=== PATIENT | female | born 1940 | race Caucasian/White ===

== ENCOUNTER → 2018-06-12 | Outpatient (REF) ==
[~2018-06-12] MED LIST: /MOXI40TA OR; ACET500C OR; AMLO2.5T3 PO; BACIOIN13 EXT; BACITRACIN TOP; CAPT12.5 OR; CAPT125TA OR; CARV3.12 PO; CLAR10CA3 PO; CLAR5CHW OR; CORE3.12 OR; FURO20TA2 OR; FURO20TA2 PO; IBUP800T OR; KLOR10TA76 PO; MAGN500T2 OR; NORV5TAB OR; NYSTATIN POWDER TOP; POTA20TA2 OR; PRIL20CA9 PO; PRIL40CA OR; methylprednisolone PO; premarin PO; tylenol OR
[2018-06-12 11:06] LABS: BLOOD UREA NITROGEN 12 MG/DL (7-18); CALCIUM LEVEL 8.9 MG/DL (8.8-10.2); CARBON DIOXIDE LEVEL 29 MEQ/L (21-32); CHLORIDE LEVEL 100 MEQ/L (98-107); CREATININE FOR GFR 0.42 MG/DL (0.55-1.30); GLOMERULAR FILTRATION RATE > 60.0 (>39); GLUCOSE, FASTING 84 MG/DL (70-100); POTASSIUM SERUM 4.3 MEQ/L (3.5-5.1); SODIUM LEVEL 134 MEQ/L (136-145); THYROID STIMULATING HORMONE 0.204 uIU/ML (0.358-3.740)
[2018-06-13 10:28] LABS: FREE T4 1.28 NG/DL (0.76-1.46)
== END ==
LOC: SKLAB7 07:00
PROVIDERS: ATTEND Internal Medicine
DX: E87.1 Hypo-osmolality and hyponatremia (principal)

== ENCOUNTER → 2018-06-17 | Outpatient (REF) ==
[2018-06-17 08:13] LABS: HEMATOCRIT 35.5 % (36.0-47.0); HEMOGLOBIN 11.6 g/dl (12.0-15.5); MEAN CORPUSCULAR HEMOGLOBIN 36.1 pg (27.0-33.0); MEAN CORPUSCULAR HGB CONC 32.7 g/dl (32.0-36.5); MEAN CORPUSCULAR VOLUME 110.6 fl (80.0-96.0); PLATELET COUNT, AUTOMATED 373 10^3/uL (150-450); RED BLOOD COUNT 3.21 10^6/uL (4.00-5.40); WHITE BLOOD COUNT 6.9 10^3/uL (4.0-10.0)
== END ==
LOC: SKLAB7 07:00
PROVIDERS: ATTEND Internal Medicine
DX: D64.9 Anemia, unspecified (principal)

== ENCOUNTER → 2018-07-07 | Outpatient (REF) ==
[2018-07-07 08:29] LABS: ALBUMIN 3.9 GM/DL (3.2-5.2); ALT/SGPT 19 U/L (12-78); BILIRUBIN,TOTAL 0.6 MG/DL (0.2-1.0); BLOOD UREA NITROGEN 15 MG/DL (7-18); CALCIUM LEVEL 9.4 MG/DL (8.8-10.2); CARBON DIOXIDE LEVEL 27 MEQ/L (21-32); CHLORIDE LEVEL 102 MEQ/L (98-107); CREATININE FOR GFR 0.58 MG/DL (0.55-1.30); GLOMERULAR FILTRATION RATE > 60.0 (>39); GLUCOSE, FASTING 106 MG/DL (70-100); POTASSIUM SERUM 3.8 MEQ/L (3.5-5.1); SODIUM LEVEL 138 MEQ/L (136-145); THYROID STIMULATING HORMONE 0.467 uIU/ML (0.358-3.740); TOTAL PROTEIN 7.9 GM/DL (6.4-8.2)
[2018-07-07 11:22] LABS: TOTAL 25(OH) VITAMIN D 24.9 NG/ML (30.0-100.0)
== END ==
LOC: SKLAB7 07:08
PROVIDERS: ATTEND Internal Medicine
DX: F32.9 Major depressive disorder, single episode, unspecified (principal)

== ENCOUNTER → 2018-07-24 | Outpatient (REF) | payer MEDICARE, MEDICAID ==
[2018-07-24 14:08] LABS: HEMATOCRIT 40.1 % (36.0-47.0); HEMOGLOBIN 12.9 g/dl (12.0-15.5); MEAN CORPUSCULAR HEMOGLOBIN 33.5 pg (27.0-33.0); MEAN CORPUSCULAR HGB CONC 32.2 g/dl (32.0-36.5); MEAN CORPUSCULAR VOLUME 104.2 fl (80.0-96.0); PLATELET COUNT, AUTOMATED 262 10^3/uL (150-450); RED BLOOD COUNT 3.85 10^6/uL (4.00-5.40); WHITE BLOOD COUNT 7.3 10^3/uL (4.0-10.0)
[2018-07-24 14:19] LABS: BLOOD UREA NITROGEN 22 MG/DL (7-18); CALCIUM LEVEL 9.5 MG/DL (8.8-10.2); CARBON DIOXIDE LEVEL 28 MEQ/L (21-32); CHLORIDE LEVEL 104 MEQ/L (98-107); CREATININE FOR GFR 0.72 MG/DL (0.55-1.30); GLOMERULAR FILTRATION RATE > 60.0 (>39); GLUCOSE, FASTING 126 MG/DL (70-100); POTASSIUM SERUM 4.5 MEQ/L (3.5-5.1); SODIUM LEVEL 138 MEQ/L (136-145)
== END ==
LOC: SKLAB7 14:24
PROVIDERS: ATTEND Internal Medicine
DX: I48.91 Unspecified atrial fibrillation (principal); E87.1 Hypo-osmolality and hyponatremia

== ENCOUNTER 2018-08-09 14:24 | Emergency (ER) | payer MEDICARE, MEDICAID ==
[~2018-08-09] VITALS: Ht 142.2 cm; Wt 51.9 kg
[~2018-08-09 14:24] MED LIST changes: -/MOXI40TA OR; +AVEL1TAB2 OR; -BACIOIN13 EXT; -CAPT125TA OR; +CAPT125TA PO; +NEOSOI EXT
[2018-08-09] MEDS ORDERED: NS 500 ML IV ONE (14:45)
[2018-08-09] MEDS ORDERED: PANTOPRAZOLE 40MG INJ (PROTONIX) (C9113) IV ONE (14:45)
[2018-08-09] MEDS ORDERED: FURO40TA2 PO (14:51)
[2018-08-09] MEDS ORDERED: CALC1TAB21 PO (14:51)
[2018-08-09] MEDS ORDERED: ACET-683 PO (14:51)
[2018-08-09] MEDS ORDERED: OMEP20CA3 PO (14:51)
[2018-08-09] MEDS ORDERED: ELIQ2.5T PO (14:51)
[2018-08-09] MEDS ORDERED: DESI13CR2 TOP (14:51)
[2018-08-09] MEDS ORDERED: SERT25TA85 PO (14:51)
[2018-08-09] MEDS ORDERED: LOPE2CA PO (14:51)
[2018-08-09] MEDS ORDERED: MILK120011 PO (14:55)
[2018-08-09] MEDS ORDERED: OPTI0.5D5 OU (14:55)
[2018-08-09] MEDS ORDERED: AYR0.65S NARES (14:55)
[2018-08-09] MEDS ORDERED: VITA200015 PO (14:55)
[2018-08-09] MEDS ORDERED: CEPALOZ8 PO (14:55)
[2018-08-09] MEDS ORDERED: SIMV20TA2 PO (14:55)
[2018-08-09 14:58] LABS: BASO % 0.2 % (0.0-1.0); HEMATOCRIT 40.7 % (36.0-47.0); HEMOGLOBIN 13.4 g/dl (12.0-15.5); LYMPH # 1.7 10^3/uL (1.5-4.5); MEAN CORPUSCULAR HEMOGLOBIN 32.8 pg (27.0-33.0); MEAN CORPUSCULAR HGB CONC 32.9 g/dl (32.0-36.5); MEAN CORPUSCULAR VOLUME 99.5 fl (80.0-96.0); MONO # 0.7 10^3/uL (0.0-0.8); MONO % 12.9 % (0.0-5.0); NEUTROPHILS # 2.9 10^3/uL (1.8-7.7); NEUTROPHILS % 54.7 % (36.0-66.0); PLATELET COUNT, AUTOMATED 185 10^3/uL (150-450); RED BLOOD COUNT 4.09 10^6/uL (4.00-5.40); WHITE BLOOD COUNT 5.4 10^3/uL (4.0-10.0)
[2018-08-09] MEDS ORDERED: LOPERAMIDE 2 MG CAP PO ONE (15:00)
[2018-08-09 15:27] LABS: ALBUMIN 3.5 GM/DL (3.2-5.2); ALT/SGPT 19 U/L (12-78); BILIRUBIN,DIRECT 0.2 MG/DL (0.0-0.2); BILIRUBIN,TOTAL 0.4 MG/DL (0.2-1.0); BLOOD UREA NITROGEN 19 MG/DL (7-18); CALCIUM LEVEL 9.1 MG/DL (8.8-10.2); CARBON DIOXIDE LEVEL 25 MEQ/L (21-32); CHLORIDE LEVEL 106 MEQ/L (98-107); CREATININE FOR GFR 0.57 MG/DL (0.55-1.30); GLOMERULAR FILTRATION RATE > 60.0 (>39); GLUCOSE, FASTING 96 MG/DL (70-100); LIPASE 163 U/L (73-393); POTASSIUM SERUM 3.5 MEQ/L (3.5-5.1); SODIUM LEVEL 140 MEQ/L (136-145); TOTAL PROTEIN 7.2 GM/DL (6.4-8.2)
[2018-08-09 17:48] VITALS: BP 148/63
== END 2018-08-09 17:53 | disposition home or self-care (01) ==
LOC: M ED 14:24 → EDBD 14:24 → M ED 17:53
DX: R19.7 Diarrhea, unspecified (principal); I25.10 Atherosclerotic heart disease of native coronary artery without angina pectoris; E11.9 Type 2 diabetes mellitus without complications; I10 Essential (primary) hypertension; K21.9 Gastro-esophageal reflux disease without esophagitis; Z79.01 Long term (current) use of anticoagulants; Z79.899 Other long term (current) drug therapy
CPT/HCPCS: 80048; 80076; 81001; 83690; 85025; 96374; 99284; C9113

== ENCOUNTER → 2018-08-19 | Outpatient (REF) | payer MEDICARE, MEDICAID ==
[~2018-08-19] MED LIST changes: +ACET-683 PO; +AYR0.65S NARES; +CALC1TAB21 PO; +CEPALOZ8 PO; +DESI13CR2 TOP; +ELIQ2.5T PO; +FURO40TA2 PO; +LOPE2CA PO; +MILK120011 PO; +OMEP20CA3 PO; +OPTI0.5D5 OU; +SERT25TA85 PO; +SIMV20TA2 PO; +VITA200015 PO
[2018-08-20 11:00] LABS: AMORPHOUS SEDIMENT SMALL (NEGATIVE); BACTERIA, URINE AUTO 2+ (NEGATIVE); BILIRUBIN, URINE AUTO NEGATIVE (NEGATIVE); BLOOD, URINE BLOOD 2+ (NEGATIVE); COLOR, URINE YELLOW (YELLOW); GLUCOSE, URINE (UA) AUTO NEGATIVE (NEGATIVE); GRANULAR CAST, URINE AUTO 3 /LPF; KETONE, URINE AUTO NEGATIVE (NEGATIVE); LEUKOCYTE ESTERASE, URINE AUTO 3+ (NEGATIVE); NITRITE, URINE AUTO NEGATIVE (NEGATIVE); PROTEIN, URINE AUTO NEGATIVE (NEGATIVE); RBC, URINE AUTO 32 /HPF (0-3); SPECIFIC GRAVITY URINE AUTO 1.019 (1.002-1.035); SQUAMOUS EPITHELIAL CELL UR AU 3 /HPF (0-6); UROBILINOGEN, URINE AUTO 0.2 mg/dL (0.0-2.0); WBC, URINE AUTO TNTC /HPF (0-3)
[2018-08-20 11:06] LABS: APPEARANCE, URINE CLOUDY (CLEAR)
== END ==
PROVIDERS: ATTEND Family Medicine
DX: R32 Unspecified urinary incontinence (principal)

== ENCOUNTER → 2018-11-25 | Outpatient (REF) | payer MEDICARE, MEDICAID ==
[~2018-11-25] MED LIST changes: -OMEP20CA3 PO; +OMEP20CA4 PO
[2018-11-25 08:23] LABS: HEMATOCRIT 28.3 % (36.0-47.0); HEMOGLOBIN 9.1 g/dl (12.0-15.5); MEAN CORPUSCULAR HEMOGLOBIN 27.2 pg (27.0-33.0); MEAN CORPUSCULAR HGB CONC 32.2 g/dl (32.0-36.5); MEAN CORPUSCULAR VOLUME 84.5 fl (80.0-96.0); PLATELET COUNT, AUTOMATED 290 10^3/uL (150-450); RED BLOOD COUNT 3.35 10^6/uL (4.00-5.40); WHITE BLOOD COUNT 6.2 10^3/uL (4.0-10.0)
[2018-11-25 08:58] LABS: ALBUMIN 3.9 GM/DL (3.2-5.2); ALT/SGPT 13 U/L (12-78); BILIRUBIN,TOTAL 0.4 MG/DL (0.2-1.0); BLOOD UREA NITROGEN 14 MG/DL (7-18); CALCIUM LEVEL 9.4 MG/DL (8.8-10.2); CARBON DIOXIDE LEVEL 29 MEQ/L (21-32); CHLORIDE LEVEL 99 MEQ/L (98-107); CHOLESTEROL LEVEL 176 MG/DL (<200); CHOLESTEROL RISK RATIO 1.934 (<5); CPK CREATINE PHOSPHOKINASE 53 U/L (26-192); CREATININE FOR GFR 0.54 MG/DL (0.55-1.30); GLOMERULAR FILTRATION RATE > 60.0 (>39); GLUCOSE, FASTING 86 MG/DL (70-100); HDL CHOLESTEROL 91 MG/DL (>40); LDL CHOLESTEROL 64 MG/DL (<100); NON-HDL-C 85 MG/DL; NT-PRO BNP 916 PG/ML (<450); POTASSIUM SERUM 4.3 MEQ/L (3.5-5.1); SODIUM LEVEL 133 MEQ/L (136-145); THYROID STIMULATING HORMONE 0.462 uIU/ML (0.358-3.740); TOTAL PROTEIN 7.9 GM/DL (6.4-8.2); TRIGLYCERIDES LEVEL 105 MG/DL (<150)
[2018-11-25 09:57] LABS: TOTAL 25(OH) VITAMIN D 21.6 NG/ML (30.0-100.0)
== END ==
PROVIDERS: ATTEND Family Medicine
DX: I10 Essential (primary) hypertension (principal); E78.2 Mixed hyperlipidemia; I50.9 Heart failure, unspecified; E55.9 Vitamin D deficiency, unspecified; Z79.899 Other long term (current) drug therapy

== ENCOUNTER → 2019-01-06 | Outpatient (REF) | payer MEDICARE, MEDICAID ==
[2019-01-06 09:49] LABS: HEMATOCRIT 31.1 % (36.0-47.0); HEMOGLOBIN 9.4 g/dl (12.0-15.5); MEAN CORPUSCULAR HEMOGLOBIN 23.2 pg (27.0-33.0); MEAN CORPUSCULAR HGB CONC 30.2 g/dl (32.0-36.5); MEAN CORPUSCULAR VOLUME 76.8 fl (80.0-96.0); PLATELET COUNT, AUTOMATED 294 10^3/uL (150-450); RED BLOOD COUNT 4.05 10^6/uL (4.00-5.40); WHITE BLOOD COUNT 5.7 10^3/uL (4.0-10.0)
[2019-01-06 10:31] LABS: ALT/SGPT 13 U/L (12-78); BILIRUBIN,TOTAL 0.4 MG/DL (0.2-1.0); BLOOD UREA NITROGEN 19 MG/DL (7-18); CALCIUM LEVEL 9.7 MG/DL (8.8-10.2); CARBON DIOXIDE LEVEL 31 MEQ/L (21-32); CHLORIDE LEVEL 101 MEQ/L (98-107); GLOMERULAR FILTRATION RATE > 60.0 (>39); GLUCOSE, FASTING 85 MG/DL (70-100); NT-PRO BNP 718 PG/ML (<450); POTASSIUM SERUM 4.6 MEQ/L (3.5-5.1); SODIUM LEVEL 135 MEQ/L (136-145); THYROID STIMULATING HORMONE 0.429 uIU/ML (0.358-3.740); TOTAL 25(OH) VITAMIN D 28.8 NG/ML (30.0-100.0)
== END ==
PROVIDERS: ATTEND Family Medicine
DX: I11.0 Hypertensive heart disease with heart failure (principal); I50.9 Heart failure, unspecified; I48.1 Persistent atrial fibrillation; E55.9 Vitamin D deficiency, unspecified

== ENCOUNTER → 2019-01-20 | Outpatient (REF) | payer MEDICARE, MEDICAID ==
[2019-01-20 10:26] LABS: HEMATOCRIT 31.9 % (36.0-47.0); HEMOGLOBIN 9.8 g/dl (12.0-15.5); MEAN CORPUSCULAR HEMOGLOBIN 23.7 pg (27.0-33.0); MEAN CORPUSCULAR HGB CONC 30.7 g/dl (32.0-36.5); MEAN CORPUSCULAR VOLUME 77.2 fl (80.0-96.0); PLATELET COUNT, AUTOMATED 316 10^3/uL (150-450); RED BLOOD COUNT 4.13 10^6/uL (4.00-5.40); WHITE BLOOD COUNT 7.2 10^3/uL (4.0-10.0)
[2019-01-20 10:40] LABS: BLOOD UREA NITROGEN 19 MG/DL (7-18); CALCIUM LEVEL 10.1 MG/DL (8.8-10.2); CARBON DIOXIDE LEVEL 26 MEQ/L (21-32); CHLORIDE LEVEL 100 MEQ/L (98-107); GLOMERULAR FILTRATION RATE > 60.0 (>39); GLUCOSE, FASTING 87 MG/DL (70-100); IRON (FE) 24 UG/DL (50-170); POTASSIUM SERUM 4.6 MEQ/L (3.5-5.1); SODIUM LEVEL 135 MEQ/L (136-145); TOTAL IRON BINDING CAPACITY 482 UG/DL (250-450)
[2019-01-20 11:20] LABS: FOLATE 23.4 NG/ML (>5.4); TOTAL 25(OH) VITAMIN D 21.9 NG/ML (30.0-100.0); VITAMIN B12 LEVEL 878 PG/ML (247-911)
== END ==
PROVIDERS: ATTEND Family Medicine
DX: E55.9 Vitamin D deficiency, unspecified (principal); D50.9 Iron deficiency anemia, unspecified; E87.1 Hypo-osmolality and hyponatremia

== ENCOUNTER → 2019-03-17 | Outpatient (REF) | payer MEDICARE, MEDICAID | PROVIDERS: ATTEND Family Medicine | DX: D64.9 Anemia, unspecified (principal); Z79.899 Other long term (current) drug therapy ==

== ENCOUNTER 2019-04-08 13:57 | Emergency (ER) | payer MEDICARE, MEDICAID ==
[~2019-04-08] VITALS: Ht 149.9 cm; Wt 57.3 kg
[~2019-04-08 13:57] MED LIST changes: -SIMV20TA2 PO; +SIMV20TA22 PO
[2019-04-08] MEDS ORDERED: SPIR-10 PO (14:42)
[2019-04-08] MEDS ORDERED: MAALSUS19 PO (14:42)
[2019-04-08] MEDS ORDERED: COUG5LIQ PO (14:42)
[2019-04-08] MEDS ORDERED: SERT-141 PO (14:42)
[2019-04-08] MEDS ORDERED: CALC1TAB82 PO (14:42)
[2019-04-08] MEDS ORDERED: ASCO500T PO (14:42)
[2019-04-08] MEDS ORDERED: MYLASSUD PO (14:42)
[2019-04-08] MEDS ORDERED: FERR1TAB8 PO (14:42)
[2019-04-08] MEDS ORDERED: MOM30SS2 PO (14:42)
[2019-04-08 15:31] VITALS: BP 139/67
== END 2019-04-08 16:23 | disposition home or self-care (01) ==
LOC: M ED 13:57
DX: N81.10 Cystocele, unspecified (principal); N89.8 Other specified noninflammatory disorders of vagina; I10 Essential (primary) hypertension; K21.9 Gastro-esophageal reflux disease without esophagitis; Z79.899 Other long term (current) drug therapy; Z79.01 Long term (current) use of anticoagulants

== ENCOUNTER → 2019-06-22 | Outpatient (REF) | payer MEDICARE, MEDICAID ==
[~2019-06-22] MED LIST changes: +ASCO500T PO; +CALC1TAB82 PO; +COUG5LIQ PO; +FERR1TAB8 PO; +MAALSUS19 PO; +MOM30SS2 PO; +MYLASSUD PO; +OMEP1CAP73 PO; -OMEP20CA4 PO; +SERT-141 PO; +SPIR-10 PO
[2019-06-22 11:50] LABS: BASO % 0.1 % (0.0-1.0); EOS % 0.1 % (0.0-3.0); HEMATOCRIT 40.6 % (36.0-47.0); HEMOGLOBIN 13.5 g/dl (12.0-15.5); LYMPH # 2.3 10^3/uL (1.5-5.0); LYMPH % 34.5 % (24.0-44.0); MEAN CORPUSCULAR HEMOGLOBIN 31.1 pg (27.0-33.0); MEAN CORPUSCULAR HGB CONC 33.3 g/dl (32.0-36.5); MEAN CORPUSCULAR VOLUME 93.5 fl (80.0-96.0); MONO # 0.6 10^3/uL (0.0-0.8); MONO % 8.7 % (0.0-5.0); NEUTROPHILS # 3.8 10^3/uL (1.5-8.5); NEUTROPHILS % 56.5 % (36.0-66.0); PLATELET COUNT, AUTOMATED 257 10^3/uL (150-450); RED BLOOD COUNT 4.34 10^6/uL (4.00-5.40); WHITE BLOOD COUNT 6.7 10^3/uL (4.0-10.0)
[2019-06-22 12:28] LABS: ALBUMIN 4.4 GM/DL (3.2-5.2); ALT/SGPT 18 U/L (12-78); BILIRUBIN,TOTAL 0.6 MG/DL (0.2-1.0); BLOOD UREA NITROGEN 22 MG/DL (7-18); CALCIUM LEVEL 10.2 MG/DL (8.8-10.2); CARBON DIOXIDE LEVEL 28 MEQ/L (21-32); CHLORIDE LEVEL 95 MEQ/L (98-107); CHOLESTEROL LEVEL 164 MG/DL (<200); CHOLESTEROL RISK RATIO 2.075 (<5); CREATININE FOR GFR 0.76 MG/DL (0.55-1.30); GLOMERULAR FILTRATION RATE > 60.0 (>39); GLUCOSE, FASTING 100 MG/DL (70-100); HDL CHOLESTEROL 79 MG/DL (>40); IRON (FE) 98 UG/DL (50-170); LDL CHOLESTEROL 68 MG/DL (<100); NON-HDL-C 85 MG/DL; PERCENT SATURATION 26.1 % (13.2-45.0); POTASSIUM SERUM 4.4 MEQ/L (3.5-5.1); SODIUM LEVEL 130 MEQ/L (136-145); TOTAL IRON BINDING CAPACITY 376 UG/DL (250-450); TOTAL PROTEIN 8.5 GM/DL (6.4-8.2); TRIGLYCERIDES LEVEL 85 MG/DL (<150)
[2019-06-22 12:43] LABS: TOTAL 25(OH) VITAMIN D 29.8 NG/ML (30.0-100.0)
== END ==
PROVIDERS: ATTEND Family Medicine
DX: D50.8 Other iron deficiency anemias (principal); I10 Essential (primary) hypertension; E55.9 Vitamin D deficiency, unspecified; Z79.899 Other long term (current) drug therapy

== ENCOUNTER → 2019-07-14 | Outpatient (REF) | payer MEDICARE, MEDICAID ==
[~2019-07-14] MED LIST changes: +DEXT30SU29 PO; +DRIS50003 PO; +LOPE2TAB14 PO; +SERT-138 PO
== END ==
PROVIDERS: ATTEND Family Medicine
DX: E55.9 Vitamin D deficiency, unspecified (principal); E83.51 Hypocalcemia; Z79.899 Other long term (current) drug therapy

== ENCOUNTER 2019-07-26 06:04 | Inpatient (IN) | payer MEDICARE, MEDICAID ==
[~2019-07-26] VITALS: Ht 149.9 cm; Wt 56.5 kg
[~2019-07-26 06:04] MED LIST changes: -DEXT30SU29 PO; -DRIS50003 PO; -LOPE2TAB14 PO; -SERT-138 PO
[2019-07-26] MEDS ORDERED: SERT-138 PO (06:44)
[2019-07-26] MEDS ORDERED: LOPE2TAB14 PO (06:44)
[2019-07-26] MEDS ORDERED: DEXT30SU29 PO (06:44)
[2019-07-26] MEDS ORDERED: DRIS50003 PO (06:44)
[2019-07-26 06:59] LABS: BASO % 0.2 % (0.0-1.0); HEMATOCRIT 38.2 % (36.0-47.0); HEMOGLOBIN 12.9 g/dl (12.0-15.5); LYMPH # 1.6 10^3/uL (1.5-5.0); LYMPH % 19.1 % (24.0-44.0); MEAN CORPUSCULAR HEMOGLOBIN 31.5 pg (27.0-33.0); MEAN CORPUSCULAR HGB CONC 33.8 g/dl (32.0-36.5); MEAN CORPUSCULAR VOLUME 93.4 fl (80.0-96.0); MONO # 0.7 10^3/uL (0.0-0.8); MONO % 8.1 % (0.0-5.0); NEUTROPHILS # 6.1 10^3/uL (1.5-8.5); NEUTROPHILS % 72.1 % (36.0-66.0); PLATELET COUNT, AUTOMATED 195 10^3/uL (150-450); RED BLOOD COUNT 4.09 10^6/uL (4.00-5.40); WHITE BLOOD COUNT 8.5 10^3/uL (4.0-10.0)
[2019-07-26 07:16] LABS: INR 1.11; PARTIAL THROMBOPLASTIN TIME 33.8 SECONDS (25.0-38.4)
[2019-07-26 07:28] LABS: ALBUMIN 4.4 GM/DL (3.2-5.2); ALT/SGPT 23 U/L (12-78); BILIRUBIN,DIRECT 0.2 MG/DL (0.0-0.2); BILIRUBIN,TOTAL 0.6 MG/DL (0.2-1.0); BLOOD UREA NITROGEN 11 MG/DL (7-18); CALCIUM LEVEL 9.5 MG/DL (8.8-10.2); CARBON DIOXIDE LEVEL 28 MEQ/L (21-32); CHLORIDE LEVEL 96 MEQ/L (98-107); CPK CREATINE PHOSPHOKINASE 205 U/L (26-192); CREATININE FOR GFR 0.54 MG/DL (0.55-1.30); GLOMERULAR FILTRATION RATE > 60.0 (>39); GLUCOSE, FASTING 102 MG/DL (70-100); MB/CK RELATIVE INDEX 1.46 (< OR =4); POTASSIUM SERUM 3.6 MEQ/L (3.5-5.1); SODIUM LEVEL 130 MEQ/L (136-145); THYROID STIMULATING HORMONE 0.384 uIU/ML (0.358-3.740); TOTAL PROTEIN 8.2 GM/DL (6.4-8.2); TROPONIN I < 0.02 NG/ML (< 0.10)
--- NOTE | 2019-07-26 07:30 | REPVR ---
PROCEDURE INFORMATION: Exam: CT Head Without Contrast Exam date and time: 07/26/2019 7:16 AM Age: 79 years old Clinical indication: Injury or trauma; Fall; Initial encounter; Blunt trauma (contusions or hematomas); Consciousness not specified TECHNIQUE: Imaging protocol: Computed tomography of the head without contrast. Radiation optimization: All CT scans at this facility use at least one of these dose optimization techniques: automated exposure control; mA and/or kV adjustment per patient size (includes targeted exams where dose is matched to clinical indication); or iterative reconstruction. COMPARISON: No relevant prior studies available. FINDINGS: Brain: Moderate generalized cerebral volume loss and moderate patchy white matter hypoattenuation, commonly secondary to chronic small vessel ischemic change. Moderate intracranial atherosclerosis. No acute ischemic infarction. No acute intracranial hemorrhage. Ventricles: No ventriculomegaly. Bones/joints: No acute fracture. Sinuses: Visualized sinuses are unremarkable. No fluid levels. Mastoid air cells: Visualized mastoid air cells are well aerated. Soft tissues: Unremarkable. IMPRESSION: No acute intracranial abnormality. Electronically signed by: Alexandre Garnett On 07/26/2019 07:29:39 AM
[2019-07-26] MEDS ORDERED: NS 1,000 ML IV ONE (10:15)
[2019-07-26] MEDS ORDERED: ACETAMINOPHEN 325 MG TAB PO ONE (10:30)
--- NOTE | 2019-07-26 12:17 | REP ---
REASON FOR EXAM: Trauma. AP and cross-table lateral views of the left femur show lucency in the posterior femoral diaphysis, suggestive of a fracture. The exam is markedly limited. IMPRESSION: Possible distal left femoral fracture. CT is recommended. Electronically Signed by Kumar Nicolas DO 07/26/2019 12:21 P
--- NOTE | 2019-07-26 12:21 | REP ---
REASON: Pain after trauma. The examination is limited by artifact. I cannot rule out a fracture involving the greater trochanter of the left femur. The bones are markedly demineralized. Additional pelvic fractures cannot be ruled out. Bony pelvic CT, including the left hip, is recommended. Electronically Signed by Kumar Nicolas DO 07/26/2019 12:23 P
--- NOTE | 2019-07-26 12:23 | REP ---
REASON: Pain after trauma. COMPARISON: The latest prior two-view of 01/01/2011. Lung price are hypoexpanded. This crowds the vascularity and simulates abnormal opacities. The cardiac silhouette is also magnified by AP technique. When the examination is compared to the latest prior exam of 01/01/2011, there are no gross changes other than technique. There is no definite acute cardiopulmonary disease. Electronically Signed by Kumar Nicolas DO 07/26/2019 12:34 P
--- NOTE | 2019-07-26 12:26 | REP ---
REASON: Pain after trauma. PRIORS: None. The exam is limited. The cross-table lateral view is nondiagnostic. I cannot rule out a hip fracture. Left hip CT is recommended. Electronically Signed by Kumar Nicolas DO 07/26/2019 12:34 P
--- NOTE | 2019-07-26 12:29 | REP ---
REASON: Pain after trauma. PRIORS: None. The exam is limited by technique. There is no true AP, and the lateral views are cross-table lateral. The bones are markedly demineralized. I see no evidence of a gross fracture. Please see the left knee and left femur reports. The distal fibula cannot be well assessed by this exam, nor can the posterior malleolus. If the patient has ankle pain, consider an ankle series. Electronically Signed by Kumar Nicolas DO 07/26/2019 12:34 P
[2019-07-26] MEDS ORDERED: DEXTROMETHORPHAN 60MG/10ML SUSP 90ML BTL(DELSYM) PO PRN (12:45)
[2019-07-26] MEDS ORDERED: MAALOX 30 ML SUSP *UDC PO PRN (12:45)
[2019-07-26] MEDS ORDERED: LOPERAMIDE 2 MG CAPLET PO PRN (12:45)
[2019-07-26] MEDS ORDERED: SODIUM CHLORIDE NASAL 0.65% SPRAY BTL (OCEAN) PRN (12:45)
--- NOTE | 2019-07-26 13:08 | REP ---
The exam is limited by technique. The bones are demineralized. There is a lucency seen in the distal femur. I suspect this represents a fracture; however, CT is recommended. In addition, there is a slight overhanging cortex involving the medial tibial metaphysis, also possibly representing a slight compression fracture. CT should include the proximal tibia. Electronically Signed by Kumar Nicolas DO 07/26/2019 01:23 P
--- NOTE | 2019-07-26 13:29 | HPEPDOC ---
General Date of Admission Jul 26, 2019 at 12:39 Date of Service: Jul 26, 2019 Chief Complaint The patient is a 79-year-old female admitted with a reason for visit of Lt Femur Fx. Source: Patient, Family Exam Limitations: Mild cognitive slowing Timing/Duration: 4-6 hours Severity: Moderate Associated Symptoms: Mechanical fall History of Present Illness Patient is 79 years old female with past mental history of hypertension, paroxysmal atrial fibrillation, diastolic heart failure, chronic hyponatremia, chronic anemia brought to the hospital after mechanical fall. In emergency room patient was found to have left distal femur fracture on x-ray. CT head was negative. Lab workup showed no leukocytosis, hemoglobin 12.9, creatinine 0.54. Patient denied fever, chills, nausea, vomiting, diarrhea. Also patient denied chest pain, shortness of breath. Of note, patient had multiple falls in the past. Home Medications Scheduled Acetaminophen (Acetaminophen) 500 Mg Tab, 1,000 MG PO TID, (Reported) AT 0800, 1400, AND 2000. Apixaban (Eliquis) 2.5 Mg Tab, 2.5 MG PO BID, (Reported) Ascorbic Acid (Ascorbic Acid) 500 Mg Tablet, 500 MG PO TID, (Reported) Calcium Carbonate/Vitamin D3 (Calcium 600-Vit D3 400 Tablet) 1 Each Tablet, 1 TAB PO BID, (Reported) Captopril (Captopril) 12.5 Mg Tab, 12.5 MG PO DAILY, (Reported) Carboxymethylcellulos/Glycerin (Refresh Optive Eye Drops) 1 Devon Devon, 2 DROP OU BID, (Reported) Carvedilol (Carvedilol) 3.125 Mg Tab, 3.125 MG PO DAILY, (Reported) Ergocalciferol (Vitamin D2) (Drisdol) 1,250 Mcg Capsule, 1,250 MCG PO 1XWK, (Reported) SATURDAY Ferrous Sulfate (Ferrous Sulfate) 325 Mg Tablet, 325 MG PO TID, (Reported) Furosemide (Furosemide) 40 Mg Tab, 40 MG PO DAILY, (Reported) Loratadine (Claritin) 10 Mg Cap, 10 MG PO DAILY, (Reported) Omeprazole (Omeprazole) 20 Mg Cap, 20 MG PO DAILY, (Reported) Potassium Chloride (Klor-Con M10) 10 Meq Tabcr, 10 MEQ PO BID, (Reported) Sertraline HCl (Sertraline HCl) 100 Mg Tablet, 100 MG PO QHS, (Reported) 1999 Simvastatin (Simvastatin) 20 Mg Tab, 20 MG PO QHS, (Reported) Spironolactone (Spironolactone) 25 Mg Tablet, 12.5 MG PO DAILY, (Reported) Scheduled PRN Aluminum/Magnesium/Simeth (Mag-Al Plus Suspension) 30 Ml Oral.susp, 30 ML PO QID PRN for HEARTBURN, (Reported) Dextromethorphan Polistirex (Robitussin ER) 30 Mg/5 Ml Brooke.er.12h, 5 ML PO Q12H PRN for COUGH, (Reported) Loperamide HCl (Loperamide) 2 Mg Tablet, 4 MG PO ASDIRECTED PRN for AFTER EACH LOOSE STOOL, (Reported) 4MG, THEN 2MG AFTER EACH LOOSE STOOL Mag Hydrox/Aluminum Hyd/Simeth (Maalox Maximum Strength Susp) 355 Ml Oral.susp, 30 ML PO QID PRN for GERD, (Reported) Magnesium Hydroxide (Milk of Magnesia) 400 Mg/5 Ml Oral.susp, 2,400 MG PO DAILY PRN for CONSTIPATION, (Reported) Sodium Chloride (Ventura Saline) 0.65 % Spr, 2 SPRAYS NARES TID PRN for NASAL CONGESTION, (Reported) Zinc Oxide (Desitin) 13 % Cre, 1 APLCT TOP ASDIRECTED PRN for RASH/ITCHING, (R eported) Allergies Coded Allergies: No Known Allergies (Verified , 12/24/10) Past Medical History Medical History hypertension, paroxysmal atrial fibrillation, diastolic heart failure, chronic hyponatremia, chronic anemia Surgical History Repair of right femur Family History Mother had diabetes Social History * Smoker: Denies Alcohol: Denies Drugs: denies A-FIB/CHADSVASC A-FIB History Current/History of A-Fib/PAF?: Yes Current PO Anticoag Therapy: Yes Review of Systems Constitutional: Denies: Chills, Fever Eyes: Denies: Pain ENT: Denies: Head Aches Skin: Denies: Rash, Lesions Pulmonary: Denies: Dyspnea, Cough Cardiovascular: Denies: Chest Pain Gastrointestinal: Denies: Nausea, Vomiting Genitourinary: Reports: Dysuria, Frequency, Incontinence; Denies: Hematuria Hematologic: Denies: Bruising Endocrine: Denies: Polydipsia Musculoskeletal: Reports: Leg Pain; Denies: Neck Pain, Back Pain Neurological: Denies: Weakness Psych: Reports: Mood Normal Physical Examination General Exam: Positive: Alert, Cooperative Eye Exam: Positive: PERRLA, Conjunctiva & lids normal ENT Exam: Positive: Atraumatic Neck Exam: Positive: Supple; Negative: JVD Chest Exam: Positive: Clear to auscultation Heart Exam: Positive: Rate Normal, Irregular Rhythm Telemetry: Positive: Atrial fibrillation; Negative: No significant arrhythmia Abdomen Exam: Positive: Normal bowel sounds Extremity Exam: Negative: Clubbing Skin Exam: Positive: Nl turgor and temperature Neuro Exam: Positive: Strength at 5/5 X4 ext, Cranial Nerves 3-12 NL Psych Exam: Positive: Mental status NL Vital Signs Vital Signs Date Time Temp Pulse Resp B/P (MAP) Pulse Ox O2 Delivery O2 Flow Rate FiO2 07/26/19 12:34 89 07/26/19 12:30 16 125/77 (93) 07/26/19 10:04 95 07/26/19 06:20 98.5 Room Air Laboratory Data Labs 24H Laboratory Tests 2 07/26/19 06:32: Immature Granulocyte % (Auto) 0.5, Neutrophils (%) (Auto) 72.1H, Lymphocytes (%) (Auto) 19.1L, Monocytes (%) (Auto) 8.1H, Eosinophils (%) (Auto) 0.0, Basophils (%) (Auto) 0.2, Neutrophils # (Auto) 6.1, Lymphocytes # (Auto) 1.6, Monocytes # (Auto) 0.7, Eosinophils # (Auto) 0.0, Basophils # (Auto) 0.0, Nucleated Red Blood Cells % (auto) 0.0, Prothrombin Time 14.0, Prothromb Time International Ratio 1.11, Activated Partial Thromboplast Time 33.8, Anion Gap 6L, Glomerular Filtration Rate > 60.0, Lactic Acid Level 1.2, Calcium Level 9.5, Total Bilirubin 0.6, Direct Bilirubin 0.2, Aspartate Amino Transf (AST/SGOT) 22, Alanine Aminotransferase (ALT/SGPT) 23, Alkaline Phosphatase 73, Total Creatine Kinase 205H, Creatine Kinase MB 3.0, Creatine Kinase MB Relative Index 1.46, Troponin I < 0.02, Total Protein 8.2, Albumin 4.4, Albumin/Globulin Ratio 1.16, Thyroid Stimulating Hormone (TSH) 0.384 CBC/BMP Laboratory Tests 07/26/19 06:32 Microbiology Microbiology 07/26/19 Blood Culture, Received Pending Assessment/Plan Patient is 79 years old female with past mental history of hypertension, paroxysmal atrial fibrillation, diastolic heart failure, chronic hyponatremia, chronic anemia brought to the hospital after mechanical fall. In emergency room patient was found to have left distal femur fracture on x-ray. CT head was ne gative. Lab workup showed no leukocytosis, hemoglobin 12.9, creatinine 0.54. Patient denied fever, chills, nausea, vomiting, diarrhea. Also patient denied chest pain, shortness of breath. Of note, patient had multiple falls in the past. Problems (1) Femur fracture, left Status: Acute Problem Text: After mechanical fall Left leg x-ray showed distal femur fracture, pending CT Appreciate/agree with orthopedic surgeon consult RCRI is < 1, pt can proceed with orthopedic surgery (2) Fall Status: Acute Problem Text: See above PT/OT evaluation (3) Hypertension Status: Chronic Problem Text: Blood pressures under control Continue home meds (4) Diastolic heart failure Status: Chronic Problem Text: Not in acute exacerbation Continue Lasix by mouth (5) Atrial fibrillation Status: Chronic Problem Text: Heart rate is under control I will hold oral targeted anticoagulation therapy due to possible surgery today or tomorrow Plan / VTE VTE Prophylaxis Ordered?: Yes KAROL MONTOYA DO Jul 26, 2019 13:29
[2019-07-26] MEDS ORDERED: D5W/0.9% SODIUM CHLORIDE 1,000 ML IV SCH (14:00)
[2019-07-26] MEDS ORDERED: POTASSIUM CHLORIDE 10 MEQ SR TABLET PO ONE (14:00)
[2019-07-26] MEDS: OMEPRAZOLE 20 MG CAP PO SCH (14:37)
[2019-07-26] MEDS: CARVedilol 3.125 MG TAB PO SCH (14:37)
[2019-07-26] MEDS: ASCORBIC ACID 500 MG TAB PO SCH ×2 (14:38→20:07)
[2019-07-26] MEDS: FUROSEMIDE 40 MG TAB PO SCH (14:38)
[2019-07-26] MEDS: FERROUS SULFATE 325MG TAB PO SCH ×2 (14:42→20:07)
--- NOTE | 2019-07-26 15:20 | REP ---
REASON: Pain after trauma. PRIORS: None. The bones are demineralized. Chronic changes are seen involving the hips, sacroiliac joints, symphysis pubis, and imaged portion of the spine. There is no evidence of an acute fracture. 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 I have no priors for comparison. Electronically Signed by Kumar Nicolas DO 07/26/2019 03:27 P
--- NOTE | 2019-07-26 15:22 | REP ---
REASON: Recent trauma; assess for fracture. Limited plain film evaluation. There is a fracture of the distal femoral metaphysis through the lateral condyle. This has an intra-articular component. Bones are markedly demineralized. No definite additional fractures are noted. IMPRESSION: Distal femoral fracture with associated soft tissue swelling. Electronically Signed by Kumar Nicolas DO 07/26/2019 03:27 P
[2019-07-26 15:23] VITALS: BP 130/82
[2019-07-26] MEDS: CAPTOpril 12.5 MG TAB PO SCH (17:00)
[2019-07-26] MEDS: ACETAMINOPHEN TAB 650MG DOSE (2X325MG) PO PRN (19:43)
[2019-07-26] MEDS: POTASSIUM CHLORIDE 10 MEQ SR TABLET PO SCH (20:07)
[2019-07-26] MEDS: SIMVASTATIN 20 MG TAB PO SCH (20:07)
[2019-07-26] MEDS: SERTRALINE 100 MG TAB PO SCH (20:07)
[2019-07-26] MEDS ORDERED: HEPARIN SOD (PORCINE) 5000 UNITS/ML VIAL (J1644 PER 1000UNITS) SC SCH (21:00)
[2019-07-26 21:18] VITALS: BP 111/61
[2019-07-27] MEDS: ACETAMINOPHEN TAB 650MG DOSE (2X325MG) PO PRN ×5 (00:02→21:46)
[2019-07-27 05:16] VITALS: BP 120/70
[2019-07-27] MEDS: LR 1,000 ML IV SCH ×2 (05:57→21:48)
[2019-07-27] MEDS ORDERED: ceFAZolin SOD 2 GM in IV 1 EA IV SCH (06:00)
--- NOTE | 2019-07-27 06:32 | CR ---
DATE OF CONSULTATION: 07/26/2019 CHIEF COMPLAINT: Left distal femur fracture. HISTORY: This 79-year-old woman with a multiple medical comorbidities said that she was at home and came in after a mechanical fall at home and was complaining of left knee pain. She told me that she lives independently. CT of the head negative. No elevated white count. Hemoglobin 12.9, creatinine 0.54. The patient indicates the left knee is painful. The patient indicates that she had right knee surgery she thinks in [place] some years ago. The patient complains about only having Rice Krispies. MEDICATIONS AT HOME INCLUDE: - Tylenol - Eliquis - vitamin C - Captopril - eye drops - Carvedilol - ergocalciferol - iron - Lasix - loratadine - omeprazole - potassium chloride - sertraline - simvastatin - spironolactone ALLERGIES: NO KNOWN DRUG ALLERGIES. PAST MEDICAL HISTORY: 1. Hypertension. 2. Atrial fibrillation. 3. Heart failure. 4. Chronic hyponatremia. 5. Chronic anemia. 6. Some elements of cognitive decline. PAST SURGICAL HISTORY: Open reduction internal fixation (ORIF) of right knee, femur. FAMILY HISTORY: Noncontributory, maternal diabetes. SOCIAL HISTORY: She does not smoke, drink or do drugs. REVIEW OF SYSTEMS: She is not complaining of shortness of breath, blurry vision, ear, nose or throat problems. No shortness of breath, skin problems, chest pain, stomach pain, urinary symptoms, easy bruising, endocrine problems. She complains of left knee pain. She is not complaining of depression. She is not complaining of numbness. CLINICAL EXAMINATION: GENERAL: She is alert and cooperative; however, she seems to be confused and somewhat of a capable confabulater. In discussion with nursing she had asked for Rice Krispies for dinner, she had declined spaghetti for example. She asked me to get some sugar that she had in her bedside table yet the bedside table is empty, I suspect that is where she keeps the sugar at home. She seems to be confused. HEENT: Normocephalic, atraumatic. CHEST: No shortness of breath. ABDOMEN: No abdominal distension. EXTREMITIES: Tenderness around the left knee, mild edema. Calf is soft, she is in a knee immobilizer, left knee nontender. No effusion. IMAGING STUDIES: Supracondylar femoral fracture not displaced with some comminution. IMPRESSION: Supracondylar femoral fracture. RECOMMENDATIONS: I did review the CT scan as well as the plain films. This could be an operative intervention; however the other options could include nonoperative care in the knee immobilizer. I will plan to discuss that potential intervention with the patient's family member who was not present at the time of the exam. I did discuss potential intervention or conservative measures with the patient who did not really seem to understand completely the gravity of the situation there. If we consider a surgical intervention, we would consider that next week. I was asked to see this patient at the request of the emergency room as well as Dr. Light of the hospitalist service.
[2019-07-27 07:03] LABS: HEMATOCRIT 30.8 % (36.0-47.0); HEMOGLOBIN 10.4 g/dl (12.0-15.5); MEAN CORPUSCULAR HEMOGLOBIN 31.3 pg (27.0-33.0); MEAN CORPUSCULAR HGB CONC 33.8 g/dl (32.0-36.5); MEAN CORPUSCULAR VOLUME 92.8 fl (80.0-96.0); PLATELET COUNT, AUTOMATED 166 10^3/uL (150-450); RED BLOOD COUNT 3.32 10^6/uL (4.00-5.40); WHITE BLOOD COUNT 7.1 10^3/uL (4.0-10.0)
[2019-07-27 07:20] LABS: BLOOD UREA NITROGEN 11 MG/DL (7-18); CALCIUM LEVEL 8.9 MG/DL (8.8-10.2); CARBON DIOXIDE LEVEL 25 MEQ/L (21-32); CHLORIDE LEVEL 99 MEQ/L (98-107); CREATININE FOR GFR 0.43 MG/DL (0.55-1.30); GLOMERULAR FILTRATION RATE > 60.0 (>39); GLUCOSE, FASTING 107 MG/DL (70-100); MAGNESIUM LEVEL 2.1 MG/DL (1.8-2.4); SODIUM LEVEL 132 MEQ/L (136-145)
--- NOTE | 2019-07-27 07:22 | ECGEPIP ---
[facility] - ED Test Date: 2019-07-26 Pat Name: RICHA DIAZ Department: Room: - Gender: Female Skein Drier: svennoel : 1940 Requested By: Ellis Stone Order Number: [id number] Reading MD: Tatiana Louis Measurements Intervals Conde Rate: 90 P: 81 WI: 253 QRS: -4 QRSD: 86 T: 14 QT: 355 QTc: 435 Interpretive Statements SINUS RHYTHM WITH FIRST DEGREE AV BLOCK SEPTAL MYOCARDIAL INFARCTION, PROBABLY OLD NSTTW abnormalities NO PRIOR Electronically Signed on 07-27-2019 7:22:11 EDT by Tatiana Louis
[2019-07-27] MEDS: HEPARIN SOD (PORCINE) 5000 UNITS/ML VIAL (J1644 PER 1000UNITS) SQ SCH ×2 (08:53→21:46)
[2019-07-27] MEDS: FUROSEMIDE 40 MG TAB PO SCH (08:53)
[2019-07-27] MEDS: ASCORBIC ACID 500 MG TAB PO SCH ×3 (08:53→21:47)
[2019-07-27] MEDS: CARVedilol 3.125 MG TAB PO SCH (08:55)
[2019-07-27] MEDS: POTASSIUM CHLORIDE 10 MEQ SR TABLET PO SCH ×2 (08:55→21:47)
[2019-07-27] MEDS: OMEPRAZOLE 20 MG CAP PO SCH (08:55)
[2019-07-27] MEDS: LORATADINE 10 MG TAB PO SCH (08:55)
[2019-07-27] MEDS: FERROUS SULFATE 325MG TAB PO SCH ×3 (08:56→21:47)
[2019-07-27] MEDS: CAPTOpril 12.5 MG TAB PO SCH (08:56)
[2019-07-27] MEDS: SPIRONOLACTONE 12.5MG PER 1/2 TABLET PO SCH (08:56)
[2019-07-27 14:00] VITALS: BP 102/62
--- NOTE | 2019-07-27 14:30 | IPNPDOC ---
Date Seen The patient was seen on 07/27/19. Progress Note SUBJECTIVE: Patient was seen and examined this morning. There have been no adverse events reported overnight. She states that has pain in her left leg however it is fairly controlled. She denies any nausea or vomiting. She denies diarrhea or constipation. She denies shortness of breath or chest pain. Patient NPO overnight with hopes of possible surgery today. Unfortunately patient had been taking Eliquis at home OBJECTIVE PHYSICAL EXAMINATION: VITAL SIGNS: Please see below. GENERAL: Awake, alert and oriented. Appear in no acute distress. Lying comfortably in bed HEENT: Atraumatic, normocephalic. eyes are nonicteric. Trachea is midline. Patients neck is hyperextended. Mucous membranes are pink and moist CARDIOVASCULAR: Normal S1, S2. Irregularly irregular rhythm. Regular rate. No cl icks, rubs, or murmurs RESPIRATORY: Clear vesicular breath sounds bilaterally with good respiratory effort. No wheezes, rhonchi, or rales ABDOMINAL: Soft, nondistended. Nontender. No rebound tenderness or guarding. Normoactive bowel sounds EXTREMITIES: Patient has right leg immobilization brace in place. No edema. Full and equal pulses in bilateral upper and lower extremities NEUROLOGICAL: No focal neurological deficits PSYCHOLOGICAL: Mood and affect are appropriate LABORATORY DATA, IMAGING STUDIES, MICROBIOLOGY: Please see below. ASSESSMENT AND PLAN: Patient is a 79 year old female with a past medical history of hypertension, paroxysmal atrial fibrillation, diastolic congestive heart failure, chronic hyponatremia, and chronic anemia who was suffered a mechanical fall resulting in a supracondylar femoral fracture. Patient has been evaluated by orthopedic surgery with recommedations for surgical intervention PROBLEMS: 1. Supracondylar Femur Fracture -CT of left extremity demonstrating a distal femoral fracture. -Orthopedics has been consulted. Plan to take patient to OR tomorrow for surgical intervention. -NPO after midnight. 2. Mechanical Falls -Patient has a history of multiple mechanical falls. Will need PT/OT after surgery. Likely rehab with placement 3. Hypertension -Patient is currently normotensive. Will continue home medications including Coreg and Catopril 4. Diastolic Congestive Heart Failure -Stable. Will continue home medications. -Spironolactone, Lasix, Carvedilol 5. Paroxysmal Atrial Fibrillation -Patient rate controlled. -Patient takes Eliquis outpatient. Currently holding for patients surgery I, Bladimir Light, have independently examined this patient and performed my own physical exam, as well as reviewed the documentation. I have discussed in detail with the resident / student the findings and plan of treatment as documented by the resident / student. I agree with their findings and treatment plan. I will continue to follow the patient during this hospital stay. VS, I&O, 24H, Fishbone Vital Signs/I&O Vital Signs Date Time Temp Pulse Resp B/P (MAP) Pulse Ox O2 Delivery O2 Flow Rate FiO2 07/27/19 08:56 122/72 07/27/19 08:55 72 07/27/19 05:16 98.7 18 97 Room Air I&O- Last 24 Hours up to 6 AM 07/27/19 06:00 Intake Total 790 ml Output Total 0 ml Balance 790 ml Laboratory Data 24H LABS Laboratory Tests 2 07/27/19 06:28: Nucleated Red Blood Cells % (auto) 0.0 07/27/19 06:29: Anion Gap 8, Glomerular Filtration Rate > 60.0, Calcium Level 8.9, Magnesium Level 2.1 CBC/BMP Laboratory Tests 07/27/19 06:28 07/27/19 06:29 Microbiology Microbiology 07/26/19 Blood Culture - Preliminary, Resulted No growth after 24 hours . All specim... EFRAIN REDD DO Jul 27, 2019 14:22 BLADIMIR LIGHT DO Jul 28, 2019 11:52
[2019-07-27 20:57] VITALS: BP 124/60
[2019-07-27] MEDS ORDERED: HEPARIN SOD (PORCINE) 5000 UNITS/ML VIAL (J1644 PER 1000UNITS) SQ SCH (21:00)
[2019-07-27] MEDS: SIMVASTATIN 20 MG TAB PO SCH (21:47)
[2019-07-27] MEDS: SERTRALINE 100 MG TAB PO SCH (21:47)
[2019-07-28 06:20] VITALS: BP 109/65
[2019-07-28 08:08] LABS: HEMATOCRIT 31.2 % (36.0-47.0); HEMOGLOBIN 10.4 g/dl (12.0-15.5); MEAN CORPUSCULAR HEMOGLOBIN 31.4 pg (27.0-33.0); MEAN CORPUSCULAR HGB CONC 33.3 g/dl (32.0-36.5); MEAN CORPUSCULAR VOLUME 94.3 fl (80.0-96.0); PLATELET COUNT, AUTOMATED 154 10^3/uL (150-450); RED BLOOD COUNT 3.31 10^6/uL (4.00-5.40); WHITE BLOOD COUNT 7.5 10^3/uL (4.0-10.0)
[2019-07-28 08:30] LABS: BLOOD UREA NITROGEN 7 MG/DL (7-18); CARBON DIOXIDE LEVEL 26 MEQ/L (21-32); CHLORIDE LEVEL 99 MEQ/L (98-107); CREATININE FOR GFR 0.43 MG/DL (0.55-1.30); GLOMERULAR FILTRATION RATE > 60.0 (>39); GLUCOSE, FASTING 104 MG/DL (70-100); POTASSIUM SERUM 3.9 MEQ/L (3.5-5.1); SODIUM LEVEL 131 MEQ/L (136-145)
[2019-07-28] MEDS: LORATADINE 10 MG TAB PO SCH (08:35)
[2019-07-28] MEDS: OMEPRAZOLE 20 MG CAP PO SCH (08:35)
[2019-07-28] MEDS: FUROSEMIDE 40 MG TAB PO SCH (08:35)
[2019-07-28] MEDS: ASCORBIC ACID 500 MG TAB PO SCH ×3 (08:35→20:30)
[2019-07-28] MEDS: CARVedilol 3.125 MG TAB PO SCH (08:35)
[2019-07-28] MEDS: CAPTOpril 12.5 MG TAB PO SCH (08:35)
[2019-07-28] MEDS: FERROUS SULFATE 325MG TAB PO SCH ×3 (08:35→20:30)
[2019-07-28] MEDS: POTASSIUM CHLORIDE 10 MEQ SR TABLET PO SCH ×2 (08:35→20:30)
[2019-07-28] MEDS: ACETAMINOPHEN TAB 650MG DOSE (2X325MG) PO PRN ×3 (08:36→17:35)
[2019-07-28] MEDS: HEPARIN SOD (PORCINE) 5000 UNITS/ML VIAL (J1644 PER 1000UNITS) SQ SCH ×2 (08:37→20:30)
[2019-07-28] MEDS: SPIRONOLACTONE 12.5MG PER 1/2 TABLET PO SCH (08:37)
--- NOTE | 2019-07-28 11:51 | IPNPDOC ---
Text Note Date of Service The patient was seen on 07/28/19. NOTE Subjective: No any acute events overnight, patient denies fever, chills, nausea, chest pain, palpitation, diarrhea or dysuria OBJECTIVE PHYSICAL EXAMINATION: VITAL SIGNS: Please see below. GENERAL: NAD HEENT: PERRLA, EOMI CARDIOVASCULAR: S1-S2, irregularly irregular RESPIRATORY: Clear to auscultation bilaterally ABDOMINAL: Soft, nondistended. Nontender. No rebound tenderness or guarding. Normoactive bowel sounds EXTREMITIES: Patient has right leg immobilization brace in place. No edema. Pulsations preserved NEUROLOGICAL: No focal neurological deficits ASSESSMENT AND PLAN: Patient is a 79 year old female with a past medical history of hypertension, paroxysmal atrial fibrillation, diastolic congestive heart failure, chronic hyponatremia, and chronic anemia who was suffered a mechanical fall resulting in a supracondylar femoral fracture. Patient has been evaluated by orthopedic surgery with recommedations for surgical intervention PROBLEMS: 1. Supracondylar Femur Fracture Orthopedic team plan to do surgery on 07/30/19 Revised cardiac index 0. Patient can proceed with surgery 2. Mechanical Falls PT/OT evaluation after surgery 3. Hypertension Blood pressures under control Continue home meds 4. Diastolic Congestive Heart Failure Not in acute exacerbation Continue home meds 5. Paroxysmal Atrial Fibrillation Heart rate is under control Continue to hold Eliquis due to upcoming surgery VS,Saeede, I+O VS, Juliobone, I+O Laboratory Tests 07/28/19 07:48 Vital Signs Date Time Temp Pulse Resp B/P (MAP) Pulse Ox O2 Delivery O2 Flow Rate FiO2 07/28/19 08:35 68 115/72 07/28/19 06:20 98.2 17 98 Room Air I&O- Last 24 Hours up to 6 AM 07/28/19 06:00 Intake Total 940 ml Output Total 0 ml Balance 940 ml KAROL MONTOYA DO Jul 28, 2019 11:51
[2019-07-28 14:00] VITALS: BP 130/93
[2019-07-28] MEDS: SIMVASTATIN 20 MG TAB PO SCH (20:30)
[2019-07-28] MEDS: SERTRALINE 100 MG TAB PO SCH (20:30)
[2019-07-28 22:00] VITALS: BP 113/61
[2019-07-29] MEDS: ACETAMINOPHEN TAB 650MG DOSE (2X325MG) PO PRN ×3 (01:13→20:12)
[2019-07-29] MEDS: RAMELTEON 8 MG TAB (ROZEREM) PO PRN (02:18)
[2019-07-29] MEDS: FERROUS SULFATE 325MG TAB PO SCH ×3 (09:04→20:11)
[2019-07-29] MEDS: CARVedilol 3.125 MG TAB PO SCH (09:04)
[2019-07-29] MEDS: FUROSEMIDE 40 MG TAB PO SCH (09:04)
[2019-07-29] MEDS: CAPTOpril 12.5 MG TAB PO SCH (09:04)
[2019-07-29] MEDS: OMEPRAZOLE 20 MG CAP PO SCH (09:04)
[2019-07-29] MEDS: LORATADINE 10 MG TAB PO SCH (09:05)
[2019-07-29] MEDS: ASCORBIC ACID 500 MG TAB PO SCH ×3 (09:05→20:11)
[2019-07-29] MEDS: HEPARIN SOD (PORCINE) 5000 UNITS/ML VIAL (J1644 PER 1000UNITS) SQ SCH (09:05)
[2019-07-29] MEDS: POTASSIUM CHLORIDE 10 MEQ SR TABLET PO SCH ×2 (09:05→20:11)
[2019-07-29] MEDS: SPIRONOLACTONE 12.5MG PER 1/2 TABLET PO SCH (09:05)
--- NOTE | 2019-07-29 11:09 | IPNPDOC ---
Text Note Date of Service The patient was seen on 07/29/19. NOTE Subjective: No any acute events overnight, patient denies fever, chills, nausea, chest pain, palpitation, diarrhea or dysuria. Patient did have 1 large bowel movement today. OBJECTIVE PHYSICAL EXAMINATION: VITAL SIGNS: Please see below. GENERAL: NAD HEENT: PERRLA, EOMI CARDIOVASCULAR: S1-S2, irregularly irregular RESPIRATORY: Clear to auscultation bilaterally ABDOMINAL: Soft, nondistended. Nontender. No rebound tenderness or guarding. Normoactive bowel sounds EXTREMITIES: Patient has right leg immobilization brace in place. No edema. Pulsations preserved NEUROLOGICAL: No focal neurological deficits ASSESSMENT AND PLAN: Patient is a 79 year old female with a past medical history of hypertension, paroxysmal atrial fibrillation, diastolic congestive heart fail ure, chronic hyponatremia, and chronic anemia who was suffered a mechanical fall resulting in a supracondylar femoral fracture. Patient has been evaluated by orthopedic surgery with recommendations for surgical intervention PROBLEMS: 1. Supracondylar Femur Fracture Orthopedic team plan to do surgery on 07/30/19 Revised cardiac index 0. Patient can proceed with surgery 2. Mechanical Falls PT/OT evaluation after surgery 3. Hypertension Blood pressures under control Continue home meds 4. Diastolic Congestive Heart Failure Not in acute exacerbation Continue home meds 5. Paroxysmal Atrial Fibrillation Heart rate is under control Continue to hold Eliquis due to upcoming surgery VS,Fishbone, I+O VS, Fishbone, I+O Vital Signs Date Time Temp Pulse Resp B/P (MAP) Pulse Ox O2 Delivery O2 Flow Rate FiO2 07/29/19 09:04 81 115/72 07/28/19 22:00 97.9 17 97 Room Air I&O- Last 24 Hours up to 6 AM 07/29/19 06:00 Intake Total 480 ml Output Total 200 ml Balance 280 ml KAROL MONTOYA DO Jul 29, 2019 11:09
[2019-07-29 13:45] VITALS: BP 113/74
[2019-07-29] MEDS: SERTRALINE 100 MG TAB PO SCH (20:11)
[2019-07-29] MEDS: SIMVASTATIN 20 MG TAB PO SCH (20:11)
[2019-07-29 20:30] VITALS: BP 125/68
[2019-07-29] MEDS: NS 1,000 ML IV SCH (21:41)
[2019-07-30] MEDS: ACETAMINOPHEN TAB 650MG DOSE (2X325MG) PO PRN ×2 (01:47→22:23)
[2019-07-30] MEDS: RAMELTEON 8 MG TAB (ROZEREM) PO PRN (01:47)
[2019-07-30] MEDS ORDERED: ceFAZolin SOD 2 GM in IV 1 EA IV ONE (06:00)
[2019-07-30 06:50] VITALS: BP 120/69
[2019-07-30 06:56] LABS: HEMATOCRIT 27.8 % (36.0-47.0); HEMOGLOBIN 9.5 g/dl (12.0-15.5); MEAN CORPUSCULAR HEMOGLOBIN 32.1 pg (27.0-33.0); MEAN CORPUSCULAR HGB CONC 34.2 g/dl (32.0-36.5); MEAN CORPUSCULAR VOLUME 93.9 fl (80.0-96.0); PLATELET COUNT, AUTOMATED 181 10^3/uL (150-450); RED BLOOD COUNT 2.96 10^6/uL (4.00-5.40); WHITE BLOOD COUNT 6.5 10^3/uL (4.0-10.0)
[2019-07-30] MEDS: SPIRONOLACTONE 12.5MG PER 1/2 TABLET PO SCH (10:08)
[2019-07-30] MEDS: FERROUS SULFATE 325MG TAB PO SCH ×3 (10:09→22:17)
[2019-07-30] MEDS: POTASSIUM CHLORIDE 10 MEQ SR TABLET PO SCH ×2 (10:09→22:16)
[2019-07-30] MEDS: ASCORBIC ACID 500 MG TAB PO SCH ×3 (10:09→22:17)
[2019-07-30] MEDS: OMEPRAZOLE 20 MG CAP PO SCH (10:09)
[2019-07-30] MEDS: LORATADINE 10 MG TAB PO SCH (10:09)
[2019-07-30] MEDS: FUROSEMIDE 40 MG TAB PO SCH (10:09)
[2019-07-30 10:12] VITALS: BP 135/68
[2019-07-30] MEDS: CARVedilol 3.125 MG TAB PO SCH (10:12)
[2019-07-30] MEDS: CAPTOpril 12.5 MG TAB PO SCH (10:12)
--- NOTE | 2019-07-30 11:30 | IPNPDOC ---
Text Note Date of Service The patient was seen on 07/30/19. NOTE Subjective: No any acute events overnight, patient denies fever, chills, nausea, chest pain, palpitation, diarrhea or dysuria. OBJECTIVE PHYSICAL EXAMINATION: VITAL SIGNS: Please see below. GENERAL: NAD HEENT: PERRLA, EOMI CARDIOVASCULAR: S1-S2, irregularly irregular RESPIRATORY: Clear to auscultation bilaterally ABDOMINAL: Soft, nondistended. Nontender. No rebound tenderness or guarding. Normoactive bowel sounds EXTREMITIES: Patient has right leg immobilization brace in place. No edema. Pulsations preserved NEUROLOGICAL: No focal neurological deficits ASSESSMENT AND PLAN: Patient is a 79 year old female with a past medical history of hypertension, paroxysmal atrial fibrillation, diastolic congestive heart failure, chronic hyponatremia, and chronic anemia who was suffered a mechanical fall resulting in a supracondylar femoral fracture. Patient has been evaluated by orthopedic surgery with recommendations for surgical intervention PROBLEMS: 1. Supracondylar Femur Fracture Orthopedic team plan to do surgery today Revised cardiac index 0. Patient can proceed with surgery 2. Mechanical Falls PT/OT evaluation after surgery 3. Hypertension Blood pressures under control Continue home meds 4. Diastolic Congestive Heart Failure Not in acute exacerbation Continue home meds 5. Paroxysmal Atrial Fibrillation Heart rate is under control Continue to hold Eliquis due to upcoming surgery VS,Fishbone, I+O VS, Fishbone, I+O Laboratory Tests 07/30/19 06:15 Vital Signs Date Time Temp Pulse Resp B/P (MAP) Pulse Ox O2 Delivery O2 Flow Rate FiO2 07/30/19 10:12 72 135/68 07/30/19 06:50 98.6 18 98 Room Air I&O- Last 24 Hours up to 6 AM 07/30/19 06:00 Intake Total 300 ml Output Total 200 ml Balance 100 ml KAROL MONTOYA DO Jul 30, 2019 11:30
[2019-07-30] MEDS: NS 1,000 ML IV SCH (13:43)
[2019-07-30 14:00] VITALS: BP 116/60
[2019-07-30] MEDS ORDERED: ceFAZolin 1GM INJ (J0690 PER 500MG) As Ordered ONE (15:04)
[2019-07-30] MEDS ORDERED: ceFAZolin 2 GM/D5W 50 ML IV BAG (J0690 PER 500MG) As Ordered ONE (15:42)
[2019-07-30] MEDS ORDERED: PHENYLephrine HCL 500 MCG/5 ML (100MCG/ML) SYRINGE (J2370) As Ordered ONE (17:46)
[2019-07-30] MEDS ORDERED: propofoL 200 MG/20 ML VIAL As Ordered ONE ×2 (17:46→18:11)
[2019-07-30] MEDS ORDERED: ONDANSETRON 4MG/2ML VIAL (J2405) As Ordered ONE (17:46)
[2019-07-30] MEDS ORDERED: LIDOCAINE 2% INJ 100 MG/5 ML SDV (FOR ANES.) As Ordered ONE (17:46)
[2019-07-30] MEDS ORDERED: fentaNYL 100 MCG/2 ML INJECTION (J3010) As Ordered ONE (17:46)
[2019-07-30] MEDS ORDERED: MIDAZOLAM INJ 2 MG/2 ML VIAL (J2250) As Ordered ONE (17:46)
[2019-07-30] MEDS ORDERED: ROCURONIUM BROMIDE 50 MG/5 ML VIAL As Ordered ONE (17:46)
[2019-07-30] MEDS ORDERED: ePHEDrine SULFATE 25 MG/5 ML(5MG/ML) SYRINGE As Ordered ONE (17:46)
[2019-07-30] MEDS ORDERED: dexameTHASONE 4 MG/ML 1ML VIAL (J1100) As Ordered ONE (17:46)
[2019-07-30] MEDS ORDERED: HYDROmorphone HCL 2 MG/ML 1ML VIAL (J1170) As Ordered ONE (17:46)
[2019-07-30] MEDS ORDERED: SUGAMMADEX SODIUM 500 MG/5 ML VIAL (BRIDION) As Ordered ONE (18:12)
--- NOTE | 2019-07-30 19:39 | REP ---
C-ARM VIEWS LEFT FEMUR: Four C-Arm views of the left femur performed. There is a side plate and multiple screws in the distal femur transfixing a fracture of the distal end of the femur. The structures are well aligned. 3 minutes 2 seconds fluoroscopy time utilized. Electronically Signed by Prabhu Denis MD 07/30/2019 07:49 P
[2019-07-30] MEDS ORDERED: ONDANSETRON 4MG/2ML VIAL (J2405) IV PRN (19:45)
[2019-07-30] MEDS ORDERED: fentaNYL 100 MCG/2 ML INJECTION (J3010) IV PRN (19:45)
[2019-07-30] MEDS ORDERED: oxyCODONE 5MG TAB PO PRN (19:45)
[2019-07-30] MEDS ORDERED: oxyCODONE 5MG TAB As Ordered ONE (19:50)
[2019-07-30 20:41] VITALS: BP 127/70
[2019-07-30 20:53] VITALS: BP 130/70
--- NOTE | 2019-07-30 21:54 | RO ---
DATE OF PROCEDURE: 07/26/2019 PREOPERATIVE DIAGNOSIS: Left distal femur intercondylar fracture. POSTOPERATIVE DIAGNOSIS: Left distal femur intercondylar fracture. PROCEDURE: Open reduction and fixation of left distal femur intercondylar fracture. SURGEON: Mac Gallagher MD [place] HAND: ANESTHESIA: General. TOURNIQUET TIME: ANTIBIOTICS: 2 grams of Ancef. ESTIMATED BLOOD LOSS: 150 mL COMPLICATIONS: None. OPERATIVE INDICATIONS: 79-year-old female who suffered a trip and fall, intercondylar fracture with displacement. We discussed the risks and benefits of surgical relief including but not limited to infection, damage to surrounding structures, incomplete relief, malunion, nonunion. The patient and her daughter wished to proceed. We discussed this would help increase her range of motion and ambulation in the future. DESCRIPTION OF PROCEDURE: Patient was brought back to the OR in the supine position and underwent general anesthesia. At this point, the left leg was prepped and draped in the usual fashion. We had a time-out confirming site, side and surgery. Once in agreement, we made a longitudinal incision along the distal femur, sharply incised the subcutaneous fat using Bovie to control superficial bleeding. We then encountered the iliotibial (IT) band, incised this in line with the fibers and did a submuscular approach to the distal femur, careful to coagulate any penetrating arterial bleeding. We then exposed the fracture site. Once we had adequate exposure of the fracture site, then arthrotomy into the knee exposing the intercondylar notch we were able to reduce the fracture with a combination of varus stress and manual reduction. Used to K-wires to pin it into place. The fracture reduction was confirmed on AP and lateral. There was still small gapping in the fracture plane at this point. We then placed our six-hole plate and pinned through the condylar screw hole and used the aiming-arm jig to pin it proximally with appropriate plate balance on the femur itself. We confirmed the plate alignment on AP and lateral. Since it was off the plate, we were able to use a cortical screw within the shaft to suck the plate down to bone providing additional compression to the fracture site. The fracture gap significantly decreased at this point. At which point we then placed four distal locking screws through the lateral condyle into the medial condyle of the distal femur and then two additional proximal locking screws. We took final films at this point. We were happy with our fixation and reduction. We irrigated the wound thoroughly. Closed with #0 Vicryl for the IT band and deep subcutaneous fat along with #2-0 Vicryl for subcutaneous tissue and rachana for skin. Placed gauze and Tegaderm dressing in place. The patient was then awakened and taken to PACU in stable condition. POSTOPERATIVE PLAN: Patient will work on range of motion and be touch down weightbearing for the next 6 weeks. Get Surgical Care Improvement Project (SCIP) antibiotic prophylaxis and restart her Eliquis.
[2019-07-30] MEDS: SIMVASTATIN 20 MG TAB PO SCH (22:17)
[2019-07-30] MEDS: SERTRALINE 100 MG TAB PO SCH (22:17)
[2019-07-31] MEDS: NS 1,000 ML IV SCH (01:29)
[2019-07-31] MEDS: RAMELTEON 8 MG TAB (ROZEREM) PO PRN (01:30)
[2019-07-31 06:00] VITALS: BP 107/54
[2019-07-31] MEDS ORDERED: PERC5TAB12 PO (06:21)
[2019-07-31] MEDS: ceFAZolin SOD 2 GM in IV 1 EA IV SCH ×2 (06:34→14:07)
[2019-07-31] MEDS: SPIRONOLACTONE 12.5MG PER 1/2 TABLET PO SCH (08:09)
[2019-07-31] MEDS: ASCORBIC ACID 500 MG TAB PO SCH (08:09)
[2019-07-31] MEDS: LORATADINE 10 MG TAB PO SCH (08:09)
[2019-07-31] MEDS: FERROUS SULFATE 325MG TAB PO SCH (08:09)
[2019-07-31] MEDS: POTASSIUM CHLORIDE 10 MEQ SR TABLET PO SCH (08:09)
[2019-07-31] MEDS: OMEPRAZOLE 20 MG CAP PO SCH (08:09)
[2019-07-31] MEDS: ACETAMINOPHEN TAB 650MG DOSE (2X325MG) PO PRN ×2 (08:09→14:06)
[2019-07-31] MEDS: FUROSEMIDE 40 MG TAB PO SCH (08:10)
[2019-07-31 08:36] LABS: HEMATOCRIT 27.1 % (36.0-47.0); MEAN CORPUSCULAR HEMOGLOBIN 31.7 pg (27.0-33.0); MEAN CORPUSCULAR HGB CONC 33.2 g/dl (32.0-36.5); MEAN CORPUSCULAR VOLUME 95.4 fl (80.0-96.0); PLATELET COUNT, AUTOMATED 213 10^3/uL (150-450); RED BLOOD COUNT 2.84 10^6/uL (4.00-5.40); WHITE BLOOD COUNT 9.3 10^3/uL (4.0-10.0)
[2019-07-31] MEDS ORDERED: traMADol ER 100MG TABLET (ULTRAM ER) PO SCH (09:00)
[2019-07-31] MEDS ORDERED: SENOKOT S TAB PO SCH (09:00)
[2019-07-31] MEDS ORDERED: MIRALAX *UNIT DOSE* 17GM PACKET PO SCH (09:00)
[2019-07-31] MEDS: CAPTOpril 12.5 MG TAB PO SCH (09:00)
[2019-07-31] MEDS ORDERED: APIXABAN 2.5 MG TAB (ELIQUIS) PO SCH (09:00)
[2019-07-31] MEDS ORDERED: MOM 30ML SUSPENSION UDC PO SCH (09:00)
[2019-07-31] MEDS: CARVedilol 3.125 MG TAB PO SCH (09:00)
[2019-07-31] MEDS ORDERED: RAME8TAB2 PO (09:58)
[2019-07-31] MEDS ORDERED: ACET1TAB55 PO (09:58)
[2019-07-31 10:00] VITALS: BP 101/52
[2019-07-31] MEDS ORDERED: TRAM10TAER PO (10:21)
--- NOTE | 2019-07-31 10:37 | DS.PDOC ---
Discharge Summary General Date of Admission Jul 26, 2019 at 12:39 Date of Discharge 07/31/19 Discharge Summary PROCEDURES PERFORMED DURING STAY: Left distal femoral fracture surgery ADMITTING DIAGNOSES: Supracondylar Femur Fracture Mechanical Falls Hypertension Diastolic Congestive Heart Failure Paroxysmal Atrial Fibrillation DISCHARGE DIAGNOSES: Supracondylar Femur Fracture Mechanical Falls Hypertension Diastolic Congestive Heart Failure Paroxysmal Atrial Fibrillation COMPLICATIONS/CHIEF COMPLAINT: Lt Femur Fx. HISTORY OF PRESENT ILLNESS: Patient is 79 years old female with past mental history of hypertension, paroxysmal atrial fibrillation, diastolic heart failure, chronic hyponatremia, chronic anemia brought to the hospital after mechanical fall. In emergency room patient was found to have left distal femur fracture on x-ray. CT head was negative. Lab workup showed no leukocytosis, hemoglobin 12.9, creatinine 0.54. Patient has been evaluated by orthopedic surgery with recommendations for surgical intervention HOSPITAL COURSE: Left femoral fracture surgery was done on 07/30/19. No bleeding in postoperative period DISCHARGE MEDICATIONS: Please see below. ALLERGIES: Please see below. PHYSICAL EXAMINATION ON DISCHARGE: VITAL SIGNS: Please see below. PHYSICAL EXAMINATION: VITAL SIGNS: Please see below. GENERAL: NAD HEENT: PERRLA, EOMI CARDIOVASCULAR: S1-S2, irregularly irregular RESPIRATORY: Clear to auscultation bilaterally ABDOMINAL: Soft, nondistended. Nontender. No rebound tenderness or guarding. Normoactive bowel sounds EXTREMITIES: No edema. Pulsations preserved bilaterally NEUROLOGICAL: No focal neurological deficits LABORATORY DATA: Please see below. IMAGING: X-ray showed supracondylar left femoral fracture PROGNOSIS: Fair ACTIVITY: [As tolerated]. DIET: Cardiac DISCHARGE PLAN: Acute rehabilitation DISPOSITION: See above DISCHARGE INSTRUCTIONS: 1. Follows orthopedic team recommendation ITEMS TO FOLLOWUP ON ON OUTPATIENT: PCP and orthopedic surgeon DISCHARGE CONDITION: [Stable]. TIME SPENT ON DISCHARGE: Greater than 20 minutes. Vital Signs/I&Os Vital Signs Date Time Temp Pulse Resp B/P (MAP) Pulse Ox O2 Delivery O2 Flow Rate FiO2 07/31/19 06:00 98.0 89 18 107/54 (71) 94 Room Air 07/30/19 20:53 2.0 I&O- Last 24 Hours up to 6 AM 07/31/19 06:00 Intake Total 1740 ml Output Total 150 ml Balance 1590 ml Laboratory Data Labs 24H Laboratory Tests 2 07/31/19 08:14: Nucleated Red Blood Cells % (auto) 0.0 CBC/BMP Laboratory Tests 07/31/19 08:14 Microbiology Microbiology 07/26/19 Blood Culture - Final, Complete NO GROWTH AFTER 5 DAYS Discharge Medications Scheduled Apixaban (Eliquis) 2.5 Mg Tab, 2.5 MG PO BID, (Reported) Ascorbic Acid (Ascorbic Acid) 500 Mg Tablet, 500 MG PO TID, (Reported) Calcium Carbonate/Vitamin D3 (Calcium 600-Vit D3 400 Tablet) 1 Each Tablet, 1 TAB PO BID, (Reported) Captopril (Captopril) 12.5 Mg Tab, 12.5 MG PO DAILY, (Reported) Carboxymethylcellulos/Glycerin (Refresh Optive Eye Drops) 1 Devon Devon, 2 DROP OU B ID, (Reported) Carvedilol (Carvedilol) 3.125 Mg Tab, 3.125 MG PO DAILY, (Reported) Ergocalciferol (Vitamin D2) (Drisdol) 1,250 Mcg Capsule, 1,250 MCG PO 1XWK, (Reported) SATURDAY Ferrous Sulfate (Ferrous Sulfate) 325 Mg Tablet, 325 MG PO TID, (Reported) Furosemide (Furosemide) 40 Mg Tab, 40 MG PO DAILY, (Reported) Loratadine (Claritin) 10 Mg Cap, 10 MG PO DAILY, (Reported) Omeprazole (Omeprazole) 20 Mg Cap, 20 MG PO DAILY, (Reported) Potassium Chloride (Klor-Con M10) 10 Meq Tabcr, 10 MEQ PO BID, (Reported) Sertraline HCl (Sertraline HCl) 100 Mg Tablet, 100 MG PO QHS, (Reported) 1999 Simvastatin (Simvastatin) 20 Mg Tab, 20 MG PO QHS, (Reported) Spironolactone (Spironolactone) 25 Mg Tablet, 12.5 MG PO DAILY, (Reported) Tramadol HCl (Tramadol HCl ER) 100 Mg Tbmp.24hr, 200 MG PO DAILY Scheduled PRN Acetaminophen (Acetaminophen) 325 Mg Tablet, 650 MG PO Q4H PRN for PAIN OR FEVER Aluminum/Magnesium/Simeth (Mag-Al Plus Suspension) 30 Ml Oral.susp, 30 ML PO QID PRN for HEARTBURN, (Reported) Dextromethorphan Polistirex (Robitussin ER) 30 Mg/5 Ml Brooke.er.12h, 5 ML PO Q12H PRN for COUGH, (Reported) Loperamide HCl (Loperamide) 2 Mg Tablet, 4 MG PO ASDIRECTED PRN for AFTER EACH LOOSE STOOL, (Reported) 4MG, THEN 2MG AFTER EACH LOOSE STOOL Mag Hydrox/Aluminum Hyd/Simeth (Maalox Maximum Strength Susp) 355 Ml Oral.susp, 30 ML PO QID PRN for GERD, (Reported) Magnesium Hydroxide (Milk of Magnesia) 400 Mg/5 Ml Oral.susp, 2,400 MG PO DAILY PRN for CONSTIPATION, (Reported) Oxycodone HCl/Acetaminophen (Percocet 5-325 mg Tablet) 1 Each Tablet, 1 TAB PO Q4H PRN for PAIN Ramelteon (Ramelteon) 8 Mg Tablet, 8 MG PO QHS PRN for INSOMNIA Sodium Chloride ([place] Saline) 0.65 % Spr, 2 SPRAYS NARES TID PRN for NASAL CONGESTION, (Reported) Zinc Oxide (Desitin) 13 % Cre, 1 APLCT TOP ASDIRECTED PRN for RASH/ITCHING, (Reported) Allergies Coded Allergies: No Known Allergies (Verified , 12/24/10) KAROL MONTOYA DO Jul 31, 2019 10:37
== END 2019-07-31 14:25 | DRG 481 ==
LOC: M ED 06:04 → EDBD 06:04 → M ED INP 12:39 → M MS5PR 15:10
PROVIDERS: ADMIT Internal Medicine; ATTEND Internal Medicine
PROC: 0QSC04Z Reposition Left Lower Femur with Internal Fixation Device, Open Approach (ICD-10-PCS; principal; 2019-07-26)
DX: S72.455A Nondisplaced supracondylar fracture without intracondylar extension of lower end of left femur, initial encounter for closed fracture (principal); I50.32 Chronic diastolic (congestive) heart failure; E87.1 Hypo-osmolality and hyponatremia; I48.0 Paroxysmal atrial fibrillation; I11.0 Hypertensive heart disease with heart failure; D64.9 Anemia, unspecified; G31.84 Mild cognitive impairment of uncertain or unknown etiology; W19.XXXA Unspecified fall, initial encounter; Y92.009 Unspecified place in unspecified non-institutional (private) residence as the place of occurrence of the external cause; Z79.01 Long term (current) use of anticoagulants; Z79.82 Long term (current) use of aspirin; Z79.899 Other long term (current) drug therapy

== ENCOUNTER 2019-07-31 10:45 | Inpatient (IN) | payer MEDICARE, MEDICAID ==
[~2019-07-31] VITALS: Ht 149.9 cm; Wt 57.1 kg
[~2019-07-31 10:45] MED LIST changes: +ACET1TAB55 PO; +DEXT30SU29 PO; +DRIS50003 PO; +LOPE2TAB14 PO; +PERC5TAB12 PO; +RAME8TAB2 PO; +SERT-138 PO; +TRAM10TAER PO
[2019-07-31] MEDS ORDERED: BISACODYL 10 MG SUPP PR PRN (13:00)
[2019-07-31] MEDS ORDERED: MOM 30ML SUSPENSION UDC PO PRN (13:00)
[2019-07-31 14:50] VITALS: BP 91/52
[2019-07-31] MEDS: FERROUS SULFATE 325MG TAB PO SCH ×2 (16:16→20:34)
[2019-07-31] MEDS: ASCORBIC ACID 500 MG TAB PO SCH ×2 (16:16→20:33)
[2019-07-31] MEDS: guaiFENesin 200 MG TAB PO SCH ×2 (16:16→20:33)
[2019-07-31] MEDS: REMEDY PHYTOPLEX Z-GUARD PASTE 113GM TUBE (FROM STOREROOM PRODUCT) TOP SCH ×2 (16:17→20:35)
[2019-07-31 20:07] VITALS: BP 111/55
[2019-07-31] MEDS: APIXABAN 2.5 MG TAB (ELIQUIS) PO SCH (20:33)
[2019-07-31] MEDS: POTASSIUM CHLORIDE 10 MEQ SR TABLET PO SCH (20:33)
[2019-07-31] MEDS: SENOKOT S TAB PO SCH (20:33)
[2019-07-31] MEDS: SERTRALINE 100 MG TAB PO SCH (20:33)
[2019-07-31] MEDS: RAMELTEON 8 MG TAB (ROZEREM) PO SCH (20:34)
[2019-07-31] MEDS: SIMVASTATIN 20 MG TAB PO SCH (20:34)
[2019-07-31] MEDS: ACETAMINOPHEN TAB 650MG DOSE (2X325MG) PO PRN (20:34)
[2019-08-01] MEDS: ACETAMINOPHEN TAB 650MG DOSE (2X325MG) PO PRN ×3 (02:15→20:01)
[2019-08-01 05:26] VITALS: BP 130/54
[2019-08-01 06:54] LABS: BASO % 0.1 % (0.0-1.0); HEMATOCRIT 24.2 % (36.0-47.0); HEMOGLOBIN 8.1 g/dl (12.0-15.5); LYMPH # 1.6 10^3/uL (1.5-5.0); LYMPH % 22.5 % (24.0-44.0); MEAN CORPUSCULAR HEMOGLOBIN 31.5 pg (27.0-33.0); MEAN CORPUSCULAR HGB CONC 33.5 g/dl (32.0-36.5); MEAN CORPUSCULAR VOLUME 94.2 fl (80.0-96.0); MONO # 1.1 10^3/uL (0.0-0.8); MONO % 14.9 % (0.0-5.0); NEUTROPHILS # 4.5 10^3/uL (1.5-8.5); NEUTROPHILS % 61.9 % (36.0-66.0); PLATELET COUNT, AUTOMATED 193 10^3/uL (150-450); RED BLOOD COUNT 2.57 10^6/uL (4.00-5.40); WHITE BLOOD COUNT 7.3 10^3/uL (4.0-10.0)
[2019-08-01 07:05] LABS: ALBUMIN 2.6 GM/DL (3.2-5.2); ALT/SGPT 11 U/L (12-78); BILIRUBIN,TOTAL 0.7 MG/DL (0.2-1.0); BLOOD UREA NITROGEN 11 MG/DL (7-18); CALCIUM LEVEL 8.4 MG/DL (8.8-10.2); CARBON DIOXIDE LEVEL 25 MEQ/L (21-32); CHLORIDE LEVEL 100 MEQ/L (98-107); CREATININE FOR GFR 0.38 MG/DL (0.55-1.30); GLOMERULAR FILTRATION RATE > 60.0 (>39); GLUCOSE, FASTING 99 MG/DL (70-100); POTASSIUM SERUM 3.5 MEQ/L (3.5-5.1); SODIUM LEVEL 130 MEQ/L (136-145); TOTAL PROTEIN 6.4 GM/DL (6.4-8.2)
[2019-08-01] MEDS: REMEDY PHYTOPLEX Z-GUARD PASTE 113GM TUBE (FROM STOREROOM PRODUCT) TOP SCH ×3 (09:00→21:00)
[2019-08-01] MEDS: APIXABAN 2.5 MG TAB (ELIQUIS) PO SCH ×2 (09:14→20:00)
[2019-08-01] MEDS: CARVedilol 3.125 MG TAB PO SCH (09:14)
[2019-08-01] MEDS: SENOKOT S TAB PO SCH ×2 (09:14→20:00)
[2019-08-01] MEDS: OMEPRAZOLE 20 MG CAP PO SCH (09:14)
[2019-08-01] MEDS: FERROUS SULFATE 325MG TAB PO SCH ×3 (09:14→20:00)
[2019-08-01] MEDS: LORATADINE 10 MG TAB PO SCH (09:14)
[2019-08-01] MEDS: ASCORBIC ACID 500 MG TAB PO SCH ×3 (09:14→20:01)
[2019-08-01] MEDS: POTASSIUM CHLORIDE 10 MEQ SR TABLET PO SCH ×2 (09:15→20:01)
[2019-08-01] MEDS: FUROSEMIDE 40 MG TAB PO SCH (09:15)
[2019-08-01] MEDS: CAPTOpril 12.5 MG TAB PO SCH (09:15)
[2019-08-01] MEDS: guaiFENesin 200 MG TAB PO SCH ×3 (09:15→20:01)
[2019-08-01] MEDS: traMADol ER 100MG TABLET (ULTRAM ER) PO SCH (09:15)
[2019-08-01] MEDS: SPIRONOLACTONE 12.5MG PER 1/2 TABLET PO SCH (09:15)
--- NOTE | 2019-08-01 10:48 | IPNPDOC ---
Text Note Date of Service The patient was seen on 08/01/19. NOTE Subjective: No any acute events overnight, patient denies fever, chills, nausea, chest pain, palpitation, diarrhea or dysuria. OBJECTIVE PHYSICAL EXAMINATION: VITAL SIGNS: Please see below. GENERAL: NAD HEENT: PERRLA, EOMI CARDIOVASCULAR: S1-S2, irregularly irregular RESPIRATORY: Clear to auscultation bilaterally ABDOMINAL: Soft, nondistended. Nontender. No rebound tenderness or guarding. Normoactive bowel sounds EXTREMITIES: Patient has right leg immobilization brace in place. No edema. Pulsations preserved NEUROLOGICAL: No focal neurological deficits ASSESSMENT AND PLAN: Patient is a 79 year old female with a past medical history of hypertension, paroxysmal atrial fibrillation, diastolic congestive heart failure, chronic hyponatremia, and chronic anemia who was suffered a mechanical fall resulting in a supracondylar femoral fracture. Surgical intervention was done on 07/30/19 PROBLEMS: 1. Supracondylar Femur Fracture Status post surgical repair. Continue physical rehabilitation Continue pain management 2. Mechanical Falls PT/OT 3. Hypertension Blood pressures under control Continue home meds 4. Diastolic Congestive Heart Failure Not in acute exacerbation Continue home meds 5. Paroxysmal Atrial Fibrillation Heart rate is under control Continue Eliquis VS,Fishbone, I+O VS, Fishbone, I+O Laboratory Tests 08/01/19 06:24 Vital Signs Date Time Temp Pulse Resp B/P (MAP) Pulse Ox O2 Delivery O2 Flow Rate FiO2 08/01/19 09:14 71 130/54 08/01/19 05:26 97.5 16 97 Room Air I&O- Last 24 Hours up to 6 AM 08/01/19 06:00 Intake Total 150 ml Output Total 700 ml Balance -550 ml KAROL MONTOYA DO Aug 01, 2019 10:48
--- NOTE | 2019-08-01 12:14 | HPEPDOC ---
[employer] Operator Note DATE OF ADMISSION: 07-31-19 DATE OF SERVICE: 07-31-19 TIME OF ADMISSION: Please refer to physician's admission order. SOURCE OF ADMISSION INFORMATION: [facility] record and patient CHIEF COMPLAINT: femur fracture HISTORY OF PRESENT ILLNESS: 79F pmh HTN, PAF, diastolic CHF, chronic hyponatremia, anemia who fell at home and presented to [facility] ED on 07-26-[address] of her left LE showed, Distal femoral fracture with associated soft tissue swelling. She was evaluated by orthopedics, her eliquis held pre-operatively and she underwent a left sided distal femur ORIF on 07-30-19 without complication. She remained anemic and hyponatremic with difficulty with pain control. She had difficulty with mobility and ADL management well below her prior level of function and was deemed medically appropriate for discharge to ARU. REVIEW OF SYSTEMS: The following is a completed review of systems and has been reviewed. Review of systems otherwise unremarkable. PAIN: Patient self reports left leg pain EYES: No recent vision changes EARS, NOSE, & THROAT: No throat pain, or dysphagia, or rhinorrhea CARDIOVASCULAR: Denies chest pain or palpitations PULMONARY: Denies shortness of breath GASTROINTESTINAL: Denies constipation/diarrhea GENITOURINARY: denies dysuria MUSCULOSKELETAL: LLE pain NEUROLOGICAL: no tremor or paresthesias HEMATOLOGICAL: +anemic SKIN: left femur incision PSYCHIATRIC: Unremarkable All other review of systems found to be negative. PAST MEDICAL HISTORY: as per HPI PAST SURGICAL HISTORY: Right femur repair ALLERGIES: Please see below. MEDICATIONS: Please see below. FAMILY HISTORY: DM SOCIAL HISTORY: No etoh/illicit drugs/smoking DIET: low sodium PHYSICAL EXAMINATION: VITAL SIGNS: Please see below. GENERAL: Pleasant and cooperative. No acute distress. HEENT: PERRL. Extraocular movements intact. Clear conjunctiva CARDIOVASCULAR: Regular rate and rhythm. No murmurs, rubs, or gallops LUNGS: Clear to auscultation bilaterally. No wheezes. No rhonchi ABDOMEN: Soft, nontender, nondistended. Positive bowel sounds. Normal active bowel sounds NEUROLOGICAL: Alert and oriented times three. Cranial nerves II through XII grossly intact. Sensation grossly intact EXTREMITIES: 5\5 strength bilateral upper extremities. 5\5 strength right lower extremity. 5/5 strength in left ankle DF/PF (limited exam due to recent surgery) SKIN: left distal femur incision c/d/i without induration or ecchymosis LABORATORY DATA: Please see below. IMAGING:Imaging documentation personally reviewed by record FUNCTIONAL STATUS: Premorbid: Independent with all activities of daily life as well as mobility On Admission: Minimum assistance for bathing, upper body dressing, bed chair and wheelchair transfers, toilet transfers, ambulation. GOALS: Mod-I household distances, functional transfers, bathing, dressing, toileting, medical optimization ASSESSMENT:79-year-old F with past medical history of PAF who presents status post fall with left femur fracture. PLAN: 1. Rehab- PT/OT advance gait and ADL training, strengthen/stretch/maintain ROM all 4 limbs 2. ORtho: s/p left distal femur fracture NWB-ortho consulted 3. Neuro: possible hx of decline in cognition, will try to avoid deliriogeniuc meds, however patient with difficult to control pain 4. CArdiac: hx of diastolic CHF c/u lasix, TRISTIN-I, and aldactone- daily weights, medicine consulted to assist in overall management -hx of Afib c/u Coreg and eliquis -HLD c/u statin 5. Resp: encourage incentive spirometry, monitor for infection 6. GI ppx: prilosec 7. DVT PPX eliquis and TEDs 8. : monitor PVRs 9. Pain: tyenol and Tramadol ER (will attempt to taper) 10. Psych: c/u ZOloft and rozerem 11. DIspo: TBD POST ADMISSION PHYSICIAN EVALUATION: Medical and functional status: Description of medical status, medical assessment: As above. Rehabilitation diagnosis and current and prior cold morbid medical conditions as above. Risk of complications and plans to mitigate them as above. Description of functional status current status is as above. Prior status as above. Status compared to preadmission: There are no clinically significant differences between the patient's current status and the information described on the preadmission screening document. Treatment plan anticipated: Treatment plan is as described above. Required disciplines including physical therapy, occupational therapy, others as noted above Intensity of services: 3 hours a day, 6 days a week. Special considerations: There are no specific special or safety considerations that would likely preclude immediate implementation of an intensive rehabilitation program or subsequently influence the plan of care. ATTESTATION: Considering all the information above, it is my best judgment that this patient requires intensive rehabilitation therapy as described above and an inpatient hospital environment due to the complexity of nursing, medical, and rehabilitation needs required by the patient. Furthermore, this patient can reasonably be expected to participate in an benefit from an inpatient rehabilitation stay with an interdisciplinary team approach to the delivery of rehabilitation care under the direction and supervision of rehabilitation physician. PROGNOSIS: Excellent. ESTIMATED LENGTH OF STAY:14-18 days. PROJECTED DISCHARGE DESTINATION: Home with family support and any durable medical equipment required to increase functional safety and mobility TIME SPENT COUNSELING AND COORDINATING INITIAL CARE: Greater than 70 minutes. Vital Signs Vital Sign - Last 24 Hours 07/31/19 07/31/19 08/01/19 08/01/19 14:50 20:07 05:26 09:14 Temp 98.0 97.8 97.5 Pulse 78 88 71 71 Resp 18 16 16 B/P (MAP) 91/52 (65) 111/55 (73) 130/54 (79) 130/54 Pulse Ox 91 94 97 O2 Delivery Room Air Room Air Room Air Laboratory Data CBC/BMP Laboratory Tests 08/01/19 06:24 Labs 24H Laboratory Tests 2 08/01/19 06:24: Immature Granulocyte % (Auto) 0.6, Neutrophils (%) (Auto) 61.9, Lymphocytes (%) (Auto) 22.5L, Monocytes (%) (Auto) 14.9H, Eosinophils (%) (Auto) 0.0, Basophils (%) (Auto) 0.1, Neutrophils # (Auto) 4.5, Lymphocytes # (Auto) 1.6, Monocytes # (Auto) 1.1H, Eosinophils # (Auto) 0.0, Basophils # (Auto) 0.0, Nucleated Red Blood Cells % (auto) 0.0, Anion Gap 5L, Glomerular Filtration Rate > 60.0, Ca lcium Level 8.4L, Total Bilirubin 0.7, Aspartate Amino Transf (AST/SGOT) 11, Alanine Aminotransferase (ALT/SGPT) 11L, Alkaline Phosphatase 51, Total Protein 6.4, Albumin 2.6L, Albumin/Globulin Ratio 0.68L Home Medications Scheduled Apixaban (Eliquis) 2.5 Mg Tab, 2.5 MG PO BID, (Reported) Ascorbic Acid (Ascorbic Acid) 500 Mg Tablet, 500 MG PO TID, (Reported) Calcium Carbonate/Vitamin D3 (Calcium 600-Vit D3 400 Tablet) 1 Each Tablet, 1 TAB PO BID, (Reported) Captopril (Captopril) 12.5 Mg Tab, 12.5 MG PO DAILY, (Reported) Carboxymethylcellulos/Glycerin (Refresh Optive Eye Drops) 1 Devon Devon, 2 DROP OU BID, (Reported) Carvedilol (Carvedilol) 3.125 Mg Tab, 3.125 MG PO DAILY, (Reported) Ergocalciferol (Vitamin D2) (Drisdol) 1,250 Mcg Capsule, 1,250 MCG PO 1XWK, (Reported) SATURDAY Ferrous Sulfate (Ferrous Sulfate) 325 Mg Tablet, 325 MG PO TID, (Reported) Furosemide (Furosemide) 40 Mg Tab, 40 MG PO DAILY, (Reported) Loratadine (Claritin) 10 Mg Cap, 10 MG PO DAILY, (Reported) Omeprazole (Omeprazole) 20 Mg Cap, 20 MG PO DAILY, (Reported) Potassium Chloride (Klor-Con M10) 10 Meq Tabcr, 10 MEQ PO BID, (Reported) Sertraline HCl (Sertraline HCl) 100 Mg Tablet, 100 MG PO QHS, (Reported) 1999 Simvastatin (Simvastatin) 20 Mg Tab, 20 MG PO QHS, (Reported) Spironolactone (Spironolactone) 25 Mg Tablet, 12.5 MG PO DAILY, (Reported) Tramadol HCl (Tramadol HCl ER) 100 Mg Tbmp.24hr, 200 MG PO DAILY Scheduled PRN Acetaminophen (Acetaminophen) 325 Mg Tablet, 650 MG PO Q4H PRN for PAIN OR FEVER Aluminum/Magnesium/Simeth (Mag-Al Plus Suspension) 30 Ml Oral.susp, 30 ML PO QID PRN for HEARTBURN, (Reported) Dextromethorphan Polistirex (Robitussin ER) 30 Mg/5 Ml Brooke.er.12h, 5 ML PO Q12H PRN for COUGH, (Reported) Loperamide HCl (Loperamide) 2 Mg Tablet, 4 MG PO ASDIRECTED PRN for AFTER EACH LOOSE STOOL, (Reported) 4MG, THEN 2MG AFTER EACH LOOSE STOOL Mag Hydrox/Aluminum Hyd/Simeth (Maalox Maximum Strength Susp) 355 Ml Oral.susp, 30 ML PO QID PRN for GERD, (Reported) Magnesium Hydroxide (Milk of Magnesia) 400 Mg/5 Ml Oral.susp, 2,400 MG PO DAILY PRN for CONSTIPATION, (Reported) Oxycodone HCl/Acetaminophen (Percocet 5-325 mg Tablet) 1 Each Tablet, 1 TAB PO Q4H PRN for PAIN Ramelteon (Ramelteon) 8 Mg Tablet, 8 MG PO QHS PRN for INSOMNIA Sodium Chloride ([place] Saline) 0.65 % Spr, 2 SPRAYS NARES TID PRN for NASAL CONGESTION, (Reported) Zinc Oxide (Desitin) 13 % Cre, 1 APLCT TOP ASDIRECTED PRN for RASH/ITCHING, (Reported) Allergies Coded Allergies: No Known Allergies (Verified , 12/24/10) A-FIB/CHADSVASC A-FIB History Current/History of A-Fib/PAF?: Yes Current PO Anticoag Therapy: Yes DAVID DUMONT MD Aug 01, 2019 12:14
[2019-08-01 14:00] VITALS: BP 103/50
[2019-08-01 19:38] VITALS: BP 121/55
[2019-08-01] MEDS: SIMVASTATIN 20 MG TAB PO SCH (20:00)
[2019-08-01] MEDS: SERTRALINE 100 MG TAB PO SCH (20:00)
[2019-08-01] MEDS: RAMELTEON 8 MG TAB (ROZEREM) PO SCH (20:01)
[2019-08-02] MEDS: ACETAMINOPHEN TAB 650MG DOSE (2X325MG) PO PRN ×4 (00:58→21:18)
[2019-08-02 06:04] VITALS: BP 154/70
[2019-08-02] MEDS: SENOKOT S TAB PO SCH ×2 (09:00→20:24)
[2019-08-02] MEDS: guaiFENesin 200 MG TAB PO SCH ×3 (09:00→20:24)
[2019-08-02] MEDS: REMEDY PHYTOPLEX Z-GUARD PASTE 113GM TUBE (FROM STOREROOM PRODUCT) TOP SCH ×3 (09:00→20:24)
[2019-08-02] MEDS: FERROUS SULFATE 325MG TAB PO SCH ×3 (09:11→20:24)
[2019-08-02] MEDS: traMADol ER 100MG TABLET (ULTRAM ER) PO SCH (09:12)
[2019-08-02] MEDS: CARVedilol 3.125 MG TAB PO SCH (09:12)
[2019-08-02] MEDS: LORATADINE 10 MG TAB PO SCH (09:12)
[2019-08-02] MEDS: POTASSIUM CHLORIDE 10 MEQ SR TABLET PO SCH ×2 (09:12→20:23)
[2019-08-02] MEDS: ASCORBIC ACID 500 MG TAB PO SCH ×3 (09:12→20:23)
[2019-08-02] MEDS: FUROSEMIDE 40 MG TAB PO SCH (09:12)
[2019-08-02] MEDS: SPIRONOLACTONE 12.5MG PER 1/2 TABLET PO SCH (09:12)
[2019-08-02] MEDS: OMEPRAZOLE 20 MG CAP PO SCH (09:12)
[2019-08-02] MEDS: APIXABAN 2.5 MG TAB (ELIQUIS) PO SCH ×2 (09:12→20:23)
[2019-08-02] MEDS: CAPTOpril 12.5 MG TAB PO SCH (09:12)
[2019-08-02 14:00] VITALS: BP 101/52
[2019-08-02 19:43] VITALS: BP 106/52
[2019-08-02] MEDS: SERTRALINE 100 MG TAB PO SCH (20:23)
[2019-08-02] MEDS: RAMELTEON 8 MG TAB (ROZEREM) PO SCH (20:23)
[2019-08-02] MEDS: SIMVASTATIN 20 MG TAB PO SCH (20:24)
[2019-08-03] MEDS: ACETAMINOPHEN TAB 650MG DOSE (2X325MG) PO PRN ×2 (02:05→06:06)
[2019-08-03 06:00] VITALS: BP 161/80
[2019-08-03] MEDS: POTASSIUM CHLORIDE 10 MEQ SR TABLET PO SCH ×2 (09:06→20:51)
[2019-08-03] MEDS: APIXABAN 2.5 MG TAB (ELIQUIS) PO SCH ×2 (09:06→20:01)
[2019-08-03] MEDS: traMADol ER 100MG TABLET (ULTRAM ER) PO SCH (09:07)
[2019-08-03] MEDS: LORATADINE 10 MG TAB PO SCH (09:07)
[2019-08-03] MEDS: CARVedilol 3.125 MG TAB PO SCH (09:08)
[2019-08-03] MEDS: FUROSEMIDE 40 MG TAB PO SCH (09:08)
[2019-08-03] MEDS: guaiFENesin 200 MG TAB PO SCH (09:08)
[2019-08-03] MEDS: SENOKOT S TAB PO SCH ×2 (09:08→20:01)
[2019-08-03] MEDS: OMEPRAZOLE 20 MG CAP PO SCH (09:08)
[2019-08-03] MEDS: FERROUS SULFATE 325MG TAB PO SCH ×3 (09:08→20:51)
[2019-08-03] MEDS: CAPTOpril 12.5 MG TAB PO SCH (09:08)
[2019-08-03] MEDS: REMEDY PHYTOPLEX Z-GUARD PASTE 113GM TUBE (FROM STOREROOM PRODUCT) TOP SCH ×3 (09:09→20:51)
[2019-08-03] MEDS: ASCORBIC ACID 500 MG TAB PO SCH ×3 (09:09→20:14)
[2019-08-03] MEDS: SPIRONOLACTONE 12.5MG PER 1/2 TABLET PO SCH (09:09)
[2019-08-03] MEDS ORDERED: PILL CUTTER 1 EACH XX PRN (10:00)
[2019-08-03 10:38] LABS: BASO % 0.2 % (0.0-1.0); HEMATOCRIT 26.7 % (36.0-47.0); HEMOGLOBIN 8.8 g/dl (12.0-15.5); LYMPH # 1.8 10^3/uL (1.5-5.0); LYMPH % 19.2 % (24.0-44.0); MEAN CORPUSCULAR HEMOGLOBIN 31.8 pg (27.0-33.0); MEAN CORPUSCULAR VOLUME 96.4 fl (80.0-96.0); MONO % 10.2 % (0.0-5.0); NEUTROPHILS # 6.5 10^3/uL (1.5-8.5); NEUTROPHILS % 69.9 % (36.0-66.0); PLATELET COUNT, AUTOMATED 313 10^3/uL (150-450); RED BLOOD COUNT 2.77 10^6/uL (4.00-5.40); WHITE BLOOD COUNT 9.3 10^3/uL (4.0-10.0)
--- NOTE | 2019-08-03 11:03 | IPNPDOC ---
PM&R Progress Note DATE OF SERVICE: Aug 03, 2019 Nurse Assessor Progress Note Subjective: Patient reporting she does not want to go to the gym, but agreed to work her way up to it and expressed understanding that the goal of rehab was to get intensive exercise. REVIEW OF SYSTEMS: The following is a completed review of systems and has been reviewed. Review of systems otherwise unremarkable. PAIN: Patient self reports left leg pain EYES: No recent vision changes EARS, NOSE, & THROAT: No throat pain, or dysphagia, or rhinorrhea CARDIOVASCULAR: Denies chest pain or palpitations PULMONARY: Denies shortness of breath GASTROINTESTINAL: Denies constipation/diarrhea GENITOURINARY: denies dysuria MUSCULOSKELETAL: LLE pain NEUROLOGICAL: no tremor or paresthesias HEMATOLOGICAL: +anemic SKIN: left femur incision PSYCHIATRIC: Unremarkable All other review of systems found to be negative. PHYSICAL EXAMINATION: VITAL SIGNS: Please see below. GENERAL: Pleasant and cooperative. No acute distress. HEENT: PERRL. Extraocular movements intact. Clear conjunctiva CARDIOVASCULAR: Regular rate and rhythm. No murmurs, rubs, or gallops LUNGS: Clear to auscultation bilaterally. No wheezes. No rhonchi ABDOMEN: Soft, nontender, nondistended. Positive bowel sounds. Normal active bowel sounds NEUROLOGICAL: Alert and oriented times three. Cranial nerves II through XII grossly intact. Sensation grossly intact EXTREMITIES: 5\5 strength bilateral upper extremities. 5\5 strength right lower extremity. 5/5 strength in left ankle DF/PF (limited exam due to recent surgery) +bilat mild calf swelling with +Homans SKIN: left distal femur incision c/d/i without induration or ecchymosis ASSESSMENT:79-year-old F with past medical history of PAF who presents status post fall with left femur fracture. PLAN: 1. Rehab- PT/OT advance gait and ADL training, strengthen/stretch/maintain ROM all 4 limbs -will likely need SENIOR PHP DEVELOPER eval for cognition 2. Ortho: s/p left distal femur fracture [facility]B-ortho consulted 3. Neuro: possible hx of decline in cognition, will try to avoid deliriogeniuc meds 4. CArdiac: hx of diastolic CHF c/u lasix, TRISTIN-I, and aldactone- daily weights, medicine consulted to assist in overall management -hx of Afib c/u Coreg and eliquis -HLD c/u statin 5. Resp: encourage incentive spirometry, monitor for infection -c/u guaifenesin 6. GI ppx: prilosec 7. DVT PPX eliquis and TEDs -will order Dopplers given lack of mobility 8. : monitor PVRs 9. Pain: tyenol will change to standing as patient reports this helps her pain, d/c Tramadol ER, and trial Tramadol 25mg q4h prn 10. Psych: c/u ZOloft and rozerem 11. DIspo: TBD Allergies Coded Allergies: No Known Allergies (Verified , 12/24/10) Vital Signs Vital Signs Date Time Temp Pulse Resp B/P (MAP) Pulse Ox O2 Delivery O2 Flow Rate FiO2 08/03/19 09:08 161/80 08/03/19 06:00 97.1 75 18 100 Room Air Laboratory Data CBC/BMP Laboratory Tests 08/03/19 09:52 Labs 24H Laboratory Tests 2 08/03/19 09:52: Immature Granulocyte % (Auto) 0.5, Neutrophils (%) (Auto) 69.9H, Lymphocytes (%) (Auto) 19.2L, Monocytes (%) (Auto) 10.2H, Eosinophils (%) (Auto) 0.0, Basophils (%) (Auto) 0.2, Neutrophils # (Auto) 6.5, Lymphocytes # (Auto) 1.8, Monocytes # (Auto) 1.0H, Eosinophils # (Auto) 0.0, Basophils # (Auto) 0.0, Nucleated Red Blood Cells % (auto) 0.0 Current Medications Current Medications Current Medications Medications (Trade) Dose Ordered Sig/Sally Route PRN Reason Start Time Stop Time Status Last Admin Dose Admin Acetaminophen (Tylenol Tab) 650 mg Q4HP PRN PO fever/MILD PAIN (PS 1-4) 07/31/19 13:00 08/03/19 09:43 DC 08/03/19 06:06 Acetaminophen (Tylenol Tab) 1,000 mg TID PO 08/03/19 16:00 Apixaban (Eliquis) 2.5 mg BID PO 07/31/19 21:00 08/03/19 09:06 Ascorbic Acid (Vitamin C) 500 mg TID PO 07/31/19 16:00 08/03/19 09:09 Bisacodyl (Dulcolax Suppository) 10 mg DAILYPRN PRN [place] CONSTIPATION 07/31/19 13:00 Captopril (CAPOten) 12.5 mg DAILY PO 08/01/19 09:00 08/03/19 09:08 Carvedilol (COReg) 3.125 mg DAILY PO 08/01/19 09:00 08/03/19 09:08 Ferrous Sulfate (Ferrous Sulfate) 325 mg TID PO 07/31/19 16:00 08/03/19 09:08 Furosemide (Lasix) 40 mg DAILY PO 08/01/19 09:00 08/03/19 09:08 Guaifenesin (Robitussin Tab) 400 mg TID PO 07/31/19 16:00 08/03/19 09:08 Loratadine (Claritin) 10 mg DAILY PO 08/01/19 09:00 08/03/19 09:07 Magnesium Hydroxide (Milk Of Magnesia) 30 ml DAILYPRN PRN [place] CONSTIPATION 07/31/19 13:00 Omeprazole (PriLOSEC) 20 mg DAILY PO 08/01/19 09:00 08/03/19 09:08 Potassium Chloride (Micro-K Extencaps) 10 meq BID PO 07/31/19 21:00 08/03/19 09:06 Ramelteon (Rozerem) 8 mg QHS PO 07/31/19 21:00 08/02/19 20:23 Senna/Docusate Sodium (Senokot S) 1 tab BID PO 07/31/19 21:00 08/03/19 09:08 Sertraline HCl (Zoloft) 100 mg QHS PO 07/31/19 21:00 08/02/19 20:23 Simvastatin (Zocor) 20 mg QHS PO 07/31/19 21:00 08/02/19 20:24 Spironolactone (Aldactone) 12.5 mg DAILY PO 08/01/19 09:00 08/03/19 09:09 Tramadol HCl (Ultram Er) 200 mg DAILY PO 08/01/19 09:00 08/03/19 09:43 DC 08/03/19 09:07 Tramadol HCl (Ultram) 25 mg Q4HP PRN PO MODERATE PAIN (PS 5-7) 08/03/19 09:45 DAVID DUMONT MD Aug 03, 2019 11:03
[2019-08-03 11:05] LABS: BLOOD UREA NITROGEN 10 MG/DL (7-18); CALCIUM LEVEL 8.6 MG/DL (8.8-10.2); CARBON DIOXIDE LEVEL 29 MEQ/L (21-32); CHLORIDE LEVEL 97 MEQ/L (98-107); CREATININE FOR GFR 0.37 MG/DL (0.55-1.30); GLOMERULAR FILTRATION RATE > 60.0 (>39); GLUCOSE, FASTING 96 MG/DL (70-100); POTASSIUM SERUM 3.9 MEQ/L (3.5-5.1); SODIUM LEVEL 130 MEQ/L (136-145)
[2019-08-03] MEDS ORDERED: guaiFENesin 200 MG TAB PO PRN (14:00)
[2019-08-03] MEDS: ACETAMINOPHEN 500 MG TAB PO SCH ×2 (15:30→20:02)
[2019-08-03 20:00] VITALS: BP 129/61
[2019-08-03] MEDS: SIMVASTATIN 20 MG TAB PO SCH (20:01)
[2019-08-03] MEDS: RAMELTEON 8 MG TAB (ROZEREM) PO SCH (20:01)
[2019-08-03] MEDS: SERTRALINE 100 MG TAB PO SCH (20:01)
[2019-08-03] MEDS: traMADol 50 MG TAB PO PRN (20:03)
[2019-08-04] MEDS: traMADol 50 MG TAB PO PRN ×5 (00:16→22:25)
[2019-08-04 06:00] VITALS: BP 158/78
[2019-08-04] MEDS: FERROUS SULFATE 325MG TAB PO SCH ×3 (09:11→22:27)
[2019-08-04] MEDS: LORATADINE 10 MG TAB PO SCH (09:12)
[2019-08-04] MEDS: CARVedilol 3.125 MG TAB PO SCH (09:12)
[2019-08-04] MEDS: OMEPRAZOLE 20 MG CAP PO SCH (09:12)
[2019-08-04] MEDS: CAPTOpril 12.5 MG TAB PO SCH (09:12)
[2019-08-04] MEDS: ASCORBIC ACID 500 MG TAB PO SCH ×3 (09:12→22:22)
[2019-08-04] MEDS: POTASSIUM CHLORIDE 10 MEQ SR TABLET PO SCH ×2 (09:13→22:27)
[2019-08-04] MEDS: SENOKOT S TAB PO SCH ×2 (09:13→22:23)
[2019-08-04] MEDS: FUROSEMIDE 40 MG TAB PO SCH (09:13)
[2019-08-04] MEDS: APIXABAN 2.5 MG TAB (ELIQUIS) PO SCH ×2 (09:13→22:24)
[2019-08-04] MEDS: ACETAMINOPHEN 500 MG TAB PO SCH ×3 (09:14→22:23)
[2019-08-04] MEDS: SPIRONOLACTONE 12.5MG PER 1/2 TABLET PO SCH (09:14)
[2019-08-04] MEDS: REMEDY PHYTOPLEX Z-GUARD PASTE 113GM TUBE (FROM STOREROOM PRODUCT) TOP SCH ×3 (09:15→22:26)
--- NOTE | 2019-08-04 12:18 | IPNPDOC ---
PM&R Progress Note DATE OF SERVICE: Aug 04, 2019 Tank Setter Progress Note Subjective: Patient reporting when she was at [place] she took Tylenol 100mg three times a day and that she liked this regimen. She denies having significant pain. REVIEW OF SYSTEMS: The following is a completed review of systems and has been reviewed. Review of systems otherwise unremarkable. PAIN: Patient reports minimal left leg pain EYES: No recent vision changes EARS, NOSE, & THROAT: No throat pain, or dysphagia, or rhinorrhea CARDIOVASCULAR: Denies chest pain or palpitations PULMONARY: Denies shortness of breath GASTROINTESTINAL: Denies constipation/diarrhea GENITOURINARY: denies dysuria MUSCULOSKELETAL: LLE pain NEUROLOGICAL: no tremor or paresthesias HEMATOLOGICAL: +anemic SKIN: left femur incision PSYCHIATRIC: Unremarkable All other review of systems found to be negative. PHYSICAL EXAMINATION: VITAL SIGNS: Please see below. GENERAL: Pleasant and cooperative. No acute distress. HEENT: PERRL. Extraocular movements intact. Clear conjunctiva CARDIOVASCULAR: Regular rate and rhythm. No murmurs, rubs, or gallops LUNGS: Clear to auscultation bilaterally. No wheezes. No rhonchi ABDOMEN: Soft, nontender, nondistended. Positive bowel sounds. Normal active bowel sounds NEUROLOGICAL: Alert and oriented times three. Cranial nerves II through XII grossly intact. Sensation grossly intact EXTREMITIES: 5\5 strength bilateral upper extremities. 5\5 strength right lower extremity. 5/5 strength in left ankle DF/PF (limited exam due to recent surgery) +bilat mild calf swelling with +Homans SKIN: left distal femur incision c/d/i without induration or ecchymosis ASSESSMENT:79-year-old F with past medical history of PAF who presents status post fall with left femur fracture. PLAN: 1. Rehab- PT/OT advance gait and ADL training, strengthen/stretch/maintain ROM all 4 limbs -will likely need RECRUITING ASSISTANT eval for cognition 2. Ortho: s/p left distal femur fracture advanced to [facility]-ortho consulted and recs appreciated 3. Neuro: possible hx of decline in cognition, will try to avoid deliriogenic meds 4. CArdiac: hx of diastolic CHF c/u lasix, TRISTIN-I, and aldactone- daily weights, medicine consulted to assist in overall management -hx of Afib c/u Coreg and eliquis -HLD c/u statin 5. Resp: encourage incentive spirometry, monitor for infection -c/u guaifenesin 6. GI ppx: prilosec 7. DVT PPX eliquis and TEDs -ordered Dopplers given lack of mobility 8. : monitor PVRs 9. Pain: c/u tyenol 1000mg TID, will d/c tramadol as patient reporting she does not have much pain 10. Psych: c/u ZOloft and rozerem 11. DIspo: TBD Allergies Coded Allergies: No Known Allergies (Verified , 12/24/10) Vital Signs Vital Signs Date Time Temp Pulse Resp B/P (MAP) Pulse Ox O2 Delivery O2 Flow Rate FiO2 08/04/19 09:50 18 08/04/19 09:12 70 158/78 08/04/19 06:00 97.3 98 Room Air Current Medications Current Medications Current Medications Medications (Trade) Dose Ordered Sig/Sally Route PRN Reason Start Time Stop Time Status Last Admin Dose Admin Acetaminophen (Tylenol Tab) 650 mg Q4HP PRN PO fever/MILD PAIN (PS 1-4) 07/31/19 13:00 08/03/19 09:43 DC 08/03/19 06:06 Acetaminophen (Tylenol Tab) 1,000 mg TID PO 08/03/19 16:00 08/04/19 09:14 Apixaban (Eliquis) 2.5 mg BID PO 07/31/19 21:00 08/04/19 09:13 Ascorbic Acid (Vitamin C) 500 mg TID PO 07/31/19 16:00 08/04/19 09:12 Bisacodyl (Dulcolax Suppository) 10 mg DAILYPRN PRN [place] CONSTIPATION 07/31/19 13:00 Captopril (CAPOten) 12.5 mg DAILY PO 08/01/19 09:00 08/04/19 09:12 Carvedilol (COReg) 3.125 mg DAILY PO 08/01/19 09:00 08/04/19 09:12 Ferrous Sulfate (Ferrous Sulfate) 325 mg TID PO 07/31/19 16:00 08/04/19 09:11 Furosemide (Lasix) 40 mg DAILY PO 08/01/19 09:00 08/04/19 09:13 Guaifenesin (Robitussin Tab) 400 mg TID PO 07/31/19 16:00 08/03/19 12:54 DC 08/03/19 09:08 Guaifenesin (Robitussin Tab) 400 mg TID PRN PO cough 08/03/19 14:00 Loratadine (Claritin) 10 mg DAILY PO 08/01/19 09:00 08/04/19 09:12 Magnesium Hydroxide (Milk Of Magnesia) 30 ml DAILYPRN PRN PO CONSTIPATION 07/31/19 13:00 Omeprazole (PriLOSEC) 20 mg DAILY PO 08/01/19 09:00 08/04/19 09:12 Potassium Chloride (Micro-K Extencaps) 10 meq BID PO 07/31/19 21:00 08/04/19 09:13 Ramelteon (Rozerem) 8 mg QHS PO 07/31/19 21:00 08/03/19 20:01 Senna/Docusate Sodium (Senokot S) 1 tab BID PO 07/31/19 21:00 08/04/19 09:13 Sertraline HCl (Zoloft) 100 mg QHS PO 07/31/19 21:00 08/03/19 20:01 Simvastatin (Zocor) 20 mg QHS PO 07/31/19 21:00 08/03/19 20:01 Spironolactone (Aldactone) 12.5 mg DAILY PO 08/01/19 09:00 08/04/19 09:14 Tramadol HCl (Ultram Er) 200 mg DAILY PO 08/01/19 09:00 08/03/19 09:43 DC 08/03/19 09:07 Tramadol HCl (Ultram) 25 mg Q4HP PRN PO MODERATE PAIN (PS 5-7) 08/03/19 09:45 08/04/19 10:57 DC 08/04/19 09:20 DAVID DUMONT MD Aug 04, 2019 12:18
[2019-08-04 14:00] VITALS: BP 100/59
[2019-08-04 20:00] VITALS: BP 149/70
[2019-08-04] MEDS: SIMVASTATIN 20 MG TAB PO SCH (22:22)
[2019-08-04] MEDS: RAMELTEON 8 MG TAB (ROZEREM) PO SCH (22:22)
[2019-08-04] MEDS: SERTRALINE 100 MG TAB PO SCH (22:24)
[2019-08-05] MEDS: traMADol 50 MG TAB PO PRN ×3 (04:37→21:22)
[2019-08-05 06:00] VITALS: BP 134/68
[2019-08-05 06:16] LABS: BASO % 0.1 % (0.0-1.0); HEMATOCRIT 26.3 % (36.0-47.0); HEMOGLOBIN 8.8 g/dl (12.0-15.5); LYMPH # 1.9 10^3/uL (1.5-5.0); LYMPH % 28.2 % (24.0-44.0); MEAN CORPUSCULAR HEMOGLOBIN 31.7 pg (27.0-33.0); MEAN CORPUSCULAR HGB CONC 33.5 g/dl (32.0-36.5); MEAN CORPUSCULAR VOLUME 94.6 fl (80.0-96.0); MONO # 0.8 10^3/uL (0.0-0.8); MONO % 11.2 % (0.0-5.0); NEUTROPHILS % 59.9 % (36.0-66.0); PLATELET COUNT, AUTOMATED 359 10^3/uL (150-450); RED BLOOD COUNT 2.78 10^6/uL (4.00-5.40); WHITE BLOOD COUNT 6.7 10^3/uL (4.0-10.0)
[2019-08-05 06:42] LABS: BLOOD UREA NITROGEN 8 MG/DL (7-18); CALCIUM LEVEL 8.9 MG/DL (8.8-10.2); CARBON DIOXIDE LEVEL 29 MEQ/L (21-32); CHLORIDE LEVEL 92 MEQ/L (98-107); CREATININE FOR GFR 0.35 MG/DL (0.55-1.30); GLOMERULAR FILTRATION RATE > 60.0 (>39); GLUCOSE, FASTING 88 MG/DL (70-100); POTASSIUM SERUM 3.7 MEQ/L (3.5-5.1); SODIUM LEVEL 128 MEQ/L (136-145)
[2019-08-05] MEDS: POTASSIUM CHLORIDE 10 MEQ SR TABLET PO SCH ×3 (09:00→21:22)
[2019-08-05] MEDS: FUROSEMIDE 40 MG TAB PO SCH (09:31)
[2019-08-05] MEDS: FERROUS SULFATE 325MG TAB PO SCH ×3 (09:31→21:22)
[2019-08-05] MEDS: SENOKOT S TAB PO SCH ×2 (09:31→21:23)
[2019-08-05] MEDS: OMEPRAZOLE 20 MG CAP PO SCH (09:31)
[2019-08-05] MEDS: ASCORBIC ACID 500 MG TAB PO SCH ×3 (09:31→21:23)
[2019-08-05] MEDS: SPIRONOLACTONE 12.5MG PER 1/2 TABLET PO SCH (09:32)
[2019-08-05] MEDS: CARVedilol 3.125 MG TAB PO SCH (09:32)
[2019-08-05] MEDS: APIXABAN 2.5 MG TAB (ELIQUIS) PO SCH ×2 (09:32→21:22)
[2019-08-05] MEDS: ACETAMINOPHEN 500 MG TAB PO SCH ×3 (09:32→21:22)
[2019-08-05] MEDS: LORATADINE 10 MG TAB PO SCH (09:32)
[2019-08-05] MEDS: CAPTOpril 12.5 MG TAB PO SCH (09:33)
[2019-08-05] MEDS: REMEDY PHYTOPLEX Z-GUARD PASTE 113GM TUBE (FROM STOREROOM PRODUCT) TOP SCH ×3 (09:33→21:45)
--- NOTE | 2019-08-05 10:00 | IPNPDOC ---
Text Note Date of Service The patient was seen on 08/05/19. NOTE Time of service 8:50 AM S The patient is complaining of "feeling lousy". When asked to elaborate on how she has been feeling, she is unable to provide additional details. She denies having any acute pain, shortness of breath, cough, fever, or chills. Per discussion with nursing staff she has been putting forth suboptimal effort during therapy. O Vital Signs Date Time Temp Pulse Resp B/P (MAP) Pulse Ox O2 Delivery O2 Flow Rate FiO2 08/05/19 06:00 97.6 72 18 134/68 (90) 99 Room Air GEN: Slim build / well developed/ has a flat affect HEENT: NCAT CVS: RRR/NMRG LUNGS: able to speak full sentences without stopping to take a breath / no coughing / lungs are clear to auscultation bilaterally on room air MSK/EXTREMITIES: Kyphoscoliosis NEURO: CN 2-12 are grossly intact / speech is not dysarthric PSYCH: alert and oriented / able to understand and follow all commands Laboratory Tests 08/05/19 05:42 A&P Ms. Barahona is a 79-year-old with a history of chronic HTN, paroxysmal A. fib, diastolic CHF, chronic hyponatremia, & chronic anemia who was admitted to ARU for rehabilitation after surgical repair of a supracondylar femoral fracture. 1. Debility / Deconditioning 2/2 Supracondylar femoral fracture. Postop day #6 - rehabilitation and pain management plan per primary team 2. Acute on chronic Hyponatremia. She doesn't appear to have acute symptoms. She is taking sertraline and diuretics which can cause hyponatremia.- switch to regular diet/follow-up serum osmolality, urine osmolality, and urine sodium to determine subtype of hyponatremia / f/u BMP in the morning 3. Chronic HTN / chronic diastolic CHF - c/w spironolactone, furosemide captopril & carvedilol 4. Paroxysmal atrial fibrillation - c/w eliquis 5. Chronic Anemia. The iron panel done in Jun was not c/w Iron deficiency - the primary team may consider dc iron because it can cause constipation especially in older patients 6. Depression ? -c/w sertraline for now Thank you for consulting us, we will continue to follow the patient with you. SHAUN MCCANN MD Aug 05, 2019 10:00
--- NOTE | 2019-08-05 11:49 | IPNPDOC ---
PM&R Progress Note DATE OF SERVICE: Aug 05, 2019 Consultant Intern Progress Note Subjective: Patient reporting she doesn't think she needs to get ultrasounds of her legs since she is on blood thinners. It was explained that she is on a lower dose of Eliquis, is post-op, more immobile than anticipated due to poor participation in therapy, with pain and swelling in her legs making it medically appropriate to check for clots. She expressed understanding, but would like it done in the afternoon before dinner. REVIEW OF SYSTEMS: The following is a completed review of systems and has been reviewed. Review of systems otherwise unremarkable. PAIN: Patient reports minimal left leg pain EYES: No recent vision changes EARS, NOSE, & THROAT: No throat pain, or dysphagia, or rhinorrhea CARDIOVASCULAR: Denies chest pain or palpitations PULMONARY: Denies shortness of breath GASTROINTESTINAL: Denies constipation/diarrhea GENITOURINARY: denies dysuria MUSCULOSKELETAL: LLE pain NEUROLOGICAL: no tremor or paresthesias HEMATOLOGICAL: +anemic SKIN: left femur incision PSYCHIATRIC: Unremarkable All other review of systems found to be negative. PHYSICAL EXAMINATION: VITAL SIGNS: Please see below. GENERAL: Pleasant and cooperative. No acute distress. HEENT: PERRL. Extraocular movements intact. Clear conjunctiva CARDIOVASCULAR: Regular rate and rhythm. No murmurs, rubs, or gallops LUNGS: Clear to auscultation bilaterally. No wheezes. No rhonchi ABDOMEN: Soft, nontender, nondistended. Positive bowel sounds. Normal active bowel sounds NEUROLOGICAL: Alert and oriented times three. Cranial nerves II through XII grossly intact. Sensation grossly intact EXTREMITIES: 5\5 strength bilateral upper extremities. 5\5 strength right lower extremity. 5/5 strength in left ankle DF/PF (limited exam due to recent surgery) +bilat mild calf swelling with +Homans SKIN: left distal femur incision c/d/i without induration or ecchymosis ASSESSMENT:79-year-old F with past medical history of PAF who presents status post fall with left femur fracture. PLAN: 1. Rehab- PT/OT advance gait and ADL training, strengthen/stretch/maintain ROM all 4 limbs-patient having difficulty maintaining weight bearing precautions for transfers -will likely need SHOP LABORER eval for cognition 2. Ortho: s/p left distal femur fracture advanced to [facility]-ortho consulted and recs appreciated 3. Neuro: possible hx of decline in cognition, will try to avoid deliriogenic meds 4. CArdiac: hx of diastolic CHF c/u lasix, TRISTIN-I, and aldactone- daily weights, medicine consulted to assist in overall management -hx of Afib c/u Coreg and eliquis -HLD c/u statin 5. Resp: encourage incentive spirometry, monitor for infection -c/u guaifenesin 6. GI ppx: prilosec 7. DVT PPX eliquis and TEDs -ordered Dopplers given lack of mobility and swelling, patient agrees to get it done this afternoon after therapy, but before dinner 8. : monitor PVRs 9. Pain: c/u tyenol 1000mg TID and tramdaol 25mg q8h prn pain 10. Psych: c/u ZOloft and rozerem 11. Hyponatremia- chronic likely due to diuretics and SSRI, no concerning symptoms, medicine work-up appreciated 12. DIspo: TBD Allergies Coded Allergies: No Known Allergies (Verified , 12/24/10) Vital Signs Vital Signs Date Time Temp Pulse Resp B/P (MAP) Pulse Ox O2 Delivery O2 Flow Rate FiO2 08/05/19 06:00 97.6 72 18 134/68 (90) 99 Room Air Laboratory Data CBC/BMP Laboratory Tests 08/05/19 05:42 Labs 24H Laboratory Tests 2 08/05/19 05:42: Immature Granulocyte % (Auto) 0.6, Neutrophils (%) (Auto) 59.9, Lymphocytes (%) (Auto) 28.2, Monocytes (%) (Auto) 11.2H, Eosinophils (%) (Auto) 0.0, Basophils (%) (Auto) 0.1, Neutrophils # (Auto) 4.0, Lymphocytes # (Auto) 1.9, Monocytes # (Auto) 0.8, Eosinophils # (Auto) 0.0, Basophils # (Auto) 0.0, Nucleated Red Blood Cells % (auto) 0.0, Anion Gap 7L, Glomerular Filtration Rate > 60.0, Calcium Level 8.9 08/05/19 07:46: Osmolality 264L Current Medications Current Medications Current Medications Medications (Trade) Dose Ordered Sig/Sally Route PRN Reason Start Time Stop Time Status Last Admin Dose Admin Acetaminophen (Tylenol Tab) 650 mg Q4HP PRN PO fever/MILD PAIN (PS 1-4) 07/31/19 13:00 08/03/19 09:43 DC 08/03/19 06:06 Acetaminophen (Tylenol Tab) 1,000 mg TID PO 08/03/19 16:00 08/05/19 09:32 Apixaban (Eliquis) 2.5 mg BID PO 07/31/19 21:00 08/05/19 09:32 Ascorbic Acid (Vitamin C) 500 mg TID PO 07/31/19 16:00 08/05/19 09:31 Bisacodyl (Dulcolax Suppository) 10 mg DAILYPRN PRN [place] CONSTIPATION 07/31/19 13:00 Captopril (CAPOten) 12.5 mg DAILY PO 08/01/19 09:00 08/05/19 09:33 Carvedilol (COReg) 3.125 mg DAILY PO 08/01/19 09:00 08/05/19 09:32 Ferrous Sulfate (Ferrous Sulfate) 325 mg TID PO 07/31/19 16:00 08/05/19 09:31 Furosemide (Lasix) 40 mg DAILY PO 08/01/19 09:00 08/05/19 09:31 Guaifenesin (Robitussin Tab) 400 mg TID PO 07/31/19 16:00 08/03/19 12:54 DC 08/03/19 09:08 Guaifenesin (Robitussin Tab) 400 mg TID PRN PO cough 08/03/19 14:00 Loratadine (Claritin) 10 mg DAILY PO 08/01/19 09:00 08/05/19 09:32 Magnesium Hydroxide (Milk Of Magnesia) 30 ml DAILYPRN PRN PO CONSTIPATION 07/31/19 13:00 Omeprazole (PriLOSEC) 20 mg DAILY PO 08/01/19 09:00 08/05/19 09:31 Potassium Chloride (Micro-K Extencaps) 10 meq BID PO 07/31/19 21:00 08/04/19 22:27 Ramelteon (Rozerem) 8 mg QHS PO 07/31/19 21:00 08/04/19 22:22 Senna/Docusate Sodium (Senokot S) 1 tab BID PO 07/31/19 21:00 08/05/19 09:31 Sertraline HCl (Zoloft) 100 mg QHS PO 07/31/19 21:00 08/04/19 22:24 Simvastatin (Zocor) 20 mg QHS PO 07/31/19 21:00 08/04/19 22:22 Spironolactone (Aldactone) 12.5 mg DAILY PO 08/01/19 09:00 08/05/19 09:32 Tramadol HCl (Ultram Er) 200 mg DAILY PO 08/01/19 09:00 08/03/19 09:43 DC 08/03/19 09:07 Tramadol HCl (Ultram) 25 mg Q4HP PRN PO MODERATE PAIN (PS 5-7) 08/03/19 09:45 08/04/19 10:57 DC 08/04/19 09:20 Tramadol HCl (Ultram) 25 mg Q6HP PRN PO MODERATE PAIN (PS 5-7) 08/04/19 14:00 08/05/19 04:37 DAVID DUMONT MD Aug 05, 2019 11:49
[2019-08-05 14:04] VITALS: BP 109/54
--- NOTE | 2019-08-05 15:38 | REP ---
Clinical: Longstanding immobility . Technique: Denis scale and color Doppler evaluation of the bilateral lower extremities using linear high frequency transducer. Findings: Ultrasound examination of the right and left lower extremity deep venous structures from the common femoral vein to the popliteal vein demonstrates normal compressibility flow and wave patterns in response to respiration and augmentation. There is no evidence for deep venous thrombosis. Bilateral subcutaneous edema noted. 2.7 x 0.7 x 1.5 cm complex left Theodore's cyst identified. Impression: No evidence for deep venous thrombosis. Bilateral edema. Left Theodore's cyst. Electronically Signed by Vel Cagle MD 08/05/2019 03:30 P
[2019-08-05 21:00] VITALS: BP 116/59
[2019-08-05] MEDS: RAMELTEON 8 MG TAB (ROZEREM) PO SCH (21:22)
[2019-08-05] MEDS: SIMVASTATIN 20 MG TAB PO SCH (21:23)
[2019-08-05] MEDS: SERTRALINE 100 MG TAB PO SCH (21:23)
[2019-08-06] MEDS: traMADol 50 MG TAB PO PRN ×3 (04:47→20:59)
[2019-08-06 05:51] VITALS: BP 160/77
[2019-08-06] MEDS: ASCORBIC ACID 500 MG TAB PO SCH ×3 (09:36→20:59)
[2019-08-06] MEDS: SENOKOT S TAB PO SCH ×2 (09:36→21:00)
[2019-08-06] MEDS: FERROUS SULFATE 325MG TAB PO SCH (09:36)
[2019-08-06] MEDS: POTASSIUM CHLORIDE 10 MEQ SR TABLET PO SCH (09:36)
[2019-08-06] MEDS: APIXABAN 2.5 MG TAB (ELIQUIS) PO SCH ×2 (09:36→20:59)
[2019-08-06] MEDS: SPIRONOLACTONE 12.5MG PER 1/2 TABLET PO SCH (09:36)
[2019-08-06] MEDS: CAPTOpril 12.5 MG TAB PO SCH (09:37)
[2019-08-06] MEDS: FUROSEMIDE 40 MG TAB PO SCH (09:37)
[2019-08-06] MEDS: LORATADINE 10 MG TAB PO SCH (09:37)
[2019-08-06] MEDS: CARVedilol 3.125 MG TAB PO SCH (09:37)
[2019-08-06] MEDS: OMEPRAZOLE 20 MG CAP PO SCH (09:37)
[2019-08-06] MEDS: ACETAMINOPHEN 500 MG TAB PO SCH ×2 (09:38→20:59)
[2019-08-06] MEDS: REMEDY PHYTOPLEX Z-GUARD PASTE 113GM TUBE (FROM STOREROOM PRODUCT) TOP SCH ×3 (09:38→20:58)
--- NOTE | 2019-08-06 10:03 | IPNPDOC ---
Text Note Date of Service The patient was seen on 08/06/19. NOTE Time of service 8:25 AM S This morning the patient reports still not feeling well. She ate breakfast, denies having any pain, cough, shortness of breath, or acute complaints. Per discussion with her therapist she has been putting forth more effort during therapy. O Vital Signs Date Time Temp Pulse Resp B/P (MAP) Pulse Ox O2 Delivery O2 Flow Rate FiO2 08/06/19 09:37 94 122/76 08/06/19 05:51 97.1 77 18 160/77 (104) 99 Room Air 08/06/19 05:17 18 08/06/19 04:47 18 08/05/19 21:52 18 08/05/19 21:22 18 08/05/19 21:00 97.7 85 18 116/59 (78) 99 Room Air 08/05/19 14:45 18 08/05/19 14:04 97.6 83 18 109/54 (72) 100 Room Air 08/05/19 14:02 18 GEN: Slim build / well developed/ seated in wheelchair HEENT: NCAT CVS: RRR/NMRG LUNGS: able to speak full sentences without stopping to take a breath / lungs are clear to auscultation bilaterally on room air MSK/EXTREMITIES: Kyphoscoliosis NEURO: CN 2-12 are grossly intact / speech is not dysarthric PSYCH: alert and oriented / able to understand and follow all commands Laboratory Tests 08/05/19 05:42 A&P Ms. Barahona is a 79-year-old with a history of chronic HTN, paroxysmal A. fib, diastolic CHF, chronic hyponatremia, & chronic anemia who was admitted to ARU for rehabilitation after surgical repair of a left femoral fracture. 1. Debility 2/2 left sided supracondylar femoral fracture. Postop day #7 - rehabilitation and pain management per 2. Asymptomatic acute on chronic hyponatremia - c/w regular diet/follow-up serum osmolality, urine osmolality, and urine sodium to determine subtype of hyponatremia / f/u Na today / will not make changes to change her antidepressant and diuretics for now 3. Chronic HTN / Chronic diastolic CHF - c/w spironolactone, furosemide captopril & carvedilol 4. Paroxysmal atrial fibrillation - c/w eliquis 5. Iron deficiency anemia - per primary team 6. Depression ? -c/w sertraline for now Thank you for consulting us, we will continue to follow the patient with you. SHAUN MCCANN MD Aug 06, 2019 10:03
[2019-08-06 14:00] VITALS: BP 113/63
--- NOTE | 2019-08-06 14:03 | IPNPDOC ---
PM&R Progress Note DATE OF SERVICE: Aug 06, 2019 Vice President Tax Progress Note Subjective: Patient reporting she would like her afternoon Tylenol earlier than 4 pm. She also states she feels constipated and would like more medication. She was won dering about fpc and expressed understanding that on ARU she gets more therapy and attention from nursing, increasing her likelihood of going back to assisted living. REVIEW OF SYSTEMS: The following is a completed review of systems and has been reviewed. Review of systems otherwise unremarkable. PAIN: Patient reports minimal left leg pain EYES: No recent vision changes EARS, NOSE, & THROAT: No throat pain, or dysphagia, or rhinorrhea CARDIOVASCULAR: Denies chest pain or palpitations PULMONARY: Denies shortness of breath GASTROINTESTINAL: Denies constipation/diarrhea GENITOURINARY: denies dysuria MUSCULOSKELETAL: LLE pain NEUROLOGICAL: no tremor or paresthesias HEMATOLOGICAL: +anemic SKIN: left femur incision PSYCHIATRIC: Unremarkable All other review of systems found to be negative. PHYSICAL EXAMINATION: VITAL SIGNS: Please see below. GENERAL: Pleasant and cooperative. No acute distress. HEENT: PERRL. Extraocular movements intact. Clear conjunctiva CARDIOVASCULAR: Regular rate and rhythm. No murmurs, rubs, or gallops LUNGS: Clear to auscultation bilaterally. No wheezes. No rhonchi ABDOMEN: Soft, nontender, nondistended. Positive bowel sounds. Normal active bowel sounds NEUROLOGICAL: Alert and oriented times three. Cranial nerves II through XII grossly intact. Sensation grossly intact EXTREMITIES: 5\5 strength bilateral upper extremities. 5\5 strength right lower extremity. 5/5 strength in left ankle DF/PF (limited exam due to recent surgery) +bilat mild calf swelling with +Homans SKIN: left distal femur incision c/d/i without induration or ecchymosis ASSESSMENT:79-year-old F with past medical history of PAF who presents status post fall with left femur fracture. PLAN: 1. Rehab- PT/OT advance gait and ADL training, strengthen/stretch/maintain ROM all 4 limbs-patient having difficulty maintaining weight bearing precautions for transfers -will likely need DRUMS TEACHER eval for cognition 2. Ortho: s/p left distal femur fracture advanced to [facility]-ortho consulted and recs appreciated 3. Neuro: possible hx of decline in cognition, will try to avoid deliriogenic meds 4. CArdiac: hx of diastolic CHF c/u lasix, TRISTIN-I, and aldactone- daily weights, medicine consulted to assist in overall management -hx of Afib c/u Coreg and eliquis -HLD c/u statin 5. Resp: encourage incentive spirometry, monitor for infection -c/u guaifenesin 6. GI ppx: prilosec 7. DVT PPX eliquis and TEDs -Dopplers negative for DVT, acewrap to bilat calves for swelling 8. : monitor PVRs 9. Pain: c/u tyenol 1000mg TID and tramdaol 25mg q8h prn pain 10. Psych: c/u ZOloft and rozerem 11. Hyponatremia- chronic likely due to diuretics and SSRI, no concerning symptoms, medicine work-up appreciated 12. DIspo: TBD Allergies Coded Allergies: No Known Allergies (Verified , 12/24/10) Vital Signs Vital Signs Date Time Temp Pulse Resp B/P (MAP) Pulse Ox O2 Delivery O2 Flow Rate FiO2 08/06/19 13:58 18 08/06/19 09:37 94 122/76 08/06/19 05:51 97.1 99 Room Air Laboratory Data CBC/BMP Laboratory Tests 08/06/19 11:00 Labs 24H Laboratory Tests 2 08/05/19 20:20: Urine Color YELLOW, Urine Appearance HAZY, Urine pH 5.0, Urine Specific [place] 1.013, Urine Protein NEGATIVE, Urine Glucose (UA) 1+H, Urine Ketones NEGATIVE, Urine Blood NEGATIVE, Urine Nitrite NEGATIVE, Urine Bilirubin NEGATIVE, Urine Urobilinogen 0.2, Urine Leukocyte Esterase TRACEH, Urine WBC (Auto) 3, Urine RBC (Auto) 4H, Urine Hyaline Casts (Auto) 7, Urine Bacteria (Auto) NEGATIVE, Urine Squamous Epithelial Cells 6, Urine Mucus (Auto) SMALL, Urine Sperm (Auto) Microbiology Microbiology 08/05/19 Urine Culture - Final, Complete Current Medications Current Medications Current Medications Medications (Trade) Dose Ordered Sig/Sally Route PRN Reason Start Time Stop Time Status Last Admin Dose Admin Acetaminophen (Tylenol Tab) 650 mg Q4HP PRN PO fever/MILD PAIN (PS 1-4) 07/31/19 13:00 08/03/19 09:43 DC 08/03/19 06:06 Acetaminophen (Tylenol Tab) 1,000 mg TID PO 08/03/19 16:00 08/06/19 09:38 Apixaban (Eliquis) 2.5 mg BID PO 07/31/19 21:00 08/06/19 09:36 Ascorbic Acid (Vitamin C) 500 mg TID PO 07/31/19 16:00 08/06/19 09:36 Bisacodyl (Dulcolax Suppository) 10 mg DAILYPRN PRN [place] CONSTIPATION 07/31/19 13:00 Captopril (CAPOten) 12.5 mg DAILY PO 08/01/19 09:00 08/06/19 09:37 Carvedilol (COReg) 3.125 mg DAILY PO 08/01/19 09:00 08/06/19 09:37 Ferrous Sulfate (Ferrous Sulfate) 325 mg DAILY PO 08/07/19 09:00 Ferrous Sulfate (Ferrous Sulfate) 325 mg TID PO 07/31/19 16:00 08/06/19 10:40 DC 08/06/19 09:36 Furosemide (Lasix) 40 mg DAILY PO 08/01/19 09:00 08/06/19 09:37 Guaifenesin (Robitussin Tab) 400 mg TID PO 07/31/19 16:00 08/03/19 12:54 DC 08/03/19 09:08 Guaifenesin (Robitussin Tab) 400 mg TID PRN PO cough 08/03/19 14:00 Loratadine (Claritin) 10 mg DAILY PO 08/01/19 09:00 08/06/19 09:37 Magnesium Hydroxide (Milk Of Magnesia) 30 ml DAILYPRN PRN PO CONSTIPATION 07/31/19 13:00 Omeprazole (PriLOSEC) 20 mg DAILY PO 08/01/19 09:00 08/06/19 09:37 Potassium Chloride (K-Batsheva 20 Meq Powder Packet) 20 meq DAILY PO 08/07/19 09:00 Potassium Chloride (Micro-K Extencaps) 10 meq BID PO 07/31/19 21:00 08/06/19 10:40 DC 08/06/19 09:36 Ramelteon (Rozerem) 8 mg QHS PO 07/31/19 21:00 08/05/19 21:22 Senna/Docusate Sodium (Senokot S) 1 tab BID PO 07/31/19 21:00 08/06/19 09:36 Sertraline HCl (Zoloft) 100 mg QHS PO 07/31/19 21:00 08/05/19 21:23 Simvastatin (Zocor) 20 mg QHS PO 07/31/19 21:00 08/05/19 21:23 Spironolactone (Aldactone) 12.5 mg DAILY PO 08/01/19 09:00 08/06/19 09:36 Tramadol HCl (Ultram Er) 200 mg DAILY PO 08/01/19 09:00 08/03/19 09:43 DC 08/03/19 09:07 Tramadol HCl (Ultram) 25 mg Q4HP PRN PO MODERATE PAIN (PS 5-7) 08/03/19 09:45 08/04/19 10:57 DC 08/04/19 09:20 Tramadol HCl (Ultram) 25 mg Q6HP PRN PO MODERATE PAIN (PS 5-7) 08/04/19 14:00 08/06/19 13:58 DAVID DUMONT MD Aug 06, 2019 14:03
[2019-08-06] MEDS: SODIUM CHLORIDE NASAL 0.65% SPRAY BTL (OCEAN) SCH ×2 (16:00→20:57)
[2019-08-06] MEDS ORDERED: BISACODYL 10 MG SUPP PR PRN (16:45)
[2019-08-06] MEDS ORDERED: MOM 30ML SUSPENSION UDC PO ONE (16:45)
[2019-08-06] MEDS: FLUTICASONE PROP 0.05% NASAL SPRAY 16 GM (FLONASE) NARES SCH (20:57)
[2019-08-06] MEDS: POLYVINYL ALCOHOL OPHTH SOLN 15 ML(LIQUITEARS) OU SCH (20:57)
[2019-08-06] MEDS: RAMELTEON 8 MG TAB (ROZEREM) PO SCH (20:59)
[2019-08-06 21:00] VITALS: BP 144/77
[2019-08-06] MEDS: SIMVASTATIN 20 MG TAB PO SCH (21:00)
[2019-08-06] MEDS: SERTRALINE 100 MG TAB PO SCH (21:00)
[2019-08-07] MEDS: traMADol 50 MG TAB PO PRN ×3 (03:14→20:52)
[2019-08-07 06:18] VITALS: BP 140/79
[2019-08-07 07:25] LABS: BASO % 0.3 % (0.0-1.0); HEMATOCRIT 28.5 % (36.0-47.0); HEMOGLOBIN 9.5 g/dl (12.0-15.5); LYMPH # 1.8 10^3/uL (1.5-5.0); LYMPH % 27.2 % (24.0-44.0); MEAN CORPUSCULAR HEMOGLOBIN 31.6 pg (27.0-33.0); MEAN CORPUSCULAR HGB CONC 33.3 g/dl (32.0-36.5); MEAN CORPUSCULAR VOLUME 94.7 fl (80.0-96.0); MONO # 0.6 10^3/uL (0.0-0.8); MONO % 9.7 % (0.0-5.0); NEUTROPHILS # 4.1 10^3/uL (1.5-8.5); NEUTROPHILS % 61.9 % (36.0-66.0); PLATELET COUNT, AUTOMATED 403 10^3/uL (150-450); RED BLOOD COUNT 3.01 10^6/uL (4.00-5.40); WHITE BLOOD COUNT 6.6 10^3/uL (4.0-10.0)
[2019-08-07 07:47] LABS: BLOOD UREA NITROGEN 6 MG/DL (7-18); CARBON DIOXIDE LEVEL 29 MEQ/L (21-32); CHLORIDE LEVEL 94 MEQ/L (98-107); CREATININE FOR GFR 0.37 MG/DL (0.55-1.30); GLOMERULAR FILTRATION RATE > 60.0 (>39); GLUCOSE, FASTING 87 MG/DL (70-100); SODIUM LEVEL 129 MEQ/L (136-145)
[2019-08-07] MEDS: SPIRONOLACTONE 12.5MG PER 1/2 TABLET PO SCH (09:52)
[2019-08-07] MEDS: CAPTOpril 12.5 MG TAB PO SCH (09:52)
[2019-08-07] MEDS: CARVedilol 3.125 MG TAB PO SCH (09:53)
[2019-08-07] MEDS: LORATADINE 10 MG TAB PO SCH (09:53)
[2019-08-07] MEDS: FUROSEMIDE 40 MG TAB PO SCH (09:54)
[2019-08-07] MEDS: APIXABAN 2.5 MG TAB (ELIQUIS) PO SCH ×2 (09:54→20:50)
[2019-08-07] MEDS: FERROUS SULFATE 325MG TAB PO SCH (09:54)
[2019-08-07] MEDS: POTASSIUM CHL PWD 20 MEQ PACKET PO SCH (09:54)
[2019-08-07] MEDS: OMEPRAZOLE 20 MG CAP PO SCH (09:55)
[2019-08-07] MEDS: SENOKOT S TAB PO SCH ×2 (09:55→20:51)
[2019-08-07] MEDS: ACETAMINOPHEN 500 MG TAB PO SCH ×3 (09:56→20:51)
[2019-08-07] MEDS: ASCORBIC ACID 500 MG TAB PO SCH ×3 (09:56→20:51)
[2019-08-07] MEDS: SODIUM CHLORIDE NASAL 0.65% SPRAY BTL (OCEAN) SCH ×3 (09:57→20:52)
[2019-08-07] MEDS: FLUTICASONE PROP 0.05% NASAL SPRAY 16 GM (FLONASE) NARES SCH ×2 (09:57→20:52)
[2019-08-07] MEDS: REMEDY PHYTOPLEX Z-GUARD PASTE 113GM TUBE (FROM STOREROOM PRODUCT) TOP SCH ×3 (09:58→20:53)
[2019-08-07] MEDS: POLYVINYL ALCOHOL OPHTH SOLN 15 ML(LIQUITEARS) OU SCH ×2 (09:58→20:53)
--- NOTE | 2019-08-07 10:12 | IPNPDOC ---
Text Note Date of Service The patient was seen on 08/07/19. NOTE Time of service 9 AM S This morning the patient "feels lousy". Per discussion with nursing staff. Her effort during therapy has been suboptimal today. O Vital signs Date Time Temp Pulse Resp B/P (MAP) Pulse Ox O2 Delivery O2 Flow Rate FiO2 08/07/19 09:53 72 140/79 08/07/19 06:18 98.4 18 99 Room Air GEN: Slim build / well developed/ seated in wheelchair HEENT: NCAT CVS: RRR/NMRG LUNGS: lungs are clear to auscultation bilaterally on room air MSK/EXTREMITIES: Kyphoscoliosis NEURO: CN 2-12 are grossly intact / speech is not dysarthric PSYCH: alert and oriented / able to understand and follow all commands Laboratory Tests 08/06/19 11:00 08/07/19 06:41 A&P Ms. Barahona is a 79-year-old with a history of chronic HTN, paroxysmal A. fib, chronic diastolic CHF, chronic hyponatremia, & chronic anemia who was admitted to ARU for rehabilitation after surgical repair of a left femur fracture. 1. Debility 2/2 left sided supracondylar femoral fracture. Postop day #8 - rehabilitation and pain management per 2. Asymptomatic acute on chronic hyponatremia is improving a bit after starting normal diet. Since the serum osmolality was low and the urine sodium was greater than 10, the most likely cause of the hyponatremia is renal salt loss in the setting of diuretic use - will not make changes to her diuretics if the Na continues to trend upwards with a regular diet and she remains asymptomatic 3. Chronic HTN / Chronic diastolic CHF. She is clinically euvolemic. - c/w spironolactone, furosemide captopril & carvedilol 4. Paroxysmal atrial fibrillation - c/w eliquis 5. Iron deficiency anemia - per primary team 6. Depression ? -c/w sertraline for now Thank you for consulting us, we will continue to follow the patient with you. SHAUN MCCANN MD Aug 07, 2019 10:12
[2019-08-07 14:00] VITALS: BP 118/58
--- NOTE | 2019-08-07 17:02 | IPNPDOC ---
PM&R Progress Note DATE OF SERVICE: Aug 07, 2019 Sustainability Coach Progress Note Subjective: Patient stating she is upset about having been told she was being discharge to [facility] keep stating she wants to stay here another week as planned. She reports she is working on her leg exercises and encouraged to focus on transfers as this is the most important limiting factor to returning to assisted living. REVIEW OF SYSTEMS: The following is a completed review of systems and has been reviewed. Review of systems otherwise unremarkable. PAIN: Patient reports minimal left leg pain EYES: No recent vision changes EARS, NOSE, & THROAT: No throat pain, or dysphagia, or rhinorrhea CARDIOVASCULAR: Denies chest pain or palpitations PULMONARY: Denies shortness of breath GASTROINTESTINAL: Denies constipation/diarrhea GENITOURINARY: denies dysuria MUSCULOSKELETAL: LLE pain NEUROLOGICAL: no tremor or paresthesias HEMATOLOGICAL: +anemic SKIN: left femur incision PSYCHIATRIC: Unremarkable All other review of systems found to be negative. PHYSICAL EXAMINATION: VITAL SIGNS: Please see below. GENERAL: Pleasant and cooperative. No acute distress. HEENT: PERRL. Extraocular movements intact. Clear conjunctiva CARDIOVASCULAR: Regular rate and rhythm. No murmurs, rubs, or gallops LUNGS: Clear to auscultation bilaterally. No wheezes. No rhonchi ABDOMEN: Soft, nontender, nondistended. Positive bowel sounds. Normal active bowel sounds NEUROLOGICAL: Alert and oriented times three. Cranial nerves II through XII grossly intact. Sensation grossly intact EXTREMITIES: 5\5 strength bilateral upper extremities. 5\5 strength right lower extremity. 5/5 strength in left ankle DF/PF (limited exam due to recent surgery) +bilat mild calf swelling with +Homans SKIN: left distal femur incision c/d/i without induration or ecchymosis ASSESSMENT:79-year-old F with past medical history of PAF who presents status post fall with left femur fracture. PLAN: 1. Rehab- PT/OT advance gait and ADL training, strengthen/stretch/maintain ROM all 4 limbs-patient having difficulty maintaining weight bearing precautions for transfers, although starting to improve, able to dress herself, but inconsistently -will likely need DIRECTOR OF TECHNOLOGY eval for cognition 2. Ortho: s/p left distal femur fracture advanced to [facility]-ortho consulted and recs appreciated 3. Neuro: possible hx of decline in cognition, will try to avoid deliriogenic meds 4. CArdiac: hx of diastolic CHF c/u lasix, TRISTIN-I, and aldactone- daily weights, medicine consulted to assist in overall management -hx of Afib c/u Coreg and eliquis -HLD c/u statin 5. Resp: encourage incentive spirometry, monitor for infection -c/u guaifenesin 6. GI ppx: c/u prilosec -c/u Senokot BID and MOM prn, Bacid ordered for abdominal discomfort and hx of IBS- 7. DVT PPX eliquis and TEDs -Dopplers negative for DVT, acewrap to bilat calves for swelling 8. : monitor PVRs 9. Pain: c/u tyenol 1000mg TID and tramdaol 25mg q6h prn pain 10. Psych: c/u ZOloft and rozerem 11. Hyponatremia- chronic likely due to diuretics and SSRI, no concerning symptoms, medicine work-up appreciated -will order TFTs as possible etiology of hyponatremia, other possibility glucocorticoid deficiency 12. DIspo: 08-14-19 to [place], slowly progressing towards goals Allergies Coded Allergies: No Known Allergies (Verified , 12/24/10) Vital Signs Vital Signs Date Time Temp Pulse Resp B/P (MAP) Pulse Ox O2 Delivery O2 Flow Rate FiO2 08/07/19 14:00 98.6 72 18 118/58 (78) 99 Room Air Laboratory Data CBC/BMP Laboratory Tests 08/07/19 06:41 Labs 24H Laboratory Tests 2 08/07/19 03:19: Urine Random Osmolality 383L, Urine Random Sodium 66 08/07/19 06:41: Immature Granulocyte % (Auto) 0.9, Neutrophils (%) (Auto) 61.9, Lymphocytes (%) (Auto) 27.2, Monocytes (%) (Auto) 9.7H, Eosinophils (%) (Auto) 0.0, Basophils (%) (Auto) 0.3, Neutrophils # (Auto) 4.1, Lymphocytes # (Auto) 1.8, Monocytes # (Auto) 0.6, Eosinophils # (Auto) 0.0, Basophils # (Auto) 0.0, Nucleated Red Blood Cells % (auto) 0.0, Anion Gap 6L, Glomerular Filtration Rate > 60.0, Calcium Level 9.0 Microbiology Microbiology 08/05/19 Urine Culture - Final, Complete Current Medications Current Medications Current Medications Medications (Trade) Dose Ordered Sig/Sally Route PRN Reason Start Time Stop Time Status Last Admin Dose Admin Acetaminophen (Tylenol Tab) 650 mg Q4HP PRN PO fever/MILD PAIN (PS 1-4) 07/31/19 13:00 08/03/19 09:43 DC 08/03/19 06:06 Acetaminophen (Tylenol Tab) 1,000 mg 0900,1400,2100 PO 08/06/19 21:00 08/07/19 14:21 Acetaminophen (Tylenol Tab) 1,000 mg TID PO 08/03/19 16:00 08/06/19 16:38 DC 08/06/19 09:38 Apixaban (Eliquis) 2.5 mg BID PO 07/31/19 21:00 08/07/19 09:54 Artificial Tears ([place] Tears) 2 drop BID OU 08/06/19 21:00 08/07/19 09:58 Ascorbic Acid (Vitamin C) 500 mg TID PO 07/31/19 16:00 08/07/19 16:33 Bisacodyl (Dulcolax Suppository) 10 mg DAILYPRN PRN [place] CONSTIPATION 07/31/19 13:00 Bisacodyl (Dulcolax Suppository) 10 mg DAILYPRN PRN [place] CONSTIPATION 08/06/19 16:45 Captopril (CAPOten) 12.5 mg DAILY PO 08/01/19 09:00 08/07/19 09:52 Carvedilol (COReg) 3.125 mg DAILY PO 08/01/19 09:00 08/07/19 09:53 Ferrous Sulfate (Ferrous Sulfate) 325 mg DAILY PO 08/07/19 09:00 08/07/19 09:54 Ferrous Sulfate (Ferrous Sulfate) 325 mg TID PO 07/31/19 16:00 08/06/19 10:40 DC 08/06/19 09:36 Fluticasone Propionate (Flonase 0.05% Nasal [place]) 1 spray BID NARES 08/06/19 21:00 08/07/19 09:57 Furosemide (Lasix) 40 mg DAILY PO 08/01/19 09:00 08/07/19 09:54 Guaifenesin (Robitussin Tab) 400 mg TID PO 07/31/19 16:00 08/03/19 12:54 DC 08/03/19 09:08 Guaifenesin (Robitussin Tab) 400 mg TID PRN PO cough 08/03/19 14:00 Loratadine (Claritin) 10 mg DAILY PO 08/01/19 09:00 08/07/19 09:53 Magnesium Hydroxide (Milk Of Magnesia) 30 ml DAILYPRN PRN PO CONSTIPATION 07/31/19 13:00 Miscellaneous (Unresolved Clarification Entry) SEE LABEL COMMENTS DAILY XX 08/07/19 09:00 08/07/19 11:20 DC Omeprazole (PriLOSEC) 20 mg DAILY PO 08/01/19 09:00 08/07/19 09:55 Potassium Chloride (K-Batsheva 20 Meq Powder Packet) 20 meq DAILY PO 08/07/19 09:00 08/07/19 09:54 Potassium Chloride (Micro-K Extencaps) 10 meq BID PO 07/31/19 21:00 08/06/19 10:40 DC 08/06/19 09:36 Ramelteon (Rozerem) 8 mg QHS PO 07/31/19 21:00 08/06/19 20:59 Senna/Docusate Sodium (Senokot S) 1 tab BID PO 07/31/19 21:00 08/07/19 09:55 Sertraline HCl (Zoloft) 100 mg QHS PO 07/31/19 21:00 08/06/19 21:00 Simvastatin (Zocor) 20 mg QHS PO 07/31/19 21:00 08/06/19 21:00 Sodium Chloride ([place] Nasal [place]) 2 spray TID NA 08/06/19 16:00 08/07/19 16:34 Spironolactone (Aldactone) 12.5 mg DAILY PO 08/01/19 09:00 08/07/19 09:52 Tramadol HCl (Ultram Er) 200 mg DAILY PO 08/01/19 09:00 08/03/19 09:43 DC 08/03/19 09:07 Tramadol HCl (Ultram) 25 mg Q4HP PRN PO MODERATE PAIN (PS 5-7) 08/03/19 09:45 08/04/19 10:57 DC 08/04/19 09:20 Tramadol HCl (Ultram) 25 mg Q6HP PRN PO MODERATE PAIN (PS 5-7) 08/04/19 14:00 08/07/19 11:17 DAVID DUMONT MD Aug 07, 2019 17:02
[2019-08-07 20:00] VITALS: BP 120/78
[2019-08-07] MEDS: LACTOBACILLUS ACIDOPHILUS CAP (BACID) PO SCH (20:50)
[2019-08-07] MEDS: RAMELTEON 8 MG TAB (ROZEREM) PO SCH (20:50)
[2019-08-07] MEDS: SIMVASTATIN 20 MG TAB PO SCH (20:51)
[2019-08-07] MEDS: SERTRALINE 100 MG TAB PO SCH (20:51)
[2019-08-08 06:00] VITALS: BP 160/78
[2019-08-08 07:16] LABS: FREE T4 1.19 NG/DL (0.76-1.46); THYROID STIMULATING HORMONE 0.507 uIU/ML (0.358-3.740)
[2019-08-08] MEDS: REMEDY PHYTOPLEX Z-GUARD PASTE 113GM TUBE (FROM STOREROOM PRODUCT) TOP SCH ×3 (09:00→21:00)
[2019-08-08] MEDS: LACTOBACILLUS ACIDOPHILUS CAP (BACID) PO SCH ×3 (10:30→21:00)
[2019-08-08] MEDS: FERROUS SULFATE 325MG TAB PO SCH (10:30)
[2019-08-08] MEDS: CARVedilol 3.125 MG TAB PO SCH (10:30)
[2019-08-08] MEDS: POTASSIUM CHL PWD 20 MEQ PACKET PO SCH (10:31)
[2019-08-08] MEDS: SPIRONOLACTONE 12.5MG PER 1/2 TABLET PO SCH (10:31)
[2019-08-08] MEDS: OMEPRAZOLE 20 MG CAP PO SCH (10:31)
[2019-08-08] MEDS: CAPTOpril 12.5 MG TAB PO SCH (10:32)
[2019-08-08] MEDS: APIXABAN 2.5 MG TAB (ELIQUIS) PO SCH ×2 (10:32→21:01)
[2019-08-08] MEDS: SENOKOT S TAB PO SCH ×2 (10:32→21:00)
[2019-08-08] MEDS: FUROSEMIDE 40 MG TAB PO SCH (10:32)
[2019-08-08] MEDS: ASCORBIC ACID 500 MG TAB PO SCH ×3 (10:32→21:01)
[2019-08-08] MEDS: LORATADINE 10 MG TAB PO SCH (10:32)
[2019-08-08] MEDS: POLYVINYL ALCOHOL OPHTH SOLN 15 ML(LIQUITEARS) OU SCH ×2 (10:33→21:01)
[2019-08-08] MEDS: FLUTICASONE PROP 0.05% NASAL SPRAY 16 GM (FLONASE) NARES SCH ×2 (10:33→21:01)
[2019-08-08] MEDS: SODIUM CHLORIDE NASAL 0.65% SPRAY BTL (OCEAN) SCH ×3 (10:33→21:01)
[2019-08-08] MEDS: ACETAMINOPHEN 500 MG TAB PO SCH ×3 (10:34→21:03)
[2019-08-08] MEDS: traMADol 50 MG TAB PO PRN ×2 (13:08→21:00)
[2019-08-08 14:00] VITALS: BP 117/52
[2019-08-08 20:00] VITALS: BP 163/73
[2019-08-08] MEDS: SERTRALINE 100 MG TAB PO SCH (21:00)
[2019-08-08] MEDS: SIMVASTATIN 20 MG TAB PO SCH (21:01)
[2019-08-08] MEDS: RAMELTEON 8 MG TAB (ROZEREM) PO SCH (21:01)
[2019-08-09 06:00] VITALS: BP 154/70
[2019-08-09] MEDS: REMEDY PHYTOPLEX Z-GUARD PASTE 113GM TUBE (FROM STOREROOM PRODUCT) TOP SCH ×3 (09:00→20:48)
[2019-08-09] MEDS: LACTOBACILLUS ACIDOPHILUS CAP (BACID) PO SCH ×3 (09:41→20:43)
[2019-08-09] MEDS: OMEPRAZOLE 20 MG CAP PO SCH (09:41)
[2019-08-09] MEDS: FERROUS SULFATE 325MG TAB PO SCH (09:41)
[2019-08-09] MEDS: ASCORBIC ACID 500 MG TAB PO SCH ×3 (09:41→20:43)
[2019-08-09] MEDS: SENOKOT S TAB PO SCH ×2 (09:41→20:43)
[2019-08-09] MEDS: CARVedilol 3.125 MG TAB PO SCH (09:41)
[2019-08-09] MEDS: FUROSEMIDE 40 MG TAB PO SCH (09:41)
[2019-08-09] MEDS: LORATADINE 10 MG TAB PO SCH (09:41)
[2019-08-09] MEDS: SPIRONOLACTONE 12.5MG PER 1/2 TABLET PO SCH (09:42)
[2019-08-09] MEDS: CAPTOpril 12.5 MG TAB PO SCH (09:42)
[2019-08-09] MEDS: APIXABAN 2.5 MG TAB (ELIQUIS) PO SCH ×2 (09:42→20:43)
[2019-08-09] MEDS: ACETAMINOPHEN 500 MG TAB PO SCH ×3 (09:42→20:43)
[2019-08-09] MEDS: POLYVINYL ALCOHOL OPHTH SOLN 15 ML(LIQUITEARS) OU SCH ×2 (09:43→20:47)
[2019-08-09] MEDS: POTASSIUM CHL PWD 20 MEQ PACKET PO SCH (09:43)
[2019-08-09] MEDS: FLUTICASONE PROP 0.05% NASAL SPRAY 16 GM (FLONASE) NARES SCH ×2 (09:43→20:47)
[2019-08-09] MEDS: SODIUM CHLORIDE NASAL 0.65% SPRAY BTL (OCEAN) SCH ×3 (09:43→20:46)
[2019-08-09 14:00] VITALS: BP 101/50
[2019-08-09] MEDS: traMADol 50 MG TAB PO PRN (16:44)
[2019-08-09 20:00] VITALS: BP 153/67
[2019-08-09] MEDS: SIMVASTATIN 20 MG TAB PO SCH (20:43)
[2019-08-09] MEDS: SERTRALINE 100 MG TAB PO SCH (20:43)
[2019-08-09] MEDS: RAMELTEON 8 MG TAB (ROZEREM) PO SCH (20:43)
[2019-08-10] MEDS: traMADol 50 MG TAB PO PRN ×3 (00:31→22:06)
[2019-08-10 06:00] VITALS: BP 142/73
[2019-08-10 06:43] LABS: BASO % 0.3 % (0.0-1.0); HEMOGLOBIN 10.1 g/dl (12.0-15.5); LYMPH # 1.9 10^3/uL (1.5-5.0); LYMPH % 24.1 % (24.0-44.0); MEAN CORPUSCULAR HEMOGLOBIN 32.4 pg (27.0-33.0); MEAN CORPUSCULAR HGB CONC 33.7 g/dl (32.0-36.5); MEAN CORPUSCULAR VOLUME 96.2 fl (80.0-96.0); MONO # 0.7 10^3/uL (0.0-0.8); MONO % 8.7 % (0.0-5.0); NEUTROPHILS # 5.2 10^3/uL (1.5-8.5); NEUTROPHILS % 66.3 % (36.0-66.0); PLATELET COUNT, AUTOMATED 449 10^3/uL (150-450); RED BLOOD COUNT 3.12 10^6/uL (4.00-5.40); WHITE BLOOD COUNT 7.8 10^3/uL (4.0-10.0)
[2019-08-10 07:24] LABS: BLOOD UREA NITROGEN 10 MG/DL (7-18); CALCIUM LEVEL 8.9 MG/DL (8.8-10.2); CARBON DIOXIDE LEVEL 28 MEQ/L (21-32); CHLORIDE LEVEL 96 MEQ/L (98-107); CREATININE FOR GFR 0.37 MG/DL (0.55-1.30); GLOMERULAR FILTRATION RATE > 60.0 (>39); GLUCOSE, FASTING 95 MG/DL (70-100); POTASSIUM SERUM 4.2 MEQ/L (3.5-5.1); SODIUM LEVEL 130 MEQ/L (136-145)
[2019-08-10] MEDS: SENOKOT S TAB PO SCH ×2 (09:00→20:15)
[2019-08-10] MEDS: REMEDY PHYTOPLEX Z-GUARD PASTE 113GM TUBE (FROM STOREROOM PRODUCT) TOP SCH ×3 (09:00→20:17)
[2019-08-10] MEDS: CAPTOpril 12.5 MG TAB PO SCH (09:15)
[2019-08-10] MEDS: LACTOBACILLUS ACIDOPHILUS CAP (BACID) PO SCH ×3 (09:16→20:15)
[2019-08-10] MEDS: LORATADINE 10 MG TAB PO SCH (09:16)
[2019-08-10] MEDS: FUROSEMIDE 40 MG TAB PO SCH (09:16)
[2019-08-10] MEDS: FERROUS SULFATE 325MG TAB PO SCH (09:16)
[2019-08-10] MEDS: ACETAMINOPHEN 500 MG TAB PO SCH ×3 (09:16→20:15)
[2019-08-10] MEDS: SPIRONOLACTONE 12.5MG PER 1/2 TABLET PO SCH (09:16)
[2019-08-10] MEDS: OMEPRAZOLE 20 MG CAP PO SCH (09:16)
[2019-08-10] MEDS: APIXABAN 2.5 MG TAB (ELIQUIS) PO SCH ×2 (09:16→20:15)
[2019-08-10] MEDS: ASCORBIC ACID 500 MG TAB PO SCH ×3 (09:16→20:15)
[2019-08-10] MEDS: CARVedilol 3.125 MG TAB PO SCH (09:17)
[2019-08-10] MEDS: POTASSIUM CHL PWD 20 MEQ PACKET PO SCH (09:17)
[2019-08-10] MEDS: FLUTICASONE PROP 0.05% NASAL SPRAY 16 GM (FLONASE) NARES SCH ×2 (09:18→20:16)
[2019-08-10] MEDS: POLYVINYL ALCOHOL OPHTH SOLN 15 ML(LIQUITEARS) OU SCH ×2 (09:18→20:16)
[2019-08-10] MEDS: SODIUM CHLORIDE NASAL 0.65% SPRAY BTL (OCEAN) SCH ×3 (09:18→20:16)
[2019-08-10 14:00] VITALS: BP 114/55
--- NOTE | 2019-08-10 14:02 | IPNPDOC ---
PM&R Progress Note DATE OF SERVICE: Aug 10, 2019 Senior Mechanical Development Engineer Progress Note Subjective: Patient seen in the gym working on transfers stating she is not feeling well and is frustrated that people keep asking her to do things. REVIEW OF SYSTEMS: The following is a completed review of systems and has been reviewed. Review of systems otherwise unremarkable. PAIN: Patient reports minimal left leg pain EYES: No recent vision changes EARS, NOSE, & THROAT: No throat pain, or dysphagia, or rhinorrhea CARDIOVASCULAR: Denies chest pain or palpitations PULMONARY: Denies shortness of breath GASTROINTESTINAL: Denies constipation/diarrhea GENITOURINARY: denies dysuria MUSCULOSKELETAL: LLE pain (improving) NEUROLOGICAL: no tremor or paresthesias HEMATOLOGICAL: +anemic SKIN: left femur incision PSYCHIATRIC: Unremarkable All other review of systems found to be negative. PHYSICAL EXAMINATION: VITAL SIGNS: Please see below. GENERAL: Pleasant and cooperative. No acute distress. HEENT: PERRL. Extraocular movements intact. Clear conjunctiva CARDIOVASCULAR: Regular rate and rhythm. No murmurs, rubs, or gallops LUNGS: Clear to auscultation bilaterally. No wheezes. No rhonchi ABDOMEN: Soft, nontender, nondistended. Positive bowel sounds. Normal active bowel sounds NEUROLOGICAL: Alert and oriented times three. Cranial nerves II through XII gr ossly intact. Sensation grossly intact EXTREMITIES: 5\5 strength bilateral upper extremities. 5\5 strength right lower extremity. 5/5 strength in left ankle DF/PF (limited exam due to recent surgery) +bilat mild calf swelling now with negative Homans SKIN: left distal femur incision c/d/i without induration or ecchymosis ASSESSMENT:79-year-old F with past medical history of PAF who presents status post fall with left femur fracture. PLAN: 1. Rehab- PT/OT advance gait and ADL training, strengthen/stretch/maintain ROM all 4 limbs-patient having difficulty maintaining weight bearing precautions for transfers, although starting to improve, able to dress herself, but inconsistently -will likely need BUILDING CONSTRUCTION CONTRACTOR eval for cognition 2. Ortho: s/p left distal femur fracture advanced to [facility]-ortho consulted and recs appreciated 3. Neuro: possible hx of decline in cognition, will try to avoid deliriogenic meds 4. CArdiac: hx of diastolic CHF c/u lasix, TRISTIN-I, and aldactone- daily weights, medicine consulted to assist in overall management -hx of Afib c/u Coreg and eliquis -HLD c/u statin 5. Resp: encourage incentive spirometry, monitor for infection -c/u guaifenesin 6. GI ppx: c/u prilosec -c/u Senokot BID and MOM prn, c/u Bacid ordered for abdominal discomfort and hx of IBS- 7. DVT PPX eliquis and TEDs -Dopplers negative for DVT, acewrap to bilat calves for swelling 8. : monitor PVRs 9. Pain: c/u tyenol 1000mg TID and tramadol 25mg q6h prn pain 10. Psych: c/u ZOloft and rozerem 11. Hyponatremia- chronic likely due to diuretics and SSRI, no concerning symptoms, medicine work-up appreciated -TFTs within normal limits 12. DIspo: 08-14-19 to [place], slowly progressing towards goals Allergies Coded Allergies: No Known Allergies (Verified , 12/24/10) Vital Signs Vital Signs Date Time Temp Pulse Resp B/P (MAP) Pulse Ox O2 Delivery O2 Flow Rate FiO2 08/10/19 09:17 83 142/73 08/10/19 06:00 97.9 18 98 Room Air Laboratory Data CBC/BMP Laboratory Tests 08/10/19 06:21 Labs 24H Laboratory Tests 2 08/10/19 06:21: Immature Granulocyte % (Auto) 0.6, Neutrophils (%) (Auto) 66.3H, Lymphocytes (%) (Auto) 24.1, Monocytes (%) (Auto) 8.7H, Eosinophils (%) (Auto) 0.0, Basophils (%) (Auto) 0.3, Neutrophils # (Auto) 5.2, Lymphocytes # (Auto) 1.9, Monocytes # (Auto) 0.7, Eosinophils # (Auto) 0.0, Basophils # (Auto) 0.0, Nucleated Red Bloo d Cells % (auto) 0.0, Anion Gap 6L, Glomerular Filtration Rate > 60.0, Calcium Level 8.9 Microbiology Microbiology 08/05/19 Urine Culture - Final, Complete Current Medications Current Medications Current Medications Medications (Trade) Dose Ordered Sig/Sally Route PRN Reason Start Time Stop Time Status Last Admin Dose Admin Acetaminophen (Tylenol Tab) 650 mg Q4HP PRN PO fever/MILD PAIN (PS 1-4) 3/20/20 13:00 08/03/19 09:43 DC 08/03/19 06:06 Acetaminophen (Tylenol Tab) 1,000 mg 0900,1400,2100 PO 08/06/19 21:00 08/10/19 13:02 Acetaminophen (Tylenol Tab) 1,000 mg TID PO 08/03/19 16:00 08/06/19 16:38 DC 08/06/19 09:38 Apixaban (Eliquis) 2.5 mg BID PO 07/31/19 21:00 08/10/19 09:16 Artificial Tears (Akwa Tears) 2 drop BID OU 08/06/19 21:00 08/10/19 09:18 Ascorbic Acid (Vitamin C) 500 mg TID PO 07/31/19 16:00 08/10/19 09:16 Bisacodyl (Dulcolax Suppository) 10 mg DAILYPRN PRN [place] CONSTIPATION 07/31/19 13:00 Bisacodyl (Dulcolax Suppository) 10 mg DAILYPRN PRN [place] CONSTIPATION 08/06/19 16:45 Captopril (CAPOten) 12.5 mg DAILY PO 08/01/19 09:00 08/10/19 09:15 Carvedilol (COReg) 3.125 mg DAILY PO 08/01/19 09:00 08/10/19 09:17 Ferrous Sulfate (Ferrous Sulfate) 325 mg DAILY PO 08/07/19 09:00 08/10/19 09:16 Ferrous Sulfate (Ferrous Sulfate) 325 mg TID PO 07/31/19 16:00 08/06/19 10:40 DC 08/06/19 09:36 Fluticasone Propionate (Flonase 0.05% Nasal [place]) 1 spray BID NARES 08/06/19 21:00 08/10/19 09:18 Furosemide (Lasix) 40 mg DAILY PO 08/01/19 09:00 08/10/19 09:16 Guaifenesin (Robitussin Tab) 400 mg TID PO 07/31/19 16:00 08/03/19 12:54 DC 08/03/19 09:08 Guaifenesin (Robitussin Tab) 400 mg TID PRN PO cough 08/03/19 14:00 Lactobacillus Acidophilus (Bacid) 1 ea TID PO 08/07/19 21:00 08/10/19 09:16 Loratadine (Claritin) 10 mg DAILY PO 08/01/19 09:00 08/10/19 09:16 Magnesium Hydroxide (Milk Of Magnesia) 30 ml DAILYPRN PRN PO CONSTIPATION 07/31/19 13:00 Miscellaneous (Unresolved Clarification Entry) SEE LABEL COMMENTS DAILY XX 08/07/19 09:00 08/07/19 11:20 DC Omeprazole (PriLOSEC) 20 mg DAILY PO 08/01/19 09:00 08/10/19 09:16 Potassium Chloride (K-Batsheva 20 Meq Powder Packet) 20 meq DAILY PO 08/07/19 09:00 08/10/19 09:17 Potassium Chloride (Micro-K Extencaps) 10 meq BID PO 07/31/19 21:00 08/06/19 10:40 DC 08/06/19 09:36 Ramelteon (Rozerem) 8 mg QHS PO 07/31/19 21:00 08/09/19 20:43 Senna/Docusate Sodium (Senokot S) 1 tab BID PO 07/31/19 21:00 08/09/19 20:43 Sertraline HCl (Zoloft) 100 mg QHS PO 07/31/19 21:00 08/09/19 20:43 Simvastatin (Zocor) 20 mg QHS PO 07/31/19 21:00 08/09/19 20:43 Sodium Chloride ([place] Nasal [place]) 2 spray TID NA 08/06/19 16:00 08/10/19 09:18 Spironolactone (Aldactone) 12.5 mg DAILY PO 08/01/19 09:00 08/10/19 09:16 Tramadol HCl (Ultram Er) 200 mg DAILY PO 08/01/19 09:00 08/03/19 09:43 DC 08/03/19 09:07 Tramadol HCl (Ultram) 25 mg Q4HP PRN PO MODERATE PAIN (PS 5-7) 08/03/19 09:45 08/04/19 10:57 DC 08/04/19 09:20 Tramadol HCl (Ultram) 25 mg Q6HP PRN PO MODERATE PAIN (PS 5-7) 08/04/19 14:00 08/10/19 00:31 DAVID DUMONT MD Aug 10, 2019 14:02
[2019-08-10] MEDS: RAMELTEON 8 MG TAB (ROZEREM) PO SCH (20:15)
[2019-08-10] MEDS: SIMVASTATIN 20 MG TAB PO SCH (20:15)
[2019-08-10] MEDS: SERTRALINE 100 MG TAB PO SCH (20:15)
[2019-08-10 21:00] VITALS: BP 145/71
[2019-08-11 06:10] VITALS: BP 150/74
[2019-08-11] MEDS: SENOKOT S TAB PO SCH (09:00)
[2019-08-11] MEDS: LACTOBACILLUS ACIDOPHILUS CAP (BACID) PO SCH ×3 (09:47→21:11)
[2019-08-11] MEDS: APIXABAN 2.5 MG TAB (ELIQUIS) PO SCH ×2 (09:47→21:10)
[2019-08-11] MEDS: OMEPRAZOLE 20 MG CAP PO SCH (09:47)
[2019-08-11] MEDS: LORATADINE 10 MG TAB PO SCH (09:47)
[2019-08-11] MEDS: FERROUS SULFATE 325MG TAB PO SCH (09:47)
[2019-08-11] MEDS: ACETAMINOPHEN 500 MG TAB PO SCH ×3 (09:47→21:11)
[2019-08-11] MEDS: FUROSEMIDE 40 MG TAB PO SCH (09:47)
[2019-08-11] MEDS: CARVedilol 3.125 MG TAB PO SCH (09:47)
[2019-08-11] MEDS: ASCORBIC ACID 500 MG TAB PO SCH ×3 (09:48→21:11)
[2019-08-11] MEDS: POTASSIUM CHL PWD 20 MEQ PACKET PO SCH (09:48)
[2019-08-11] MEDS: CAPTOpril 12.5 MG TAB PO SCH (09:48)
[2019-08-11] MEDS: SPIRONOLACTONE 12.5MG PER 1/2 TABLET PO SCH (09:48)
[2019-08-11] MEDS: SODIUM CHLORIDE NASAL 0.65% SPRAY BTL (OCEAN) SCH ×3 (09:49→21:12)
[2019-08-11] MEDS: FLUTICASONE PROP 0.05% NASAL SPRAY 16 GM (FLONASE) NARES SCH ×2 (09:49→21:11)
[2019-08-11] MEDS: REMEDY PHYTOPLEX Z-GUARD PASTE 113GM TUBE (FROM STOREROOM PRODUCT) TOP SCH ×3 (09:49→21:12)
[2019-08-11] MEDS: POLYVINYL ALCOHOL OPHTH SOLN 15 ML(LIQUITEARS) OU SCH ×2 (09:49→21:11)
[2019-08-11 14:00] VITALS: BP 119/56
--- NOTE | 2019-08-11 15:33 | IPNPDOC ---
PM&R Progress Note DATE OF SERVICE: Aug 11, 2019 Household Appliance Mechanic Progress Note Subjective: Patient seen today and was told that she needed to listen to therapy consistently regarding weight bearing in order to safely get back to assisted living. She expressed understanding and agreed to start listening consistently. REVIEW OF SYSTEMS: The following is a completed review of systems and has been reviewed. Review of systems otherwise unremarkable. PAIN: Patient reports minimal left leg pain EYES: No recent vision changes EARS, NOSE, & THROAT: No throat pain, or dysphagia, or rhinorrhea CARDIOVASCULAR: Denies chest pain or palpitations PULMONARY: Denies shortness of breath GASTROINTESTINAL: Denies constipation/diarrhea GENITOURINARY: denies dysuria MUSCULOSKELETAL: LLE pain (improving) NEUROLOGICAL: no tremor or paresthesias HEMATOLOGICAL: +anemic SKIN: left femur incision PSYCHIATRIC: Unremarkable All other review of systems found to be negative. PHYSICAL EXAMINATION: VITAL SIGNS: Please see below. GENERAL: Pleasant and cooperative. No acute distress. HEENT: PERRL. Extraocular movements intact. Clear conjunctiva CARDIOVASCULAR: Regular rate and rhythm. No murmurs, rubs, or gallops LUNGS: Clear to auscultation bilaterally. No wheezes. No rhonchi ABDOMEN: Soft, nontender, nondistended. Positive bowel sounds. Normal active bowel sounds NEUROLOGICAL: Alert and oriented times three. Cranial nerves II through XII grossly intact. Sensation grossly intact EXTREMITIES: 5\5 strength bilateral upper extremities. 5\5 strength right lower extremity. 5/5 strength in left ankle DF/PF (limited exam due to recent surgery) +bilat mild calf swelling (improving) now with negative Homans SKIN: left distal femur incision c/d/i without induration or ecchymosis ASSESSMENT:79-year-old F with past medical history of PAF who presents status post fall with left femur fracture. PLAN: 1. Rehab- PT/OT advance gait and ADL training, strengthen/stretch/maintain ROM all 4 limbs-patient having difficulty maintaining weight bearing precautions for transfers, although starting to improve, able to dress herself, but inconsistently -will likely need INSPECTOR BOILER eval for cognition 2. Ortho: s/p left distal femur fracture advanced to TTWB-ortho consulted and recs appreciated 3. Neuro: possible hx of decline in cognition, will try to avoid deliriogenic meds 4. CArdiac: hx of diastolic CHF c/u lasix, TRISTIN-I, and aldactone- daily weights, medicine consulted to assist in overall management -hx of Afib c/u Coreg and eliquis -HLD c/u statin 5. Resp: encourage incentive spirometry, monitor for infection -c/u guaifenesin 6. GI ppx: c/u prilosec -c/u Senokot BID will change to prn and MOM prn, c/u Bacid ordered for abdominal discomfort and hx of IBS- 7. DVT PPX eliquis and TEDs -Dopplers negative for DVT, acewrap to bilat calves for swelling 8. : monitor PVRs 9. Pain: c/u tyenol 1000mg TID and tramadol 25mg q6h prn pain 10. Psych: c/u ZOloft and rozerem 11. Hyponatremia- chronic likely due to diuretics and SSRI, no concerning symptoms, medicine work-up appreciated -TFTs within normal limits 12. DIspo: 08-14-19 to [facility], slowly progressing towards goals, patient has been educated by multiple staff members that unless she follows weight bearing precautions consistently she will not be able to discharge back to [facility] safely and will need SNF Allergies Coded Allergies: No Known Allergies (Verified , 12/24/10) Vital Signs Vital Signs Date Time Temp Pulse Resp B/P (MAP) Pulse Ox O2 Delivery O2 Flow Rate FiO2 08/11/19 09:48 150/74 08/11/19 09:47 80 08/11/19 06:10 97.3 18 96 Room Air Microbiology Microbiology 08/05/19 Urine Culture - Final, Complete Current Medications Current Medications Current Medications Medications (Trade) Dose Ordered Sig/Sally Route PRN Reason Start Time Stop Time Status Last Admin Dose Admin Acetaminophen (Tylenol Tab) 650 mg Q4HP PRN PO fever/MILD PAIN (PS 1-4) 07/31/19 13:00 08/03/19 09:43 DC 08/03/19 06:06 Acetaminophen (Tylenol Tab) 1,000 mg 0900,1400,2100 PO 08/06/19 21:00 08/11/19 14:17 Acetaminophen (Tylenol Tab) 1,000 mg TID PO 08/03/19 16:00 08/06/19 16:38 DC 08/06/19 09:38 Apixaban (Eliquis) 2.5 mg BID PO 07/31/19 21:00 08/11/19 09:47 Artificial Tears (Akwa Tears) 2 drop BID OU 08/06/19 21:00 08/11/19 09:49 Ascorbic Acid (Vitamin C) 500 mg TID PO 07/31/19 16:00 08/11/19 09:48 Bisacodyl (Dulcolax Suppository) 10 mg DAILYPRN PRN [place] CONSTIPATION 07/31/19 13:00 Bisacodyl (Dulcolax Suppository) 10 mg DAILYPRN PRN [place] CONSTIPATION 08/06/19 16:45 Captopril (CAPOten) 12.5 mg DAILY PO 08/01/19 09:00 08/11/19 09:48 Carvedilol (COReg) 3.125 mg DAILY PO 08/01/19 09:00 08/11/19 09:47 Ferrous Sulfate (Ferrous Sulfate) 325 mg DAILY PO 08/07/19 09:00 08/11/19 09:47 Ferrous Sulfate (Ferrous Sulfate) 325 mg TID PO 07/31/19 16:00 08/06/19 10:40 DC 08/06/19 09:36 Fluticasone Propionate (Flonase 0.05% Nasal [place]) 1 spray BID NARES 08/06/19 21:00 08/11/19 09:49 Furosemide (Lasix) 40 mg DAILY PO 08/01/19 09:00 08/11/19 09:47 Guaifenesin (Robitussin Tab) 400 mg TID PO 07/31/19 16:00 08/03/19 12:54 DC 08/03/19 09:08 Guaifenesin (Robitussin Tab) 400 mg TID PRN PO cough 08/03/19 14:00 Lactobacillus Acidophilus (Bacid) 1 ea TID PO 08/07/19 21:00 08/11/19 09:47 Loratadine (Claritin) 10 mg DAILY PO 08/01/19 09:00 08/11/19 09:47 Magnesium Hydroxide (Milk Of Magnesia) 30 ml DAILYPRN PRN PO CONSTIPATION 07/31/19 13:00 Miscellaneous (Unresolved Clarification Entry) SEE LABEL COMMENTS DAILY XX 08/07/19 09:00 08/07/19 11:20 DC Omeprazole (PriLOSEC) 20 mg DAILY PO 08/01/19 09:00 08/11/19 09:47 Potassium Chloride (K-Batsheva 20 Meq Powder Packet) 20 meq DAILY PO 08/07/19 09:00 08/11/19 09:48 Potassium Chloride (Micro-K Extencaps) 10 meq BID PO 07/31/19 21:00 08/06/19 10:40 DC 08/06/19 09:36 Ramelteon (Rozerem) 8 mg QHS PO 07/31/19 21:00 08/10/19 20:15 Senna/Docusate Sodium (Senokot S) 1 tab BID PO 07/31/19 21:00 08/11/19 10:05 DC 08/10/19 20:15 Senna/Docusate Sodium (Senokot S) 1 tab BID PRN PO constipation 08/11/19 21:00 Sertraline HCl (Zoloft) 100 mg QHS PO 07/31/19 21:00 08/10/19 20:15 Simvastatin (Zocor) 20 mg QHS PO 07/31/19 21:00 08/10/19 20:15 Sodium Chloride ([place] Nasal [place]) 2 spray TID NA 08/06/19 16:00 08/11/19 09:49 Spironolactone (Aldactone) 12.5 mg DAILY PO 08/01/19 09:00 08/11/19 09:48 Tramadol HCl (Ultram Er) 200 mg DAILY PO 08/01/19 09:00 08/03/19 09:43 DC 08/03/19 09:07 Tramadol HCl (Ultram) 25 mg Q4HP PRN PO MODERATE PAIN (PS 5-7) 08/03/19 09:45 08/04/19 10:57 DC 08/04/19 09:20 Tramadol HCl (Ultram) 25 mg Q6HP PRN PO MODERATE PAIN (PS 5-7) 08/04/19 14:00 08/10/19 22:06 DAVID DUMONT MD Aug 11, 2019 15:33
[2019-08-11] MEDS: traMADol 50 MG TAB PO PRN ×2 (15:38→23:22)
[2019-08-11] MEDS ORDERED: SENOKOT S TAB PO PRN (21:00)
[2019-08-11] MEDS: SERTRALINE 100 MG TAB PO SCH (21:11)
[2019-08-11] MEDS: SIMVASTATIN 20 MG TAB PO SCH (21:11)
[2019-08-11 22:00] VITALS: BP 116/98
[2019-08-11] MEDS: RAMELTEON 8 MG TAB (ROZEREM) PO SCH (23:22)
[2019-08-12 06:44] VITALS: BP 128/68
[2019-08-12 07:00] LABS: BASO % 0.3 % (0.0-1.0); HEMATOCRIT 27.3 % (36.0-47.0); HEMOGLOBIN 8.9 g/dl (12.0-15.5); LYMPH # 2.2 10^3/uL (1.5-5.0); LYMPH % 29.2 % (24.0-44.0); MEAN CORPUSCULAR HEMOGLOBIN 31.8 pg (27.0-33.0); MEAN CORPUSCULAR HGB CONC 32.6 g/dl (32.0-36.5); MEAN CORPUSCULAR VOLUME 97.5 fl (80.0-96.0); MONO # 0.9 10^3/uL (0.0-0.8); MONO % 11.8 % (0.0-5.0); NEUTROPHILS # 4.5 10^3/uL (1.5-8.5); PLATELET COUNT, AUTOMATED 358 10^3/uL (150-450); WHITE BLOOD COUNT 7.7 10^3/uL (4.0-10.0)
[2019-08-12 07:30] LABS: BLOOD UREA NITROGEN 16 MG/DL (7-18); CALCIUM LEVEL 8.7 MG/DL (8.8-10.2); CARBON DIOXIDE LEVEL 27 MEQ/L (21-32); CHLORIDE LEVEL 100 MEQ/L (98-107); CREATININE FOR GFR 0.45 MG/DL (0.55-1.30); GLOMERULAR FILTRATION RATE > 60.0 (>39); GLUCOSE, FASTING 76 MG/DL (70-100); POTASSIUM SERUM 4.4 MEQ/L (3.5-5.1); SODIUM LEVEL 134 MEQ/L (136-145)
[2019-08-12] MEDS: FERROUS SULFATE 325MG TAB PO SCH (09:51)
[2019-08-12] MEDS: ACETAMINOPHEN 500 MG TAB PO SCH ×3 (09:51→21:05)
[2019-08-12] MEDS: ASCORBIC ACID 500 MG TAB PO SCH ×3 (09:51→21:06)
[2019-08-12] MEDS: POTASSIUM CHL PWD 20 MEQ PACKET PO SCH (09:51)
[2019-08-12] MEDS: LORATADINE 10 MG TAB PO SCH (09:51)
[2019-08-12] MEDS: CAPTOpril 12.5 MG TAB PO SCH (09:52)
[2019-08-12] MEDS: LACTOBACILLUS ACIDOPHILUS CAP (BACID) PO SCH ×3 (09:52→21:06)
[2019-08-12] MEDS: CARVedilol 3.125 MG TAB PO SCH (09:53)
[2019-08-12] MEDS: FUROSEMIDE 40 MG TAB PO SCH (09:53)
[2019-08-12] MEDS: OMEPRAZOLE 20 MG CAP PO SCH (09:53)
[2019-08-12] MEDS: FLUTICASONE PROP 0.05% NASAL SPRAY 16 GM (FLONASE) NARES SCH ×2 (09:53→21:07)
[2019-08-12] MEDS: POLYVINYL ALCOHOL OPHTH SOLN 15 ML(LIQUITEARS) OU SCH ×2 (09:54→21:07)
[2019-08-12] MEDS: SPIRONOLACTONE 12.5MG PER 1/2 TABLET PO SCH (09:54)
[2019-08-12] MEDS: APIXABAN 2.5 MG TAB (ELIQUIS) PO SCH ×2 (09:54→21:06)
[2019-08-12] MEDS: REMEDY PHYTOPLEX Z-GUARD PASTE 113GM TUBE (FROM STOREROOM PRODUCT) TOP SCH ×3 (09:56→21:00)
[2019-08-12] MEDS: SODIUM CHLORIDE NASAL 0.65% SPRAY BTL (OCEAN) SCH ×3 (09:56→21:07)
--- NOTE | 2019-08-12 12:24 | IPNPDOC ---
PM&R Progress Note DATE OF SERVICE: Aug 12, 2019 Nurse Technician Progress Note Subjective: Patient seen today in her room asking about her discharge. Patient instructed she would go to SNF at the end of the week to protect her leg and to continue working on TTWB precautions. REVIEW OF SYSTEMS: The following is a completed review of systems and has been reviewed. Review of systems otherwise unremarkable. PAIN: Patient reports minimal left leg pain EYES: No recent vision changes EARS, NOSE, & THROAT: No throat pain, or dysphagia, or rhinorrhea CARDIOVASCULAR: Denies chest pain or palpitations PULMONARY: Denies shortness of breath GASTROINTESTINAL: Denies constipation/diarrhea GENITOURINARY: denies dysuria MUSCULOSKELETAL: LLE pain (improving) NEUROLOGICAL: no tremor or paresthesias HEMATOLOGICAL: +anemic SKIN: left femur incision PSYCHIATRIC: Unremarkable All other review of systems found to be negative. PHYSICAL EXAMINATION: VITAL SIGNS: Please see below. GENERAL: Pleasant and cooperative. No acute distress. HEENT: PERRL. Extraocular movements intact. Clear conjunctiva CARDIOVASCULAR: Regular rate and rhythm. No murmurs, rubs, or gallops LUNGS: Clear to auscultation bilaterally. No wheezes. No rhonchi ABDOMEN: Soft, nontender, nondistended. Positive bowel sounds. Normal active bowel sounds NEUROLOGICAL: Alert and oriented times three. Cranial nerves II through XII grossly intact. Sensation grossly intact EXTREMITIES: 5\5 strength bilateral upper extremities. 5\5 strength right lower extremity. 5/5 strength in left ankle DF/PF (limited exam due to recent surgery) +bilat mild calf swelling (improving) now with negative Homans SKIN: left distal femur incision c/d/i without induration or ecchymosis ASSESSMENT:79-year-old F with past medical history of PAF who presents status post fall with left femur fracture. PLAN: 1. Rehab- PT/OT advance gait and ADL training, strengthen/stretch/maintain ROM all 4 limbs-patient having difficulty maintaining weight bearing precautions for transfers, although starting to improve, able to dress herself, but inconsistently -will likely need WASH OIL COOLER OPERATOR eval for cognition 2. Ortho: s/p left distal femur fracture advanced to TTWB-ortho consulted and recs appreciated 3. Neuro: possible hx of decline in cognition, will try to avoid deliriogenic meds 4. CArdiac: hx of diastolic CHF c/u lasix, TRISTIN-I, and aldactone- daily weights, medicine consulted to assist in overall management -hx of Afib c/u Coreg and eliquis -HLD c/u statin 5. Resp: encourage incentive spirometry, monitor for infection -c/u guaifenesin 6. GI ppx: c/u prilosec -c/u Senokot BID will change to prn and MOM prn, c/u Bacid ordered for abdominal discomfort and hx of IBS- 7. DVT PPX eliquis and TEDs -Dopplers negative for DVT, acewrap to bilat calves for swelling 8. : monitor PVRs 9. Pain: c/u tyenol 1000mg TID and tramadol 25mg q6h prn pain 10. Psych: c/u ZOloft and rozerem 11. Hyponatremia- chronic likely due to diuretics and SSRI, no concerning symptoms, medicine work-up appreciated -TFTs within normal limits 12. DIspo: 08-14-19 to SNF Allergies Coded Allergies: No Known Allergies (Verified , 12/24/10) Vital Signs Vital Signs Date Time Temp Pulse Resp B/P (MAP) Pulse Ox O2 Delivery O2 Flow Rate FiO2 08/12/19 09:52 128/68 08/12/19 06:44 96.9 77 18 95 Room Air Laboratory Data CBC/BMP Laboratory Tests 08/12/19 06:17 Labs 24H Laboratory Tests 2 08/12/19 06:17: Immature Granulocyte % (Auto) 0.7, Neutrophils (%) (Auto) 58.0, Lymphocytes (%) (Auto) 29.2, Monocytes (%) (Auto) 11.8H, Eosinophils (%) (Auto) 0.0, Basophils (%) (Auto) 0.3, Neutrophils # (Auto) 4.5, Lymphocytes # (Auto) 2.2, Monocytes # (Auto) 0.9H, Eosinophils # (Auto) 0.0, Basophils # (Auto) 0.0, Nucleated Red Blood Cells % (auto) 0.0, Anion Gap 7L, Glomerular Filtration Rate > 60.0, Calcium Level 8.7L Microbiology Microbiology 08/05/19 Urine Culture - Final, Complete Current Medications Current Medications Current Medications Medications (Trade) Dose Ordered Sig/Sally Route PRN Reason Start Time Stop Time Status Last Admin Dose Admin Acetaminophen (Tylenol Tab) 650 mg Q4HP PRN PO fever/MILD PAIN (PS 1-4) 07/31/19 13:00 08/03/19 09:43 DC 08/03/19 06:06 Acetaminophen (Tylenol Tab) 1,000 mg 0900,1400,2100 PO 08/06/19 21:00 08/12/19 09:51 Acetaminophen (Tylenol Tab) 1,000 mg TID PO 08/03/19 16:00 08/06/19 16:38 DC 08/06/19 09:38 Apixaban (Eliquis) 2.5 mg BID PO 07/31/19 21:00 08/12/19 09:54 Artificial Tears (Akwa Tears) 2 drop BID OU 08/06/19 21:00 08/12/19 09:54 Ascorbic Acid (Vitamin C) 500 mg TID PO 07/31/19 16:00 08/12/19 09:51 Bisacodyl (Dulcolax Suppository) 10 mg DAILYPRN PRN [place] CONSTIPATION 07/31/19 13:00 Bisacodyl (Dulcolax Suppository) 10 mg DAILYPRN PRN [place] CONSTIPATION 08/06/19 16:45 Captopril (CAPOten) 12.5 mg DAILY PO 08/01/19 09:00 08/12/19 09:52 Carvedilol (COReg) 3.125 mg DAILY PO 08/01/19 09:00 08/12/19 09:53 Ferrous Sulfate (Ferrous Sulfate) 325 mg DAILY PO 08/07/19 09:00 08/12/19 09:51 Ferrous Sulfate (Ferrous Sulfate) 325 mg TID PO 07/31/19 16:00 08/06/19 10:40 DC 08/06/19 09:36 Fluticasone Propionate (Flonase 0.05% Nasal [place]) 1 spray BID NARES 08/06/19 21:00 08/12/19 09:53 Furosemide (Lasix) 40 mg DAILY PO 08/01/19 09:00 08/12/19 09:53 Guaifenesin (Robitussin Tab) 400 mg TID PO 07/31/19 16:00 08/03/19 12:54 DC 08/03/19 09:08 Guaifenesin (Robitussin Tab) 400 mg TID PRN PO cough 08/03/19 14:00 Lactobacillus Acidophilus (Bacid) 1 ea TID PO 08/07/19 21:00 08/12/19 09:52 Loratadine (Claritin) 10 mg DAILY PO 08/01/19 09:00 08/12/19 09:51 Magnesium Hydroxide (Milk Of Magnesia) 30 ml DAILYPRN PRN PO CONSTIPATION 07/31/19 13:00 Miscellaneous (Unresolved Clarification Entry) SEE LABEL COMMENTS DAILY XX 08/07/19 09:00 08/07/19 11:20 DC Omeprazole (PriLOSEC) 20 mg DAILY PO 08/01/19 09:00 08/12/19 09:53 Potassium Chloride (K-Batsheva 20 Meq Powder Packet) 20 meq DAILY PO 08/07/19 09:00 08/12/19 09:51 Potassium Chloride (Micro-K Extencaps) 10 meq BID PO 07/31/19 21:00 08/06/19 10:40 DC 08/06/19 09:36 Ramelteon (Rozerem) 8 mg QHS PO 07/31/19 21:00 08/11/19 23:22 Senna/Docusate Sodium (Senokot S) 1 tab BID PO 07/31/19 21:00 08/11/19 10:05 DC 08/10/19 20:15 Senna/Docusate Sodium (Senokot S) 1 tab BID PRN PO constipation 08/11/19 21:00 Sertraline HCl (Zoloft) 100 mg QHS PO 07/31/19 21:00 08/11/19 21:11 Simvastatin (Zocor) 20 mg QHS PO 07/31/19 21:00 08/11/19 21:11 Sodium Chloride ([place] Nasal [place]) 2 spray TID NA 08/06/19 16:00 08/12/19 09:56 Spironolactone (Aldactone) 12.5 mg DAILY PO 08/01/19 09:00 08/12/19 09:54 Tramadol HCl (Ultram Er) 200 mg DAILY PO 08/01/19 09:00 08/03/19 09:43 DC 08/03/19 09:07 Tramadol HCl (Ultram) 25 mg Q4HP PRN PO MODERATE PAIN (PS 5-7) 08/03/19 09:45 08/04/19 10:57 DC 08/04/19 09:20 Tramadol HCl (Ultram) 25 mg Q6HP PRN PO MODERATE PAIN (PS 5-7) 08/04/19 14:00 08/11/19 23:22 DAVID DUMONT MD Aug 12, 2019 12:24
[2019-08-12 14:13] VITALS: BP 105/53
--- NOTE | 2019-08-12 17:37 | IPNPDOC ---
Date Seen The patient was seen on 08/12/19. Progress Note SUBJECTIVE: Patient seen and examined at bedside. Patient says she has pain all over, but denying any fever, chills, chest pain, difficulty breathing, nausea, vomiting, abdominal pain. OBJECTIVE PHYSICAL EXAMINATION: VITAL SIGNS: Please see below. GENERAL: Laying in bed in no acute distress, hard of hearing CARDIOVASCULAR: RRR, normal S1/2, + murmur. RESPIRATORY: CTA B/L, no W/R/R ABDOMINAL: Soft, mild tenderness to palpation, nondistended EXTREMITIES: Mild edema, intact distal pulses SKIN: Left lower extremity incision clean, dry, intact NEUROLOGICAL: No focal deficits appreciated, normal speech PSYCHOLOGICAL: Alert, appropriate LABORATORY DATA, IMAGING STUDIES, MICROBIOLOGY: Please see below. ASSESSMENT AND PLAN: Ms. Barahona is a 79-year-old with a history of chronic HTN, paroxysmal A. fib, chronic diastolic CHF, chronic hyponatremia, & chronic anemia who was admitted to ARU for rehabilitation after surgical repair of a left femur fracture. PROBLEMS: 1. Debility 2/2 left sided supracondylar femoral fracture - rehabilitation and pain management per 2. Asymptomatic acute on chronic hyponatremia, resolved after starting normal diet. Since the serum osmolality was low and the urine sodium was greater than 10, the most likely cause of the hyponatremia is renal salt loss in the setting of diuretic use - will not make changes to her diuretics if the Na continues to trend upwards with a regular diet and she remains asymptomatic 3. Chronic HTN / Chronic diastolic CHF. She is clinically euvolemic. - c/w spironolactone, furosemide captopril & carvedilol 4. Paroxysmal atrial fibrillation - c/w eliquis 5. Iron deficiency anemia - per primary team 6. Depression ? -c/w sertraline for now Thank you for consulting us, we will continue to follow the patient with you. Please call with questions DISPOSITION: Patient discharged to SNF as per Dr. Roderick Vaughn VS, I&O, 24H, Fishbone Vital Signs/I&O Vital Signs Date Time Temp Pulse Resp B/P (MAP) Pulse Ox O2 Delivery O2 Flow Rate FiO2 08/12/19 14:13 97.4 75 18 105/53 (70) 99 Room Air I&O- Last 24 Hours up to 6 AM 08/12/19 06:00 Intake Total 1200 ml Balance 1200 ml Laboratory Data 24H LABS Laboratory Tests 2 08/12/19 06:17: Immature Granulocyte % (Auto) 0.7, Neutrophils (%) (Auto) 58.0, Lymphocytes (%) (Auto) 29.2, Monocytes (%) (Auto) 11.8H, Eosinophils (%) (Auto) 0.0, Basophils (%) (Auto) 0.3, Neutrophils # (Auto) 4.5, Lymphocytes # (Auto) 2.2, Monocytes # (Auto) 0.9H, Eosinophils # (Auto) 0.0, Basophils # (Auto) 0.0, Nucleated Red Blood Cells % (auto) 0.0, Anion Gap 7L, Glomerular Filtration Rate > 60.0, Calcium Level 8.7L CBC/BMP Laboratory Tests 08/12/19 06:17 Microbiology Microbiology 08/05/19 Urine Culture - Final, Complete JASON HAMPTON MD Aug 12, 2019 17:37
[2019-08-12] MEDS: traMADol 50 MG TAB PO PRN (21:04)
[2019-08-12] MEDS: RAMELTEON 8 MG TAB (ROZEREM) PO SCH (21:06)
[2019-08-12] MEDS: SERTRALINE 100 MG TAB PO SCH (21:06)
[2019-08-12] MEDS: SIMVASTATIN 20 MG TAB PO SCH (21:06)
[2019-08-12 22:00] VITALS: BP 137/65
[2019-08-13] MEDS: traMADol 50 MG TAB PO PRN ×2 (03:58→17:33)
[2019-08-13 05:47] VITALS: BP 167/80
[2019-08-13 05:49] LABS: BASO % 0.3 % (0.0-1.0); HEMATOCRIT 26.6 % (36.0-47.0); HEMOGLOBIN 8.8 g/dl (12.0-15.5); LYMPH # 1.9 10^3/uL (1.5-5.0); LYMPH % 31.2 % (24.0-44.0); MEAN CORPUSCULAR HEMOGLOBIN 32.1 pg (27.0-33.0); MEAN CORPUSCULAR HGB CONC 33.1 g/dl (32.0-36.5); MEAN CORPUSCULAR VOLUME 97.1 fl (80.0-96.0); MONO # 0.7 10^3/uL (0.0-0.8); MONO % 11.3 % (0.0-5.0); NEUTROPHILS # 3.5 10^3/uL (1.5-8.5); NEUTROPHILS % 56.7 % (36.0-66.0); PLATELET COUNT, AUTOMATED 358 10^3/uL (150-450); RED BLOOD COUNT 2.74 10^6/uL (4.00-5.40); WHITE BLOOD COUNT 6.2 10^3/uL (4.0-10.0)
[2019-08-13 06:15] VITALS: BP 168/86
[2019-08-13 06:16] LABS: BLOOD UREA NITROGEN 14 MG/DL (7-18); CALCIUM LEVEL 8.7 MG/DL (8.8-10.2); CARBON DIOXIDE LEVEL 28 MEQ/L (21-32); CHLORIDE LEVEL 102 MEQ/L (98-107); CREATININE FOR GFR 0.45 MG/DL (0.55-1.30); GLOMERULAR FILTRATION RATE > 60.0 (>39); GLUCOSE, FASTING 81 MG/DL (70-100); POTASSIUM SERUM 4.6 MEQ/L (3.5-5.1); SODIUM LEVEL 133 MEQ/L (136-145)
[2019-08-13] MEDS: FERROUS SULFATE 325MG TAB PO SCH (09:10)
[2019-08-13] MEDS: ASCORBIC ACID 500 MG TAB PO SCH ×3 (09:11→20:18)
[2019-08-13] MEDS: LORATADINE 10 MG TAB PO SCH (09:11)
[2019-08-13] MEDS: CARVedilol 3.125 MG TAB PO SCH (09:11)
[2019-08-13] MEDS: CAPTOpril 12.5 MG TAB PO SCH (09:11)
[2019-08-13] MEDS: OMEPRAZOLE 20 MG CAP PO SCH (09:11)
[2019-08-13] MEDS: ACETAMINOPHEN 500 MG TAB PO SCH ×3 (09:11→20:19)
[2019-08-13] MEDS: LACTOBACILLUS ACIDOPHILUS CAP (BACID) PO SCH ×3 (09:11→20:18)
[2019-08-13] MEDS: APIXABAN 2.5 MG TAB (ELIQUIS) PO SCH ×2 (09:11→20:18)
[2019-08-13] MEDS: POTASSIUM CHL PWD 20 MEQ PACKET PO SCH (09:12)
[2019-08-13] MEDS: SPIRONOLACTONE 12.5MG PER 1/2 TABLET PO SCH (09:12)
[2019-08-13] MEDS: FUROSEMIDE 40 MG TAB PO SCH (09:12)
[2019-08-13] MEDS: SODIUM CHLORIDE NASAL 0.65% SPRAY BTL (OCEAN) SCH ×3 (09:13→20:19)
[2019-08-13] MEDS: REMEDY PHYTOPLEX Z-GUARD PASTE 113GM TUBE (FROM STOREROOM PRODUCT) TOP SCH ×3 (09:13→20:20)
[2019-08-13] MEDS: FLUTICASONE PROP 0.05% NASAL SPRAY 16 GM (FLONASE) NARES SCH ×2 (09:13→20:19)
[2019-08-13] MEDS: POLYVINYL ALCOHOL OPHTH SOLN 15 ML(LIQUITEARS) OU SCH ×2 (09:13→20:19)
--- NOTE | 2019-08-13 11:06 | REP ---
LEFT FEMUR, TWO VIEWS: AP and lateral views of the left femur performed. There is a fracture of the distal femur with internal fixation including a metallic plate and multiple screws. The osseous structures are well aligned. There are vascular calcifications in the soft tissues. Metallic skin rachana are seen laterally in the region of the fixation. Electronically Signed by Prabhu Denis MD 08/13/2019 03:07 P
--- NOTE | 2019-08-13 11:28 | IPNPDOC ---
PM&R Progress Note DATE OF SERVICE: Aug 13, 2019 [employer] Progress Note Subjective: Patient seen today on her way to therapy and was told her X-ray results were still pending. REVIEW OF SYSTEMS: The following is a completed review of systems and has been reviewed. Review of systems otherwise unremarkable. PAIN: Patient reports minimal left leg pain EYES: No recent vision changes EARS, NOSE, & THROAT: No throat pain, or dysphagia, or rhinorrhea CARDIOVASCULAR: Denies chest pain or palpitations PULMONARY: Denies shortness of breath GASTROINTESTINAL: Denies constipation/diarrhea GENITOURINARY: denies dysuria MUSCULOSKELETAL: LLE pain (improving) NEUROLOGICAL: no tremor or paresthesias HEMATOLOGICAL: +anemic SKIN: left femur incision PSYCHIATRIC: Unremarkable All other review of systems found to be negative. PHYSICAL EXAMINATION: VITAL SIGNS: Please see below. GENERAL: Pleasant and cooperative. No acute distress. HEENT: PERRL. Extraocular movements intact. Clear conjunctiva CARDIOVASCULAR: Regular rate and rhythm. No murmurs, rubs, or gallops LUNGS: Clear to auscultation bilaterally. No wheezes. No rhonchi ABDOMEN: Soft, nontender, nondistended. Positive bowel sounds. Normal active bowel sounds NEUROLOGICAL: Alert and oriented times three. Cranial nerves II through XII grossly intact. Sensation grossly intact EXTREMITIES: 5\5 strength bilateral upper extremities. 5\5 strength right lower extremity. 5/5 strength in left ankle DF/PF (limited exam due to recent surgery) +bilat mild calf swelling (improving) now with negative Homans SKIN: left distal femur incision c/d/i without induration or ecchymosis ASSESSMENT:79-year-old F with past medical history of PAF who presents status post fall with left femur fracture. PLAN: 1. Rehab- PT/OT advance gait and ADL training, strengthen/stretch/maintain ROM all 4 limbs-patient having difficulty maintaining weight bearing precautions for transfers, although starting to improve, able to dress herself, but inconsistently -will likely need WINDOW SHADE INSTALLER eval for cognition 2. Ortho: s/p left distal femur fracture advanced to TTWB-ortho consulted and recs appreciated -repeat femur X-ray ordered today as patient with more pain than usual in therapy 3. Neuro: possible hx of decline in cognition, will try to avoid deliriogenic meds 4. CArdiac: hx of diastolic CHF c/u lasix, TRISTIN-I, and aldactone- daily weights, medicine consulted to assist in overall management -hx of Afib c/u Coreg and eliquis -HLD c/u statin 5. Resp: encourage incentive spirometry, monitor for infection -c/u guaifenesin 6. GI ppx: c/u prilosec -c/u Senokot BID will change to prn and MOM prn, c/u Bacid ordered for abdominal discomfort and hx of IBS- 7. DVT PPX eliquis and TEDs -Dopplers negative for DVT, acewrap to bilat calves for swelling 8. : monitor PVRs 9. Pain: c/u tyenol 1000mg TID and tramadol 25mg q6h prn pain 10. Psych: c/u ZOloft and rozerem 11. Hyponatremia- chronic likely due to diuretics and SSRI, no concerning symptoms, medicine work-up appreciated, overall improving -TFTs within normal limits 12. DIspo: 08-14-19 to SNF Allergies Coded Allergies: No Known Allergies (Verified , 12/24/10) Vital Signs Vital Signs Date Time Temp Pulse Resp B/P (MAP) Pulse Ox O2 Delivery O2 Flow Rate FiO2 08/13/19 09:11 84 162/78 08/13/19 05:47 98.8 18 97 Room Air Laboratory Data CBC/BMP Laboratory Tests 08/13/19 05:32 Labs 24H Laboratory Tests 2 08/13/19 05:32: Immature Granulocyte % (Auto) 0.5, Neutrophils (%) (Auto) 56.7, Lymphocytes (%) (Auto) 31.2, Monocytes (%) (Auto) 11.3H, Eosinophils (%) (Auto) 0.0, Basophils (%) (Auto) 0.3, Neutrophils # (Auto) 3.5, Lymphocytes # (Auto) 1.9, Monocytes # (Auto) 0.7, Eosinophils # (Auto) 0.0, Basophils # (Auto) 0.0, Nucleated Red Blood Cells % (auto) 0.0, Anion Gap 3L, Glomerular Filtration Rate > 60.0, Calcium Level 8.7L Microbiology Microbiology 08/05/19 Urine Culture - Final, Complete Current Medications Current Medications Current Medications Medications (Trade) Dose Ordered Sig/Sally Route PRN Reason Start Time Stop Time Status Last Admin Dose Admin Acetaminophen (Tylenol Tab) 650 mg Q4HP PRN PO fever/MILD PAIN (PS 1-4) 07/31/19 13:00 08/03/19 09:43 DC 08/03/19 06:06 Acetaminophen (Tylenol Tab) 1,000 mg 0900,1400,2100 PO 08/06/19 21:00 08/13/19 09:11 Acetaminophen (Tylenol Tab) 1,000 mg TID PO 08/03/19 16:00 08/06/19 16:38 DC 08/06/19 09:38 Apixaban (Eliquis) 2.5 mg BID PO 07/31/19 21:00 08/13/19 09:11 Artificial Tears ([place] Tears) 2 drop BID OU 08/06/19 21:00 08/13/19 09:13 Ascorbic Acid (Vitamin C) 500 mg TID PO 07/31/19 16:00 08/13/19 09:11 Bisacodyl (Dulcolax Suppository) 10 mg DAILYPRN PRN [place] CONSTIPATION 07/31/19 13:00 Bisacodyl (Dulcolax Suppository) 10 mg DAILYPRN PRN [place] CONSTIPATION 08/06/19 16:45 Captopril (CAPOten) 12.5 mg DAILY PO 08/01/19 09:00 08/13/19 09:11 Carvedilol (COReg) 3.125 mg DAILY PO 08/01/19 09:00 08/13/19 09:11 Ferrous Sulfate (Ferrous Sulfate) 325 mg DAILY PO 08/07/19 09:00 08/13/19 09:10 Ferrous Sulfate (Ferrous Sulfate) 325 mg TID PO 07/31/19 16:00 08/06/19 10:40 DC 08/06/19 09:36 Fluticasone Propionate (Flonase 0.05% Nasal [place]) 1 spray BID NARES 08/06/19 21:00 08/13/19 09:13 Furosemide (Lasix) 40 mg DAILY PO 08/01/19 09:00 08/13/19 09:12 Guaifenesin (Robitussin Tab) 400 mg TID PO 07/31/19 16:00 08/03/19 12:54 DC 08/03/19 09:08 Guaifenesin (Robitussin Tab) 400 mg TID PRN PO cough 08/03/19 14:00 Lactobacillus Acidophilus (Bacid) 1 ea TID PO 08/07/19 21:00 08/13/19 09:11 Loratadine (Claritin) 10 mg DAILY PO 08/01/19 09:00 08/13/19 09:11 Magnesium Hydroxide (Milk Of Magnesia) 30 ml DAILYPRN PRN PO CONSTIPATION 07/31/19 13:00 Miscellaneous (Unresolved Clarification Entry) SEE LABEL COMMENTS DAILY XX 08/07/19 09:00 08/07/19 11:20 DC Omeprazole (PriLOSEC) 20 mg DAILY PO 08/01/19 09:00 08/13/19 09:11 Potassium Chloride (K-Batsheva 20 Meq Powder Packet) 20 meq DAILY PO 08/07/19 09:00 08/13/19 09:12 Potassium Chloride (Micro-K Extencaps) 10 meq BID PO 07/31/19 21:00 08/06/19 10:40 DC 08/06/19 09:36 Ramelteon (Rozerem) 8 mg QHS PO 07/31/19 21:00 08/12/19 21:06 Senna/Docusate Sodium (Senokot S) 1 tab BID PO 07/31/19 21:00 08/11/19 10:05 DC 08/10/19 20:15 Senna/Docusate Sodium (Senokot S) 1 tab BID PRN PO constipation 08/11/19 21:00 Sertraline HCl (Zoloft) 100 mg QHS PO 07/31/19 21:00 08/12/19 21:06 Simvastatin (Zocor) 20 mg QHS PO 07/31/19 21:00 08/12/19 21:06 Sodium Chloride ([place] Nasal [place]) 2 spray TID NA 08/06/19 16:00 08/13/19 09:13 Spironolactone (Aldactone) 12.5 mg DAILY PO 08/01/19 09:00 08/13/19 09:12 Tramadol HCl (Ultram Er) 200 mg DAILY PO 08/01/19 09:00 08/03/19 09:43 DC 08/03/19 09:07 Tramadol HCl (Ultram) 25 mg Q4HP PRN PO MODERATE PAIN (PS 5-7) 08/03/19 09:45 08/04/19 10:57 DC 08/04/19 09:20 Tramadol HCl (Ultram) 25 mg Q6HP PRN PO MODERATE PAIN (PS 5-7) 08/04/19 14:00 08/13/19 03:58 DAVID DUMONT MD Aug 13, 2019 11:28
[2019-08-13] MEDS ORDERED: TRAM50TA2 PO (12:10)
[2019-08-13] MEDS ORDERED: RISATAB3 PO (12:10)
[2019-08-13] MEDS ORDERED: ACET-683 PO (12:10)
[2019-08-13 14:15] VITALS: BP 103/53
[2019-08-13 20:00] VITALS: BP 115/57
[2019-08-13] MEDS: SERTRALINE 100 MG TAB PO SCH (20:18)
[2019-08-13] MEDS: RAMELTEON 8 MG TAB (ROZEREM) PO SCH (20:18)
[2019-08-13] MEDS: SIMVASTATIN 20 MG TAB PO SCH (20:18)
[2019-08-14] MEDS: traMADol 50 MG TAB PO PRN (01:40)
[2019-08-14 06:00] VITALS: BP 128/73
[2019-08-14] MEDS: OMEPRAZOLE 20 MG CAP PO SCH (09:00)
[2019-08-14] MEDS: FERROUS SULFATE 325MG TAB PO SCH (09:16)
[2019-08-14] MEDS: SPIRONOLACTONE 12.5MG PER 1/2 TABLET PO SCH (09:16)
[2019-08-14] MEDS: ASCORBIC ACID 500 MG TAB PO SCH (09:16)
[2019-08-14] MEDS: ACETAMINOPHEN 500 MG TAB PO SCH (09:16)
[2019-08-14] MEDS: LACTOBACILLUS ACIDOPHILUS CAP (BACID) PO SCH (09:16)
[2019-08-14] MEDS: CAPTOpril 12.5 MG TAB PO SCH (09:17)
[2019-08-14] MEDS: FUROSEMIDE 40 MG TAB PO SCH (09:17)
[2019-08-14] MEDS: LORATADINE 10 MG TAB PO SCH (09:17)
[2019-08-14 09:18] VITALS: BP 132/77
[2019-08-14] MEDS: APIXABAN 2.5 MG TAB (ELIQUIS) PO SCH (09:18)
[2019-08-14] MEDS: POTASSIUM CHL PWD 20 MEQ PACKET PO SCH (09:18)
[2019-08-14] MEDS: POLYVINYL ALCOHOL OPHTH SOLN 15 ML(LIQUITEARS) OU SCH (09:18)
[2019-08-14] MEDS: FLUTICASONE PROP 0.05% NASAL SPRAY 16 GM (FLONASE) NARES SCH (09:18)
[2019-08-14] MEDS: CARVedilol 3.125 MG TAB PO SCH (09:18)
[2019-08-14] MEDS: SODIUM CHLORIDE NASAL 0.65% SPRAY BTL (OCEAN) SCH (09:19)
[2019-08-14] MEDS: REMEDY PHYTOPLEX Z-GUARD PASTE 113GM TUBE (FROM STOREROOM PRODUCT) TOP SCH (09:19)
== END 2019-08-14 10:35 | DRG 560 ==
LOC: M PM&R 14:40
PROVIDERS: ADMIT Physical Medicine & Rehabilitation; ATTEND Physical Medicine & Rehabilitation
DX: S72.455D Nondisplaced supracondylar fracture without intracondylar extension of lower end of left femur, subsequent encounter for closed fracture with routine healing (principal); I50.32 Chronic diastolic (congestive) heart failure; E87.1 Hypo-osmolality and hyponatremia; I11.0 Hypertensive heart disease with heart failure; I48.0 Paroxysmal atrial fibrillation; D50.9 Iron deficiency anemia, unspecified; W19.XXXD Unspecified fall, subsequent encounter; F32.9 Major depressive disorder, single episode, unspecified; Y92.009 Unspecified place in unspecified non-institutional (private) residence as the place of occurrence of the external cause; K59.00 Constipation, unspecified; R26.89 Other abnormalities of gait and mobility; Z79.01 Long term (current) use of anticoagulants; Z79.891 Long term (current) use of opiate analgesic; Z79.899 Other long term (current) drug therapy

== ENCOUNTER → 2019-08-20 | Outpatient (REF) ==
[~2019-08-20] MED LIST changes: +RISATAB3 PO; +TRAM50TA2 PO
== END ==
LOC: SKLAB5 10:21
PROVIDERS: ATTEND Internal Medicine
DX: D64.9 Anemia, unspecified (principal)

== ENCOUNTER → 2019-09-07 | Outpatient (REF) ==
[2019-09-07 13:08] LABS: HEMATOCRIT 43.1 % (36.0-47.0); HEMOGLOBIN 14.4 g/dl (12.0-15.5); MEAN CORPUSCULAR HGB CONC 33.4 g/dl (32.0-36.5); MEAN CORPUSCULAR VOLUME 95.8 fl (80.0-96.0); PLATELET COUNT, AUTOMATED 256 10^3/uL (150-450); WHITE BLOOD COUNT 9.1 10^3/uL (4.0-10.0)
[2019-09-07 13:26] LABS: BLOOD UREA NITROGEN 17 MG/DL (7-18); CALCIUM LEVEL 10.3 MG/DL (8.8-10.2); CARBON DIOXIDE LEVEL 27 MEQ/L (21-32); CHLORIDE LEVEL 101 MEQ/L (98-107); GLOMERULAR FILTRATION RATE > 60.0 (>39); GLUCOSE, FASTING 128 MG/DL (70-100); POTASSIUM SERUM 4.1 MEQ/L (3.5-5.1); SODIUM LEVEL 137 MEQ/L (136-145)
[2019-09-07 13:42] LABS: AMORPHOUS SEDIMENT SMALL (NEGATIVE); APPEARANCE, URINE TURBID (CLEAR); BACTERIA, URINE AUTO 3+ (NEGATIVE); BILIRUBIN, URINE AUTO NEGATIVE (NEGATIVE); BLOOD, URINE BLOOD 1+ (NEGATIVE); COLOR, URINE AMBER (YELLOW); GLUCOSE, URINE (UA) AUTO NEGATIVE (NEGATIVE); KETONE, URINE AUTO TRACE mg/dL (NEGATIVE); LEUKOCYTE ESTERASE, URINE AUTO 1+ (NEGATIVE); MUCUS, URINE SMALL (NEGATIVE); NITRITE, URINE AUTO POSITIVE (NEGATIVE); PROTEIN, URINE AUTO 1+ mg/dL (NEGATIVE); RBC, URINE AUTO 12 /HPF (0-3); SPECIFIC GRAVITY URINE AUTO 1.019 (1.002-1.035); SQUAMOUS EPITHELIAL CELL UR AU 1 /HPF (0-6); UROBILINOGEN, URINE AUTO 0.2 mg/dL (0.0-2.0); WBC, URINE AUTO 45 /HPF (0-3)
== END ==
LOC: SKLAB5 12:19
PROVIDERS: ATTEND Internal Medicine
DX: R11.11 Vomiting without nausea (principal)

== ENCOUNTER → 2019-09-08 | Outpatient (REF) | LOC: SKLAB5 13:56 | PROVIDERS: ATTEND Internal Medicine | DX: R19.7 Diarrhea, unspecified (principal) ==

== ENCOUNTER → 2019-09-15 | Outpatient (REF) ==
[2019-09-15 08:44] LABS: HEMATOCRIT 43.9 % (36.0-47.0); HEMOGLOBIN 13.9 g/dl (12.0-15.5); MEAN CORPUSCULAR HGB CONC 31.7 g/dl (32.0-36.5); MEAN CORPUSCULAR VOLUME 97.8 fl (80.0-96.0); PLATELET COUNT, AUTOMATED 224 10^3/uL (150-450); RED BLOOD COUNT 4.49 10^6/uL (4.00-5.40); WHITE BLOOD COUNT 6.5 10^3/uL (4.0-10.0)
[2019-09-15 09:21] LABS: BLOOD UREA NITROGEN 16 MG/DL (7-18); CALCIUM LEVEL 9.4 MG/DL (8.8-10.2); CARBON DIOXIDE LEVEL 29 MEQ/L (21-32); CHLORIDE LEVEL 102 MEQ/L (98-107); CHOLESTEROL LEVEL 132 MG/DL (<200); CHOLESTEROL RISK RATIO 1.941 (<5); CREATININE FOR GFR 0.69 MG/DL (0.55-1.30); FREE T4 1.26 NG/DL (0.76-1.46); GLOMERULAR FILTRATION RATE > 60.0 (>39); GLUCOSE, FASTING 125 MG/DL (70-100); HDL CHOLESTEROL 68 MG/DL (>40); LDL CHOLESTEROL 46 MG/DL (<100); NON-HDL-C 64 MG/DL; POTASSIUM SERUM 4.1 MEQ/L (3.5-5.1); SODIUM LEVEL 138 MEQ/L (136-145); THYROID STIMULATING HORMONE 0.574 uIU/ML (0.358-3.740); TRIGLYCERIDES LEVEL 92 MG/DL (<150)
[2019-09-15 09:24] LABS: TOTAL 25(OH) VITAMIN D 30.7 NG/ML (30.0-100.0)
== END ==
LOC: SKLAB5 08:25
PROVIDERS: ATTEND Internal Medicine
DX: D64.9 Anemia, unspecified (principal); E78.5 Hyperlipidemia, unspecified; E03.9 Hypothyroidism, unspecified

== ENCOUNTER → 2019-09-24 | Outpatient (REF) | LOC: SKLAB5 07:21 | PROVIDERS: ATTEND Internal Medicine | DX: Z03.818 Encounter for observation for suspected exposure to other biological agents ruled out (principal) ==

== ENCOUNTER 2019-10-07 10:47 | Inpatient (IN) | payer MEDICARE, MEDICAID ==
[~2019-10-07] VITALS: Ht 149.9 cm; Wt 54.5 kg
[2019-10-07 11:24] VITALS: BP 131/76
[2019-10-07 11:30] LABS: BASO % 0.1 % (0.0-1.0); HEMATOCRIT 39.6 % (36.0-47.0); HEMOGLOBIN 13.2 g/dl (12.0-15.5); LYMPH # 1.3 10^3/uL (1.5-5.0); LYMPH % 8.8 % (24.0-44.0); MEAN CORPUSCULAR HEMOGLOBIN 30.5 pg (27.0-33.0); MEAN CORPUSCULAR HGB CONC 33.3 g/dl (32.0-36.5); MEAN CORPUSCULAR VOLUME 91.5 fl (80.0-96.0); MONO # 1.1 10^3/uL (0.0-0.8); MONO % 7.5 % (0.0-5.0); NEUTROPHILS # 12.5 10^3/uL (1.5-8.5); NEUTROPHILS % 82.7 % (36.0-66.0); PLATELET COUNT, AUTOMATED 289 10^3/uL (150-450); RED BLOOD COUNT 4.33 10^6/uL (4.00-5.40); WHITE BLOOD COUNT 15.1 10^3/uL (4.0-10.0)
--- NOTE | 2019-10-07 11:41 | REP ---
CT study of the cervical spine without contrast: History: CVA. No comparison study. Technique: Helical scanning is acquired and overlapping 2 mm high resolution axial images were generated and reviewed at bone and soft tissue window settings. Coronal and sagittal multiplanar re-formations images are generated. CT findings: There is no evidence of cervical spine element fracture. No skull base fracture is seen. Cervical vertebral body heights are preserved. Alignment is normal. Facet joints are normally aligned bilaterally at each cervical level on multiplanar re-formations images. There is no evidence of intraspinal or paraspinal hematoma. No extra vertebral abnormality is seen. There is a levoconvex curvature. Degenerative disc and osteoarthritic facet changes are noted. Fairly prominent carotid artery vascular calcification is seen. No evidence of paraspinal or intraspinal hematoma is seen. The lung apices are clear. Impression: Degenerative spondylosis changes and levoconvex curvature. Otherwise negative CT study of the cervical spine without contrast. No fracture seen. Electronically Signed by Hayes Hsieh MD 10/07/2019 11:32 A
[2019-10-07 11:42] LABS: INR 1.05; PROTHROMBIN TIME 13.4 SECONDS (11.8-14.0)
[2019-10-07 11:43] LABS: PARTIAL THROMBOPLASTIN TIME 31.5 SECONDS (25.0-38.4)
--- NOTE | 2019-10-07 12:03 | REP ---
CHEST, SINGLE VIEW: Single view of the chest is performed. There is no acute infiltrate or pulmonary edema. Heart does not appear to be significantly enlarged. There is calcification of the thoracic aorta. Mediastinal silhouette is otherwise unremarkable. There is mild elevation of left hemidiaphragm. IMPRESSION: No acute pulmonary disease. Electronically Signed by Prabhu Denis MD 10/07/2019 12:22 P
[2019-10-07 12:04] LABS: ALBUMIN 3.9 GM/DL (3.2-5.2); ALT/SGPT 29 U/L (12-78); BILIRUBIN,DIRECT 0.1 MG/DL (0.0-0.2); BILIRUBIN,TOTAL 0.5 MG/DL (0.2-1.0); BLOOD UREA NITROGEN 22 MG/DL (7-18); CALCIUM LEVEL 9.6 MG/DL (8.8-10.2); CARBON DIOXIDE LEVEL 27 MEQ/L (21-32); CHLORIDE LEVEL 97 MEQ/L (98-107); CK-MB VALUE MASS 3.4 NG/ML (<3.6); CPK CREATINE PHOSPHOKINASE 271 U/L (26-192); CREATININE FOR GFR 0.59 MG/DL (0.55-1.30); GLOMERULAR FILTRATION RATE > 60.0 (>39); GLUCOSE, FASTING 105 MG/DL (70-100); MB/CK RELATIVE INDEX 1.25 (< OR =4); POTASSIUM SERUM 4.5 MEQ/L (3.5-5.1); SODIUM LEVEL 131 MEQ/L (136-145); TOTAL PROTEIN 7.7 GM/DL (6.4-8.2); TROPONIN I < 0.02 NG/ML (< 0.10)
--- NOTE | 2019-10-07 12:10 | REP ---
CT BRAIN WITHOUT CONTRAST: HISTORY: CVA. COMPARISON: Head CT study, July 26, 2019. CT FINDINGS: Preliminary digital [employer] radiograph is unremarkable. The bony calvarium remains intact. Visualized paranasal sinuses are clear. Fairly heavy vascular calcification is seen in the distribution of the distal vertebral and distal internal carotid arteries bilaterally. No intraorbital abnormality is seen. There is generalized volume loss. There is no evidence of intracranial hemorrhage. There are moderate periventricular white matter changes consistent with small vessel atherosclerotic disease. These are unchanged from the July 26, 2019 study. There is no evidence to suggest acute infarction. No extra-axial fluid collection, mass, or midline shift is appreciated. IMPRESSION: Generalized volume loss, vascular calcification, small vessel changes. No acute intracranial abnormality. Electronically Signed by Hayes Hsieh MD 10/07/2019 12:36 P
[2019-10-07] MEDS ORDERED: cefTRIAXone SOD 2 GM in D5W MINI-BAG PLUS 50 ML IV ONE (14:30)
[2019-10-07] MEDS ORDERED: BSS IRR 500ML/OMIDRIA 4ML IRR BAG (OR ONLY) (J1097 PER ML) As Ordered ONE (15:08)
[2019-10-07] MEDS ORDERED: IRON65TA2 PO (15:28)
[2019-10-07] MEDS ORDERED: ATOR1TAB21 PO (15:28)
[2019-10-07] MEDS ORDERED: ACET-683 PO (15:28)
[2019-10-07] MEDS ORDERED: MELA5TAB7 PO (15:28)
[2019-10-07] MEDS ORDERED: VITMTA PO (15:28)
[2019-10-07 16:00] VITALS: BP 110/73
[2019-10-07] MEDS: LevoFLOXacin 500 MG TABLET PO SCH (17:15)
[2019-10-07] MEDS: LACTOBACILLUS ACIDOPHILUS CAP (BACID) PO SCH (17:15)
[2019-10-07] MEDS ORDERED: MAALOX 30 ML SUSP *UDC PO PRN (17:30)
[2019-10-07] MEDS ORDERED: MOM 30ML SUSPENSION UDC PO PRN (17:30)
[2019-10-07] MEDS ORDERED: LOPERAMIDE 2 MG CAPLET PO PRN (17:30)
--- NOTE | 2019-10-07 17:43 | HPE ---
DATE OF ADMISSION: 10/07/2019 CHIEF COMPLAINT: Altered mental status, dysuria. HISTORY OF PRESENT ILLNESS: This is a 79-year-old female with history of uterine prolapse, hypertension, diastolic heart failure, chronic hyponatremia, paroxysmal atrial fibrillation, hypertension and chronic anemia, had repair of the right femur status post fall, was at [facility] when she was noted to be "not herself." History is obtained from both the patient as well as the [place] nursing staff. According to the staff, the patient was not answering questions correctly but did not have any facial asymmetry. The patient complained of some dysuria without urgency, frequency, fever, chills, or flank pain. She says that she was trying to get out of bed but felt very weak, unable to get up by herself. She was leaning to the left side and was unable to walk around this morning. She was then brought in to the emergency room for further evaluation, was found to have an abnormal urinalysis and a white count of 15,000. Hospitalist was called to admit for acute delirium secondary to a urinary tract infection (UTI). PAST MEDICAL HISTORY: 1. Uterine prolapse. 2. Paroxysmal atrial fibrillation. 3. Hypertension. 4. Diastolic heart failure. 5. Chronic hyponatremia. 6. Chronic anemia. 7. Right femoral fracture status post repair. 8. Uterine fibroids. ALLERGIES: No known drug allergies. PAST SURGICAL HISTORY: Right femoral fracture open reduction internal fixation (ORIF) in July 2019. HOME MEDICATIONS: - acetaminophen 1 gram three times a day - Eliquis 2.5 twice a day - ascorbic acid 500 three times a day - atorvastatin 20 at bedtime - calcium with vitamin D one tablet twice a day - captopril 12.5 at bedtime - Coreg 3.25 daily - Drisdol 1.25 mg weekly - ferrous sulfate 325 daily - Lasix 40 daily - loperamide as needed - loratadine 10 daily - milk of magnesia as needed - multivitamin one tablet daily - Prilosec 20 mg - Klor-Con 10 twice a day - sertraline 100 at bedtime - spironolactone 12.5 daily - melatonin as needed FAMILY HISTORY: Mother with coronary artery disease, , as well as diabetes. SOCIAL HISTORY: She was living in assisted-living. She is a full code of intubation. Denies smoking or alcohol use. REVIEW OF SYSTEMS: Per history of present illness (HPI), 12-point system otherwise negative. PHYSICAL EXAMINATION: Temperature is 98.5, pulse 92, respiratory rate 18, blood pressure 110/73, 99% on room air. GENERAL: The patient is awake, alert, oriented to herself and place, disoriented to date. She is answering questions appropriately without expressive aphasia. No facial asymmetry. The patient has no dysmetria on rdxcna-an-yegy testing. No pronator drift. No cervical lymphadenopathy, thyromegaly, or jugular venous distention. Dry mucous membranes with chapped lips. Poor dentition. LUNGS: Clear to auscultation. No wheezing, rales, or rhonchi. HEART: S1, S2, sinus rhythm. ABDOMEN: Soft, nontender, nondistended. Positive bowel sounds. EXTREMITIES: Postoperative left hip, well-healed scar. No cyanosis, clubbing, or any pitting edema. LABORATORY DATA: White count 15.1, hemoglobin 13, hematocrit 39, platelet count 289. Sodium 131, potassium 4.5, chloride 97, bicarbonate 27, BUN 22, creatinine 0.59, glucose of 105, total CK 271, troponin less than 0.02. Urinalysis: Cloudy appearance, 1+ blood, 3+ leukocyte esterase, 46 WBCs, 3+ bacteria. Blood cultures and urine culture pending. CT head: No acute intracranial hemorrhage, generalized volume loss, small vessel changes. No acute abnormality. Chest x-ray: No acute pulmonary disease. CT cervical spine: Spondylosis, otherwise negative. No acute fracture. ASSESSMENT AND PLAN: A 79-year-old brought into the emergency room with confusion secondary to a urinary tract infection (UTI). IMPRESSION: 1. Acute delirium secondary to urinary tract infection (UTI). Previous cultures grew out Escherichia (E) coli as well as Enterococcus. Therefore, we will start on Levaquin orally, renally dosed. Await urine culture results. Supportive care. Avoid sedatives and hypnotics. Bacid to prevent Clostridium (C) difficile. 2. Recent hip fracture. Acute rehabilitation unit (ARU) consult. Continue with three times a day dosing of Tylenol and as-needed pain medications and bowel regimen. 3. Deep vein thrombosis (DVT) prophylaxis with Eliquis. 4. Paroxysmal atrial fibrillation. Currently in sinus rhythm, on chronic Coreg as well as apixaban. 5. Dyslipidemia, on chronic Lipitor. 6. Hypertension, controlled on captopril and Coreg. 7. Depression, on Zoloft. 8. History of chronic diastolic heart failure, on Lasix, atorvastatin, captopril and spironolactone. 9. Code status: Full code.
--- NOTE | 2019-10-07 17:48 | ECGEPIP ---
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
[2019-10-07] MEDS: POTASSIUM CHLORIDE 10 MEQ SR TABLET PO SCH (20:27)
[2019-10-07] MEDS: SERTRALINE 100 MG TAB PO SCH (20:47)
[2019-10-07] MEDS: ASCORBIC ACID 500 MG TAB PO SCH (20:47)
[2019-10-07] MEDS: APIXABAN 2.5 MG TAB (ELIQUIS) PO SCH (20:47)
[2019-10-07] MEDS: ATORVASTATIN 20 MG TAB PO SCH (20:47)
[2019-10-07] MEDS: ACETAMINOPHEN 500 MG TAB PO SCH (20:48)
[2019-10-07] MEDS: CAPTOpril 12.5 MG TAB PO SCH (21:00)
[2019-10-07] MEDS ORDERED: AUGMENTIN 875 MG TAB PO SCH (21:00)
[2019-10-07 22:00] VITALS: BP 110/62
[2019-10-08 06:00] VITALS: BP 119/62
[2019-10-08 08:09] LABS: HEMATOCRIT 37.2 % (36.0-47.0); HEMOGLOBIN 12.6 g/dl (12.0-15.5); MEAN CORPUSCULAR HEMOGLOBIN 31.2 pg (27.0-33.0); MEAN CORPUSCULAR HGB CONC 33.9 g/dl (32.0-36.5); MEAN CORPUSCULAR VOLUME 92.1 fl (80.0-96.0); PLATELET COUNT, AUTOMATED 250 10^3/uL (150-450); RED BLOOD COUNT 4.04 10^6/uL (4.00-5.40); WHITE BLOOD COUNT 7.8 10^3/uL (4.0-10.0)
[2019-10-08 08:27] LABS: BLOOD UREA NITROGEN 14 MG/DL (7-18); CARBON DIOXIDE LEVEL 30 MEQ/L (21-32); CHLORIDE LEVEL 98 MEQ/L (98-107); CREATININE FOR GFR 0.58 MG/DL (0.55-1.30); GLOMERULAR FILTRATION RATE > 60.0 (>39); GLUCOSE, FASTING 96 MG/DL (70-100); POTASSIUM SERUM 4.1 MEQ/L (3.5-5.1); SODIUM LEVEL 135 MEQ/L (136-145)
[2019-10-08] MEDS: APIXABAN 2.5 MG TAB (ELIQUIS) PO SCH ×2 (08:53→20:53)
[2019-10-08] MEDS: FUROSEMIDE 40 MG TAB PO SCH (08:53)
[2019-10-08] MEDS: OMEPRAZOLE 20 MG CAP PO SCH (08:53)
[2019-10-08] MEDS: LORATADINE 10 MG TAB PO SCH (08:53)
[2019-10-08] MEDS: FERROUS SULFATE 325MG TAB PO SCH (08:53)
[2019-10-08] MEDS: MULTIVITAMINS/MINERALS THERAP 1 TAB PO SCH (08:53)
[2019-10-08] MEDS: SPIRONOLACTONE 12.5MG PER 1/2 TABLET PO SCH (08:53)
[2019-10-08] MEDS: ASCORBIC ACID 500 MG TAB PO SCH ×3 (08:53→20:53)
[2019-10-08] MEDS: CARVedilol 3.125 MG TAB PO SCH (08:54)
[2019-10-08] MEDS: LACTOBACILLUS ACIDOPHILUS CAP (BACID) PO SCH ×2 (08:54→17:10)
[2019-10-08] MEDS: ACETAMINOPHEN 500 MG TAB PO SCH ×3 (08:54→20:53)
[2019-10-08] MEDS: POTASSIUM CHLORIDE 10 MEQ SR TABLET PO SCH ×2 (08:54→20:53)
[2019-10-08 14:00] VITALS: BP 116/62
[2019-10-08] MEDS: LevoFLOXacin 500 MG TABLET PO SCH (17:10)
[2019-10-08 20:00] VITALS: BP 111/62
[2019-10-08] MEDS: SERTRALINE 100 MG TAB PO SCH (20:53)
[2019-10-08] MEDS: CAPTOpril 12.5 MG TAB PO SCH (20:54)
[2019-10-08] MEDS: ATORVASTATIN 20 MG TAB PO SCH (20:54)
[2019-10-09 06:50] VITALS: BP 147/80
[2019-10-09 07:26] LABS: HEMATOCRIT 37.1 % (36.0-47.0); HEMOGLOBIN 12.7 g/dl (12.0-15.5); MEAN CORPUSCULAR HGB CONC 34.2 g/dl (32.0-36.5); MEAN CORPUSCULAR VOLUME 93.5 fl (80.0-96.0); PLATELET COUNT, AUTOMATED 219 10^3/uL (150-450); RED BLOOD COUNT 3.97 10^6/uL (4.00-5.40); WHITE BLOOD COUNT 8.3 10^3/uL (4.0-10.0)
[2019-10-09 07:57] LABS: BLOOD UREA NITROGEN 18 MG/DL (7-18); CALCIUM LEVEL 9.1 MG/DL (8.8-10.2); CARBON DIOXIDE LEVEL 29 MEQ/L (21-32); CHLORIDE LEVEL 100 MEQ/L (98-107); CREATININE FOR GFR 0.65 MG/DL (0.55-1.30); GLOMERULAR FILTRATION RATE > 60.0 (>39); GLUCOSE, FASTING 91 MG/DL (70-100); POTASSIUM SERUM 4.1 MEQ/L (3.5-5.1); SODIUM LEVEL 135 MEQ/L (136-145)
[2019-10-09] MEDS: LACTOBACILLUS ACIDOPHILUS CAP (BACID) PO SCH ×2 (08:18→17:52)
[2019-10-09] MEDS: APIXABAN 2.5 MG TAB (ELIQUIS) PO SCH ×2 (08:18→20:08)
[2019-10-09] MEDS: ACETAMINOPHEN 500 MG TAB PO SCH ×3 (08:19→20:28)
[2019-10-09] MEDS: POTASSIUM CHLORIDE 10 MEQ SR TABLET PO SCH ×2 (08:19→20:09)
[2019-10-09] MEDS: MULTIVITAMINS/MINERALS THERAP 1 TAB PO SCH (08:19)
[2019-10-09] MEDS: OMEPRAZOLE 20 MG CAP PO SCH (08:20)
[2019-10-09] MEDS: FERROUS SULFATE 325MG TAB PO SCH (08:20)
[2019-10-09] MEDS: ASCORBIC ACID 500 MG TAB PO SCH ×3 (08:20→20:28)
[2019-10-09] MEDS: FUROSEMIDE 40 MG TAB PO SCH (08:20)
[2019-10-09] MEDS: CARVedilol 3.125 MG TAB PO SCH (08:20)
[2019-10-09] MEDS: SPIRONOLACTONE 12.5MG PER 1/2 TABLET PO SCH (08:20)
[2019-10-09] MEDS: LORATADINE 10 MG TAB PO SCH (08:20)
--- NOTE | 2019-10-09 15:16 | IPNPDOC ---
Date Seen The patient was seen on 10/09/19. Progress Note SUBJECTIVE:denies fever, chills, dysuria. no n/v/d/abd pain. on abx for UTI, no issues overnight.awaiting placement in SNF on Saturday, COVID-19 testnegative OBJECTIVE: PHYSICAL EXAMINATION VITALS: PLS SEE BELOW GENERAL: The patient is awake, alert, oriented to herself and place walking with her walker from the bathroom to the bedroom.kyphoscoliosis HEENT:No cervical lymphadenopathy, thyromegaly, or jugular venous distention. Dry mucous membranes with chapped lips. Poor dentition. LUNGS: Clear to auscultation. No wheezing, rales, or rhonchi. HEART: S1, S2, sinus rhythm. ABDOMEN: Soft, nontender, nondistended. Positive bowel sounds. EXTREMITIES: Postoperative left hip, well-healed scar. No cyanosis, clubbing, or any pitting edema. LABORATORY DATA/MICROBIOLOGY: PLS SEE BELOW IMAGING STUDIES: CT head: No acute intracranial hemorrhage, generalized volume loss, small vessel changes. No acute abnormality. Chest x-ray: No acute pulmonary disease. CT cervical spine: Spondylosis, otherwise negative. No acute fracture. ASSESSMENT AND PLAN: A 79-year-old brought into the emergency room with confusion secondary to a urinary tract infection (UTI). Acute delirium secondary to urinary tract infection (UTI), RESOLVED Previous cultures grew out Escherichia (E) coli as well as Enterococcus. on Levaquin orally, renally dosed. contaminated urine culture results. Supportive care. Avoid sedatives and hypnotics. Bacid to prevent Clostridium (C) difficile. urinary tract infection (UTI). urine cx contaminated on levaquin. afebrile. awaiting placement in SNF. covid 19 negative. no other acute medical issues. Recent hip fracture. Acute rehabilitation unit (ARU) consult. Continue with three times a day dosing of Tylenol and as-needed pain medications and bowel regimen. Deep vein thrombosis (DVT) prophylaxis with Eliquis. Paroxysmal atrial fibrillation. Currently in sinus rhythm, on chronic Coreg as well as apixaban. Dyslipidemia, on chronic Lipitor. Hypertension, controlled on captopril and Coreg. Depression, on Zoloft. History of chronic diastolic heart failure, on Lasix, atorvastatin, captopril and spironolactone. Code status: Full code. VS, I&O, 24H, Fishbone Vital Signs/I&O Vital Signs Date Time Temp Pulse Resp B/P (MAP) Pulse Ox O2 Delivery O2 Flow Rate FiO2 10/09/19 08:20 75 147/80 10/09/19 06:50 96.0 20 97 Room Air I&O- Last 24 Hours up to 6 AM 10/09/19 06:00 Intake Total 1100 ml Output Total 0 ml Balance 1100 ml Laboratory Data 24H LABS Laboratory Tests 2 10/09/19 07:03: Nucleated Red Blood Cells % (auto) 0.0, Anion Gap 6L, Glomerular Filtration Rate > 60.0, Calcium Level 9.1 CBC/BMP Laboratory Tests 10/09/19 07:03 Microbiology Microbiology 10/08/19 Coronavirus COVID-19 PCR (ELIER) - Final, Complete 10/07/19 Blood Culture - Preliminary, Resulted No Growth after 48 hours. All Specime... 10/07/19 Blood Culture - Preliminary, Resulted No Growth after 48 hours. All Specime... 10/07/19 Urine Culture - Final, Complete ERICA SLAUGHTER MD October 09, 2019 15:16
[2019-10-09] MEDS: LevoFLOXacin 500 MG TABLET PO SCH (17:52)
[2019-10-09] MEDS: ATORVASTATIN 20 MG TAB PO SCH (20:08)
[2019-10-09] MEDS: CAPTOpril 12.5 MG TAB PO SCH (20:12)
[2019-10-09] MEDS: SERTRALINE 100 MG TAB PO SCH (20:29)
[2019-10-09 22:00] VITALS: BP 100/53
[2019-10-10 06:00] VITALS: BP 122/66
[2019-10-10 07:09] LABS: HEMATOCRIT 36.3 % (36.0-47.0); HEMOGLOBIN 12.2 g/dl (12.0-15.5); MEAN CORPUSCULAR HEMOGLOBIN 31.8 pg (27.0-33.0); MEAN CORPUSCULAR HGB CONC 33.6 g/dl (32.0-36.5); MEAN CORPUSCULAR VOLUME 94.5 fl (80.0-96.0); PLATELET COUNT, AUTOMATED 220 10^3/uL (150-450); RED BLOOD COUNT 3.84 10^6/uL (4.00-5.40)
[2019-10-10 07:28] LABS: BLOOD UREA NITROGEN 21 MG/DL (7-18); CALCIUM LEVEL 8.8 MG/DL (8.8-10.2); CARBON DIOXIDE LEVEL 28 MEQ/L (21-32); CHLORIDE LEVEL 102 MEQ/L (98-107); CREATININE FOR GFR 0.59 MG/DL (0.55-1.30); GLOMERULAR FILTRATION RATE > 60.0 (>39); GLUCOSE, FASTING 91 MG/DL (70-100); POTASSIUM SERUM 4.1 MEQ/L (3.5-5.1); SODIUM LEVEL 137 MEQ/L (136-145)
--- NOTE | 2019-10-10 08:51 | IPN ---
DATE: 10/08/2019 Patient says that she has had no fever or chills. "I want to get out of here." Patient is currently being treated for a urinary tract infection (UTI). Coronavirus is still pending. She otherwise denies any shortness of breath, chest pain, pressure, tightness or cough. Vital Signs: Temperature 99, pulse 83, respiratory rate 18, blood pressure 119/62, 96% on room air. Generally, patient is awake, alert, oriented to herself. She is answering questions appropriately. She appears her stated age. Lungs are clear to auscultation. No wheezing or rales. Heart: S1, S2, sinus. Abdomen is soft, nontender, nondistended. Positive bowel sounds. No costovertebral angle (CVA) tenderness. Extremities: No cyanosis, clubbing, or pitting edema. Laboratory data, microbiology have been reviewed. ASSESSMENT AND PLAN: This is a 79-year-old female admitted on 10/07/2019 with acute delirium secondary to UTI. As noted by [facility] ([facility] assisted living staff, patient had been compliant with her chronic Eliquis with no focal findings. CT of the head was unremarkable, had no acute intracranial abnormality and patient is back to baseline mentation. ACUTE ISSUES: 1. Acute delirium secondary to urinary tract infection, resolved back to baseline mentation. No focal deficits. CT of the head is negative for acute intracranial abnormality. Patient is resumed on her home dose of Eliquis for paroxysmal atrial fibrillation. 2. Urinary tract infection. Currently on Levaquin, renal dosing. 3. Debility. Patient is appropriate for usp placement. Awaiting COVID testing prior to hospital discharge. 4. Paroxysmal atrial fibrillation. Resumed on her home Eliquis and rate control medications, Coreg. 6. Allergic rhinitis. On chronic Claritin. 7. Reflux. On Prilosec. 8. History of heart failure. Euvolemic at this time, on chronic Lasix, spironolactone and captopril. DISPOSITION: Await placement. [facility]
[2019-10-10] MEDS: MULTIVITAMINS/MINERALS THERAP 1 TAB PO SCH (10:13)
[2019-10-10] MEDS: LACTOBACILLUS ACIDOPHILUS CAP (BACID) PO SCH ×2 (10:13→18:10)
[2019-10-10] MEDS: OMEPRAZOLE 20 MG CAP PO SCH (10:13)
[2019-10-10] MEDS: FUROSEMIDE 40 MG TAB PO SCH (10:13)
[2019-10-10] MEDS: SPIRONOLACTONE 12.5MG PER 1/2 TABLET PO SCH (10:13)
[2019-10-10] MEDS: POTASSIUM CHLORIDE 10 MEQ SR TABLET PO SCH ×2 (10:14→20:14)
[2019-10-10] MEDS: ASCORBIC ACID 500 MG TAB PO SCH ×3 (10:14→20:14)
[2019-10-10] MEDS: CARVedilol 3.125 MG TAB PO SCH (10:14)
[2019-10-10] MEDS: APIXABAN 2.5 MG TAB (ELIQUIS) PO SCH ×2 (10:14→20:14)
[2019-10-10] MEDS: FERROUS SULFATE 325MG TAB PO SCH (10:15)
[2019-10-10] MEDS: LORATADINE 10 MG TAB PO SCH (10:15)
[2019-10-10] MEDS: ACETAMINOPHEN 500 MG TAB PO SCH (10:15)
[2019-10-10 14:00] VITALS: BP 110/64
--- NOTE | 2019-10-10 14:33 | IPNPDOC ---
Date Seen The patient was seen on 10/10/19. Progress Note requesting tylenol be made every 4hrs for her chronic back pain. denies dysuria, urgency, frequency. "I have pain everywhere, 'cause i'm old.'" 3/10pain scale. no fever or chillls. on levaquin for UTI, awaiting Generally, supine sleeping, but arousable She is answering questions appropriately. She appears her stated age. no conversational dyspnea Lungs are clear to auscultation. No wheezing or rales. dextroscoliosis. AEBE. Heart: S1, S2, sinus. Abdomen is soft, nontender, nondistended. Positive bowel sounds. No costovertebral angle (CVA) tenderness. Extremities: No cyanosis, clubbing, or pitting edema. Laboratory data, microbiology have been reviewed. ASSESSMENT AND PLAN: This is a 79-year-old female admitted on 10/07/2019 with acute delirium secondary to UTI. As noted by [facility] ([facility] assisted living staff, patient had been compliant with her chronic Eliquis with no focal findings. CT of the head was unremarkable, had no acute intracranial abnormality and patient is back to baseline mentation. Acute delirium secondary to urinary tract infection, resolved back to baseline mentation. No focal deficits. CT of the head is negative for acute intracranial abnormality. Patient is resumed on her home dose of Eliquis for paroxysmal atrial fibrillation. Urinary tract infection. Currently on Levaquin, renal dosing. Debility. Patient is appropriate for half-way placement. Paroxysmal atrial fibrillation. Resumed on her home Eliquis and rate control medications, Coreg. Allergic rhinitis. On chronic Claritin. Reflux. On Prilosec. History of heart failure. Euvolemic at this time, on chronic Lasix, spironolactone and captopril. VS, I&O, 24H, Fishbone Vital Signs/I&O Vital Signs Date Time Temp Pulse Resp B/P (MAP) Pulse Ox O2 Delivery O2 Flow Rate FiO2 10/10/19 10:14 73 122/66 10/10/19 06:00 98.5 18 98 Room Air I&O- Last 24 Hours up to 6 AM 10/10/19 06:00 Intake Total 1100 ml Output Total 0 ml Balance 1100 ml Laboratory Data 24H LABS Laboratory Tests 2 10/10/19 06:42: Nucleated Red Blood Cells % (auto) 0.0, Anion Gap 7L, Glomerular Filtration Rate > 60.0, Calcium Level 8.8 CBC/BMP Laboratory Tests 10/10/19 06:42 Microbiology Microbiology 10/08/19 Coronavirus COVID-19 PCR (ELIER) - Final, Complete 10/07/19 Blood Culture - Preliminary, Resulted No Growth after 48 hours. All Specime... 10/07/19 Blood Culture - Preliminary, Resulted No Growth after 48 hours. All Specime... 10/07/19 Urine Culture - Final, Complete ERICA SLAUGHTER MD October 10, 2019 14:27
[2019-10-10] MEDS: ACETAMINOPHEN TAB 650MG DOSE (2X325MG) PO PRN ×2 (15:58→20:14)
[2019-10-10] MEDS: LevoFLOXacin 500 MG TABLET PO SCH (18:10)
[2019-10-10] MEDS: ATORVASTATIN 20 MG TAB PO SCH (20:14)
[2019-10-10] MEDS: CAPTOpril 12.5 MG TAB PO SCH (20:14)
[2019-10-10] MEDS: SERTRALINE 100 MG TAB PO SCH (20:14)
[2019-10-10 22:00] VITALS: BP 112/62
[2019-10-11] MEDS: ACETAMINOPHEN TAB 650MG DOSE (2X325MG) PO PRN ×4 (00:16→20:24)
[2019-10-11 04:00] VITALS: BP 112/62
[2019-10-11 06:00] VITALS: BP 112/62
[2019-10-11 06:59] LABS: HEMATOCRIT 37.2 % (36.0-47.0); HEMOGLOBIN 12.3 g/dl (12.0-15.5); MEAN CORPUSCULAR HEMOGLOBIN 31.1 pg (27.0-33.0); MEAN CORPUSCULAR HGB CONC 33.1 g/dl (32.0-36.5); MEAN CORPUSCULAR VOLUME 94.2 fl (80.0-96.0); PLATELET COUNT, AUTOMATED 236 10^3/uL (150-450); RED BLOOD COUNT 3.95 10^6/uL (4.00-5.40); WHITE BLOOD COUNT 9.9 10^3/uL (4.0-10.0)
[2019-10-11 07:20] LABS: BLOOD UREA NITROGEN 18 MG/DL (7-18); CARBON DIOXIDE LEVEL 28 MEQ/L (21-32); CHLORIDE LEVEL 100 MEQ/L (98-107); GLOMERULAR FILTRATION RATE > 60.0 (>39); GLUCOSE, FASTING 96 MG/DL (70-100); POTASSIUM SERUM 3.9 MEQ/L (3.5-5.1); SODIUM LEVEL 133 MEQ/L (136-145)
[2019-10-11] MEDS: CARVedilol 3.125 MG TAB PO SCH (09:33)
[2019-10-11] MEDS: LORATADINE 10 MG TAB PO SCH (09:33)
[2019-10-11] MEDS: FUROSEMIDE 40 MG TAB PO SCH (09:33)
[2019-10-11] MEDS: LACTOBACILLUS ACIDOPHILUS CAP (BACID) PO SCH ×2 (09:33→17:46)
[2019-10-11] MEDS: ASCORBIC ACID 500 MG TAB PO SCH ×3 (09:33→20:22)
[2019-10-11] MEDS: SPIRONOLACTONE 12.5MG PER 1/2 TABLET PO SCH (09:33)
[2019-10-11] MEDS: OMEPRAZOLE 20 MG CAP PO SCH (09:33)
[2019-10-11] MEDS: FERROUS SULFATE 325MG TAB PO SCH (09:33)
[2019-10-11] MEDS: MULTIVITAMINS/MINERALS THERAP 1 TAB PO SCH (09:33)
[2019-10-11] MEDS: APIXABAN 2.5 MG TAB (ELIQUIS) PO SCH ×2 (09:33→20:23)
[2019-10-11] MEDS: POTASSIUM CHLORIDE 10 MEQ SR TABLET PO SCH ×2 (09:33→20:24)
[2019-10-11] MEDS ORDERED: LEVA1TAB2 PO (09:52)
--- NOTE | 2019-10-11 10:28 | IPNPDOC ---
Date Seen The patient was seen on 10/11/19. Progress Note worried about getting diarrhea when she takes abx. no diarrhea per RN. no abd pain, fever or chills. PHYSICAL EXAMINATION VITALS: PLS SEE BELOW GENERAL: supine in bed . aaox2 HEENT:No cervical lymphadenopathy, thyromegaly, or jugular venous distention. Dry mucous membranes with chapped lips. Poor dentition. LUNGS: Clear to auscultation. No wheezing, rales, or rhonchi. HEART: S1, S2, sinus rhythm. ABDOMEN: Soft, nontender, nondistended. Positive bowel sounds. EXTREMITIES: Postoperative left hip, well-healed scar. No cyanosis, clubbing, or any pitting edema. LABORATORY DATA/MICROBIOLOGY: PLS SEE BELOW IMAGING STUDIES: CT head: No acute intracranial hemorrhage, generalized volume loss, small vessel changes. No acute abnormality. Chest x-ray: No acute pulmonary disease. CT cervical spine: Spondylosis, otherwise negative. No acute fracture. ASSESSMENT AND PLAN: A 79-year-old brought into the emergency room with confusion secondary to a urinary tract infection (UTI). IMPARESSION Acute delirium secondary to urinary tract infection (UTI), RESOLVED urinary tract infection (UTI). Recent hip fracture. Paroxysmal atrial fibrillation Dyslipidemia, Hypertension, Depression History of chronic diastolic heart failure PLAN levaquin renally dosed for 7days no diarrhea medically stable for dc dc in am to ssv. resumed on home meds Code status: Full code. VS, I&O, 24H, Fishbone Vital Signs/I&O Vital Signs Date Time Temp Pulse Resp B/P (MAP) Pulse Ox O2 Delivery O2 Flow Rate FiO2 10/11/19 09:33 68 112/62 10/11/19 06:00 98.4 18 99 Room Air I&O- Last 24 Hours up to 6 AM 10/11/19 06:00 Intake Total 840 ml Balance 840 ml Laboratory Data 24H LABS Laboratory Tests 2 10/11/19 06:33: Nucleated Red Blood Cells % (auto) 0.0, Anion Gap 5L, Glomerular Filtration Rate > 60.0, Calcium Level 9.0 CBC/BMP Laboratory Tests 10/11/19 06:33 Microbiology Microbiology 10/08/19 Coronavirus COVID-19 PCR (ELIER) - Final, Complete 10/07/19 Blood Culture - Preliminary, Resulted No Growth after 72 hours. All specime... 10/07/19 Blood Culture - Preliminary, Resulted No Growth after 72 hours. All specime... 10/07/19 Urine Culture - Final, Complete ERICA SLAUGHTER MD October 11, 2019 09:58
[2019-10-11 14:00] VITALS: BP 130/74
[2019-10-11] MEDS: LevoFLOXacin 500 MG TABLET PO SCH (17:46)
[2019-10-11] MEDS: SERTRALINE 100 MG TAB PO SCH (20:23)
[2019-10-11] MEDS: ATORVASTATIN 20 MG TAB PO SCH (20:24)
[2019-10-11] MEDS: CAPTOpril 12.5 MG TAB PO SCH (20:25)
[2019-10-11 22:00] VITALS: BP 116/62
[2019-10-12] MEDS: ACETAMINOPHEN TAB 650MG DOSE (2X325MG) PO PRN ×3 (00:35→10:14)
[2019-10-12 06:00] VITALS: BP 116/52
[2019-10-12 07:15] LABS: HEMATOCRIT 37.9 % (36.0-47.0); HEMOGLOBIN 12.6 g/dl (12.0-15.5); MEAN CORPUSCULAR HGB CONC 33.2 g/dl (32.0-36.5); MEAN CORPUSCULAR VOLUME 93.1 fl (80.0-96.0); PLATELET COUNT, AUTOMATED 232 10^3/uL (150-450); RED BLOOD COUNT 4.07 10^6/uL (4.00-5.40); WHITE BLOOD COUNT 8.4 10^3/uL (4.0-10.0)
[2019-10-12 07:36] LABS: BLOOD UREA NITROGEN 14 MG/DL (7-18); CALCIUM LEVEL 8.7 MG/DL (8.8-10.2); CARBON DIOXIDE LEVEL 29 MEQ/L (21-32); CHLORIDE LEVEL 97 MEQ/L (98-107); CREATININE FOR GFR 0.61 MG/DL (0.55-1.30); GLOMERULAR FILTRATION RATE > 60.0 (>39); GLUCOSE, FASTING 95 MG/DL (70-100); POTASSIUM SERUM 3.9 MEQ/L (3.5-5.1); SODIUM LEVEL 132 MEQ/L (136-145)
[2019-10-12] MEDS: POTASSIUM CHLORIDE 10 MEQ SR TABLET PO SCH (10:09)
[2019-10-12] MEDS: OMEPRAZOLE 20 MG CAP PO SCH (10:13)
[2019-10-12] MEDS: FUROSEMIDE 40 MG TAB PO SCH (10:14)
[2019-10-12] MEDS: LACTOBACILLUS ACIDOPHILUS CAP (BACID) PO SCH (10:15)
[2019-10-12] MEDS: MULTIVITAMINS/MINERALS THERAP 1 TAB PO SCH (10:15)
[2019-10-12] MEDS: ASCORBIC ACID 500 MG TAB PO SCH (10:16)
[2019-10-12] MEDS: FERROUS SULFATE 325MG TAB PO SCH (10:16)
[2019-10-12] MEDS: APIXABAN 2.5 MG TAB (ELIQUIS) PO SCH (10:17)
[2019-10-12] MEDS: SPIRONOLACTONE 12.5MG PER 1/2 TABLET PO SCH (10:17)
[2019-10-12] MEDS: LORATADINE 10 MG TAB PO SCH (10:18)
[2019-10-12 10:20] VITALS: BP 116/52
[2019-10-12] MEDS: CARVedilol 3.125 MG TAB PO SCH (10:20)
--- NOTE | 2019-10-12 12:21 | DS.PDOC ---
Discharge Summary General Date of Admission October 07, 2019 at 14:52 Date of Discharge October 12, 2019 Discharge Summary DISCHARGE DIAGNOSES: UTI Acute Encephalopathy due to UTI Paroxysmal AFib HTN Dyslipidemia Depression Recent Hip Fracture DISCHARGE MEDICATIONS: pls see below HOSPITAL COURSE: A 79-year-old brought into the emergency room with confusion secondary to a urinary tract infection (UTI). Acute delirium secondary to urinary tract infection (UTI), RESOLVED Previous cultures grew out Escherichia (E) coli as well as Enterococcus. on Levaquin orally, renally dosed. contaminated urine culture results. Supportive care. Avoid sedatives and hypnotics. Bacid to prevent Clostridium (C) difficile. urinary tract infection (UTI). urine cx contaminated on levaquin. afebrile. awaiting placement in SNF. covid 19 negative. no other acute medical issues. Recent hip fracture. Acute rehabilitation unit (ARU) consult. Continue with three times a day dosing of Tylenol and as-needed pain medications and bowel regimen. Deep vein thrombosis (DVT) prophylaxis with Eliquis. Paroxysmal atrial fibrillation. Currently in sinus rhythm, on chronic Coreg as well as apixaban. Dyslipidemia, on chronic Lipitor. Hypertension, controlled on captopril and Coreg. Depression, on Zoloft. History of chronic diastolic heart failure, on Lasix, atorvastatin, captopril and spironolactone. DISCHARGE PHYSICAL EXAMINATION VITALS: PLS SEE BELOW GENERAL: The patient is awake, alert, oriented to herself and place walking with her walker from the bathroom to the bedroom.kyphoscoliosis HEENT:No cervical lymphadenopathy, thyromegaly, or jugular venous distention. Dry mucous membranes with chapped lips. Poor dentition. LUNGS: Clear to auscultation. No wheezing, rales, or rhonchi. HEART: S1, S2, sinus rhythm. ABDOMEN: Soft, nontender, nondistended. Positive bowel sounds. EXTREMITIES: Postoperative left hip, well-healed scar. No cyanosis, clubbing, or any pitting edema. LABORATORY DATA/MICROBIOLOGY: PLS SEE BELOW IMAGING STUDIES: CT head: No acute intracranial hemorrhage, generalized volume loss, small vessel changes. No acute abnormality. Chest x-ray: No acute pulmonary disease. CT cervical spine: Spondylosis, otherwise negative. No acute fracture. TIME SPENT ON DISCHARGE: 30 MIN Vital Signs/I&Os Vital Signs Date Time Temp Pulse Resp B/P (MAP) Pulse Ox O2 Delivery O2 Flow Rate FiO2 6/1/20 10:20 69 116/52 10/12/19 06:00 97.8 19 99 Room Air I&O- Last 24 Hours up to 6 AM 10/12/19 06:00 Intake Total 1150 ml Output Total 725 ml Balance 425 ml Laboratory Data Labs 24H Laboratory Tests 2 10/12/19 06:54: Nucleated Red Blood Cells % (auto) 0.0, Anion Gap 6L, Glomerular Filtration Rate > 60.0, Calcium Level 8.7L CBC/BMP Laboratory Tests 10/12/19 06:54 Microbiology Microbiology 10/08/19 Coronavirus COVID-19 PCR (ELIER) - Final, Complete 10/07/19 Blood Culture - Preliminary, Resulted No Growth after 72 hours. All specime... 10/07/19 Blood Culture - Preliminary, Resulted No Growth after 72 hours. All specime... 10/07/19 Urine Culture - Final, Complete Discharge Medications Scheduled Acetaminophen (Acetaminophen) 500 Mg Tablet, 1,000 MG PO TID, (Reported) Apixaban (Eliquis) 2.5 Mg Tab, 2.5 MG PO BID, (Reported) Ascorbic Acid (Ascorbic Acid) 500 Mg Tablet, 500 MG PO TID, (Reported) Atorvastatin Calcium (Atorvastatin Calcium) 20 Mg Tablet, 20 MG PO QHS, (Reported) Calcium Carbonate/Vitamin D3 (Calcium 600-Vit D3 400 Tablet) 1 Each Tablet, 1 TAB PO BID, (Reported) Captopril (Captopril) 12.5 Mg Tab, 12.5 MG PO QHS, (Reported) Carboxymethylcellulos/Glycerin (Refresh Optive Eye Drops) 1 Devon Devon, 2 DROP OU BID, (Reported) Carvedilol (Carvedilol) 3.125 Mg Tab, 3.125 MG PO DAILY, (Reported) Ergocalciferol (Vitamin D2) (Drisdol) 1,250 Mcg Capsule, 1,250 MCG PO 1XWK, (Reported) SATURDAY Ferrous Sulfate (Iron) 325 Mg Tablet, 325 MG PO DAILY, (Reported) Furosemide (Furosemide) 40 Mg Tab, 40 MG PO DAILY, (Reported) Levofloxacin (Levaquin) 500 Mg Tablet, 500 MG PO DAILY@1800 Loratadine (Claritin) 10 Mg Cap, 10 MG PO DAILY, (Reported) Melatonin (Melatonin) 5 Mg Tablet, 5 MG PO QHS, (Reported) Multivitamins (Thera M Plus Tablet) 1 Each Tablet, 1 TAB PO DAILY, (Reported) Omeprazole (Omeprazole) 20 Mg Cap, 20 MG PO DAILY, (Reported) Potassium Chloride (Klor-Con M10) 10 Meq Tabcr, 10 MEQ PO BID, (Reported) Sertraline HCl (Sertraline HCl) 100 Mg Tablet, 100 MG PO QHS, (Reported) Spironolactone (Spironolactone) 25 Mg Tablet, 12.5 MG PO DAILY, (Reported) Scheduled PRN Aluminum/Magnesium/Simeth (Mag-Al Plus Suspension) 30 Ml Oral.susp, 30 ML PO QID PRN for HEARTBURN, (Reported) Loperamide HCl (Loperamide) 2 Mg Tablet, 4 MG PO ASDIRECTED PRN for AFTER EACH LOOSE STOOL, (Reported) 4MG, THEN 2MG AFTER EACH LOOSE STOOL Magnesium Hydroxide (Milk of Magnesia) 400 Mg/5 Ml Oral.susp, 2,400 MG PO DAILY PRN for CONSTIPATION, (Reported) Sodium Chloride ([place] Saline) 0.65 % Spr, 2 SPRAYS NARES TID PRN for NASAL CONGESTION, (Reported) Allergies Coded Allergies: No Known Allergies (Verified , 12/24/10) ERICA SLAUGHTER MD Oct 12, 2019 12:21
[2019-10-12] MEDS ORDERED: LEVA1TAB2 PO (15:38)
[2019-10-12] MEDS ORDERED: BACITAB PO (15:38)
== END 2019-10-12 13:15 | DRG 690 ==
LOC: M ED 10:47 → EDBD 10:47 → M ED INP 14:52 → ENRESERV 15:46 → M MS5PR 15:55
PROVIDERS: ADMIT General Practice; ATTEND General Practice
DX: N39.0 Urinary tract infection, site not specified (principal); I50.32 Chronic diastolic (congestive) heart failure; E87.1 Hypo-osmolality and hyponatremia; G93.40 Encephalopathy, unspecified; E78.5 Hyperlipidemia, unspecified; I48.0 Paroxysmal atrial fibrillation; F32.9 Major depressive disorder, single episode, unspecified; I11.0 Hypertensive heart disease with heart failure; D64.9 Anemia, unspecified; D25.9 Leiomyoma of uterus, unspecified; R53.81 Other malaise; J30.9 Allergic rhinitis, unspecified; K21.9 Gastro-esophageal reflux disease without esophagitis; N81.4 Uterovaginal prolapse, unspecified; Z79.01 Long term (current) use of anticoagulants; Z79.899 Other long term (current) drug therapy; Z11.59 Encounter for screening for other viral diseases

== ENCOUNTER 2019-11-14 14:42 | Inpatient (IN) | payer MEDICARE, MEDICAID ==
[~2019-11-14] VITALS: Ht 149.9 cm; Wt 61.1 kg
[~2019-11-14 14:42] MED LIST changes: +ATOR1TAB21 PO; +BACITAB PO; +CALC-234 PO; -CALC1TAB82 PO; +IRON65TA2 PO; +LEVA1TAB2 PO; +MELA5TAB7 PO; +VITMTA PO
--- NOTE | 2019-11-14 15:16 | REP ---
Clinical: Chest pain. Comparison: 10/07/2019. Findings: Mediastinum and cardiac silhouette are stable. Lung price demonstrate chronic stable interstitial changes. Large gastric bubble elevating the left hemidiaphragm is again noted and similar to prior examination. The skeletal structures demonstrate age-related osteopenia and degenerative changes. Impression: Chronic stable changes. No focal consolidation or effusion. Electronically Signed by Vel Cagle MD 11/14/2019 03:07 P
[2019-11-14 15:17] LABS: BASO % 0.1 % (0.0-1.0); HEMATOCRIT 32.6 % (36.0-47.0); HEMOGLOBIN 11.1 g/dl (12.0-15.5); LYMPH # 1.6 10^3/uL (1.5-5.0); LYMPH % 16.3 % (24.0-44.0); MEAN CORPUSCULAR HEMOGLOBIN 31.1 pg (27.0-33.0); MEAN CORPUSCULAR VOLUME 91.3 fl (80.0-96.0); MONO # 1.2 10^3/uL (0.0-0.8); MONO % 12.3 % (0.0-5.0); NEUTROPHILS # 6.9 10^3/uL (1.5-8.5); NEUTROPHILS % 70.8 % (36.0-66.0); PLATELET COUNT, AUTOMATED 244 10^3/uL (150-450); RED BLOOD COUNT 3.57 10^6/uL (4.00-5.40); WHITE BLOOD COUNT 9.8 10^3/uL (4.0-10.0)
[2019-11-14 15:29] LABS: INR 1.06; PROTHROMBIN TIME 13.5 SECONDS (11.8-14.0)
[2019-11-14 15:30] LABS: PARTIAL THROMBOPLASTIN TIME 34.6 SECONDS (25.0-38.4)
--- NOTE | 2019-11-14 15:52 | REP ---
Clinical: Bilateral lower extremity pain and swelling . Technique: Denis scale and color Doppler evaluation of the bilateral lower extremities using linear high frequency transducer. Findings: Ultrasound examination of the right and left lower extremity deep venous structures from the common femoral vein to the popliteal vein demonstrates normal compressibility flow and wave patterns in response to respiration and augmentation. There is no evidence for deep venous thrombosis. Impression: No evidence for deep venous thrombosis. Electronically Signed by Vel Cagle MD 11/14/2019 03:43 P
[2019-11-14 16:07] LABS: ALBUMIN 3.9 GM/DL (3.2-5.2); ALT/SGPT 23 U/L (12-78); BILIRUBIN,DIRECT 0.1 MG/DL (0.0-0.2); BILIRUBIN,TOTAL 0.4 MG/DL (0.2-1.0); BLOOD UREA NITROGEN 25 MG/DL (7-18); CALCIUM LEVEL 9.6 MG/DL (8.8-10.2); CARBON DIOXIDE LEVEL 27 MEQ/L (21-32); CHLORIDE LEVEL 92 MEQ/L (98-107); CK-MB VALUE MASS 4.7 NG/ML (<3.6); CPK CREATINE PHOSPHOKINASE 221 U/L (26-192); CREATININE FOR GFR 0.68 MG/DL (0.55-1.30); FREE T4 1.03 NG/DL (0.76-1.46); GLOMERULAR FILTRATION RATE > 60.0 (>39); GLUCOSE, FASTING 97 MG/DL (70-100); LIPASE 193 U/L (73-393); MB/CK RELATIVE INDEX 2.13 (< OR =4); NT-PRO BNP 885 PG/ML (<450); POTASSIUM SERUM 4.5 MEQ/L (3.5-5.1); SODIUM LEVEL 127 MEQ/L (136-145); THYROID STIMULATING HORMONE 0.453 uIU/ML (0.358-3.740); TROPONIN I < 0.02 NG/ML (< 0.10)
--- NOTE | 2019-11-14 16:50 | ECGEPIP ---
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
--- NOTE | 2019-11-14 16:51 | HPEPDOC ---
[facility] Medical History & Physical Date of Admission Nov 14, 2019 Date of Service: Nov 14, 2019 Primary Care Physician: Mandy Horn Attending Physician: Rossi Sheppard MD History and Physical CHIEF COMPLAINT: unsteady on feet HISTORY OF PRESENT ILLNESS: Patient is a 79-year-old female with past medical history of paroxysmal atrial fibrillation, HTN, diasoltic CHF, chronic hyponatremia, chronic anemia who presented to [facility] emergency room from [facility] after claiming to have increased weakness for the past 3 days. The patient states she has had increased lower extremity swelling which is made it harder for her to ambulate. She always has some component of swelling she states; however, her legs have swollen so large that it makes it hard for her to walk. Today she was sitting at the side of the bed at [facility] and she couldn't stand up. States her legs were "wobbly". At baseline she uses a walker. Normally the patient states that her legs are weak and she doesn't feel like she is much different from baseline. She required 2 person assist. Associated symptoms include lack of energy, increased lower ext swelling but denies ROS below. In the ER, VS were stable. CBC unremarkable, BMP showed sodium low at 127 (baseline 130-135), BNP 885 (ranges from 718-916 over past 1 year). She denied shortness of breath, cough or chest pain. She states that she feels as though she will fall if she does not have assistance. She also required 2 person assist for all things in ER. Due to impaired functional mobility and unsteadiness, morales ent will not be able to return to assisted living facility. She will be admitted for further workup for unsteady gait, lower ext edema, acute on chronic hyponatremia. REVIEW OF SYSTEMS: CONSTITUTIONAL: Denies unexplained weight gain or weight loss, loss of appetite, fever, night sweats EYES: Denies eye drainage, eye pain, visual changes, dry/irritated eye EARS, NOSE, MOUTH, THROAT: Denies difficulty hearing, ringing in ears, mouth sores, loose teeth, sore throat, facial numbness or pain NECK: Denies swollen glands CARDIOVASCULAR: Denies irregular heartbeat, racing heart, chest pains, pain in legs with walking RESPIRATORY: Denies shortness of breath, night sweats, wheezing, sputum product ion, oxygen at home, coughing up blood, cough lasting > 1 month GASTROINTESTINAL: Denies abdominal pain, constipation, bloody stool, diarrhea, heartburn, nausea, vomiting GENITOURINARY: Denies painful urination, bloody urine, urgency, leaking urine, impotence MUSCULOSKELETAL: Denies joint pain, muscle pain, leg swelling INTEGUMENTARY: Denies rash, itching, new skin lesion, change in existing skin lesion, hair loss or increase, breast changes. NEUROLOGICAL: Denies headaches, dizziness, numbness or tingling PSYCHIATRIC: Denies depression, anxiety, recurrent bad thoughts, mood swings, hallucinations PAST MEDICAL HISTORY: 1. Uterine prolapse. 2. Paroxysmal atrial fibrillation. 3. Hypertension. 4. Diastolic heart failure. 5. Chronic hyponatremia. 6. Chronic anemia. 7. Right femoral fracture status post repair. 8. Uterine fibroids. PAST SURGICAL HISTORY: Right femoral fracture open reduction internal fixation(ORIF) in July 2019. FAMILY HISTORY: Mother with coronary artery disease, , as well as diabetes. SOCIAL HISTORY: She is living in assisted-living. She is a full code of intubation. Denies smoking or alcohol use. ALLERGIES: Please see below. HOME MEDICATIONS: Please see below. PHYSICAL EXAMINATION: CONSTITUTIONAL: No acute distress, resting comfortably, AAO x 3, hard of hearing EYES: PERRLA, EOM intact HENT, MOUTH: Normocephalic, atraumatic, moist mucous membranes NECK: SUPPLE, no JVD, no lymphadenopathy, no carotid bruit CV: Regular rate and rhythm, S1S2 normal, no murmurs/rubs/gallops RESPIRATORY: Clear to auscultation bilaterally, no rales/rhonchi/wheezes GI: umbilical hernia, obese abdomen, BS positive in 4 quadrants, soft, nontender, nondistended, no rebound or guarding, no organomegaly : Deferred MUSCULOSKELETAL: +2 pitting edema in bilateral lower ext. ROM believed to be at baseline for patient of lower ext. No cyanosis, clubbing, joint deformity INTEGUMENTARY: Intact, no rashes, no lesions, no erythema NEUROLOGIC: Cranial Nerves II-XII are intact, no focal deficits PSYCHIATRIC: Mood and affect are normal LABORATORY DATA: Please see below IMAGING: CXR: Chronic stable changes. No focal consolidation or effusion. Doppler B/l lower ext: No evidence for deep venous thrombosis. ASSESSMENT: 79-year-old female admitted for impaired functional mobility, unsteadiness and worsening lower extremity edema PLAN: 1. Impaired functional mobility likely multifactorial to worsening lower ext edema and acute on chronic hyponatremia. -Baseline uses walker, currently requiring 2 assist. Lives in assisted living. -Hx of femoral fx repair 07/2019 -Treat individual issues as you see below. -PT/OT to assess. 2. Tachycardia, r/o infection vs. dehydration with lower than normal sodium? Hx of paroxysmal atrial fib -ECG sinus rhythm , abnormal -On 2 diuretics at home, f/u UA -HR 95-105 NSR, WBC wnl -Starting gentle IVFs, caution with lower ext edema, holding both diuretics for now -Telemetry 3. Bilateral lower extremity edema, worsened. +2 pitting, r/o worsening CHF? vs. lymphedema -BNP appears to be close to her baseline over the past 1 year -History of diastolic congestive heart failure, cannot tell me who trial judge is -No prior echo in our system. PCP is Dr. Horn ([place], [place]) so maybe Dr. Goff ([employer] in [place], [place]) has old on file -F/u echocardiogram here -PT/OT -Daily wts, monitor I&Os closely -Gently hydrating now; however, when tachycardia resolves stop fluids and begin diuresis 4. Hyponatremia, acute on chronic. Unknown chronic etiology. -On several diuretics -Na 127 today, baseline 130-135. -Starting on low rate normal saline 75 cc/hr to see if this helps with tachycard ia and sodium levels. -F/u urine and serum osmolality, urine sodium, AM cortisol, am labs 4. Chronic anemia -H/H stable -No signs of acute bleeding -Daily CBC 5. Paroxysmal atrial fib -Currently NSR -c/w BB, eliquis 6. DVT px. -Eliquis DISPOSITION: Admitted under inpatient status. Will need PT/OT to clear after holiday weekend before she can return to assisted living facility. Laboratory Data Labs 24H Laboratory Tests 2 11/14/19 15:03: Immature Granulocyte % (Auto) 0.5, Neutrophils (%) (Auto) 70.8H, Lymphocytes (%) (Auto) 16.3L, Monocytes (%) (Auto) 12.3H, Eosinophils (%) (Auto) 0.0, Basophils (%) (Auto) 0.1, Neutrophils # (Auto) 6.9, Lymphocytes # (Auto) 1.6, Monocytes # (Auto) 1.2H, Eosinophils # (Auto) 0.0, Basophils # (Auto) 0.0, Nucleated Red Blood Cells % (auto) 0.0, Prothrombin Time 13.5, Prothromb Time International Ratio 1.06, Activated Partial Thromboplast Time 34.6, Anion Gap 8, Glomerular Filtration Rate > 60.0, Calcium Level 9.6, Total Bilirubin 0.4, Direct Bilirubin 0.1, Aspartate Amino Transf (AST/SGOT) 34, Alanine Aminotransferase (ALT/SGPT) 23, Alkaline Phosphatase 98, Total Creatine Kinase 221H, Creatine Kinase MB 4.7H, Creatine Kinase MB Relative Index 2.13, Troponin I < 0.02, RJ-Bxk-D-Type Natriuretic Peptide 885H, Total Protein 8.0, Albumin 3.9, Albumin/Globulin Ratio 1.0L, Lipase 193, Thyroid Stimulating Hormone (TSH) 0.453, Free Thyroxine 1.03 CBC/BMP Laboratory Tests 11/14/19 15:03 Home Medications Scheduled Acetaminophen (Acetaminophen) 500 Mg Tablet, 1,000 MG PO TID Apixaban (Eliquis) 2.5 Mg Tab, 2.5 MG PO BID Ascorbic Acid (Ascorbic Acid) 500 Mg Tablet, 500 MG PO TID Atorvastatin Calcium (Atorvastatin Calcium) 20 Mg Tablet, 20 MG PO QHS Calcium Carbonate/Vitamin D3 (Calcium 600-Vit D3 400 Tablet) 1 Each Tablet, 1 TAB PO BID Captopril (Captopril) 12.5 Mg Tab, 12.5 MG PO QHS Carboxymethylcellulos/Glycerin (Refresh Optive Eye Drops) 1 Devon Devon, 2 DROP OU BID Carvedilol (Carvedilol) 3.125 Mg Tab, 3.125 MG PO DAILY Ergocalciferol (Vitamin D2) (Drisdol) 1,250 Mcg Capsule, 1,250 MCG PO 1XWK SATURDAY Ferrous Sulfate (Iron) 325 Mg Tablet, 325 MG PO DAILY Furosemide (Furosemide) 40 Mg Tab, 40 MG PO DAILY Loratadine (Claritin) 10 Mg Cap, 10 MG PO DAILY Melatonin (Melatonin) 5 Mg Tablet, 5 MG PO QHS Multivitamins (Thera M Plus Tablet) 1 Each Tablet, 1 TAB PO DAILY Omeprazole (Omeprazole) 20 Mg Cap, 20 MG PO DAILY Potassium Chloride (Klor-Con M10) 10 Meq Tabcr, 10 MEQ PO BID Sertraline HCl (Sertraline HCl) 100 Mg Tablet, 100 MG PO QHS Spironolactone (Spironolactone) 25 Mg Tablet, 12.5 MG PO DAILY Scheduled PRN Aluminum/Magnesium/Simeth (Mag-Al Plus Suspension) 30 Ml Oral.susp, 30 ML PO QID PRN for HEARTBURN Loperamide HCl (Loperamide) 2 Mg Tablet, 4 MG PO ASDIRECTED PRN for AFTER EACH LOOSE STOOL 4MG, THEN 2MG AFTER EACH LOOSE STOOL Magnesium Hydroxide (Milk of Magnesia) 400 Mg/5 Ml Oral.susp, 2,400 MG PO DAILY PRN for CONSTIPATION Sodium Chloride ([place]pole Saline) 0.65 % Spr, 2 SPRAYS NARES TID PRN for NASAL CONGESTION Allergies Coded Allergies: No Known Allergies (Verified , 12/24/10) A-FIB/CHADSVASC A-FIB History Current/History of A-Fib/PAF?: Yes Current PO Anticoag Therapy: Yes Age/Risk Factor Scoring CHADSVASC: CHADSVASC Response (Comments) Value Age Risk Factor Age >/= 75 years old 2 Gender Risk Factor Female 1 Hx of CHF Yes 1 Hx of HTN Yes 1 Hx of Stroke/TIA/or VTE No 0 Hx of Diabetes No 0 Hx of Vascular Disease No 0 Total 5 Treatment Treatment ordered: Apixaban Rossi Sheppard MD Nov 14, 2019 16:51
[2019-11-14] MEDS ORDERED: SODIUM CHLORIDE NASAL 0.65% SPRAY BTL (OCEAN) PRN (17:30)
[2019-11-14] MEDS ORDERED: LOPERAMIDE 2 MG CAPLET PO PRN (17:30)
[2019-11-14] MEDS ORDERED: NS 1,000 ML IV SCH ×2 (18:00→18:30)
[2019-11-14] MEDS: POTASSIUM CHLORIDE 10 MEQ SR TABLET PO SCH (21:18)
[2019-11-14] MEDS: ATORVASTATIN 20 MG TAB PO SCH (21:18)
[2019-11-14] MEDS: APIXABAN 2.5 MG TAB (ELIQUIS) PO SCH (21:18)
[2019-11-14] MEDS: POLYVINYL ALCOHOL OPHTH SOLN 15 ML(LIQUITEARS) OU SCH (21:18)
[2019-11-14] MEDS: ASCORBIC ACID 500 MG TAB PO SCH (21:19)
[2019-11-14] MEDS: SERTRALINE 100 MG TAB PO SCH (21:19)
[2019-11-14] MEDS: ACETAMINOPHEN 500 MG TAB PO SCH (21:19)
[2019-11-14] MEDS: CAPTOpril 12.5 MG TAB PO SCH (21:20)
[2019-11-14 22:00] VITALS: BP 106/64
[2019-11-15 06:00] VITALS: BP 112/59
[2019-11-15 07:03] LABS: HEMATOCRIT 28.1 % (36.0-47.0); HEMOGLOBIN 9.6 g/dl (12.0-15.5); MEAN CORPUSCULAR HGB CONC 34.2 g/dl (32.0-36.5); MEAN CORPUSCULAR VOLUME 90.6 fl (80.0-96.0); PLATELET COUNT, AUTOMATED 193 10^3/uL (150-450); WHITE BLOOD COUNT 5.9 10^3/uL (4.0-10.0)
[2019-11-15 07:26] LABS: ALBUMIN 2.9 GM/DL (3.2-5.2); ALT/SGPT 16 U/L (12-78); BILIRUBIN,TOTAL 0.6 MG/DL (0.2-1.0); BLOOD UREA NITROGEN 19 MG/DL (7-18); CALCIUM LEVEL 8.8 MG/DL (8.8-10.2); CARBON DIOXIDE LEVEL 26 MEQ/L (21-32); CHLORIDE LEVEL 100 MEQ/L (98-107); CREATININE FOR GFR 0.52 MG/DL (0.55-1.30); GLOMERULAR FILTRATION RATE > 60.0 (>39); GLUCOSE, FASTING 79 MG/DL (70-100); POTASSIUM SERUM 4.1 MEQ/L (3.5-5.1); SODIUM LEVEL 133 MEQ/L (136-145); TOTAL PROTEIN 6.2 GM/DL (6.4-8.2)
[2019-11-15] MEDS ORDERED: FERROUS SULFATE 325MG TAB PO SCH (09:00)
[2019-11-15] MEDS: OMEPRAZOLE 20 MG CAP PO SCH ×2 (09:00→10:16)
[2019-11-15] MEDS ORDERED: SPIRONOLACTONE 25 MG TAB PO SCH (09:00)
[2019-11-15] MEDS: MULTIVITAMINS/MINERALS THERAP 1 TAB PO SCH (10:12)
[2019-11-15] MEDS: APIXABAN 2.5 MG TAB (ELIQUIS) PO SCH ×2 (10:12→21:58)
[2019-11-15] MEDS: ACETAMINOPHEN 500 MG TAB PO SCH ×3 (10:12→21:59)
[2019-11-15] MEDS: ASCORBIC ACID 500 MG TAB PO SCH ×3 (10:13→21:58)
[2019-11-15] MEDS: LORATADINE 10 MG TAB PO SCH (10:15)
[2019-11-15] MEDS: CARVedilol 3.125 MG TAB PO SCH (10:15)
[2019-11-15] MEDS: POTASSIUM CHLORIDE 10 MEQ SR TABLET PO SCH ×2 (10:16→21:59)
[2019-11-15] MEDS: POLYVINYL ALCOHOL OPHTH SOLN 15 ML(LIQUITEARS) OU SCH ×2 (10:16→21:58)
[2019-11-15 14:00] VITALS: BP 88/56
[2019-11-15 14:20] VITALS: BP 88/56
[2019-11-15] MEDS ORDERED: NS 500 ML IV ONE (16:00)
--- NOTE | 2019-11-15 16:15 | IPNPDOC ---
Subjective Date Seen The patient was seen on 11/15/19. Subjective Chief Complaint/HPI Ms. Barahona is primarily interested in knowing why she isn't getting her Lasix. She insists that she, "needs it for her heart." Meanwhile, nursing has been messaging me regularly with her blood pressures in the 80s/50-60s. It isn't clear why her pressure is so low. At first I chalked it up to resting, but when it dropped to 70s/50s I ordered a 500cc bolus. She also had a temp of 100.2 right around that same time. The patient denies any dysuria, hematuria, cough, diarrhea, or vomiting. General: Reports: Normal Appetite Constitutional: Denies: Chills, Fever Pulmonary: Denies: Dyspnea, Cough Cardiovascular: Reports: Edema; Denies: Chest Pain, Palpitations Gastrointestinal: Denies: Nausea, Vomiting, Abdominal Pain, Diarrhea Genitourinary: Denies: Dysuria, Frequency, Hematuria Objective Physical Examination General Exam: Positive: Alert (laying in bed watching TV when I entered the room), No Acute Distress; Negative: Cooperative (she is quite negative throughout our entire interview and often refuses to answer questions saying, "You are the doctor, why don't you tell me." This certainly complicates getting an effective history to determine what is going on.) Eye Exam: Positive: Conjunctiva & lids normal; Negative: Sclera icteric ENT Exam: Positive: Mucous membr. moist/pink Neck Exam: Positive: Supple; Negative: JVD, Lymphadenopathy Chest Exam: Positive: Clear to auscultation, Normal air movement Heart Exam: Positive: Rate Normal, Normal S1, Normal S2; Negative: Murmurs Abdomen Exam: Positive: Normal bowel sounds, Soft, Tenderness (some tenderness noted in the lower abdomen, but she states it is because she had a BM earlier today) Extremity Exam: Positive: Edema (There is 2-3+ edema in her lower extremities bilaterally) Psych Exam: Positive: Oriented x 3, Other (sullen and suspicious) Assessment /Plan Problems (1) Hypotension Discussed With: Nurse, Patient Problem Specific Plan: Monitor Clinically Problem Text: For some reason she began to have low blood pressures this afternoon. Ultimately she required a 500 mL bolus of normal saline to help maintain her mean arterial pressure over 65. This didn't seem to work. (2) Fever Problem Text: She had a low-grade temperature of 100.1F, but this was out of characteristic for her usual temperature range. She absolutely denied any specific symptoms at the time. I initiated a moderate workup for infectious source. I did note that her chest x-ray from yesterday was clear. (3) Edema Status: Chronic Problem Specific Plan: Monitor Clinically Problem Text: Her edema may get a little worse since a him to bolus her normal saline today for her blood pressure. We will continue to monitor this. (4) Diastolic heart failure Status: Chronic Response to Treatment: Compensated Problem Text: Her heart failure appears compensated at this time. She is flustered that I'm not giving her Lasix, but she doesn't seem to need it for her heart failure at this moment and I'm worried he would cause the hypotension she has been experiencing to be worse. (5) Hyponatremia Problem Text: Her sodium is improved from 127 to 133. I'm not sure exactly what is driving this improvement, but I'm happy to see. We will continue to monitor. (6) Anemia Status: Chronic Problem Text: Her hemoglobin is down to 9.6. Continue to monitor this important laboratory value. (7) Atrial fibrillation Status: Chronic Problem Text: On Eliquis Plan/VTE VTE Prophylaxis Ordered?: Yes (on Eliquis) VS, I&O, 24H, Fishbone Vital Signs/I&O Vital Signs Date Time Temp Pulse Resp B/P (MAP) Pulse Ox O2 Delivery O2 Flow Rate FiO2 11/15/19 14:20 76 88/56 (67) 11/15/19 14:00 98.5 17 93 Room Air I&O- Last 24 Hours up to 6 AM 11/15/19 06:00 Intake Total 120 ml Output Total 0 ml Balance 120 ml Laboratory Data 24H LABS Laboratory Tests 2 11/14/19 20:07: Osmolality 269L 11/15/19 06:52: Nucleated Red Blood Cells % (auto) 0.0, Anion Gap 7L, Glomerular Filtration Rate > 60.0, Calcium Level 8.8, Total Bilirubin 0.6, Aspartate Amino Transf (AST/SGOT) 23, Alanine Aminotransferase (ALT/SGPT) 16, Alkaline Phosphatase 66, Total Protein 6.2#L, Albumin 2.9#L, Albumin/Globulin Ratio 0.9L CBC/BMP Laboratory Tests 11/15/19 06:52 Heriberto Hardin MD Nov 15, 2019 16:15
[2019-11-15 17:00] VITALS: BP 99/76
[2019-11-15 18:00] VITALS: BP 104/64
[2019-11-15] MEDS: CAPTOpril 12.5 MG TAB PO SCH (21:00)
[2019-11-15] MEDS: NYSTATIN 100,000 UNITS/GM TOPICAL PWD 15 GM TOP PRN (21:58)
[2019-11-15] MEDS: ATORVASTATIN 20 MG TAB PO SCH (21:59)
[2019-11-15] MEDS: SERTRALINE 100 MG TAB PO SCH (21:59)
[2019-11-15 22:00] VITALS: BP 109/52
[2019-11-16 06:00] VITALS: BP 148/81
[2019-11-16 06:37] LABS: HEMATOCRIT 29.2 % (36.0-47.0); HEMOGLOBIN 9.8 g/dl (12.0-15.5); MEAN CORPUSCULAR HEMOGLOBIN 30.8 pg (27.0-33.0); MEAN CORPUSCULAR HGB CONC 33.6 g/dl (32.0-36.5); MEAN CORPUSCULAR VOLUME 91.8 fl (80.0-96.0); PLATELET COUNT, AUTOMATED 199 10^3/uL (150-450); RED BLOOD COUNT 3.18 10^6/uL (4.00-5.40); WHITE BLOOD COUNT 6.6 10^3/uL (4.0-10.0)
[2019-11-16 06:55] LABS: ALBUMIN 2.9 GM/DL (3.2-5.2); BLOOD UREA NITROGEN 22 MG/DL (7-18); CALCIUM LEVEL 8.5 MG/DL (8.8-10.2); CARBON DIOXIDE LEVEL 26 MEQ/L (21-32); CHLORIDE LEVEL 103 MEQ/L (98-107); CREATININE FOR GFR 0.52 MG/DL (0.55-1.30); GLOMERULAR FILTRATION RATE > 60.0 (>39); GLUCOSE, FASTING 76 MG/DL (70-100); PHOSPHORUS LEVEL 3.8 MG/DL (2.5-4.9); POTASSIUM SERUM 4.2 MEQ/L (3.5-5.1); SODIUM LEVEL 137 MEQ/L (136-145)
[2019-11-16] MEDS: LORATADINE 10 MG TAB PO SCH (10:04)
[2019-11-16] MEDS: ASCORBIC ACID 500 MG TAB PO SCH ×3 (10:04→21:21)
[2019-11-16] MEDS: POTASSIUM CHLORIDE 10 MEQ SR TABLET PO SCH ×2 (10:04→21:20)
[2019-11-16] MEDS: OMEPRAZOLE 20 MG CAP PO SCH (10:04)
[2019-11-16] MEDS: MULTIVITAMINS/MINERALS THERAP 1 TAB PO SCH (10:04)
[2019-11-16] MEDS: APIXABAN 2.5 MG TAB (ELIQUIS) PO SCH ×2 (10:05→21:20)
[2019-11-16] MEDS: CARVedilol 3.125 MG TAB PO SCH (10:05)
[2019-11-16] MEDS: POLYVINYL ALCOHOL OPHTH SOLN 15 ML(LIQUITEARS) OU SCH ×2 (10:06→21:22)
[2019-11-16] MEDS: ACETAMINOPHEN 500 MG TAB PO SCH ×3 (10:06→21:20)
[2019-11-16] MEDS: FERROUS SULFATE 300MG/5ML UDC LIQUID PO SCH (10:06)
[2019-11-16 14:00] VITALS: BP 101/48
--- NOTE | 2019-11-16 18:24 | ECHO ---
DATE OF PROCEDURE: 11/16/2019 REFERRING PHYSICIAN: Dr. Rossi Sheppard INDICATION: Congestive heart failure. Height 150 cm, weight 135 kg. DIMENSIONS: IVS: 1.3 LV: 3.8 LVPW: 1.2 LA: 4.2 Aorta: 2.6 IVC: 2.5 Mitral E wave velocity: 107 A wave: 69 E prime septal: 7.0 E prime lateral: 8.9 FINDINGS: The study is of acceptable technical quality. The patient is in sinus rhythm. Normal left ventricular (LV) size with hyperdynamic LV systolic function. Estimated left ventricular ejection fraction (LVEF) 65-70%. Mild left ventricular hypertrophy (LVH) is present. Right ventricle does not appear grossly enlarged. There is left atrial enlargement, limited views of right atrium appear normal. Aortic valve is tricuspid. It is mildly sclerotic and based on limited images I cannot completely rule out presence of vegetations. There are degenerative abnormalities of mitral valve with mitral annular calcifications but mobility of leaflet is preserved. Tricuspid valve appears normal. Pulmonic valve was not well seen. No pericardial effusion is noted. Inferior vena cava is dilated, and there is no appreciable collapse with inspiration indicative of very high central venous pressure. Aortic root is normal. Aortic arch and abdominal aorta were not well seen. Doppler interrogation of aortic valve reveals no stenosis and trace insufficiency. There is mild mitral and mild tricuspid insufficiency. Calculated pulmonary artery pressure is at least 40 mmHg corresponding to moderate pulmonary hypertension. Mitral inflow pattern and tissue Doppler imaging of mitral annulus revealed grade 2 diastolic dysfunction. CONCLUSIONS: 1. Study is of acceptable technical quality, the patient is in sinus rhythm. 2. Normal LV size with mild LVH, hyperdynamic LV systolic function and grade 1 diastolic dysfunction. 3. Aortic sclerosis with trivial stenosis. Cannot completely rule out presence of vegetation. 4. Degenerative abnormalities of mitral valve with mild mitral insufficiency. 5. Likely very high central venous pressure and at least moderate pulmonary hypertension. COMMENT: Subacute bacterial endocarditis (SBE) prophylaxis is not recommended. 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
[2019-11-16] MEDS: ATORVASTATIN 20 MG TAB PO SCH (21:20)
[2019-11-16] MEDS: SERTRALINE 100 MG TAB PO SCH (21:21)
[2019-11-16] MEDS: NYSTATIN 100,000 UNITS/GM TOPICAL PWD 15 GM TOP PRN (21:22)
[2019-11-16] MEDS: CAPTOpril 12.5 MG TAB PO SCH (21:32)
[2019-11-16 22:00] VITALS: BP 106/51
--- NOTE | 2019-11-16 23:46 | IPNPDOC ---
Subjective Date Seen The patient was seen on 11/16/19. Subjective Chief Complaint/HPI Ms. Barahona's primary concern today is that her room is either too hot or too cold. She would also like to know what the lab testing from yesterday showed. Other than this she doesn't have any history of substance to share today. Constitutional: Denies: Chills, Fever (while her temperature is normal) Pulmonary: Denies: Dyspnea, Cough Cardiovascular: Denies: Chest Pain, Palpitations Gastrointestinal: Denies: Nausea, Vomiting Neurological: Reports: Weakness, Incoordination Objective Physical Examination General Exam: Positive: Alert (laying in bed taking medications from her nurse when I entered the room), No Acute Distress; Negative: Cooperative (she is quite negative throughout our entire interview and often refuses to answer some questions saying, "You are the doctor, why don' t you tell me." This certainly complicates getting an effective history to determine what is going on.) Eye Exam: Positive: Conjunctiva & lids normal; Negative: Sclera icteric ENT Exam: Positive: Mucous membr. moist/pink Neck Exam: Positive: Supple; Negative: JVD, Lymphadenopathy Chest Exam: Positive: Clear to auscultation, Normal air movement Heart Exam: Positive: Rate Normal, Normal S1, Normal S2; Negative: Murmurs Abdomen Exam: Positive: Normal bowel sounds, Soft; Negative: Tenderness Extremity Exam: Positive: Edema (There is 2+ edema in her lower extremities bilaterally) Psych Exam: Positive: Oriented x 3, Other (sullen and suspicious) Assessment /Plan Problems (1) Hypotension Discussed With: Nurse, Patient Problem Specific Plan: Monitor Clinically Problem Text: Her blood pressure recovered well by the morning. However, this afternoon around 2 PM (about the same time she began to have hypotension yesterday) and nursing began reporting blood pressures in the 100s/50s. As before the patient was asymptomatic. I suspect it might relate to her medication regimen and we should look at his poor carefully tomorrow to see if something is causing transient hypotension. (2) Fever Problem Text: She only had one very low-grade fever and after that test and well. Closer evaluation for source of infection yesterday was unrevealing. I will just monitor for now. (3) Edema Status: Chronic Problem Specific Plan: Monitor Clinically Problem Text: Her edema seems to be a little improved today. We may be able to had her furosemide back on if she does not drop her pressure too low. (4) Diastolic heart failure Status: Chronic Response to Treatment: Compensated Problem Text: Her heart failure appears compensated at this time. She is flustered that I'm not giving her Lasix, but she doesn't seem to need it for her heart failure at this moment and I'm worried he would cause the hypotension she has been experiencing to be worse. (5) Hyponatremia Problem Text: Her sodium is now in the normal range. I'm not sure exactly what is driving this improvement, but I'm happy to see it. Recommended she continue current regimen and monitor. (6) Anemia Status: Chronic Problem Text: Her hemoglobin is now stable in the high nines. Continue current regimen, monitor. (7) Atrial fibrillation Status: Chronic Problem Text: On Eliquis Plan/VTE VTE Prophylaxis Ordered?: Yes (on Eliquis) VS, I&O, 24H, Fishbone Vital Signs/I&O Vital Signs Date Time Temp Pulse Resp B/P (MAP) Pulse Ox O2 Delivery O2 Flow Rate FiO2 11/16/19 22:00 98.7 88 16 106/51 (69) 95 Room Air I&O- Last 24 Hours up to 6 AM 11/16/19 06:00 Intake Total 1360 ml Balance 1360 ml Laboratory Data 24H LABS Laboratory Tests 2 11/16/19 05:41: Nucleated Red Blood Cells % (auto) 0.0, Anion Gap 8, Glomerular Filtration Rate > 60.0, Calcium Level 8.5L, Phosphorus Level 3.8, Albumin 2.9L CBC/BMP Laboratory Tests 11/16/19 05:41 Microbiology Microbiology 11/15/19 Blood Culture - Preliminary, Resulted No growth after 24 hours . All specim... 11/15/19 Blood Culture - Preliminary, Resulted No growth after 24 hours . All specim... Heriberto Hardin MD Nov 16, 2019 23:46
[2019-11-17 06:00] VITALS: BP 147/75
[2019-11-17 06:21] LABS: HEMATOCRIT 29.7 % (36.0-47.0); HEMOGLOBIN 9.9 g/dl (12.0-15.5); MEAN CORPUSCULAR HEMOGLOBIN 30.8 pg (27.0-33.0); MEAN CORPUSCULAR HGB CONC 33.3 g/dl (32.0-36.5); MEAN CORPUSCULAR VOLUME 92.5 fl (80.0-96.0); PLATELET COUNT, AUTOMATED 215 10^3/uL (150-450); RED BLOOD COUNT 3.21 10^6/uL (4.00-5.40); WHITE BLOOD COUNT 7.1 10^3/uL (4.0-10.0)
[2019-11-17 06:47] LABS: ALT/SGPT 19 U/L (12-78); BILIRUBIN,TOTAL 0.5 MG/DL (0.2-1.0); BLOOD UREA NITROGEN 15 MG/DL (7-18); CALCIUM LEVEL 8.9 MG/DL (8.8-10.2); CARBON DIOXIDE LEVEL 26 MEQ/L (21-32); CHLORIDE LEVEL 100 MEQ/L (98-107); CREATININE FOR GFR 0.47 MG/DL (0.55-1.30); GLOMERULAR FILTRATION RATE > 60.0 (>39); GLUCOSE, FASTING 78 MG/DL (70-100); POTASSIUM SERUM 4.5 MEQ/L (3.5-5.1); SODIUM LEVEL 133 MEQ/L (136-145); TOTAL PROTEIN 6.3 GM/DL (6.4-8.2)
[2019-11-17] MEDS: POLYVINYL ALCOHOL OPHTH SOLN 15 ML(LIQUITEARS) OU SCH ×2 (09:00→20:40)
[2019-11-17] MEDS: OMEPRAZOLE 20 MG CAP PO SCH (10:16)
[2019-11-17] MEDS: ASCORBIC ACID 500 MG TAB PO SCH ×3 (10:16→20:39)
[2019-11-17] MEDS: FERROUS SULFATE 300MG/5ML UDC LIQUID PO SCH (10:16)
[2019-11-17] MEDS: LORATADINE 10 MG TAB PO SCH (10:17)
[2019-11-17] MEDS: APIXABAN 2.5 MG TAB (ELIQUIS) PO SCH ×2 (10:17→20:39)
[2019-11-17] MEDS: ACETAMINOPHEN 500 MG TAB PO SCH ×3 (10:17→20:39)
[2019-11-17] MEDS: POTASSIUM CHLORIDE 10 MEQ SR TABLET PO SCH ×2 (10:18→20:39)
[2019-11-17] MEDS: MULTIVITAMINS/MINERALS THERAP 1 TAB PO SCH (10:18)
[2019-11-17] MEDS: CARVedilol 3.125 MG TAB PO SCH (10:20)
[2019-11-17] MEDS: MAALOX 30 ML SUSP *UDC PO PRN ×2 (10:28→23:39)
--- NOTE | 2019-11-17 13:46 | IPNPDOC ---
Subjective Date Seen The patient was seen on 11/17/19. Subjective Chief Complaint/HPI SOB Events since last encounter no acute overnight events reported. Patient concerned regarding her lasix. blood pressures normalized. Objective Physical Examination General Exam: Positive: Alert (laying in bed taking medications from her nurse when I entered the room), No Acute Distress Eye Exam: Positive: Conjunctiva & lids normal; Negative: Sclera icteric ENT Exam: Positive: Mucous membr. moist/pink Neck Exam: Positive: Supple; Negative: JVD, Lymphadenopathy Chest Exam: Positive: Clear to auscultation, Normal air movement Heart Exam: Positive: Rate Normal, Normal S1, Normal S2, Murmurs Abdomen Exam: Positive: Normal bowel sounds, Soft; Negative: Tenderness Extremity Exam: Positive: Edema (There is 2+ edema in her lower extremities bilaterally) Psych Exam: Positive: Oriented x 3, Other (sullen and suspicious) Assessment /Plan Problems (1) Hypotension Status: Resolved Discussed With: Nurse, Patient Problem Specific Plan: Monitor Clinically (2) Fever Status: Resolved (3) Edema Status: Chronic Problem Specific Plan: Monitor Clinically Problem Text: Her edema seems to be a little improved today. Resuming lasix tomorrow. (4) Diastolic heart failure Status: Chronic Response to Treatment: Compensated (5) Hyponatremia Problem Text: Her sodium is now in the normal range. (6) Anemia Status: Chronic Problem Text: Her hemoglobin is now stable in the high nines. Continue current regimen, monitor. (7) Atrial fibrillation Status: Chronic Problem Text: On Eliquis Plan/VTE VTE Prophylaxis Ordered?: Yes (on Eliquis) VS, I&O, 24H, Fishbone Vital Signs/I&O Vital Signs Date Time Temp Pulse Resp B/P (MAP) Pulse Ox O2 Delivery O2 Flow Rate FiO2 11/17/19 10:20 82 130/76 11/17/19 06:00 98.4 17 94 Room Air I&O- Last 24 Hours up to 6 AM 11/17/19 06:00 Intake Total 1215 ml Balance 1215 ml Laboratory Data 24H LABS Laboratory Tests 2 11/17/19 05:37: Nucleated Red Blood Cells % (auto) 0.0, Anion Gap 7L, Glomerular Filtration Rate > 60.0, Calcium Level 8.9, Total Bilirubin 0.5, Aspartate Amino Transf (AST/SGOT) 23, Alanine Aminotransferase (ALT/SGPT) 19, Alkaline Phosphatase 75, Total Protein 6.3L, Albumin 3.0L, Albumin/Globulin Ratio 0.9L CBC/BMP Laboratory Tests 11/17/19 05:37 Microbiology Microbiology 11/15/19 Blood Culture - Preliminary, Resulted No growth after 24 hours . All specim... 11/15/19 Blood Culture - Preliminary, Resulted No growth after 24 hours . All specim... LUIS LOWE MD Nov 17, 2019 13:46
[2019-11-17 14:00] VITALS: BP 143/64
[2019-11-17] MEDS: FUROSEMIDE 40 MG TAB PO SCH (14:00)
[2019-11-17] MEDS: ATORVASTATIN 20 MG TAB PO SCH (20:39)
[2019-11-17] MEDS: SERTRALINE 100 MG TAB PO SCH (20:39)
[2019-11-17] MEDS: CAPTOpril 12.5 MG TAB PO SCH (20:40)
[2019-11-17 22:00] VITALS: BP 132/65
[2019-11-18 06:00] VITALS: BP 136/71
[2019-11-18 07:35] LABS: HEMATOCRIT 30.2 % (36.0-47.0); MEAN CORPUSCULAR HEMOGLOBIN 30.7 pg (27.0-33.0); MEAN CORPUSCULAR HGB CONC 33.1 g/dl (32.0-36.5); MEAN CORPUSCULAR VOLUME 92.6 fl (80.0-96.0); PLATELET COUNT, AUTOMATED 207 10^3/uL (150-450); RED BLOOD COUNT 3.26 10^6/uL (4.00-5.40); WHITE BLOOD COUNT 5.8 10^3/uL (4.0-10.0)
[2019-11-18 08:04] LABS: ALBUMIN 3.1 GM/DL (3.2-5.2); ALT/SGPT 19 U/L (12-78); BILIRUBIN,TOTAL 0.4 MG/DL (0.2-1.0); BLOOD UREA NITROGEN 13 MG/DL (7-18); CARBON DIOXIDE LEVEL 27 MEQ/L (21-32); CHLORIDE LEVEL 101 MEQ/L (98-107); CREATININE FOR GFR 0.42 MG/DL (0.55-1.30); GLOMERULAR FILTRATION RATE > 60.0 (>39); GLUCOSE, FASTING 76 MG/DL (70-100); POTASSIUM SERUM 4.5 MEQ/L (3.5-5.1); SODIUM LEVEL 135 MEQ/L (136-145); TOTAL PROTEIN 6.5 GM/DL (6.4-8.2)
[2019-11-18 09:54] VITALS: BP 146/72
[2019-11-18] MEDS: FERROUS SULFATE 300MG/5ML UDC LIQUID PO SCH (09:54)
[2019-11-18] MEDS: ASCORBIC ACID 500 MG TAB PO SCH (09:54)
[2019-11-18] MEDS: APIXABAN 2.5 MG TAB (ELIQUIS) PO SCH (09:54)
[2019-11-18] MEDS: FUROSEMIDE 40 MG TAB PO SCH (09:54)
[2019-11-18] MEDS: CARVedilol 3.125 MG TAB PO SCH (09:54)
[2019-11-18] MEDS: LORATADINE 10 MG TAB PO SCH (09:54)
[2019-11-18] MEDS: POTASSIUM CHLORIDE 10 MEQ SR TABLET PO SCH (09:54)
[2019-11-18] MEDS: OMEPRAZOLE 20 MG CAP PO SCH (09:54)
[2019-11-18] MEDS: MULTIVITAMINS/MINERALS THERAP 1 TAB PO SCH (09:54)
[2019-11-18] MEDS: ACETAMINOPHEN 500 MG TAB PO SCH (09:55)
[2019-11-18] MEDS: POLYVINYL ALCOHOL OPHTH SOLN 15 ML(LIQUITEARS) OU SCH (09:56)
--- NOTE | 2019-11-18 14:27 | DS.PDOC ---
Discharge Summary General Date of Admission Nov 14, 2019 at 17:17 Date of Discharge 11/18/19 Discharge Summary PROCEDURES PERFORMED DURING STAY: [None]. ADMITTING DIAGNOSES: 1. Gait dysfunction SECONDARY DIAGNOSES: 1. Uterine prolapse. 2. Paroxysmal atrial fibrillation. 3. Hypertension. 4. Diastolic heart failure. 5. Chronic hyponatremia. 6. Chronic anemia. 7. Right femoral fracture status post repair. 8. Uterine fibroids. COMPLICATIONS/CHIEF COMPLAINT: Gait Disturbance. HISTORY OF PRESENT ILLNESS: Patient is a 79-year-old female with past medical history of paroxysmal atrial fibrillation, HTN, diasoltic CHF, chronic hyponatremia, chronic anemia who presented to [facility] emergency room from [facility] after claiming to have increased weakness for the past 3 days. The patient states she has had increased lower extremity swelling which is made it harder for her to ambulate. She always has some component of swelling she states; however, her legs have swollen so large that it makes it hard for her to walk. Today she was sitting at the side of the bed at [facility] and she couldn't stand up. States her legs were "wobbly". At baseline she uses a walker. Normally the patient states that her legs are weak and she doesn't feel like she is much different from baseline. She required 2 person assist. Associated symptoms include lack of energy, increased lower ext swelling but denies ROS below. In the ER, VS were stable. CBC unremarkable, BMP showed sodium low at 127 (baseline 130-135), BNP 885 (ranges from 718-916 over past 1 year). She denied shortness of breath, cough or chest pain. She states that she feels as though she will fall if she does not have assistance. She also required 2 person assist for all things in ER. Due to impaired functional mobility and unsteadiness, patient will not be able to return to assisted living facility. HOSPITAL COURSE: Patient admitted for further evaluation and treatment. Initially slightly hypotensive, which resolved holding her diuretic therapy. She was also in SUZIE which also improved with holding diuretics. Her hyponatremia resolved. She was seen by PT with recommendations for continued physical therapy. DISCHARGE MEDICATIONS: Please see below. ALLERGIES: Please see below. PHYSICAL EXAMINATION ON DISCHARGE: VITAL SIGNS: Please see below. CONSTITUTIONAL: No acute distress, resting comfortably, AAO x 3, hard of hearing EYES: PERRLA, EOM intact HENT, MOUTH: Normocephalic, atraumatic, moist mucous membranes NECK: SUPPLE, no JVD, no lymphadenopathy, no carotid bruit CV: Regular rate and rhythm, S1S2 normal, no murmurs/rubs/gallops RESPIRATORY: Clear to auscultation bilaterally, no rales/rhonchi/wheezes GI: umbilical hernia, obese abdomen, BS positive in 4 quadrants, soft, nontender, nondistended, no rebound or guarding, no organomegaly NEUROLOGIC: Cranial Nerves II-XII are intact, no focal deficits PSYCHIATRIC: Mood and affect are normal LABORATORY DATA: Please see below. ACTIVITY: [As tolerated]. DISPOSITION: [facility]. DISCHARGE INSTRUCTIONS: 1. Follow up PCP in 3-5 days DISCHARGE CONDITION: [Stable]. TIME SPENT ON DISCHARGE: 35 minutes. Vital Signs/I&Os Vital Signs Date Time Temp Pulse Resp B/P (MAP) Pulse Ox O2 Delivery O2 Flow Rate FiO2 11/18/19 09:54 89 146/72 11/18/19 06:00 98.4 17 96 Room Air I&O- Last 24 Hours up to 6 AM 11/18/19 06:00 Intake Total 1060 ml Balance 1060 ml Laboratory Data Labs 24H Laboratory Tests 2 11/18/19 06:18: Nucleated Red Blood Cells % (auto) 0.0, Anion Gap 7L, Glomerular Filtration Rate > 60.0, Calcium Level 9.0, Total Bilirubin 0.4, Aspartate Amino Transf (AST/SGOT) 23, Alanine Aminotransferase (ALT/SGPT) 19, Alkaline Phosphatase 75, Total Protein 6.5, Albumin 3.1L, Albumin/Globulin Ratio 0.9L CBC/BMP Laboratory Tests 11/18/19 06:18 Microbiology Microbiology 11/18/19 Respiratory Virus Panel (PCR) (ELIER) - Final, Complete 11/15/19 Blood Culture - Preliminary, Resulted No Growth after 48 hours. All Specime... 11/15/19 Blood Culture - Preliminary, Resulted No Growth after 48 hours. All Specime... Discharge Medications Scheduled Acetaminophen (Acetaminophen) 500 Mg Tablet, 1,000 MG PO TID, (Reported) Apixaban (Eliquis) 2.5 Mg Tab, 2.5 MG PO BID, (Reported) Ascorbic Acid (Ascorbic Acid) 500 Mg Tablet, 500 MG PO TID, (Reported) Atorvastatin Calcium (Atorvastatin Calcium) 20 Mg Tablet, 20 MG PO QHS, (Reported) Calcium Carbonate/Vitamin D3 (Calcium 600-Vit D3 400 Tablet) 1 Each Tablet, 1 TAB PO BID, (Reported) Captopril (Captopril) 12.5 Mg Tab, 12.5 MG PO QHS, (Reported) Carboxymethylcellulos/Glycerin (Refresh Optive Eye Drops) 1 Devon Devon, 2 DROP OU BID, (Reported) Carvedilol (Carvedilol) 3.125 Mg Tab, 3.125 MG PO DAILY, (Reported) Ergocalciferol (Vitamin D2) (Drisdol) 1,250 Mcg Capsule, 1,250 MCG PO 1XWK, (Reported) SATURDAY Ferrous Sulfate (Iron) 325 Mg Tablet, 325 MG PO DAILY, (Reported) Furosemide (Furosemide) 40 Mg Tab, 40 MG PO DAILY, (Reported) Loratadine (Claritin) 10 Mg Cap, 10 MG PO DAILY, (Reported) Melatonin (Melatonin) 5 Mg Tablet, 5 MG PO QHS, (Reported) Multivitamins (Thera M Plus Tablet) 1 Each Tablet, 1 TAB PO DAILY, (Reported) Omeprazole (Omeprazole) 20 Mg Cap, 20 MG PO DAILY, (Reported) Potassium Chloride (Klor-Con M10) 10 Meq Tabcr, 10 MEQ PO BID, (Reported) Sertraline HCl (Sertraline HCl) 100 Mg Tablet, 100 MG PO QHS, (Reported) Spironolactone (Spironolactone) 25 Mg Tablet, 12.5 MG PO DAILY, (Reported) Scheduled PRN Aluminum/Magnesium/Simeth (Mag-Al Plus Suspension) 30 Ml Oral.susp, 30 ML PO QID PRN for HEARTBURN, (Reported) Loperamide HCl (Loperamide) 2 Mg Tablet, 4 MG PO ASDIRECTED PRN for AFTER EACH LOOSE STOOL, (Reported) 4MG, THEN 2MG AFTER EACH LOOSE STOOL Magnesium Hydroxide (Milk of Magnesia) 400 Mg/5 Ml Oral.susp, 2,400 MG PO DAILY PRN for CONSTIPATION, (Reported) Sodium Chloride ([place] Saline) 0.65 % Spr, 2 SPRAYS NARES TID PRN for NASAL CONGESTION, (Reported) Allergies Coded Allergies: lactose (Verified Adverse Reaction, Intermediate, GI UPSET, 11/14/19) LUIS LOWE MD Nov 18, 2019 14:27
== END 2019-11-18 12:43 | DRG 92 ==
LOC: EDBD 14:42 → M ED 14:42 → M ED INP 17:17 → CANRESERV 17:43 → ENRESERVTM 17:43 → ENRESERVDT 17:43 → ENRESERV 18:22 → M MSPAV 18:43
PROVIDERS: ADMIT Internal Medicine; ATTEND Internal Medicine
DX: R26.81 Unsteadiness on feet (principal); I50.32 Chronic diastolic (congestive) heart failure; E87.1 Hypo-osmolality and hyponatremia; I48.20 Chronic atrial fibrillation, unspecified; R00.0 Tachycardia, unspecified; I11.0 Hypertensive heart disease with heart failure; I95.9 Hypotension, unspecified; R50.9 Fever, unspecified; R60.0 Localized edema; D64.9 Anemia, unspecified; Z87.81 Personal history of (healed) traumatic fracture; Z79.01 Long term (current) use of anticoagulants; Z79.899 Other long term (current) drug therapy; Z11.59 Encounter for screening for other viral diseases

== ENCOUNTER → 2019-11-19 | Outpatient (REF) ==
[~2019-11-19] MED LIST changes: -CALC-234 PO; +CALC1TAB82 PO
[2019-11-19 10:15] LABS: BLOOD UREA NITROGEN 11 MG/DL (7-18); CALCIUM LEVEL 8.9 MG/DL (8.8-10.2); CARBON DIOXIDE LEVEL 27 MEQ/L (21-32); CHLORIDE LEVEL 99 MEQ/L (98-107); GLOMERULAR FILTRATION RATE > 60.0 (>39); GLUCOSE, FASTING 78 MG/DL (70-100); SODIUM LEVEL 134 MEQ/L (136-145)
== END ==
LOC: SKLAB7 07:00
PROVIDERS: ATTEND Internal Medicine
DX: E55.9 Vitamin D deficiency, unspecified (principal); I10 Essential (primary) hypertension

== ENCOUNTER 2020-01-12 16:15 | Inpatient (IN) | payer MEDICARE, MEDICAID ==
[~2020-01-12] VITALS: Ht 152.4 cm; Wt 57.8 kg
[~2020-01-12 16:15] MED LIST changes: +CALC-234 PO; -CALC1TAB82 PO
[2020-01-12] MEDS ORDERED: FERR32TA PO (17:25)
--- NOTE | 2020-01-12 19:50 | REPVR ---
PROCEDURE INFORMATION: Exam: XR Chest, 1 View Exam date and time: 01/12/2020 7:25 PM Age: 79 years old Clinical indication: Other: Syncope; Additional info: Syncope/near-syncope TECHNIQUE: Imaging protocol: XR of the chest Views: 1 view. COMPARISON: CR PORTABLE CHEST X-RAY 11/14/2019 2:57 PM FINDINGS: Lungs: Unremarkable. No consolidation. Pleural space: Unremarkable. No pleural effusion. No pneumothorax. Heart/Mediastinum: Unremarkable. No cardiomegaly. Bones/joints: Osteoporosis. Dextroscoliosis. IMPRESSION: No acute findings. Electronically signed by: Wiley Hull On 01/12/2020 19:50:13 PM
--- NOTE | 2020-01-12 20:14 | REPVR ---
PROCEDURE INFORMATION: Exam: CT Head Without Contrast Exam date and time: 01/12/2020 7:53 PM Age: 79 years old Clinical indication: Injury or trauma; Fall; Initial encounter; Blunt trauma (contusions or hematomas); Additional info: Syncope TECHNIQUE: Imaging protocol: Computed tomography of the head without contrast. Radiation optimization: All CT scans at this facility use at least one of these dose optimization techniques: automated exposure control; mA and/or kV adjustment per patient size (includes targeted exams where dose is matched to clinical indication); or iterative reconstruction. COMPARISON: CT Head without contrast 10/07/2019 11:03 AM FINDINGS: Brain: There is mild to moderate age related parenchymal volume loss. White matter changes are demonstrated in the subcortical, centrum semiovale and periventricular white matter consistent with age related small vessel white matter angiopathic gliosis. Ventricles: The degree of ventricular dilatation is normal for age and/or degree of atrophy present. Bones/joints: Unremarkable. No acute fracture. Sinuses: Visualized sinuses are unremarkable. No fluid levels. Mastoid air cells: Visualized mastoid air cells are well aerated. Vasculature: Atherosclerotic calcifications are demonstrated in the intracranial carotid arteries bilaterally as well as in the vertebral basilar system. Soft tissues: Soft tissue contusion/hematoma left frontal region. IMPRESSION: 1. There is mild to moderate age related parenchymal volume loss. White matter changes are demonstrated in the subcortical, centrum semiovale and periventricular white matter consistent with age related small vessel white matter angiopathic gliosis. 2. The degree of ventricular dilatation is normal for age and/or degree of atrophy present. 3. Soft tissue contusion/hematoma left frontal region. No skull fracture. 4. No acute intracranial findings. Electronically signed by: Wiley Hull On 01/12/2020 20:13:47 PM
[2020-01-12] MEDS ORDERED: ACETAMINOPHEN 500 MG TAB PO ONE (20:15)
--- NOTE | 2020-01-12 20:19 | REPVR ---
PROCEDURE INFORMATION: Exam: CT Lumbar Spine Without Contrast Exam date and time: 01/12/2020 7:53 PM Age: 79 years old Clinical indication: Injury or trauma; Fall; Initial encounter; Blunt trauma (contusions or hematomas) TECHNIQUE: Imaging protocol: Computed tomography images of the lumbar spine without contrast. Radiation optimization: All CT scans at this facility use at least one of these dose optimization techniques: automated exposure control; mA and/or kV adjustment per patient size (includes targeted exams where dose is matched to clinical indication); or iterative reconstruction. COMPARISON: No relevant prior studies available. FINDINGS: Vertebrae: Grade 2 anterolisthesis of L4 on L5. Bilateral facet joint arthropathy L5-S1. L1-L2: Disc space narrowing at L1-L2. Moderate to severe bilateral foraminal narrowing L1-L2. L2-L3: No significant disc protrusion. No spinal canal stenosis. No neural foraminal narrowing. L3-L4: There is a moderate central spinal stenosis at L3-L4 secondary to diffuse annular bulging, thickened ligamentum flavum with mild facet joint arthropathy. L4-L5: There is a severe central spinal stenosis at L4-L5 secondary to diffuse annular bulging, thickened ligamentum flavum with facet joint arthropathy. Mild bilateral foraminal narrowing. L5-S1: No significant disc protrusion. No severe spinal canal stenosis. No significant neural foraminal narrowing. Kidneys and ureters: Bilateral hydroureteronephrosis, moderate to severe on the right and moderate on the left. No obstructing etiology visible on this examination limited to the lumbar spine. Stomach and bowel: There is increased feces throughout the visualized colon consistent with constipation. Vasculature: The aortoiliac vessels demonstrate moderate atherosclerotic calcification. Soft tissues: Unremarkable. IMPRESSION: 1. Degenerative spondylosis with a moderate central spinal stenosis at L3-L4 and severe central spinal stenosis L4-L5. 2. Multilevel foraminal narrowing as described above. 3. No acute findings. 4. There is increased feces throughout the visualized colon consistent with constipation. 5. Bilateral hydroureteronephrosis, moderate to severe on the right and moderate on the left. No obstructing etiology visible on this examination limited to the lumbar spine. Electronically signed by: Wiley Hull On 01/12/2020 20:19:10 PM
--- NOTE | 2020-01-12 20:24 | REPVR ---
PROCEDURE INFORMATION: Exam: CT Cervical Spine Without Contrast Exam date and time: 01/12/2020 7:53 PM Age: 79 years old Clinical indication: Injury or trauma; Fall; Initial encounter; Blunt trauma; Additional info: Syncope TECHNIQUE: Imaging protocol: Computed tomography images of the cervical spine without contrast. Radiation optimization: All CT scans at this facility use at least one of these dose optimization techniques: automated exposure control; mA and/or kV adjustment per patient size (includes targeted exams where dose is matched to clinical indication); or iterative reconstruction. COMPARISON: CT Spine,cervical w/o contrast 10/07/2019 11:03 AM FINDINGS: Vertebrae: No acute fracture. Normal alignment. Discs/Spinal canal/Neural foramina: There are degenerative changes demonstrated in the atlantoaxial joint at C1-C2 with osteophytes and joint space narrowing. The transverse ligament is mildly thickened. Disc space narrowing at C3-C4, C5-C6 and C6-C7 with intervertebral osteophytes. Mild bilateral foraminal narrowing at C3, severe foraminal narrowing on the left at C4, moderate to severe bilateral foraminal narrowing at C5 and mild to moderate bilateral foraminal narrowing at C6 secondary to uncinate joint hypertrophic changes. Disc osteophyte complexes from C3-C4 to C6-C7 result in effacement of the ventral subarachnoid space to varying degrees without evidence of cord impingement. Soft tissues: See "Discs/Spinal canal/Neural foramina" finding. Lungs: Lung apices are normal. IMPRESSION: Degenerative spondylosis. No acute findings. Electronically signed by: Wiley Hull On 01/12/2020 20:23:51 PM
[2020-01-12 20:58] LABS: BASO % 0.1 % (0.0-1.0); HEMATOCRIT 34.6 % (36.0-47.0); HEMOGLOBIN 11.4 g/dl (12.0-15.5); LYMPH # 1.9 10^3/uL (1.5-5.0); LYMPH % 22.9 % (24.0-44.0); MEAN CORPUSCULAR HEMOGLOBIN 31.3 pg (27.0-33.0); MEAN CORPUSCULAR HGB CONC 32.9 g/dl (32.0-36.5); MEAN CORPUSCULAR VOLUME 95.1 fl (80.0-96.0); MONO # 0.9 10^3/uL (0.0-0.8); MONO % 10.8 % (0.0-5.0); NEUTROPHILS # 5.6 10^3/uL (1.5-8.5); NEUTROPHILS % 65.8 % (36.0-66.0); PLATELET COUNT, AUTOMATED 205 10^3/uL (150-450); RED BLOOD COUNT 3.64 10^6/uL (4.00-5.40); WHITE BLOOD COUNT 8.5 10^3/uL (4.0-10.0)
[2020-01-12] MEDS ORDERED: APIXABAN 2.5 MG TAB (ELIQUIS) PO SCH (21:00)
[2020-01-12] MEDS: ACETAMINOPHEN 500 MG TAB PO SCH (21:00)
[2020-01-12] MEDS: SERTRALINE 100 MG TAB PO SCH (21:00)
[2020-01-12] MEDS: ATORVASTATIN 20 MG TAB PO SCH (21:00)
[2020-01-12] MEDS: CAPTOpril 12.5 MG TAB PO SCH (21:00)
[2020-01-12] MEDS: ASCORBIC ACID 500 MG TAB PO SCH (21:00)
[2020-01-12] MEDS: POTASSIUM CHLORIDE 10 MEQ SR TABLET PO SCH (21:00)
[2020-01-12 21:16] LABS: INR 1.02; PROTHROMBIN TIME 13.6 SECONDS (11.8-14.0)
[2020-01-12 21:26] LABS: BLOOD UREA NITROGEN 24 MG/DL (7-18); CALCIUM LEVEL 9.4 MG/DL (8.8-10.2); CARBON DIOXIDE LEVEL 30 MEQ/L (21-32); CHLORIDE LEVEL 100 MEQ/L (98-107); CK-MB VALUE MASS 1.7 NG/ML (<3.6); CPK CREATINE PHOSPHOKINASE 80 U/L (26-192); CREATININE FOR GFR 0.61 MG/DL (0.55-1.30); GLOMERULAR FILTRATION RATE > 60.0 (>39); GLUCOSE, FASTING 92 MG/DL (70-100); MB/CK RELATIVE INDEX 2.12 (< OR =4); POTASSIUM SERUM 3.8 MEQ/L (3.5-5.1); SODIUM LEVEL 135 MEQ/L (136-145); THYROID STIMULATING HORMONE 0.486 uIU/ML (0.358-3.740); TROPONIN I < 0.02 NG/ML (< 0.10)
[2020-01-12] MEDS ORDERED: MAALOX 30 ML SUSP *UDC PO PRN (23:30)
--- NOTE | 2020-01-12 23:50 | HPEPDOC ---
General Date of Admission Jan 12, 2020 at 23:03 Date of Service: Jan 12, 2020 Chief Complaint Weakness. Source: Patient Exam Limitations: Clinical conditions, Mild cognitive slowing, Other (poor historian. Lack of cooperation) Severity: Mild Associated Symptoms: Mechanical fall History of Present Illness Patient is a 79 yo female who is a [facility] resident with history of frequent falls who is a poor historian who arrived to [facility] via EMS after 2 frequent falls today and was lowered to ground per staff. Patient was recently at [facility] in November 2019 for similar presentation with fall and that at that time she described her legs as wobbly. Patient is mildly demented at baseline also is a poor historian thus the majority of the history is based on information given/EMS report/ER report. EMS report noted patient was walking to bathroom and got weak in legs and fell, staff member presented and helped; no LOC; staff reported it was the second fall for the day. ER report noted patient had 2 witnessed fall with the second fall in the dining area, and patient was caught by staff and gently lowered to ground; pt reported pain in sacral area. Patient reported that she has been walking with a walker, and reported that she was walking with a walker when she fell. She described that she fell as her legs are wobbly, and stated that her right leg gave out on her. Patient is very poor historian and barely answering q uestions as she was consistently asking for peanut butter sandwich for more than 10 times; when being asked about whether there's any pain in her body after she fell patient answered she has arthritis. Limited ROS and PE was able to be obtained and performed Home Medications Scheduled Acetaminophen (Acetaminophen) 500 Mg Tablet, 1,000 MG PO TID, (Reported) Apixaban (Eliquis) 2.5 Mg Tab, 2.5 MG PO BID, (Reported) Ascorbic Acid (Ascorbic Acid) 500 Mg Tablet, 500 MG PO TID, (Reported) Atorvastatin Calcium (Atorvastatin Calcium) 20 Mg Tablet, 20 MG PO QHS, (Reported) Calcium Carbonate/Vitamin D3 (Calcium 600-Vit D3 400 Tablet) 1 Each Tablet, 1 TAB PO BID, (Reported) Captopril (Captopril) 12.5 Mg Tab, 12.5 MG PO QHS, (Reported) Carboxymethylcellulos/Glycerin (Refresh Optive Eye Drops) 1 Devon Devon, 1 DROP OU BID, (Reported) Carvedilol (Carvedilol) 3.125 Mg Tab, 3.125 MG PO DAILY, (Reported) Ergocalciferol (Vitamin D2) (Drisdol) 1,250 Mcg Capsule, 1,250 MCG PO 1XWK, (Reported) SATURDAY Ferrous Gluconate (Ferrous Gluconate) 324 Mg Tablet, 324 MG PO DAILY, (Reported) Furosemide (Furosemide) 40 Mg Tab, 40 MG PO DAILY, (Reported) Loratadine (Claritin) 10 Mg Cap, 10 MG PO DAILY, (Reported) Melatonin (Melatonin) 5 Mg Tablet, 5 MG PO QHS, (Reported) Omeprazole (Omeprazole) 20 Mg Cap, 20 MG PO DAILY, (Reported) Potassium Chloride (Klor-Con M10) 10 Meq Tabcr, 10 MEQ PO BID, (Reported) Sertraline HCl (Sertraline HCl) 100 Mg Tablet, 100 MG PO QHS, (Reported) Spironolactone (Spironolactone) 25 Mg Tablet, 12.5 MG PO DAILY, (Reported) Scheduled PRN Aluminum/Magnesium/Simeth (Mag-Al Plus Suspension) 30 Ml Oral.susp, 30 ML PO QID PRN for HEARTBURN, (Reported) Magnesium Hydroxide (Milk of Magnesia) 400 Mg/5 Ml Oral.susp, 2,400 MG PO DAILY PRN for CONSTIPATION, (Reported) Allergies Coded Allergies: lactose (Verified Adverse Reaction, Mild, GI UPSET, 01/12/20) Past Medical History Medical History 1. Uterine prolapse 2. Paroxysmal atrial fibrillation 3. Hypertension 4. Diastolic heart failure 5. Chronic hyponatremia 6. Chronic anemia 7. Right femoral fracture status post repair 8. Uterine fibroids 9. Gait dysfunction, reported to be walking with walker at baseline Surgical History Right femoral fracture open reduction internal fixation in July 2019 Family History Mother: CAD and DM Social History * Smoker: Denies lives in assisted-living([facility]) A-FIB/CHADSVASC A-FIB History Current/History of A-Fib/PAF?: Yes Current PO Anticoag Therapy: Yes Age/Risk Factor Scoring CHADSVASC: CHADSVASC Response (Comments) Value Age Risk Factor Age >/= 75 years old 2 Gender Risk Factor Female 1 Hx of CHF Yes 1 Hx of HTN Yes 1 Hx of Stroke/TIA/or VTE No 0 Hx of Diabetes No 0 Total 5 Review of Systems Constitutional: Reports: Other (chronic walker use) Gastrointestinal: Reports: Other Symptoms (good appetite) Musculoskeletal: Reports: Other Symptoms (sacral region pain) Neurological: Reports: Weakness (lower extremity weakness), Incoordination, Other Symptoms (feels right leg gave out on her) Physical Examination General Exam: Positive: Alert, No Acute Distress; Negative: Cooperative Eye Exam: Positive: Conjunctiva & lids normal, EOMI; Negative: Sclera icteric ENT Exam: Positive: Atraumatic, Mucous membr. moist/pink Chest Exam: Positive: Clear to auscultation, Normal air movement; Negative: Rhonchi, Wheezing Heart Exam: Positive: Rate Normal, Regular Rhythm, Normal S1, Normal S2; Negative: Murmurs Abdomen Exam: Positive: Normal bowel sounds, Soft, Tenderness Extremity Exam: Positive: Edema (non-pitting), Tenderness (tenderness to palpation in b/l LE out of porportion to examination) Skin Exam: Positive: Nl turgor and temperature; Negative: Rash Neuro Exam: Positive: Strength at 5/5 X4 ext, Normal Tone, Sensation Intact, Cranial Nerves 3-12 NL; Negative: Normal Speech Psych Exam: Positive: Oriented x 3; Negative: Mental status NL Vital Signs Vital Signs Date Time Temp Pulse Resp B/P (MAP) Pulse Ox O2 Delivery O2 Flow Rate FiO2 01/12/20 16:38 98.2 78 18 148/67 (94) 97 Room Air Laboratory Data Labs 24H Laboratory Tests 2 01/12/20 20:28: Immature Granulocyte % (Auto) 0.4, Neutrophils (%) (Auto) 65.8, Lymphocytes (%) (Auto) 22.9L, Monocytes (%) (Auto) 10.8H, Eosinophils (%) (Auto) 0.0, Basophils (%) (Auto) 0.1, Neutrophils # (Auto) 5.6, Lymphocytes # (Auto) 1.9, Monocytes # (Auto) 0.9H, Eosinophils # (Auto) 0.0, Basophils # (Auto) 0.0, Nucleated Red Blood Cells % (auto) 0.0, Prothrombin Time 13.6, Prothromb Time International Ratio 1.02, Activated Partial Thromboplast Time 31.0, Urine Color YELLOW, Urine Appearance HAZY, Urine pH 5.0, Urine Specific [place] 1.009, Urine Protein NEGATIVE, Urine Glucose (UA) NEGATIVE, Urine Ketones NEGATIVE, Urine Blood NEGATIVE, Urine Nitrite NEGATIVE, Urine Bilirubin NEGATIVE, Urine Urobilinogen 0.2, Urine Leukocyte Esterase NEGATIVE, Urine WBC (Auto) 1, Urine RBC (Auto) 1, Urine Hyaline Casts (Auto) 0, Urine Bacteria (Auto) NEGATIVE, Urine Squamous Epithelial Cells 2, Urine Sperm (Auto) , Anion Gap 5L, Glomerular Filtration Rate > 60.0, Lactic Acid Level 0.7, Calcium Level 9.4, Total Creatine Kinase 80, Creatine Kinase MB 1.7, Creatine Kinase MB Relative Index 2.12, Troponin I < 0.02, Thyroid Stimulating Hormone (TSH) 0.486 CBC/BMP Laboratory Tests 01/12/20 20:28 Assessment/Plan 1. Fall due to gait dysfunction, r/o orthostatic hypotension. Fall precaution, bed rest. PT/OT. Head CT showed mild to moderate age related parenchymal volume loss. CT head showed soft tissue contusion/hematoma in left frontal region. Cervical spine CT showed degenerative spondylosis. BP stable 148/67. Orthostatic vitals ordered. It was noted pt reported hitting sacral region, ordered sacral x ray for AM 2. Concussion. Patient denied hitting her head, however CT head showed soft tissue contusion/hematoma in left frontal region without skull fracture. Neuro check Q4H. Vital signs. Fall precaution/seizure precaution. Consider head MRI in AM. 3. Paroxysmal atrial fibrillation. Current sinus rhythm with regular rate. Cont home med Carvedilol. Stop home med Eliquis for now due to CT head showed soft tissue contusion/hematoma in left frontal region, consider head MRI in AM. 4. Hypertension. Cont home med Captopril, Spironolactone, and Carvedilol. Cont home med statin 5. Diastolic heart failure. Cont home med Lasix. 1800ml/24h fluid restriction. Echo 11/2019 showed grade 1 diastolic dysfunction 6. Chronic hyponatremia. Wz=400 in ER. Cont home med Lasix. 1800ml/24h fluid restriction. Cont to follow up BMP 7. Chronic anemia, normocytic. Mildly improved from prior still below baseline. Iron studies ordered. Order B12 and RBC folic acid level. If iron studies showed iron deficiency anemia, consider occult blood study. Cont home med Ferrous sulfate 8. Gait dysfunction, reported to be walking with walker at baseline. Bedrest for now, fall precaution. PT/OT 9. B/l lower extremity edema likely 2/2 CHF and/or venous stasis and/or fluid retention. Con home med lasix and spironolactone. SCD and TEDS 10. Lumbar spine spondylosis with spinal stenosis. CT lumbar was done as it was noted patient reported pain in the region. CT lumbar showed degenerative spondylosis with moderate central spinal stenosis at L3-L4 and severe central spinal stenosis L4-L5 11. Constipation. CT lumbar noted increased amount of feces throughout the visualized colon consistent with constipation. Miralax and Docusate QD PRN ordered. 12. Bilateral hydroureteronephrosis. CT lumbar noted b/l hydroureteronephrosis. No obstructing etiology visible on CT lumbar limited to the lumbar spine. Bladder scan notify QMP>300ml, consider vincent vs straight cath. UA neg. Consider abd US based on bladder scan result. Plan / VTE VTE Prophylaxis Ordered?: Yes (SCD and TEDS) GME ATTESTATION GME ATTESTATION My faculty preceptor for this patient encounter was physically present during the encounter and was fully available. All aspects of the patient interview, examination, medical decision making process, and medical care plan development were reviewed and approved by the faculty preceptor. The faculty preceptor is aware and concurs with the plan as stated in the body of this note and will attest to such by his/her cosignature. ATTENDING NOTE is a 79 yr old w a hx of frequent falls and afib who presented w c/o generalized weakness and will be admitted for the later. rest per 's note RAFAEL TAMAYO DO Jan 12, 2020 23:50 SHAUN MCCANN MD Jan 13, 2020 06:50
[2020-01-13] LABS: ALBUMIN 3.8 GM/DL (3.2-5.2); ALT/SGPT 20 U/L (12-78); BILIRUBIN,DIRECT 0.2 MG/DL (0.0-0.2); BILIRUBIN,TOTAL 0.5 MG/DL (0.2-1.0); TOTAL PROTEIN 7.4 GM/DL (6.4-8.2)
[2020-01-13] MEDS ORDERED: DOCUSATE SODIUM 100 MG CAP PO PRN (00:45)
[2020-01-13] MEDS ORDERED: MIRALAX *UNIT DOSE* 17GM PACKET PO PRN (00:45)
[2020-01-13 05:30] VITALS: BP 149/79
[2020-01-13 08:25] LABS: HEMATOCRIT 33.3 % (36.0-47.0); MEAN CORPUSCULAR HEMOGLOBIN 31.4 pg (27.0-33.0); MEAN CORPUSCULAR VOLUME 95.1 fl (80.0-96.0); PLATELET COUNT, AUTOMATED 188 10^3/uL (150-450)
[2020-01-13] MEDS: SPIRONOLACTONE 12.5MG PER 1/2 TABLET PO SCH (08:45)
[2020-01-13] MEDS: LORATADINE 10 MG TAB PO SCH (08:46)
[2020-01-13] MEDS: FERROUS GLUCONATE 324 MG TAB PO SCH (08:46)
[2020-01-13] MEDS: ACETAMINOPHEN 500 MG TAB PO SCH ×3 (08:46→21:41)
[2020-01-13] MEDS: OMEPRAZOLE 20 MG CAP PO SCH (08:46)
[2020-01-13] MEDS: ASCORBIC ACID 500 MG TAB PO SCH ×3 (08:46→21:42)
[2020-01-13] MEDS: CARVedilol 3.125 MG TAB PO SCH (08:47)
[2020-01-13] MEDS: POTASSIUM CHLORIDE 10 MEQ SR TABLET PO SCH ×2 (08:47→21:42)
[2020-01-13] MEDS: FUROSEMIDE 40 MG TAB PO SCH (08:47)
[2020-01-13 08:56] LABS: BLOOD UREA NITROGEN 26 MG/DL (7-18); CALCIUM LEVEL 9.2 MG/DL (8.8-10.2); CARBON DIOXIDE LEVEL 27 MEQ/L (21-32); CHLORIDE LEVEL 104 MEQ/L (98-107); CREATININE FOR GFR 0.67 MG/DL (0.55-1.30); FERRITIN 137 NG/ML (8-252); GLOMERULAR FILTRATION RATE > 60.0 (>39); GLUCOSE, FASTING 87 MG/DL (70-100); IRON (FE) 28 UG/DL (50-170); PERCENT SATURATION 9.1 % (13.2-45.0); POTASSIUM SERUM 4.1 MEQ/L (3.5-5.1); SODIUM LEVEL 139 MEQ/L (136-145); TOTAL IRON BINDING CAPACITY 308 UG/DL (250-450)
[2020-01-13 09:35] LABS: VITAMIN B12 LEVEL 450 PG/ML (247-911)
[2020-01-13 09:57] LABS: HEMATOCRIT 33.3 % (36.0-47.0)
[2020-01-13 10:52] LABS: TOTAL 25(OH) VITAMIN D 41.3 NG/ML (30.0-100.0)
[2020-01-13 14:00] VITALS: BP 88/54
--- NOTE | 2020-01-13 17:29 | IPNPDOC ---
Text Note Date of Service The patient was seen on 01/13/20. NOTE HPI: Patient is a 79 yo female who is a [facility] resident with history of frequent falls who is a poor historian who arrived to [facility] via EMS after 2 frequent falls today and was lowered to ground per staff. Patient was recently at [facility] in November 2019 for similar presentation with fall and that at that time she described her legs as wobbly. Patient is mildly demented at baseline also is a poor historian thus the majority of the history is based on information given/EMS report/ER report. EMS report noted patient was walking to bathroom and got weak in legs and fell, staff member presented and helped; no LOC; staff reported it was the second fall for the day. ER report noted patient had 2 witnessed fall with the second fall in the dining area, and patient was caught by staff and gently lowered to ground; pt reported pain in sacral area. Patient reported that she has been walking with a walker, and reported that she was walking with a walker when she fell. She described that she fell as her legs are wobbly, and stated that her right leg gave out on her. Patient is very poor historian and barely answering questions as she was consistently asking for peanut butter sandwich f or more than 10 times; when being asked about whether there's any pain in her body after she fell patient answered she has arthritis. Limited ROS and PE was able to be obtained and performed. Subjective: Patient is much more aware today. No acute events overnight. She states that she felt her legs were wobbly and collapsed to her buttocks twice yesterday. She was down for a short amount of time before getting up. She has left shoulder pain but says this is chronic. She was able to have a bowel movement, reports she has no difficulties with urination presently, and otherwise denies any acute complaints at this time. Objective: Vitals: See below General: Elderly female who appears stated age in no acute distress, but upset at having to be questioned/examined during breakfast HEENT: NC, AT no trauma or soft tissue swelling on palpation of the head. EOMI, no scleral icterus, no pharyngeal erythema. CV: RRR, normal S1 and S2. No murmurs, gallops, or rubs. Resp: CTAB with full breath sounds. No wheezing, crackles, or rhonchi. Abd: Deferred by patient at time of examination, but no acute pain at this time. Ext: Non-pitting edema of bilateral LE. Neuro: AOx4. No focal neuro deficits. Psych: Aggravated mood and congruent affect. Labs: See below Imagin01/12/[address] IMPRESSION: 1. Degenerative spondylosis with a moderate central spinal stenosis at L3-L4 and severe central spinal stenosis L4-L5. 2. Multilevel foraminal narrowing as described above. 3. No acute findings. 4. There is increased feces throughout the visualized colon consistent with constipation. 5. Bilateral hydroureteronephrosis, moderate to severe on the right and moderate on the left. No obstructing etiology visible on this examination limited to the lumbar spine. 01/12/[address]: IMPRESSION: 1. There is mild to moderate age related parenchymal volume loss. White matter changes are demonstrated in the sub-cortical, centrum semiovale and periventricular white matter consistent with age related small vessel white matter angiopathic gliosis. 2. The degree of ventricular dilatation is normal for age and/or degree of atrophy present. 3. Soft tissue contusion/hematoma left frontal region. No skull fracture. 4. No acute intracranial findings. 01/12/2020 CXR: IMPRESSION: No acute findings. 01/12/2020 CT C-spine w/o contrast: IMPRESSION: Degenerative spondylosis. No acute findings. ASSESSMENT/PLAN: #. Fall 2/2 gait dysfunction -Hx of gait dysfunction in the past. -PT/OT consulted, but refused today by patient. #. 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 Plan to bladder scan Q6H, if continuously in retention, then may need to reconsider further intervention to prevent further damage. - UA negative - Bladder scan Q6H, notify QMP>300ml and place vincent catheter #. Concussion - Possible post-concussive syndrome last night, however no evidence of this on exam today. No indications for brain MRI. #. Paroxysmal atrial fibrillation. -Continue Carvedilol, restarted Eliquis this AM. #. Hypertension. -Cont Captopril, Spironolactone, and Carvedilol. #. Grade I Diastolic congestive heart failure (11/2019 echo) - Continue home Lasix dose - 1800ml/24h fluid restriction. #. Anemia of chronic disease. -Iron low, normal ferritin, continue ferrous sulfate #. Bilateral lower extremity edema - likely 2/2 CHF and/or venous stasis and/or fluid retention. Con home med lasix and spironolactone. SCD and TEDS #. Lumbar spine spondylosis with spinal stenosis. -CT lumbar spine as above. - Tylenol PRN #. Depression -Continue home Sertraline #. Constipation. -BM yesterday -Miralax and Docusate as needed #. Hyponatremia. -Resolved. DVT prophylaxis: Eliquis VS,Fishbone, I+O VS, Fishbone, I+O Laboratory Tests 01/12/20 20:28 01/13/20 07:48 Vital Signs Date Time Temp Pulse Resp B/P (MAP) Pulse Ox O2 Delivery O2 Flow Rate FiO2 01/13/20 14:00 98.0 75 18 88/54 (65) 94 Room Air I&O- Last 24 Hours up to 6 AM 01/13/20 06:00 Intake Total 0 ml Output Total 400 ml Balance -400 ml GME ATTESTATION GME ATTESTATION My faculty preceptor for this patient encounter was physically present during the encounter and was fully available. All aspects of the patient interview, examination, medical decision making process, and medical care plan development were reviewed and approved by the faculty preceptor. The faculty preceptor is aware and concurs with the plan as stated in the body of this note and will attest to such by his/her cosignature. ATTENDING NOTE Patient was seen and examined by me personally with the residents and I agree with the above assessment and plan CITLALY BANKS DO Jan 13, 2020 17:29 SILVIANO DYSON MD Jan 25, 2020 14:08
[2020-01-13] MEDS: APIXABAN 2.5 MG TAB (ELIQUIS) PO SCH (21:41)
[2020-01-13] MEDS: ATORVASTATIN 20 MG TAB PO SCH (21:41)
[2020-01-13] MEDS: SERTRALINE 100 MG TAB PO SCH (21:42)
[2020-01-13] MEDS: CAPTOpril 12.5 MG TAB PO SCH (21:44)
[2020-01-13 22:00] VITALS: BP 135/69
[2020-01-14] MEDS: ACETAMINOPHEN 500 MG TAB PO SCH ×3 (01:00→10:03)
[2020-01-14 06:00] VITALS: BP 138/73
[2020-01-14 07:57] LABS: HEMATOCRIT 34.9 % (36.0-47.0); HEMOGLOBIN 11.4 g/dl (12.0-15.5); MEAN CORPUSCULAR HEMOGLOBIN 31.3 pg (27.0-33.0); MEAN CORPUSCULAR HGB CONC 32.7 g/dl (32.0-36.5); MEAN CORPUSCULAR VOLUME 95.9 fl (80.0-96.0); PLATELET COUNT, AUTOMATED 197 10^3/uL (150-450); RED BLOOD COUNT 3.64 10^6/uL (4.00-5.40); WHITE BLOOD COUNT 6.5 10^3/uL (4.0-10.0)
[2020-01-14 08:22] LABS: BLOOD UREA NITROGEN 27 MG/DL (7-18); CALCIUM LEVEL 9.2 MG/DL (8.8-10.2); CARBON DIOXIDE LEVEL 27 MEQ/L (21-32); CHLORIDE LEVEL 106 MEQ/L (98-107); CREATININE FOR GFR 0.67 MG/DL (0.55-1.30); GLOMERULAR FILTRATION RATE > 60.0 (>39); GLUCOSE, FASTING 95 MG/DL (70-100); SODIUM LEVEL 140 MEQ/L (136-145)
[2020-01-14] MEDS: ASCORBIC ACID 500 MG TAB PO SCH (10:01)
[2020-01-14] MEDS: OMEPRAZOLE 20 MG CAP PO SCH (10:01)
[2020-01-14] MEDS: SPIRONOLACTONE 12.5MG PER 1/2 TABLET PO SCH (10:01)
[2020-01-14] MEDS: POTASSIUM CHLORIDE 10 MEQ SR TABLET PO SCH (10:02)
[2020-01-14] MEDS: LORATADINE 10 MG TAB PO SCH (10:03)
[2020-01-14 10:04] VITALS: BP 138/73
[2020-01-14] MEDS: FUROSEMIDE 40 MG TAB PO SCH (10:04)
[2020-01-14] MEDS: APIXABAN 2.5 MG TAB (ELIQUIS) PO SCH (10:04)
[2020-01-14] MEDS: FERROUS GLUCONATE 324 MG TAB PO SCH (10:04)
[2020-01-14] MEDS: CARVedilol 3.125 MG TAB PO SCH (10:04)
--- NOTE | 2020-01-14 10:54 | DS.PDOC ---
Discharge Summary General Date of Admission Jan 12, 2020 at 23:03 Date of Discharge 01/14/2020 Primary Care Physician: Mandy Horn Attending Physician: SILVIANO DYSON MD Discharge Summary PROCEDURES PERFORMED DURING STAY: None ADMITTING/DISCHARGE DIAGNOSES: 1. Fall 2/2 gait dyfunction and deconditioning 2. Moderate-severe bilateral hydroureteronephrosis 3. Concussion 4. Paroxysmal Afib 5. HTN 6. Grade I diastolic CHF 7. Anemia of chronic disease 8. Chronic bilateral LE edema 9. Depression 10. Lumbar spine spondylosis 11. Osteoarthiritis COMPLICATIONS/CHIEF COMPLAINT: Weakness. HISTORY OF PRESENT ILLNESS/HOSPITAL COURSE: Patient is a 79 yo female [facility] resident with history of frequent falls who presented on 01/12/2020 via EMS after 2 earlier that day and was lowered to ground by staff. She was recently at [facility] in November 2019 for a similar reason and at that time she described her legs as wobbly as well. Patient was a poor historian at time of admission and per the EMS report, she was noted to be walking to the bathroom, became weak in her legs and fell but with staff members present who helped almost immediately. They noted no LOC and later on in the day she had another witnessed fall where she was caught by staff and gently lowered to the ground. She initially reported sacral pain. On presentation she complained of pain everywhere but stated it was because of her arthritis but ultimately her imaging was negative for any fractures. Her imaging did however show hydroureteronephrosis that the patient states has already been evaluated by Dr. Kaye and claims it is due to her uterine prolapse which "could not be surgically operated on due to her heart and is usually just manually reduced if their is a problem with it". Bladder scan was ordered Q6H with post void residuals demonstrating <100 ml of fluid in the bladder. On 01/12 the patient was much more alert but stated she still felt as though her legs were weak. Later that day she declined PT because she felt too tired that afternoon. On day 3, she was deemed medically stable for discharge back to [facility] for residential care and to continue to work with PT. DISCHARGE MEDICATIONS: Please see below. ALLERGIES: Please see below. PHYSICAL EXAMINATION ON DISCHARGE: Objective: Vitals: See below General: Elderly female who appears stated age in no acute distress, but obstinate at the questions she is being asked HEENT: NC, AT. EOMI, no scleral icterus, no pharyngeal erythema. CV: RRR, normal S1 and S2. No murmurs, gallops, or rubs. Resp: CTAB with full breath sounds. No wheezing, crackles, or rhonchi. Abd: Deferred by patient at time of examination, but no acute pain at this time. Ext: Non-pitting edema of bilateral LE. Neuro: AOx4. No focal neuro deficits. Psych: Aggravated mood and congruent affect. LABORATORY DATA: Please see below. Imagin01/12/[address] IMPRESSION: 1. Degenerative spondylosis with a moderate central spinal stenosis at L3-L4 and severe central spinal stenosis L4-L5. 2. Multilevel foraminal narrowing as described above. 3. No acute findings. 4. There is increased feces throughout the visualized colon consistent with c onstipation. 5. Bilateral hydroureteronephrosis, moderate to severe on the right and moderate on the left. No obstructing etiology visible on this examination limited to the lumbar spine. 01/12/[address]: IMPRESSION: 1. There is mild to moderate age related parenchymal volume loss. White matter changes are demonstrated in the sub-cortical, centrum semiovale and periventricular white matter consistent with age related small vessel white matter angiopathic gliosis. 2. The degree of ventricular dilatation is normal for age and/or degree of atrophy present. 3. Soft tissue contusion/hematoma left frontal region. No skull fracture. 4. No acute intracranial findings. 01/12/2020 CXR: IMPRESSION: No acute findings. 01/12/2020 CT C-spine w/o contrast: IMPRESSION: Degenerative spondylosis. No acute findings. PROGNOSIS: Fair. ACTIVITY: Per PT DIET: 2 gram sodium diet DISCHARGE PLAN: alf facility at [facility] DISCHARGE INSTRUCTIONS: 1. Please follow up with PCP in the next 1-2 weeks 2. Patient needs to follow up with Urogyn in the next 1-2 weeks for hydronephrosis 3. Please return to hospital if symptoms worsen. DISCHARGE CONDITION: Stable. TIME SPENT ON DISCHARGE: 32 minutes. Vital Signs/I&Os Vital Signs Date Time Temp Pulse Resp B/P (MAP) Pulse Ox O2 Delivery O2 Flow Rate FiO2 01/14/20 10:04 72 138/73 01/14/20 06:00 97.8 20 98 Room Air I&O- Last 24 Hours up to 6 AM 01/14/20 06:00 Intake Total 350 ml Output Total 0 ml Balance 350 ml Laboratory Data Labs 24H Laboratory Tests 2 01/14/20 07:38: Nucleated Red Blood Cells % (auto) 0.0, Anion Gap 7L, Glomerular Filtration Rate > 60.0, Calcium Level 9.2 CBC/BMP Laboratory Tests 01/14/20 07:38 Discharge Medications Scheduled Acetaminophen (Acetaminophen) 500 Mg Tablet, 1,000 MG PO TID, (Reported) Apixaban (Eliquis) 2.5 Mg Tab, 2.5 MG PO BID, (Reported) Ascorbic Acid (Ascorbic Acid) 500 Mg Tablet, 500 MG PO TID, (Reported) Atorvastatin Calcium (Atorvastatin Calcium) 20 Mg Tablet, 20 MG PO QHS, (Repo rted) Calcium Carbonate/Vitamin D3 (Calcium 600-Vit D3 400 Tablet) 1 Each Tablet, 1 TAB PO BID, (Reported) Captopril (Captopril) 12.5 Mg Tab, 12.5 MG PO QHS, (Reported) Carboxymethylcellulos/Glycerin (Refresh Optive Eye Drops) 1 Devon Devon, 1 DROP OU BID, (Reported) Carvedilol (Carvedilol) 3.125 Mg Tab, 3.125 MG PO DAILY, (Reported) Ergocalciferol (Vitamin D2) (Drisdol) 1,250 Mcg Capsule, 1,250 MCG PO 1XWK, (Reported) SATURDAY Ferrous Gluconate (Ferrous Gluconate) 324 Mg Tablet, 324 MG PO DAILY, (Reported) Furosemide (Furosemide) 40 Mg Tab, 40 MG PO DAILY, (Reported) Loratadine (Claritin) 10 Mg Cap, 10 MG PO DAILY, (Reported) Melatonin (Melatonin) 5 Mg Tablet, 5 MG PO QHS, (Reported) Omeprazole (Omeprazole) 20 Mg Cap, 20 MG PO DAILY, (Reported) Potassium Chloride (Klor-Con M10) 10 Meq Tabcr, 10 MEQ PO BID, (Reported) Sertraline HCl (Sertraline HCl) 100 Mg Tablet, 100 MG PO QHS, (Reported) Spironolactone (Spironolactone) 25 Mg Tablet, 12.5 MG PO DAILY, (Reported) Scheduled PRN Aluminum/Magnesium/Simeth (Mag-Al Plus Suspension) 30 Ml Oral.susp, 30 ML PO QID PRN for HEARTBURN, (Reported) Magnesium Hydroxide (Milk of Magnesia) 400 Mg/5 Ml Oral.susp, 2,400 MG PO DAILY PRN for CONSTIPATION, (Reported) Allergies Coded Allergies: lactose (Verified Adverse Reaction, Mild, GI UPSET, 01/12/20) GME ATTESTATION GME ATTESTATION My faculty preceptor for this patient encounter was physically present during the encounter and was fully available. All aspects of the patient interview, examination, medical decision making process, and medical care plan development were reviewed and approved by the faculty preceptor. The faculty preceptor is aware and concurs with the plan as stated in the body of this note and will attest to such by his/her cosignature. ATTENDING NOTE Patient was seen and examined by me personally with the residents and I agree with the above assessment and plan CITLALY BANKS DO Jan 14, 2020 10:54 SILVIANO DYSON MD Jan 14, 2020 13:52
--- NOTE | 2020-01-25 11:52 | ECGEPIP ---
[facility] - ED Test Date: 2020-01-12 Pat Name: RICHA DIAZ Department: Room: U3728-88 Gender: Female Loadmaster: SAMMI : [id number] Requested By: EFRAIN Mckee Order Number: [id number] Reading MD: Tatiana Louis Measurements Intervals [place] Rate: 86 P: 78 SC: 243 QRS: -14 QRSD: 90 T: 20 QT: 357 QTc: 429 Interpretive Statements SINUS RHYTHM WITH FIRST DEGREE AV BLOCK SEPTAL MYOCARDIAL INFARCTION, OF INDETERMINATE AGE ABNORMAL ECG NON SPECFIC STT WAVE ABNORMALITY SEE SCANNED DOWNTIME REPORT
== END 2020-01-14 12:09 | DRG 92 ==
LOC: EDBD 16:15 → M ED 16:15 → M ED INP 23:03 → ENRESERV 01-13 04:21 → M MS5PR 01-13 05:25
PROVIDERS: ADMIT Internal Medicine; ATTEND Internal Medicine
DX: R29.6 Repeated falls (principal); I50.32 Chronic diastolic (congestive) heart failure; E87.1 Hypo-osmolality and hyponatremia; N13.30 Unspecified hydronephrosis; I48.0 Paroxysmal atrial fibrillation; S06.0X0A Concussion without loss of consciousness, initial encounter; W01.0XXA Fall on same level from slipping, tripping and stumbling without subsequent striking against object, initial encounter; Y92.129 Unspecified place in nursing home as the place of occurrence of the external cause; Y99.8 Other external cause status; E73.9 Lactose intolerance, unspecified; F03.90 Unspecified dementia, unspecified severity, without behavioral disturbance, psychotic disturbance, mood disturbance, and anxiety; I11.0 Hypertensive heart disease with heart failure; D63.8 Anemia in other chronic diseases classified elsewhere; R26.89 Other abnormalities of gait and mobility; K59.00 Constipation, unspecified; R60.0 Localized edema; M48.061 Spinal stenosis, lumbar region without neurogenic claudication; M47.816 Spondylosis without myelopathy or radiculopathy, lumbar region; N81.3 Complete uterovaginal prolapse; Z79.01 Long term (current) use of anticoagulants; Z79.899 Other long term (current) drug therapy

== ENCOUNTER → 2020-01-20 | Outpatient (REF) ==
[~2020-01-20] MED LIST changes: +FERR32TA PO
[2020-01-20 10:51] LABS: HEMATOCRIT 40.5 % (36.0-47.0); HEMOGLOBIN 12.9 g/dl (12.0-15.5); MEAN CORPUSCULAR HEMOGLOBIN 30.9 pg (27.0-33.0); MEAN CORPUSCULAR HGB CONC 31.9 g/dl (32.0-36.5); MEAN CORPUSCULAR VOLUME 96.9 fl (80.0-96.0); PLATELET COUNT, AUTOMATED 271 10^3/uL (150-450); RED BLOOD COUNT 4.18 10^6/uL (4.00-5.40); WHITE BLOOD COUNT 6.4 10^3/uL (4.0-10.0)
[2020-01-20 11:27] LABS: BLOOD UREA NITROGEN 23 MG/DL (7-18); CALCIUM LEVEL 9.4 MG/DL (8.8-10.2); CARBON DIOXIDE LEVEL 28 MEQ/L (21-32); CHLORIDE LEVEL 103 MEQ/L (98-107); CREATININE FOR GFR 0.65 MG/DL (0.55-1.30); GLOMERULAR FILTRATION RATE > 60.0 (>39); GLUCOSE, FASTING 102 MG/DL (70-100); POTASSIUM SERUM 4.3 MEQ/L (3.5-5.1); SODIUM LEVEL 136 MEQ/L (136-145)
== END ==
PROVIDERS: ATTEND Internal Medicine
DX: I50.9 Heart failure, unspecified (principal)

== ENCOUNTER → 2020-01-27 | Outpatient (REF) ==
[2020-01-27 10:46] LABS: HEMOGLOBIN 12.8 g/dl (12.0-15.5); MEAN CORPUSCULAR HEMOGLOBIN 30.9 pg (27.0-33.0); MEAN CORPUSCULAR VOLUME 96.6 fl (80.0-96.0); PLATELET COUNT, AUTOMATED 290 10^3/uL (150-450); RED BLOOD COUNT 4.14 10^6/uL (4.00-5.40); WHITE BLOOD COUNT 6.7 10^3/uL (4.0-10.0)
[2020-01-27 11:13] LABS: BLOOD UREA NITROGEN 25 MG/DL (7-18); CALCIUM LEVEL 9.2 MG/DL (8.8-10.2); CARBON DIOXIDE LEVEL 27 MEQ/L (21-32); CHLORIDE LEVEL 107 MEQ/L (98-107); CREATININE FOR GFR 0.58 MG/DL (0.55-1.30); GLOMERULAR FILTRATION RATE > 60.0 (>39); GLUCOSE, FASTING 121 MG/DL (70-100); POTASSIUM SERUM 4.1 MEQ/L (3.5-5.1); SODIUM LEVEL 138 MEQ/L (136-145)
== END ==
PROVIDERS: ATTEND Physician Assistant
DX: I50.9 Heart failure, unspecified (principal)

== ENCOUNTER → 2020-02-09 | Outpatient (REF) | PROVIDERS: ATTEND Physician Assistant | DX: Z20.828 Contact with and (suspected) exposure to other viral communicable diseases (principal) ==

== ENCOUNTER → 2020-02-11 | Outpatient (REF) ==
--- NOTE | 2020-02-11 15:20 | REPVR ---
PROCEDURE INFORMATION: Exam: XR Pelvis Exam date and time: 02/11/2020 3:05 PM Age: 79 years old Clinical indication: Pelvic pain; Additional info: R knee pain TECHNIQUE: Imaging protocol: XR pelvis. Views: 1 view. COMPARISON: No relevant prior studies available. FINDINGS: Bones/joints: Degenerative change. No acute bony injury or malalignment. Soft tissues: Calcification at the gluteal muscle attachment site. Gastrointestinal tract: Bowel dilatation and prominent stool. Vasculature: Vascular calcification. IMPRESSION: Degenerative change. Electronically signed by: Best Vanegas On 02/11/2020 15:19:55 PM
--- NOTE | 2020-02-11 15:36 | REPVR ---
PROCEDURE INFORMATION: Exam: XR Right Knee Exam date and time: 02/11/2020 3:05 PM Age: 79 years old Clinical indication: Pain; Knee; Right; Additional info: R knee pain TECHNIQUE: Imaging protocol: XR Right knee. Views: 4 or more views. COMPARISON: CT-Knee WITHOUT CONTRAST 07/26/2019 9:24 AM FINDINGS: Bones/joints: Evaluation is limited by severe osteopenia. Surgical hardware in association with ORIF of distal femoral fracture. Remodeling deformity of the proximal right fibular, suggesting remote trauma. Mild degenerative change and subchondral sclerosis. Soft tissues: Soft tissue prominence. Vasculature: Vascular calcification. IMPRESSION: 1. Evaluation is limited by severe osteopenia. 2. Surgical hardware in association with ORIF of distal femoral fracture. Electronically signed by: Bets Vanegas On 02/11/2020 15:35:51 PM
== END ==
LOC: M RAD 14:12
PROVIDERS: ATTEND Internal Medicine
DX: M25.551 Pain in right hip (principal); M25.561 Pain in right knee

== ENCOUNTER → 2020-02-16 | Outpatient (REF) ==
[2020-02-16 11:24] LABS: HEMATOCRIT 39.4 % (36.0-47.0); HEMOGLOBIN 12.9 g/dl (12.0-15.5); MEAN CORPUSCULAR HEMOGLOBIN 30.1 pg (27.0-33.0); MEAN CORPUSCULAR HGB CONC 32.7 g/dl (32.0-36.5); MEAN CORPUSCULAR VOLUME 92.1 fl (80.0-96.0); PLATELET COUNT, AUTOMATED 308 10^3/uL (150-450); RED BLOOD COUNT 4.28 10^6/uL (4.00-5.40); WHITE BLOOD COUNT 14.8 10^3/uL (4.0-10.0)
[2020-02-16 11:49] LABS: BLOOD UREA NITROGEN 43 MG/DL (7-18); CALCIUM LEVEL 9.3 MG/DL (8.8-10.2); CARBON DIOXIDE LEVEL 23 MEQ/L (21-32); CHLORIDE LEVEL 101 MEQ/L (98-107); CREATININE FOR GFR 0.91 MG/DL (0.55-1.30); GLOMERULAR FILTRATION RATE > 60.0 (>39); GLUCOSE, FASTING 158 MG/DL (70-100); POTASSIUM SERUM 3.8 MEQ/L (3.5-5.1); SODIUM LEVEL 134 MEQ/L (136-145)
== END ==
PROVIDERS: ATTEND Internal Medicine
DX: I50.9 Heart failure, unspecified (principal)

== ENCOUNTER → 2020-02-17 | Outpatient (REF) | payer MEDICARE, MEDICAID ==
[2020-02-17 11:14] LABS: BASO % 0.2 % (0.0-1.0); HEMATOCRIT 38.8 % (36.0-47.0); HEMOGLOBIN 12.3 g/dl (12.0-15.5); LYMPH # 1.6 10^3/uL (1.5-5.0); LYMPH % 10.6 % (24.0-44.0); MEAN CORPUSCULAR HEMOGLOBIN 29.3 pg (27.0-33.0); MEAN CORPUSCULAR HGB CONC 31.7 g/dl (32.0-36.5); MEAN CORPUSCULAR VOLUME 92.4 fl (80.0-96.0); MONO # 1.1 10^3/uL (0.0-0.8); MONO % 7.4 % (0.0-5.0); NEUTROPHILS # 12.1 10^3/uL (1.5-8.5); NEUTROPHILS % 80.7 % (36.0-66.0); PLATELET COUNT, AUTOMATED 346 10^3/uL (150-450)
== END ==
PROVIDERS: ATTEND Internal Medicine
DX: D72.829 Elevated white blood cell count, unspecified (principal)

== ENCOUNTER → 2020-03-17 | Outpatient (REF) | payer MEDICARE, MEDICAID ==
[2020-03-17 09:02] LABS: HEMATOCRIT 36.4 % (36.0-47.0); HEMOGLOBIN 11.9 g/dl (12.0-15.5); MEAN CORPUSCULAR HEMOGLOBIN 30.2 pg (27.0-33.0); MEAN CORPUSCULAR HGB CONC 32.7 g/dl (32.0-36.5); MEAN CORPUSCULAR VOLUME 92.4 fl (80.0-96.0); PLATELET COUNT, AUTOMATED 316 10^3/uL (150-450); RED BLOOD COUNT 3.94 10^6/uL (4.00-5.40); WHITE BLOOD COUNT 7.7 10^3/uL (4.0-10.0)
[2020-03-17 09:12] LABS: BLOOD UREA NITROGEN 15 MG/DL (7-18); CALCIUM LEVEL 9.3 MG/DL (8.8-10.2); CARBON DIOXIDE LEVEL 27 MEQ/L (21-32); CHLORIDE LEVEL 99 MEQ/L (98-107); CREATININE FOR GFR 0.63 MG/DL (0.55-1.30); GLOMERULAR FILTRATION RATE > 60.0 (>39); GLUCOSE, FASTING 103 MG/DL (70-100); POTASSIUM SERUM 4.3 MEQ/L (3.5-5.1); SODIUM LEVEL 132 MEQ/L (136-145)
== END ==
PROVIDERS: ATTEND Internal Medicine
DX: I50.9 Heart failure, unspecified (principal)

== ENCOUNTER → 2020-03-24 | Outpatient (REF) | PROVIDERS: ATTEND Internal Medicine | DX: Z20.828 Contact with and (suspected) exposure to other viral communicable diseases (principal) ==

== ENCOUNTER → 2020-03-31 | Outpatient (REF) | payer MEDICARE, MEDICAID | LOC: EDSTATUS 05-10 16:15 | PROVIDERS: ATTEND Internal Medicine | DX: Z20.828 Contact with and (suspected) exposure to other viral communicable diseases (principal) ==

== ENCOUNTER → 2020-04-06 | Outpatient (REF) | payer MEDICARE, MEDICAID | PROVIDERS: ATTEND Internal Medicine | DX: Z20.828 Contact with and (suspected) exposure to other viral communicable diseases (principal) ==

== ENCOUNTER → 2020-04-14 | Outpatient (REF) ==
[2020-04-14 09:07] LABS: HEMATOCRIT 35.4 % (36.0-47.0); HEMOGLOBIN 11.2 g/dl (12.0-15.5); MEAN CORPUSCULAR HEMOGLOBIN 29.9 pg (27.0-33.0); MEAN CORPUSCULAR HGB CONC 31.6 g/dl (32.0-36.5); MEAN CORPUSCULAR VOLUME 94.4 fl (80.0-96.0); PLATELET COUNT, AUTOMATED 388 10^3/uL (150-450); RED BLOOD COUNT 3.75 10^6/uL (4.00-5.40); WHITE BLOOD COUNT 10.5 10^3/uL (4.0-10.0)
[2020-04-14 09:41] LABS: BLOOD UREA NITROGEN 21 MG/DL (7-18); CALCIUM LEVEL 9.6 MG/DL (8.8-10.2); CARBON DIOXIDE LEVEL 26 MEQ/L (21-32); CHLORIDE LEVEL 103 MEQ/L (98-107); CREATININE FOR GFR 0.74 MG/DL (0.55-1.30); GLOMERULAR FILTRATION RATE > 60.0 (>39); GLUCOSE, FASTING 92 MG/DL (70-100); POTASSIUM SERUM 4.4 MEQ/L (3.5-5.1); SODIUM LEVEL 136 MEQ/L (136-145)
== END ==
PROVIDERS: ATTEND Internal Medicine
DX: I50.9 Heart failure, unspecified (principal)

== ENCOUNTER → 2020-04-24 | Outpatient (REF) | payer MEDICARE, MEDICAID | PROVIDERS: ATTEND Internal Medicine | DX: Z20.828 Contact with and (suspected) exposure to other viral communicable diseases (principal) ==

== ENCOUNTER → 2020-04-28 | Outpatient (REF) | payer MEDICARE, MEDICAID | PROVIDERS: ATTEND Internal Medicine | DX: Z20.828 Contact with and (suspected) exposure to other viral communicable diseases (principal) ==

== ENCOUNTER → 2020-05-02 | Outpatient (REF) | payer MEDICARE, MEDICAID ==
[2020-05-02 11:58] LABS: RSV AMPLIFICATION NEGATIVE (NEGATIVE)
== END ==
PROVIDERS: ATTEND Internal Medicine
DX: Z20.828 Contact with and (suspected) exposure to other viral communicable diseases (principal)

== ENCOUNTER → 2020-05-04 | Outpatient (REF) | payer MEDICARE, MEDICAID | PROVIDERS: ATTEND Internal Medicine | DX: Z20.828 Contact with and (suspected) exposure to other viral communicable diseases (principal) ==

== ENCOUNTER → 2020-05-10 | Outpatient (REF) | payer MEDICARE, MEDICAID | PROVIDERS: ATTEND Internal Medicine | DX: Z20.828 Contact with and (suspected) exposure to other viral communicable diseases (principal) ==

== ENCOUNTER → 2020-05-16 | Outpatient (REF) | payer MEDICARE, MEDICAID | PROVIDERS: ATTEND Internal Medicine | DX: Z20.822 Contact with and (suspected) exposure to COVID-19 (principal) ==

== ENCOUNTER → 2020-05-20 | Outpatient (REF) | payer MEDICARE, MEDICAID | PROVIDERS: ATTEND Internal Medicine | DX: Z20.822 Contact with and (suspected) exposure to COVID-19 (principal) ==

== ENCOUNTER → 2020-05-25 | Outpatient (REF) | payer MEDICARE, MEDICAID | PROVIDERS: ATTEND Internal Medicine | DX: Z20.822 Contact with and (suspected) exposure to COVID-19 (principal) ==

== ENCOUNTER → 2020-06-01 | Outpatient (REF) | payer MEDICARE, MEDICAID | PROVIDERS: ATTEND Internal Medicine | DX: Z20.822 Contact with and (suspected) exposure to COVID-19 (principal) ==

== ENCOUNTER → 2020-06-08 | Outpatient (REF) | payer MEDICARE, MEDICAID | PROVIDERS: ATTEND Internal Medicine | DX: Z20.822 Contact with and (suspected) exposure to COVID-19 (principal) ==

== ENCOUNTER → 2020-06-13 | Outpatient (REF) | payer MEDICARE, MEDICAID ==
[2020-06-13 08:52] LABS: HEMOGLOBIN 10.7 g/dl (12.0-15.5); MEAN CORPUSCULAR HGB CONC 32.4 g/dl (32.0-36.5); MEAN CORPUSCULAR VOLUME 92.4 fl (80.0-96.0); PLATELET COUNT, AUTOMATED 246 10^3/uL (150-450); RED BLOOD COUNT 3.57 10^6/uL (4.00-5.40); WHITE BLOOD COUNT 10.7 10^3/uL (4.0-10.0)
[2020-06-13 09:22] LABS: CREATININE FOR GFR 1.01 MG/DL (0.55-1.30); GLOMERULAR FILTRATION RATE 56.4 (>39); POTASSIUM SERUM 3.4 MEQ/L (3.5-5.1)
== END ==
PROVIDERS: ATTEND Internal Medicine
DX: I50.9 Heart failure, unspecified (principal)

== ENCOUNTER → 2020-06-15 | Outpatient (REF) | payer MEDICARE, MEDICAID | PROVIDERS: ATTEND Internal Medicine | DX: Z20.822 Contact with and (suspected) exposure to COVID-19 (principal) ==

== ENCOUNTER → 2020-06-22 | Outpatient (REF) | payer MEDICARE, MEDICAID | PROVIDERS: ATTEND Internal Medicine | DX: Z20.822 Contact with and (suspected) exposure to COVID-19 (principal) ==

== ENCOUNTER → 2020-06-29 | Outpatient (REF) | payer MEDICARE, MEDICAID | PROVIDERS: ATTEND Internal Medicine | DX: Z20.822 Contact with and (suspected) exposure to COVID-19 (principal) ==

== ENCOUNTER → 2020-07-06 | Outpatient (REF) | payer MEDICARE, MEDICAID | PROVIDERS: ATTEND Internal Medicine | DX: Z20.822 Contact with and (suspected) exposure to COVID-19 (principal) ==

== ENCOUNTER → 2020-07-13 | Outpatient (REF) | payer MEDICARE, MEDICAID | PROVIDERS: ATTEND Internal Medicine | DX: Z20.822 Contact with and (suspected) exposure to COVID-19 (principal) ==

== ENCOUNTER → 2020-07-20 | Outpatient (REF) | payer MEDICARE, MEDICAID | PROVIDERS: ATTEND Internal Medicine | DX: Z11.52 Encounter for screening for COVID-19 (principal) ==

== ENCOUNTER → 2020-08-19 | Outpatient (REF) | payer MEDICARE, MEDICAID ==
[2020-08-19 15:17] LABS: INFLUENZA A AMPLIFICATION NEGATIVE (NEGATIVE); INFLUENZA B AMPLIFICATION NEGATIVE (NEGATIVE)
== END ==
PROVIDERS: ATTEND Internal Medicine
DX: Z11.52 Encounter for screening for COVID-19 (principal)

== ENCOUNTER → 2020-08-23 | Outpatient (REF) | payer MEDICARE, MEDICAID | PROVIDERS: ATTEND Internal Medicine | DX: Z20.822 Contact with and (suspected) exposure to COVID-19 (principal) ==

== ENCOUNTER → 2020-08-30 | Outpatient (REF) | payer MEDICARE, MEDICAID | PROVIDERS: ATTEND Internal Medicine | DX: Z20.822 Contact with and (suspected) exposure to COVID-19 (principal) ==

== ENCOUNTER → 2020-09-06 | Outpatient (REF) | payer MEDICARE, MEDICAID | PROVIDERS: ATTEND Internal Medicine | DX: Z11.52 Encounter for screening for COVID-19 (principal) ==

== ENCOUNTER → 2020-09-12 | Outpatient (REF) | payer MEDICARE, MEDICAID ==
[2020-09-12 09:43] LABS: HEMATOCRIT 34.3 % (36.0-47.0); HEMOGLOBIN 10.9 g/dl (12.0-15.5); MEAN CORPUSCULAR HEMOGLOBIN 30.2 pg (27.0-33.0); MEAN CORPUSCULAR HGB CONC 31.8 g/dl (32.0-36.5); PLATELET COUNT, AUTOMATED 339 10^3/uL (150-450); RED BLOOD COUNT 3.61 10^6/uL (4.00-5.40); WHITE BLOOD COUNT 13.3 10^3/uL (4.0-10.0)
[2020-09-12 10:16] LABS: CALCIUM LEVEL 9.7 MG/DL (8.8-10.2); CREATININE FOR GFR 1.41 MG/DL (0.55-1.30); GLOMERULAR FILTRATION RATE 38.4 (>39); POTASSIUM SERUM 3.2 MEQ/L (3.5-5.1)
== END ==
PROVIDERS: ATTEND Internal Medicine
DX: I50.9 Heart failure, unspecified (principal)

== ENCOUNTER → 2020-09-13 | Outpatient (REF) | payer MEDICARE, MEDICAID ==
[2020-09-13 10:49] LABS: HEMATOCRIT 34.5 % (36.0-47.0); HEMOGLOBIN 10.7 g/dl (12.0-15.5); MEAN CORPUSCULAR HEMOGLOBIN 29.6 pg (27.0-33.0); MEAN CORPUSCULAR VOLUME 95.6 fl (80.0-96.0); PLATELET COUNT, AUTOMATED 355 10^3/uL (150-450); RED BLOOD COUNT 3.61 10^6/uL (4.00-5.40); WHITE BLOOD COUNT 13.3 10^3/uL (4.0-10.0)
[2020-09-13 11:13] LABS: CALCIUM LEVEL 8.8 MG/DL (8.8-10.2); CREATININE FOR GFR 1.48 MG/DL (0.55-1.30); GLOMERULAR FILTRATION RATE 36.3 (>39); POTASSIUM SERUM 3.1 MEQ/L (3.5-5.1)
== END ==
PROVIDERS: ATTEND Internal Medicine
DX: N17.9 Acute kidney failure, unspecified (principal)

== ENCOUNTER → 2020-09-15 | Outpatient (REF) | payer MEDICARE, MEDICAID ==
[~2020-09-15] MED LIST changes: +AMOX500T2 PO; +BISA10SU27 PR; +CAL-1CHW PO; +CERA453C2 TP; -KLOR10TA76 PO; +LACT1TAB PO; +LOPE1CAP5 PO; +NYST1CRE15 TOP; +POTA-136 PO; +POTA-151 PO; +REFR0.5D8 OU; +VITS5OIN TOP; +ZOLO100T PO
[2020-09-15 10:15] LABS: CALCIUM LEVEL 8.6 MG/DL (8.8-10.2); CREATININE FOR GFR 1.24 MG/DL (0.55-1.30); GLOMERULAR FILTRATION RATE 44.5 (>39); POTASSIUM SERUM 3.3 MEQ/L (3.5-5.1)
== END ==
LOC: EEVIPCON
PROVIDERS: ATTEND Internal Medicine
DX: N17.9 Acute kidney failure, unspecified (principal)

== ENCOUNTER → 2020-09-20 | Outpatient (REF) | payer MEDICARE, MEDICAID ==
[~2020-09-20] MED LIST changes: -AMOX500T2 PO; -BISA10SU27 PR; -CAL-1CHW PO; -CERA453C2 TP; +KLOR10TA76 PO; -LACT1TAB PO; -LOPE1CAP5 PO; -NYST1CRE15 TOP; -POTA-136 PO; -POTA-151 PO; -REFR0.5D8 OU; -VITS5OIN TOP; -ZOLO100T PO
[2020-09-20 10:13] LABS: HEMOGLOBIN 12.1 g/dl (12.0-15.5); MEAN CORPUSCULAR HEMOGLOBIN 31.3 pg (27.0-33.0); MEAN CORPUSCULAR HGB CONC 32.7 g/dl (32.0-36.5); MEAN CORPUSCULAR VOLUME 95.9 fl (80.0-96.0); PLATELET COUNT, AUTOMATED 355 10^3/uL (150-450); RED BLOOD COUNT 3.86 10^6/uL (4.00-5.40); WHITE BLOOD COUNT 12.1 10^3/uL (4.0-10.0)
[2020-09-20 10:39] LABS: CALCIUM LEVEL 9.2 MG/DL (8.8-10.2); CREATININE FOR GFR 1.19 MG/DL (0.55-1.30); GLOMERULAR FILTRATION RATE 46.7 (>39); POTASSIUM SERUM 3.2 MEQ/L (3.5-5.1)
== END ==
PROVIDERS: ATTEND Internal Medicine
DX: N17.9 Acute kidney failure, unspecified (principal)

== ENCOUNTER → 2020-10-19 | Outpatient (REF) | payer MEDICARE, MEDICAID | PROVIDERS: ATTEND Physician Assistant | DX: Z01.89 Encounter for other specified special examinations (principal); Z87.440 Personal history of urinary (tract) infections ==

== ENCOUNTER → 2020-12-12 | Outpatient (REF) | payer MEDICARE, MEDICAID ==
[~2020-12-12] MED LIST changes: +AMOX500T2 PO; +BISA10SU27 PR; +CAL-1CHW PO; +CERA453C2 TP; -KLOR10TA76 PO; +LACT1TAB PO; +LOPE1CAP5 PO; +NYST1CRE15 TOP; +POTA-136 PO; +POTA-151 PO; +REFR0.5D8 OU; +VITS5OIN TOP; +ZOLO100T PO
[2020-12-12 12:32] LABS: HEMATOCRIT 35.6 % (36.0-47.0); MEAN CORPUSCULAR HEMOGLOBIN 30.1 pg (27.0-33.0); MEAN CORPUSCULAR HGB CONC 30.9 g/dl (32.0-36.5); MEAN CORPUSCULAR VOLUME 97.5 fl (80.0-96.0); PLATELET COUNT, AUTOMATED 341 10^3/uL (150-450); RED BLOOD COUNT 3.65 10^6/uL (4.00-5.40); WHITE BLOOD COUNT 10.4 10^3/uL (4.0-10.0)
[2020-12-12 12:42] LABS: CALCIUM LEVEL 9.3 MG/DL (8.8-10.2); CREATININE FOR GFR 1.54 MG/DL (0.55-1.30); GLOMERULAR FILTRATION RATE 34.7 (>39); POTASSIUM SERUM 4.5 MEQ/L (3.5-5.1)
== END ==
PROVIDERS: ATTEND Internal Medicine
DX: I50.9 Heart failure, unspecified (principal)

== ENCOUNTER → 2020-12-19 | Outpatient (REF) | payer MEDICARE, MEDICAID ==
[~2020-12-19] MED LIST changes: -AMOX500T2 PO; -BISA10SU27 PR; -CAL-1CHW PO; -CERA453C2 TP; +KLOR10TA76 PO; -LACT1TAB PO; -LOPE1CAP5 PO; -NYST1CRE15 TOP; -POTA-136 PO; -POTA-151 PO; -REFR0.5D8 OU; -VITS5OIN TOP; -ZOLO100T PO
[2020-12-19 13:07] LABS: CALCIUM LEVEL 8.6 MG/DL (8.8-10.2); CREATININE FOR GFR 1.33 MG/DL (0.55-1.30); GLOMERULAR FILTRATION RATE 41.1 (>39); POTASSIUM SERUM 4.7 MEQ/L (3.5-5.1)
== END ==
PROVIDERS: ATTEND Internal Medicine
DX: N18.9 Chronic kidney disease, unspecified (principal)

== ENCOUNTER → 2020-12-26 | Outpatient (CLI) | payer MEDICARE, MEDICAID ==
--- NOTE | 2020-12-26 13:05 | REP ---
INDICATION: LOWER LEG RIGHT. COMPARISON: None. TECHNIQUE: AP and lateral FINDINGS: The bones are markedly demineralized. There has been previous femoral ORIF. There is no evidence of an acute tibial or fibular fracture. Vascular calcifications and surgical clips are identified. IMPRESSION: Chronic changes as described above. <Electronically signed by Kumar Nicolas > 12/26/20 [id number]
== END ==
PROVIDERS: ATTEND Internal Medicine
DX: M79.604 Pain in right leg (principal)

== ENCOUNTER → 2021-01-25 | Outpatient (REF) | payer MEDICARE, MEDICAID ==
[~2021-01-25] MED LIST changes: -KLOR10TA76 PO; +POTA-136 PO
== END ==
PROVIDERS: ATTEND Internal Medicine
DX: M81.0 Age-related osteoporosis without current pathological fracture (principal); Z79.899 Other long term (current) drug therapy

== ENCOUNTER → 2021-03-15 | Outpatient (REF) | payer MEDICARE, MEDICAID ==
[2021-03-15 12:39] LABS: HEMATOCRIT 36.1 % (36.0-47.0); HEMOGLOBIN 11.3 g/dl (12.0-15.5); MEAN CORPUSCULAR HGB CONC 31.3 g/dl (32.0-36.5); MEAN CORPUSCULAR VOLUME 98.9 fl (80.0-96.0); PLATELET COUNT, AUTOMATED 156 10^3/uL (150-450); RED BLOOD COUNT 3.65 10^6/uL (4.00-5.40); WHITE BLOOD COUNT 13.1 10^3/uL (4.0-10.0)
[2021-03-15 13:05] LABS: CALCIUM LEVEL 8.9 MG/DL (8.8-10.2); CREATININE FOR GFR 1.55 MG/DL (0.55-1.30); GLOMERULAR FILTRATION RATE 34.3 (>39)
== END ==
PROVIDERS: ATTEND Internal Medicine
DX: I50.9 Heart failure, unspecified (principal)

== ENCOUNTER → 2021-03-20 | Outpatient (REF) | payer MEDICARE, MEDICAID ==
[~2021-03-20] MED LIST changes: +AMOX500T2 PO; +BISA10SU27 PR; +CAL-1CHW PO; +CERA453C2 TP; +LACT1TAB PO; +LOPE1CAP5 PO; +NYST1CRE15 TOP; +POTA-151 PO; +REFR0.5D8 OU; +VITS5OIN TOP; +ZOLO100T PO
[2021-03-20 11:34] LABS: CALCIUM LEVEL 9.1 MG/DL (8.8-10.2); CREATININE FOR GFR 1.38 MG/DL (0.55-1.30); GLOMERULAR FILTRATION RATE 39.3 (>39); POTASSIUM SERUM 4.3 MEQ/L (3.5-5.1)
== END ==
PROVIDERS: ATTEND Internal Medicine
DX: I50.9 Heart failure, unspecified (principal); D53.9 Nutritional anemia, unspecified

== ENCOUNTER → 2021-03-20 | Outpatient (REF) | payer MEDICARE, MEDICAID ==
[~2021-03-20] MED LIST changes: -POTA-151 PO; +POTA20TA6 PO
== END ==
PROVIDERS: ATTEND Internal Medicine
DX: D53.9 Nutritional anemia, unspecified (principal)

== ENCOUNTER → 2021-03-22 | Outpatient (REF) | payer MEDICARE, MEDICAID | PROVIDERS: ATTEND Internal Medicine | DX: D64.9 Anemia, unspecified (principal) ==

== ENCOUNTER → 2021-03-22 | Outpatient (REF) | payer MEDICARE, MEDICAID ==
[~2021-03-22] MED LIST changes: +POTA-151 PO; -POTA20TA6 PO
== END ==
PROVIDERS: ATTEND Internal Medicine
DX: D72.829 Elevated white blood cell count, unspecified (principal)

== ENCOUNTER 2021-03-23 17:36 | Inpatient (IN) | payer MEDICARE, MEDICAID ==
[~2021-03-23] VITALS: Ht 157.5 cm; Wt 50.0 kg
[~2021-03-23 17:36] MED LIST changes: -AMOX500T2 PO; -BISA10SU27 PR; -CAL-1CHW PO; -CERA453C2 TP; -LACT1TAB PO; -LOPE1CAP5 PO; -NYST1CRE15 TOP; -POTA-151 PO; -REFR0.5D8 OU; -VITS5OIN TOP; -ZOLO100T PO
--- OUTSIDE RECORDS SUMMARY | 2021-03-23 18:08 | CCD ---
Author Author [facility] [place] [facility] Address Unknown Phone Unavailable Support Name Relationship Address Phone DISABLED Next Of Kin Unknown Unavailable KIRSTY DIAZ Next Of Kin Unknown RE Next Of Kin Unknown Unavailable UE Next Of Kin Unknown Unavailable MYESHA [place] [address] KIRSTY JOHNSON Next Of Kin [address] [place], [place] [id number] KIRSTY JOHNSON Next Of Kin [address] [place] [address] Kirsty Johnson ECON Unknown Re-disclosure Warning The records that you are about to access may contain information from federally-assisted alcohol or drug abuse programs. If such information is present, then the following federally mandated warning applies: This information has been disclosed to you from records protected by federal confidentiality rules (42 CFR part 2). The federal rules prohibit you from making any further disclosure of this information unless further disclosure is expressly permitted by the written consent of the person to whom it pertains or as otherwise permitted by 42 CFR part 2. A general authorization for the release of medical or other information is NOT sufficient for this purpose. The Federal rules restrict any use of the information to criminally investigate or prosecute any alcohol or drug abuse patient.The records that you are about to access may contain highly sensitive health information, the redisclosure of which is protected by Article 27-F of the [facility] Public Health law. If you continue you may have access to information: Regarding HIV / AIDS; Provided by facilities licensed or operated by the [facility] Office of Mental Health; or Provided by the [facility] Office for People With Developmental Disabilities. If such information is present, then the following [facility] mandated warning applies: This information has been disclosed to you from confidential records which are protected by state law. State law prohibits you from making any further disclosure of this information without the specific written consent of the person to whom it pertains, or as otherwise permitted by law. Any unauthorized further disclosure in violation of state law may result in a fine or correction sentence or both. A general authorization for the release of medical or other information is NOT sufficient authorization for further disc losure. 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 COVID-19 VACCINE [facility] 05/16/2020 12:00:00 AM EST completed [facility] Vaccine Series Complete: NOThis Data was Submitted to [facility]. Medications Medication Brand Name Start Date Product Form Dose Route Admi nistrative Instructions Pharmacy Instructions Status Indications Reaction Description Data Source(s) Ascorbic Acid 500 MG Oral Tablet Vitamin C 500 MG Oral Tablet Vitamin C 500 MG Oral Tablet 10/01/2019 12:00:00 AM EDT active ascorbic acid 500 MG Oral Tablet [facility] ([facility]) Insurance Providers Payer name Policy type / Coverage type Policy ID Covered alliance party ID Covered alliance party's relationship to jean Policy Jean Plan Information MEDICARE A [id number] Self [id number] M Medicare Part B of [place] Medicare Primary 0 [id number] Self 0 MEDICARE A [id number] Self [id number] Medicare Part B of [facility] Medicare Primary 0 [id number] Self 0 Medicare Part B of [facility] Medicare Primary 0 [id number] Self 0 Medicare Part B of [facility] Medicare Primary 0 [id number] Self 0 Medicare Part B of [facility] Medicare Primary 0 [id number] Self 0 Medicare Part B of [facility] Medicare Primary 0 [id number] Self 0 MEDICARE [id number] SP [id number] M Medicare [place] of [place] Medicare Primary 0 [id number] Self 0 MEDICARE [id number] SP [id number] Medicare [place] of [place] Medicare Primary 0 [id number] Self 0 Medicare C [id number] SELF [id number] [place] [id number] SP [id number] MEDICAID [id number] SP [id number] EMED[place] [id number] SP [id number] VNA MEDICAID MANAGED I [id number] Self [id number] VNA MEDICAID MANAGED I [id number] Self [id number] Medicaid [facility] S D [id number] SELF [id number] MEDICAID M [id number] Self [id number] Medicaid of [place] Supplemental Policy 0 [id number] Self 0 Medicare Part B of [facility] Medicare Primary 0 [id number] Self 0 [place] Supplemental Policy 0 [id number] Self 0 Medicare Part B of [facility] Medicare Primary 0 [id number] Self 0 MEDICAID - O/P EMERGENCY ROOM [id number] 18 [id number] MEDICARE PART A-O/P [id number] 18 [id number] Medicaid of [place] Supplemental Policy 0 [id number] Self 0 Medicare Part B of [facility] Medicare Primary 0 [id number] Self 0 MEDICAID-O/P [id number] [place] of [place] Supplemental Policy 0 [id number] Self 0 Medicare Part B of [facility] Medicare Primary 0 [id number] Self 0 [place] Supplemental Policy 0 [id number] Self 0 Medicare Part B of [facility] Medicare Primary 0 [id number] Self 0 [place] Supplemental Policy 0 [id number] Self 0 Medicare Part B of [facility] Medicare Primary 0 [id number] Self 0 [place] Supplemental Policy 0 [id number] Self 0 [place] Supplemental Policy 0 [id number] Self 0 [facility] [employer] [id number] 18 [id number] MEDICARE -SWING BED [id number] 18 [id number] [employer] [employer] UNAVAILABLE 18 UNAVAILABLE MEDICAID -SWING BED [id number] MEDICARE C [id number] S [id number] M Medicaid [facility] S D [id number] SELF [id number] Medicare C [id number] SELF [id number] [place] Supplemental Policy 0 [id number] Self 0 [place] Supplemental Policy 0 [id number] Self 0 [place] Supplemental Policy 0 [id number] Self 0 [place] Supplemental Policy 0 [id number] Self 0 [place] Supplemental Policy 0 [id number] Self 0 [place] Supplemental Policy 0 [id number] Self 0 MEDICAID-O/P [id number] MEDICARE -O/P [id number] 18 [id number] MEDICAID - CLINIC [id number] BE [id number] MEDICARE PART A-CLINIC [id number] 18 [id number] SELF PAY ONLY [id number] SP [id number] MEDICARE C [id number] S [id number] Y70 MEDICAID M [id number] S [id number] Medicaid of [place] Supplemental Policy 0 [id number] Self 0 Medicare Part B of [facility] Medicare Primary 0 [id number] Self 0 [place] Supplemental Policy 0 [id number] Self 0 Medicare Part B of [facility] Medicare Primary 0 [id number] Self 0 [place] Supplemental Policy 0 [id number] Self 0 Medicare Part B of [facility] Medicare Primary 0 [id number] Self 0 [place] Supplemental Policy 0 [id number] Self 0 Medicare Part B of [facility] Medicare Primary 0 [id number] Self 0 [place] Supplemental Policy 0 [id number] Self 0 Medicare Part B of [facility] Medicare Primary 0 [id number] Self 0 [place] Supplemental Policy 0 [id number] Self 0 Medicare Part B of [facility] Medicare Primary 0 [id number] Self 0 [facility] [id number] Self [id number] Medicare [place] Medicare Primary [id number] Self [id number] Medicaid [place] Med[place] Part B [id number] Self [id number] [place] [id number] Self [id number] Problems, Conditions, and Diagnoses No Information Surgeries/Procedures No Information Results ID Date Data Source [id number] 09/22/2020 12:00:00 AM EDT [facility] Name Value Range Interpretation Code Description Data Nelly rce(s) Supporting Document(s) SARS-CoV2 Rapid Antigen Negative [facility] This lab was ordered by [facility] and reported by [facility]. ID Date Data Source [id number] 09/06/2020 09:00:00 AM EDT [facility] Name Value Range Interpretation Code Description Data Nelly rce(s) Supporting Document(s) SARS-CoV-2 (COVID-19) RNA [Presence] in Respiratory specimen by WILLIAMS with probe detection Not Detected [facility] This lab was ordered by [facility] and reported by [facility]. ID Date Data Source [id number] 08/30/2020 10:10:00 AM EDT [facility] Name Value Range Interpretation Code Description Data Nelly rce(s) Supporting Document(s) SARS-CoV-2 (COVID-19) RNA [Presence] in Respiratory specimen by WILLIAMS with probe detection Not Detected [facility] This lab was ordered by [facility] and reported by [facility]. ID Date Data Source [id number] 08/23/2020 11:00:00 AM EDT [facility] Name Value Range Interpretation Code Description Data Nelly rce(s) Supporting Document(s) SARS-CoV-2 (COVID-19) RNA [Presence] in Respiratory specimen by WILLIAMS with probe detection Not Detected [facility] This lab was ordered by [facility] and reported by [facility]. ID Date Data Source [id number]/19/2020 12:00:00 AM EDT [facility] Name Value Range Interpretation Code Description Data Nelly rce(s) Supporting Document(s) SARS coronavirus 2 Ag Negative [facility] This lab was ordered by [facility] and reported by [facility]. ID Date Data Source [id number] 08/12/2020 12:00:00 AM EDT [facility] Name Value Range Interpretation Code Description Data Nelly rce(s) Supporting Document(s) SARS-CoV2 Rapid Antigen Negative [facility] This lab was ordered by [facility] and reported by [facility]. ID Date Data Source [id number] 07/20/2020 12:00:00 PM EST [facility] Name Value Range Interpretation Code Description Data Nelly rce(s) Supporting Document(s) SARS coronavirus 2 RNA Not Detected [facility] This lab was ordered by [facility] and reported by [facility]. ID Date Data Source [id number] 07/13/2020 11:00:00 AM EST [facility] Name Value Range Interpretation Code Description Data Nelly rce(s) Supporting Document(s) SARS coronavirus 2 RNA Not Detected [facility] This lab was ordered by [facility] and reported by [facility]. ID Date Data Source [id number] 07/06/2020 09:55:00 AM EST [facility] Name Value Range Interpretation Code Description Data Nelly rce(s) Supporting Document(s) SARS coronavirus 2 RNA Not Detected [facility] This lab was ordered by [facility] and reported by [facility]. ID Date Data Source [id number] 06/29/2020 01:00:00 PM EST [facility] Name Value Range Interpretation Code Description Data Nelly rce(s) Supporting Document(s) SARS coronavirus 2 RNA Not Detected [facility] This lab was ordered by [facility] and reported by [facility]. ID Date Data Source [id number] 06/22/2020 10:30:00 AM EST [facility] Name Value Range Interpretation Code Description Data Nelly rce(s) Supporting Document(s) SARS coronavirus 2 RNA Not Detected [facility] [place] This lab was ordered by [facility] and reported by [facility]. ID Date Data Source [id number] 06/15/2020 10:37:00 AM EST [facility] Name Value Range Interpretation Code Description Data Nelly rce(s) Supporting Document(s) SARS coronavirus 2 RNA Not Detected [facility] This lab was ordered by [facility] and reported by [facility]. ID Date Data Source [id number] 06/08/2020 01:45:00 PM EST [facility] Name Value Range Interpretation Code Description Data Nelly rce(s) Supporting Document(s) SARS coronavirus 2 RNA Not Detected [facility] [place] This lab was ordered by [facility] and reported by [facility]. ID Date Data Source [id number] 06/01/2020 12:30:00 PM EST [facility] Name Value Range Interpretation Code Description Data Nelly rce(s) Supporting Document(s) SARS coronavirus 2 RNA Not Detected [facility] [place] This lab was ordered by [facility] and reported by [facility]. ID Date Data Source [id number] 05/25/2020 11:30:00 AM EST [facility] Name Value Range Interpretation Code Description Data Nelly rce(s) Supporting Document(s) SARS coronavirus 2 RNA Not Detected [facility] [place] This lab was ordered by [facility] and reported by [facility]. ID Date Data Source [id number] 05/20/2020 11:00:00 AM EST [facility] Name Value Range Interpretation Code Description Data Nelly rce(s) Supporting Document(s) SARS coronavirus 2 RNA Not Detected [facility] [place] This lab was ordered by [facility] and reported by [facility]. ID Date Data Source [id number] 05/16/2020 09:25:00 AM EST [facility] Name Value Range Interpretation Code Description Data Nelly rce(s) Supporting Document(s) SARS coronavirus 2 RNA [facility] This lab was ordered by [facility] and reported by [facility]. ID Date Data Source [id number] 05/10/2020 10:15:00 AM EST [facility] Name Value Range Interpretation Code Description Data Nelly rce(s) Supporting Document(s) SARS coronavirus 2 RNA [facility] This lab was ordered by [facility] and reported by [facility]. ID Date Data Source [id number] 05/04/2020 11:00:00 AM EST [facility] Name Value Range Interpretation Code Description Data Nelly rce(s) Supporting Document(s) SARS coronavirus 2 RNA [facility] This lab was ordered by [facility] and reported by [facility]. ID Date Data Source [id number] 05/02/2020 10:00:00 AM EST [facility] Name Value Range Interpretation Code Description Data Nelly rce(s) Supporting Document(s) SARS coronavirus 2 RNA [Presence] in Res piratory specimen by WILLIAMS with probe detection [facility] This lab was ordered by [facility] a nd reported by [facility]. ID Date Data Source [id number] 05/02/2020 12:00:00 AM EST [facility] Name Value Range Interpretation Code Description Data Nelly rce(s) Supporting Document(s) SARS-CoV2 Rapid Antigen Negative [facility] This lab was ordered by [facility] and reported by [facility]. ID Date Data Source [id number] 04/30/2020 12:00:00 AM EST [facility] Name Value Range Interpretation Code Description Data Nelly rce(s) Supporting Document(s) SARS-CoV2 Rapid Antigen [facility] This lab was ordered by [facility] and reported by [facility]. ID Date Data Source [id number] 04/28/2020 09:00:00 AM EST [facility] Name Value Range Interpretation Code Description Data Nelly rce(s) Supporting Document(s) SARS coronavirus 2 RNA [facility] This lab was ordered by [facility] and reported by [facility]. ID Date Data Source [id number] 04/24/2020 02:04:00 PM EST [facility] Name Value Range Interpretation Code Description Data Nelly rce(s) Supporting Document(s) SARS coronavirus 2 RNA [facility] This lab was ordered by [facility] and reported by [facility]. ID Date Data Source [id number] 04/06/2020 12:00:00 PM EST [facility] Name Value Range Interpretation Code Description Data Nelly rce(s) Supporting Document(s) SARS coronavirus 2 RNA [facility] This lab was ordered by [facility] and reported by [facility]. ID Date Data Source [id number] 03/31/2020 09:00:00 AM EST [facility] Name Value Range Interpretation Code Description Data Nelly rce(s) Supporting Document(s) SARS coronavirus 2 RNA [facility] This lab was ordered by [facility] and reported by [facility]. ID Date Data Source [id number] 03/24/2020 12:25:00 PM EST [facility] Name Value Range Interpretation Code Description Data Nelly rce(s) Supporting Document(s) SARS coronavirus 2 RNA [facility] This lab was ordered by [facility] and reported by [facility]. Procedure Social History No Information Patient Treatment Plan of Care Planned Activity Planned Date Details Description Data Source (s) Ascorbic Acid 500 MG Oral Tablet 10/01/2019 12:00:00 AM SULMA STAPLETON ([facility])
[2021-03-23] MEDS ORDERED: NS 1,000 ML IV SCH (18:15)
[2021-03-23] MEDS ORDERED: PANTOPRAZOLE 40MG VIAL (C9113 PER 1) IV ONE (18:15)
--- NOTE | 2021-03-23 19:11 | REP ---
INDICATION: Abdominal Pain. COMPARISON: None. TECHNIQUE: An AP sitting portable chest film was obtained. FINDINGS: Cardiac leads are noted. No definite acute parenchymal opacification or effusion is identified. The heart is at the upper limits of normal in size but without evidence of failure. Mild ectasia of the thoracic aorta with calcification in the aortic knob is present. A moderately extensive dextroscoliosis of the lower thoracic and upper lumbar spine is partially visualized. IMPRESSION: No definite acute change is identified. <Electronically signed by Stuart Dickson > 03/23/21 [id number]
[2021-03-23 19:22] LABS: BASO % 0.1 % (0.0-1.0); HEMOGLOBIN 9.6 g/dl (12.0-15.5); LYMPH # 2.9 10^3/uL (1.5-5.0); LYMPH % 11.7 % (24.0-44.0); MEAN CORPUSCULAR HEMOGLOBIN 31.2 pg (27.0-33.0); MEAN CORPUSCULAR VOLUME 97.4 fl (80.0-96.0); MONO # 1.3 10^3/uL (0.0-0.8); MONO % 5.4 % (2.0-8.0); NEUTROPHILS # 20.4 10^3/uL (1.5-8.5); NEUTROPHILS % 81.9 % (36.0-66.0); PLATELET COUNT, AUTOMATED 210 10^3/uL (150-450); RED BLOOD COUNT 3.08 10^6/uL (4.00-5.40)
[2021-03-23 19:32] LABS: INR 1.35; PROTHROMBIN TIME 17.1 SECONDS (12.7-14.5)
[2021-03-23 19:48] LABS: ALBUMIN 2.7 GM/DL (3.2-5.2); ALT/SGPT 18 U/L (12-78); BILIRUBIN,DIRECT < 0.1 MG/DL (0.0-0.2); BILIRUBIN,TOTAL 0.2 MG/DL (0.2-1.0); BLOOD UREA NITROGEN 91 MG/DL (7-18); CALCIUM LEVEL 9.3 MG/DL (8.8-10.2); CARBON DIOXIDE LEVEL 19 MEQ/L (21-32); CHLORIDE LEVEL 111 MEQ/L (98-107); CREATININE FOR GFR 1.65 MG/DL (0.55-1.30); GLOMERULAR FILTRATION RATE 31.9 (>39); GLUCOSE, FASTING 119 MG/DL (70-100); LIPASE 92 U/L (73-393); POTASSIUM SERUM 4.8 MEQ/L (3.5-5.1); SODIUM LEVEL 139 MEQ/L (136-145); TOTAL PROTEIN 6.8 GM/DL (6.4-8.2)
[2021-03-23 20:03] LABS: RSV AMPLIFICATION NEGATIVE (NEGATIVE)
[2021-03-23] MEDS ORDERED: LIDOCAINE 2% 5ML JELLY UROJET TOP ONE (20:10)
--- NOTE | 2021-03-23 22:37 | REPVR ---
PROCEDURE INFORMATION: Exam: CT Chest Without Contrast; Diagnostic Exam date and time: 03/23/2021 9:19 PM Clinical indication: Abdominal pain; Generalized; Additional info: Abd pain TECHNIQUE: Imaging protocol: Diagnostic computed tomography of the chest without contrast. COMPARISON: No relevant prior studies available. Study limitations: Evaluation of mediastinal and hilar structures for mass, inflammatory change, and vasculature, is suboptimal without contrast. The lung apices are not included. FINDINGS: HEART AND VASCULATURE: There is mild cardiac enlargement. No pericardial effusion. Calcifications are seen at the mitral and aortic valves. Coronary arterial calcifications noted. There is slight uncoiling of the thoracic aortic arch. This may be seen with longstanding systemic arterial hypertension. Maximal aortic diameter is 3.6 cm. There is calcified atherosclerosis. Diameter of the main pulmonary trunk is borderline dilated at 3.3 cm and could be correlated for mild pulmonary arterial hypertension. - MEDIASTINUM: No mediastinal soft tissue gas. The trachea is slightly displaced towards the right due to uncoiling of the aortic arch. No hiatal hernia. The esophagus is distended and thick-walled at the level of the leila measuring approximately 4.4 cm. There is trace amount of periesophageal edema. Clinical correlation is advised. Consider endoscopy or esophagram for further evaluation. No mediastinal hematoma. Small amount of fluid noted within the pericardial recesses. Mediastinal lymph nodes noted but not obviously pathologic by size criteria. Evaluation of the pulmonary subha is compromised by lack of contrast differentiation. - LUNGS: The lung apices are not included. No pneumothorax is seen otherwise. Small layering pleural effusions seen bilaterally. Mild compressive atelectasis within the lower lobes. A few reticular opacities are seen within the lower lobes which may be secondary to atelectasis or parenchymal scarring. No suspicious pulmonary parenchymal mass. - MSK AND BODY WALL: There is severe vertebral body compression fracture deformity with vertebra plana at T8. Moderately severe compression deformity noted at T7 and T9. These are of indeterminate acuity. There is significantly accentuated thoracic kyphosis, measuring approximately 113 degrees, centered to T8. No sternal fracture is seen. No acute displaced rib fracture is seen. IMPRESSION: Small pleural effusions and atelectasis. - Abnormal appearance of the esophagus. Clinical correlation is advised as discussed above. - Borderline dilation of the main pulmonary trunk to be correlated for mild pulmonary arterial hypertension. - Cardiac enlargement, atherosclerosis and coronary artery disease. - Vertebral compression fracture deformities of indeterminate acuity. - Findings and limitations discussed above - - PROCEDURE INFORMATION: Exam: CT Abdomen And Pelvis Without Contrast Exam date and time: 03/23/2021 9:19 PM Age: 81 years old Clinical indication: Abdominal pain; Generalized; Additional info: Abd pain TECHNIQUE: Imaging protocol: Computed tomography of the abdomen and pelvis without contrast. Radiation optimization: All CT scans at this facility use at least one of these dose optimization techniques: automated exposure control; mA and/or kV adjustment per patient size (includes targeted exams where dose is matched to clinical indication); or iterative reconstruction. COMPARISON: CT Pelvis without contrast 07/26/2019 9:24 AM Study limitations: Evaluation for mass, inflammatory change, including bowel wall/fold thickening, viscera, and vasculature, is suboptimal without contrast. Diagnostic evaluation through the upper abdomen is slightly compromised by streak artifact from positioning of the patient's arms across the body wall and the patient's watch. FINDINGS: VASCULAR: No abdominoaortic aneurysm or retroperitoneal hematoma. There is aortoiliac, femoral and visceral arterial calcific atherosclerosis. Vascular patency is not assessed on this exam. - PERITONEAL : No free air or free fluid. - GI: No hiatal hernia. The distal esophagus and stomach are not sufficiently distended to evaluate wall thickening or for complete diagnostic evaluation. - Non-specific fluid-filled small-bowel loops are noted. No significant asymmetric small-bowel distention to suggest obstruction. Evaluation for bowel wall and fold thickening is compromised on this study, secondary to lack of any contrast. Gastroenteritis cannot be excluded. No focal mesenteric inflammation. No mesenteric lymphadenopathy by size criteria. - Scattered fecal material and gas within portions of the colon. There is some fluid within the proximal colon. There is diverticulosis but no evidence of acute diverticulitis. The appendix is does not appear inflamed. Some portions of the colon and rectum appear slightly thick-walled. This could be correlated clinically but may be artifactual secondary to insufficient distention. - HEPATOBILIARY, PANCREAS, SPLEEN: The liver is not enlarged. Evaluation of hepatic parenchyma is limited without contrast and secondary to overlying beam hardening artifacts. Hepatic attenuation is slightly heterogeneous. Hepatic attenuation is consistent with fatty infiltration. No calcified gallstones. No pancreatic inflammation. Spleen not enlarged. - ADRENALS, KIDNEYS, BLADDER, RETROPERITONEAL: Mildly enlarged adrenal glands, likely secondary to hyperplasia. There is severe bilateral hydronephrosis. There is severe dilation of the ureters to the level of the urinary bladder. No ureteral calculi are seen. No renal calcifications are seen. The urinary bladder is partially prolapse through the vaginal introitus. The ureterovesical junctions are below the prolapse and likely causing compressive obstruction of both renal collecting systems. Bladder prolapse was seen on the prior pelvic CT. There is mild dilation of the urinary bladder above the level of the prolapse. Evaluation of the prolapse is compromised by lack of contrast. There is mild nonspecific perinephric stranding. Evaluation of renal parenchyma is limited without contrast. There may be partially exophytic renal lesions bilaterally but too small to further characterize and difficult to characterize without contrast. Consistent with the [employer]'s Incidental Findings Committee white paper (J Am Collette Radiol 2018): Any incidental cystic renal lesion classified in this report as too small to characterize or simple appearing is likely a benign cyst. No follow-up imaging is neccesary for these lesions per consensus recommendations based on imaging criteria if there is average risk of renal malignancy. - PELVIC: The uterus is not visualized within the pelvis. The uterus and cervix are most likely prolapsed through the vaginal introitus. There is a heterogeneous partially calcified 9 cm mass within the vaginal introitus, likely representing the uterus. This is new compared to the prior study. Soft tissue mass cannot be excluded by this study. Clinical correlation is advised. - MUSCULOSKELETAL: There is thoracolumbar scoliosis and degenerative change. There is accentuated lumbar lordosis. There is grade 1 anterolisthesis of L4 upon L5. IMPRESSION: There is severe bilateral hydronephrosis, without a calcific cause of obstruction. Obstruction is most likely secondary to extrinsic compression from urinary bladder prolapse and prolapse of the distal ureters and ureterovesical junctions, along with new adjacent uterine/cervical prolapse. Genitourinary and pelvic findings discussed above in detail. - Nonspecific gastrointestinal findings. - Other findings and study limitations discussed above. Electronically signed by: Jerry Sanchez On 03/23/2021 22:36:32 PM
[2021-03-23] MEDS ORDERED: FURO20TA2 PO (22:54)
[2021-03-23] MEDS ORDERED: NYST1CRE15 TOP (22:54)
[2021-03-23] MEDS ORDERED: ZOLO100T PO (22:54)
[2021-03-23] MEDS ORDERED: POTA20TA6 PO (22:54)
[2021-03-23] MEDS ORDERED: REFR0.5D8 OU (22:54)
[2021-03-23] MEDS ORDERED: LACT1TAB PO (22:54)
[2021-03-23] MEDS ORDERED: CERA453C2 TP (22:54)
[2021-03-23] MEDS ORDERED: BISA10SU27 PR (22:54)
[2021-03-23] MEDS ORDERED: CAL-1CHW PO (22:57)
[2021-03-23] MEDS ORDERED: LOPE1CAP5 PO (22:57)
[2021-03-23] MEDS ORDERED: HOME MED LIST COMPLETE! XX SCH (23:00)
[2021-03-23] MEDS ORDERED: MOM 30ML SUSPENSION UDC PO PRN (23:30)
--- OUTSIDE RECORDS SUMMARY | 2021-03-23 23:33 | CCD ---
Author Author [facility] [place] [facility] Address Unknown Phone Unavailable Support Name Relationship Address Phone DISABLED Next Of Kin Unknown Unavailable KIRSTY DIAZ Next Of Kin Unknown RE Next Of Kin Unknown Unavailable UE Next Of Kin Unknown Unavailable MYESHA [place] [address] KIRSTY JOHNSON Next Of Kin [address] [place], [place] [id number] KIRSTY JOHNSON Next Of Kin [address] [place] [address] Kirsty Johnson ECON Unknown Re-disclosure Warning The [...] is protected by Article 27-F of the [facility] Public Health law. If you continue you may have access to information: Regarding HIV / AIDS; Provided by facilities licensed or operated by the [facility] Office of Mental Health; or Provided by the [facility] Office for People With Developmental Disabilities. If such information is present, then the following [facility] mandated warning applies: This information has [...] law may result in a fine or snf sentence or both. A general authorization for the release of medical or other information is NOT sufficient authorization for further disc losure. 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 COVID-19 VACCINE [employer] [place] 05/16/2020 12:00:00 AM EST completed [facility] Vaccine Series Complete: NOThis Data was Submitted to [facility] [employer]. Medications Medication Brand Name Start Date Product Form Dose Route Admi nistrative Instructions Pharmacy Instructions Status Indications Reaction Description Data Source(s) Ascorbic Acid 500 MG Oral Tablet Vitamin C 500 MG Oral Tablet Vitamin C 500 MG Oral Tablet 10/01/2019 12:00:00 AM EDT active ascorbic acid 500 MG Oral Tablet [facility] ([facility]) Insurance Providers Payer name Policy type / Coverage type Policy ID Covered constitution party ID Covered constitution party's relationship to jean Policy Jean Plan Information MEDICARE A [id number] Self [id number] M Medicare Part B of [place] Medicare Primary 0 [id number] Self 0 MEDICARE A [id number] Self [id number] Medicare Part B of [facility] Medicare Primary 0 [id number] Self 0 [address] [facility] Medicare Primary 0 [id number] Self 0 Medicare Part [address] of [facility] Medicare Primary 0 [id number] Self 0 Medicare [address] [facility] Medicare Primary 0 [id number] Self 0 Medicare [address] [facility] Medicare Primary 0 [id number] Self 0 MEDICARE [id number] SP [id number] M Medicare [place] Medicare Primary 0 [id number] Self 0 MEDICARE [id number] SP [id number] Medicare [place] Medicare Primary 0 [id number] Self 0 Medicare C [id number] SELF [id number] [place] [id number] SP [id number] MEDICAID [id number] SP [id number] EMEDNY [id number] SP [id number] VNA MEDICAID MANAGED I [id number] Self [id number] VNA MEDICAID MANAGED I [id number] Self [id number] Medicaid [facility] S D [id number] SELF [id number] MEDICAID M [id number] Self [id number] Medicaid of [place] Supplemental Policy 0 [id number] Self [address] [facility] Medicare Primary 0 [id number] Self 0 [place] Supplemental Policy 0 [id number] Self 0 [address] [facility] Medicare Primary 0 [id number] Self 0 MEDICAID - O/P EMERGENCY ROOM [id number] 18 [id number] MEDICARE PART A-O/P [id number] 18 [id number] Medicaid of [place] Supplemental Policy 0 [id number] Self [address] [facility] Medicare Primary 0 [id number] Self 0 MEDICAID-O/P [id number] Medicaid of [place] Supplemental Policy 0 [id number] Self 0 [address] [facility] Medicare Primary 0 [id number] Self 0 [place] Supplemental Policy 0 [id number] Self 0 [address] [facility] Medicare Primary 0 [id number] Self 0 [place] Supplemental Policy 0 [id number] Self 0 [address] [facility] Medicare Primary 0 [id number] Self 0 [place] Supplemental Policy 0 [id number] Self 0 [place] Supplemental Policy 0 [id number] Self 0 [facility] [employer] [id number] 18 [id number] MEDICARE -SWING BED [id number] 18 [id number] [employer] [employer] UNAVAILABLE 18 UNAVAILABLE MEDICAID -SWING BED [id number] MEDICARE C [id number] S [id number] M Medicaid [facility] S D [id number] SELF [id number] Medicare C [id number] SELF [id number] [place] Supplemental Policy 0 [id number] Self 0 [place] Supplemental Policy 0 [id number] Self 0 [place] Supplemental Policy 0 [id number] Self 0 [place] Supplemental Policy 0 [id number] Self 0 [place] Supplemental Policy 0 [id number] Self 0 [place] Supplemental Policy 0 [id number] Self 0 MEDICAID-O/P [id number] MEDICARE -O/P [id number] 18 [id number] MEDICAID - CLINIC [id number] MEDICARE PART A-CLINIC [id number] 18 [id number] SELF PAY ONLY [id number] SP [id number] MEDICARE C [id number] S [id number] Y70 MEDICAID M [id number] S [id number] Medicaid [place] Supplemental Policy 0 [id number] Self 0 [address] [facility] Medicare Primary 0 [id number] Self 0 [place] Supplemental Policy 0 [id number] Self 0 Medicare Part [address] [facility] Medicare Primary 0 [id number] Self 0 [place] Supplemental Policy 0 [id number] Self 0 Medicare [address] [facility] Medicare Primary 0 [id number] Self 0 [place] Supplemental Policy 0 [id number] Self 0 Medicare [address] [facility] Medicare Primary 0 [id number] Self 0 [place] Supplemental Policy 0 [id number] Self 0 Medicare Part [address] [facility] Medicare Primary 0 [id number] Self 0 [place] Supplemental Policy 0 [id number] Self 0 [address] [facility] Medicare Primary 0 [id number] Self 0 [facility] [id number] Self [id number] Medicare [facility] Medicare Primary [id number] Self [id number] Medicaid [place] Medigap Part B [id number] Self [id number] [place] [id number] Self [id number] Problems, Conditions, and Diagnoses No Information Surgeries/Procedures No Information Results ID Date Data Source [id number] 09/22/2020 12:00:00 AM EDT [facility] Name Value Range Interpretation Code Description Data Nelly rce(s) Supporting Document(s) SARS-CoV2 Rapid Antigen Negative [facility] This lab was ordered by [facility] and reported by [facility]. ID Date Data Source [id number] 09/06/2020 09:00:00 AM EDT [facility] Name Value Range Interpretation Code Description Data Nelly rce(s) Supporting Document(s) SARS-CoV-2 (COVID-19) RNA [Presence] in Respiratory specimen by WILLIAMS with probe detection Not Detected [facility] This lab was ordered by [facility] [place] and reported by [employer]. ID Date Data Source [id number] 08/30/2020 10:10:00 AM EDT [facility] Name Value Range Interpretation Code Description Data Nelly rce(s) Supporting Document(s) SARS-CoV-2 (COVID-19) RNA [Presence] in Respiratory specimen by WILLIAMS with probe detection Not Detected [facility] This lab was ordered by [facility] [place] and reported by [employer]. ID Date Data Source [id number] 08/23/2020 11:00:00 AM EDT [facility] Name Value Range Interpretation Code Description Data Nelly rce(s) Supporting Document(s) SARS-CoV-2 (COVID-19) RNA [Presence] in Respiratory specimen by WILLIAMS with probe detection Not Detected [facility] This lab was ordered by [facility] [place] and reported by [employer] ID Date Data Source [id number]/19/2020 12:00:00 AM EDT [facility] Name Value Range Interpretation Code Description Data Nelly rce(s) Supporting Document(s) SARS coronavirus 2 Ag Negative [facility] This lab was ordered by [facility] and reported by [facility]. ID Date Data Source [id number] 08/12/2020 12:00:00 AM EDT [facility] Name Value Range Interpretation Code Description Data Nelly rce(s) Supporting Document(s) SARS-CoV2 Rapid Antigen Negative [facility] This lab was ordered by [facility] and reported by [facility]. ID Date Data Source [id number] 07/20/2020 12:00:00 PM EST [facility] Name Value Range Interpretation Code Description Data Nelly rce(s) Supporting Document(s) SARS coronavirus 2 RNA Not Detected [facility] This lab was ordered by [facility] and reported by [facility]. ID Date Data Source [id number] 07/13/2020 11:00:00 AM EST [facility] Name Value Range Interpretation Code Description Data Nelly rce(s) Supporting Document(s) SARS coronavirus 2 RNA Not Detected [facility] [place] This lab was ordered by [facility] and reported by [facility]. ID Date Data Source [id number] 07/06/2020 09:55:00 AM EST [facility] Name Value Range Interpretation Code Description Data Nelly rce(s) Supporting Document(s) SARS coronavirus 2 RNA Not Detected [facility] [place] This lab was ordered by [facility] and reported by [facility]. ID Date Data Source [id number] 06/29/2020 01:00:00 PM EST [facility] Name Value Range Interpretation Code Description Data Nelly rce(s) Supporting Document(s) SARS coronavirus 2 RNA Not Detected [facility] [place] This lab was ordered by [facility] and reported by [facility]. ID Date Data Source [id number] 06/22/2020 10:30:00 AM EST [facility] Name Value Range Interpretation Code Description Data Nelly rce(s) Supporting Document(s) SARS coronavirus 2 RNA Not Detected [facility] [place] This lab was ordered by [facility] and reported by [facility]. ID Date Data Source [id number] 06/15/2020 10:37:00 AM EST [facility] Name Value Range Interpretation Code Description Data Nelly rce(s) Supporting Document(s) SARS coronavirus 2 RNA Not Detected [facility] [place] This lab was ordered by [facility] and reported by [facility]. ID Date Data Source [id number] 06/08/2020 01:45:00 PM EST [facility] Name Value Range Interpretation Code Description Data Nelly rce(s) Supporting Document(s) SARS coronavirus 2 RNA Not Detected [facility] [place] This lab was ordered by [facility] and reported by [facility]. ID Date Data Source [id number] 06/01/2020 12:30:00 PM EST [facility] Name Value Range Interpretation Code Description Data Nelly rce(s) Supporting Document(s) SARS coronavirus 2 RNA Not Detected [facility] [place] This lab was ordered by [facility] and reported by [facility]. ID Date Data Source [id number] 05/25/2020 11:30:00 AM EST [facility] Name Value Range Interpretation Code Description Data Nelly rce(s) Supporting Document(s) SARS coronavirus 2 RNA Not Detected [facility] [place] This lab was ordered by [facility] and reported by [facility]. ID Date Data Source [id number] 05/20/2020 11:00:00 AM EST [facility] Name Value Range Interpretation Code Description Data Nelly rce(s) Supporting Document(s) SARS coronavirus 2 RNA Not Detected [facility] [place] This lab was ordered by [facility] and reported by [facility]. ID Date Data Source [id number] 05/16/2020 09:25:00 AM EST [facility] Name Value Range Interpretation Code Description Data Nelly rce(s) Supporting Document(s) SARS coronavirus 2 RNA [facility] This lab was ordered by [facility] and reported by [facility]. ID Date Data Source [id number] 05/10/2020 10:15:00 AM EST [facility] Name Value Range Interpretation Code Description Data Nelly rce(s) Supporting Document(s) SARS coronavirus 2 RNA [facility] This lab was ordered by [facility] and reported by [facility]. ID Date Data Source [id number] 05/04/2020 11:00:00 AM EST [facility] Name Value Range Interpretation Code Description Data Nelly rce(s) Supporting Document(s) SARS coronavirus 2 RNA [facility] This lab was ordered by [facility] and reported by [facility]. ID Date Data Source [id number] 05/02/2020 10:00:00 AM EST [facility] Name Value Range Interpretation Code Description Data Nelly rce(s) Supporting Document(s) SARS coronavirus 2 RNA [Presence] in Res piratory specimen by WILLIAMS with probe detection [facility] This lab was ordered by [facility] a nd reported by [facility]. ID Date Data Source [id number] 05/02/2020 12:00:00 AM EST [facility] Name Value Range Interpretation Code Description Data Nelly rce(s) Supporting Document(s) SARS-CoV2 Rapid Antigen Negative [facility] This lab was ordered by [facility] and reported by [facility]. ID Date Data Source [id number] 04/30/2020 12:00:00 AM EST [facility] Name Value Range Interpretation Code Description Data Nelly rce(s) Supporting Document(s) SARS-CoV2 Rapid Antigen [facility] This lab was ordered by [facility] and reported by [facility]. ID Date Data Source [id number] 04/28/2020 09:00:00 AM EST [facility] Name Value Range Interpretation Code Description Data Nelly rce(s) Supporting Document(s) SARS coronavirus 2 RNA [facility] This lab was ordered by [facility] and reported by [facility]. ID Date Data Source [id number] 04/24/2020 02:04:00 PM EST [facility] Name Value Range Interpretation Code Description Data Nelly rce(s) Supporting Document(s) SARS coronavirus 2 RNA [facility] This lab was ordered by [facility] and reported by [facility]. ID Date Data Source [id number] 04/06/2020 12:00:00 PM EST [facility] Name Value Range Interpretation Code Description Data Nelly rce(s) Supporting Document(s) SARS coronavirus 2 RNA [facility] This lab was ordered by [facility] and reported by [facility]. ID Date Data Source [id number] 03/31/2020 09:00:00 AM EST [facility] Name Value Range Interpretation Code Description Data Nelly rce(s) Supporting Document(s) SARS coronavirus 2 RNA [facility] This lab was ordered by [facility] and reported by [facility]. ID Date Data Source [id number] 03/24/2020 12:25:00 PM EST [facility] Name Value Range Interpretation Code Description Data Nelly rce(s) Supporting Document(s) SARS coronavirus 2 RNA [facility] This lab was ordered by [facility] and reported by [facility]. Procedure Social History No Information Patient Treatment Plan of Care Planned Activity Planned Date Details Description Data Source (s) Ascorbic Acid 500 MG Oral Tablet 10/01/2019 12:00:00 AM SULMA STAPLETON ([facility])
[2021-03-24] MEDS ORDERED: BISACODYL 10 MG SUPP PR PRN
--- NOTE | 2021-03-24 00:05 | HPEPDOC ---
[facility] Medical History & Physical Date of Admission Mar 23, 2021 Date of Service: Mar 23, 2021 History and Physical CHIEF COMPLAINT: Blood in stool HISTORY OF PRESENT ILLNESS: 81 yo F with a pmhx of paroxysmal afib on eliquis, HTN, diastolic CHF, uterine prolapse, presented to ER from [facility], when blood was noticed in her stool. On arrival to ER, patient was found to be guaic + on ESTRELLA per ER provider. Her Hgb 9.5, below baseline of 11. No gross blood was seen, but black stool was identified. She denies CP, palpitations, SOB, n/v/d. She states that she has a hx of significant uterine prolapse and that it often bleeds, w hich she thinks was confused for GI bleeding. Patient is in poor spirits and declines comprehensive physical exam. She was tachycardic to 122, afib with RVR on EKG, and her BP was 107/72. She was saturating well on RA. Her WBC elevated at 25.0. LA 13. CT abdomen pelvis was performed, showing severe bilateral hydronephrosis, likely 2/2 extrinsic compression from urinary bladder prolapse and prolapse of the distal ureters and ureterovesical junctions, along with new adjacent uterine/cervical prolapse. Per chart review, patient had stated being seen by Dr. Kaye, and that she had though uterine prolapse to be inoperable. Per report she had failed pessary in the past. A vincent catheter was ordered. UA showing positive LE and pyuria. Given leukocytosis and UA+, started on empiric zosyn. Patient's creatinine was elevated to 1.6. I discussed the findings with Dr. Kaye and placed a consult. She agreed with vincent placement. Patient will be admitted to hospitalist service for observation of Hgb as well as management of severe hydronephrosis. PAST MEDICAL HISTORY: 1. Uterine prolapse 2. Paroxysmal atrial fibrillation 3. Hypertension 4. Diastolic heart failure 5. Chronic hyponatremia 6. Chronic anemia 7. Right femoral fracture status post repair 8. Uterine fibroids 9. Gait dysfunction, reported to be walking with walker at baseline PAST SURGICAL HISTORY: Right femoral fracture open reduction internal fixation in July 2019 SOCIAL HISTORY: Resident at [facility] Denies etoh, smoking, illicit drug use. FAMILY HISTORY: Mother had CAD and DM2 ALLERGIES: Please see below. REVIEW OF SYSTEMS: 10 point ROS was conducted, relevant findings were noted in HPI HOME MEDICATIONS: Please see below. PHYSICAL EXAMINATION: VITAL SIGNS: please see below General: NAD, comfortable HEENT: PERRLA, EOMI, sclerae clear Neck: supple, normal ROM, no JVD Respiratory: lungs CTAB, no wheeze, no rales, no crackles CVS: RRR, normal S1, S2, no murmurs Abdo: soft, no masses, no hepatosplenomegaly, BS+, no rebound tenderness exam: deferred Extremities: no edema, pulses 2+ MSK: no joint deformities, normal ROM Neuro:moving all 4 extremities Psych: calm, cooperative, AAO x 3 LABORATORY DATA: See below. IMAGING: CT abdomen and pelvis (03/23/21): VASCULAR: No abdominoaortic aneurysm or retroperitoneal hematoma. There is aortoiliac, femoral and visceral arterial calcific atherosclerosis. Vascular patency is not assessed on this exam. - PERITONEAL : No free air or free fluid. - GI: No hiatal hernia. The distal esophagus and stomach are not sufficiently distended to evaluate wall thickening or for complete diagnostic evaluation. - Non-specific fluid-filled small-bowel loops are noted. No significant asymmetric small-bowel distention to suggest obstruction. Evaluation for bowel wall and fold thickening is compromised on this study, secondary to lack of any contrast. Gastroenteritis cannot be excluded. No focal mesenteric inflammation. No mesenteric lymphadenopathy by size criteria. - Scattered fecal material and gas within portions of the colon. There is some fluid within the proximal colon. There is diverticulosis but no evidence of acute diverticulitis. The appendix is does not appear inflamed. Some portions of the colon and rectum appear slightly thick-walled. This could be correlated clinically but may be artifactual secondary to insufficient distention. - HEPATOBILIARY, PANCREAS, SPLEEN: The liver is not enlarged. Evaluation of hepatic parenchyma is limited without contrast and secondary to overlying beam hardening artifacts. Hepatic attenuation is slightly heterogeneous. Hepatic attenuation is consistent with fatty infiltration. No calcified gallstones. No pancreatic inflammation. Spleen not enlarged. - ADRENALS, KIDNEYS, BLADDER, RETROPERITONEAL: Mildly enlarged adrenal glands, likely secondary to hyperplasia. There is severe bilateral hydronephrosis. There is severe dilation of the ureters to the level of the urinary bladder. No ureteral calculi are seen. No renal calcifications are seen. The urinary bladder is partially prolapse through the vaginal introitus. The ureterovesical junctions are below the prolapse and likely causing compressive obstruction of both renal collecting systems. Bladder prolapse was seen on the prior pelvic CT. There is mild dilation of the urinary bladder above the level of the prolapse. Evaluation of the prolapse is compromised by lack of contrast. There is mild nonspecific perinephric stranding. Evaluation of renal parenchyma is limited without contrast. There may be partially exophytic renal lesions bilaterally but too small to further characterize and difficult to characterize without contrast. Consistent with the [employer]'s Incidental Findings Committee white paper (J Am Collette Radiol 2018): Any incidental cystic renal lesion classified in this report as too small to characterize or simple appearing is likely a benign cyst. No follow-up imaging is neccesary for these lesions per consensus recommendations based on imaging criteria if there is average risk of renal malignancy. - PELVIC: The uterus is not visualized within the pelvis. The uterus and cervix are most likely prolapsed through the vaginal introitus. There is a heterogeneous partially calcified 9 cm mass within the vaginal introitus, likely representing the uterus. This is new compared to the prior study. Soft tissue mass cannot be excluded by this study. Clinical correlation is advised. - MUSCULOSKELETAL: There is thoracolumbar scoliosis and degenerative change. There is accentuated lumbar lordosis. There is grade 1 anterolisthesis of L4 upon L5. IMPRESSION: There is severe bilateral hydronephrosis, without a calcific cause of obstruction. Obstruction is most likely secondary to extrinsic compression from urinary bladder prolapse and prolapse of the distal ureters and ureterovesical junctions, along with new adjacent uterine/cervical prolapse. Genitourinary and pelvic findings discussed above in detail. - Nonspecific gastrointestinal findings. MICROBIOLOGY: Please see below. ASSESSMENT: 81 yo F with a pmhx of paroxysmal afib on eliquis, HTN, diastolic CHF, uterine prolapse, presented to ER from [facility], when blood was noticed in her stool. Hgb 9.6, sa . PLAN: #Anemia 2/2 suspected GI bleed - hgb 9.6, baseline 11.3 (last checked on 11.3) - report of blood in stool at [facility]. ER provider states guaic positive in ER, black stool no gross blood - monitor CBC. No indication for transfusion at this time. - we will hold patient's eliquis at this time. - start PPI IV - if Hgb falls precipitously, general surgery to be consulted for endoscopy - clear liquids diet at this time. #Leukocytosis - at present source of infection is unknown - patient is afebrile - CXR shows not acute findings - CT abdomen pelvis showing severe b/l hydronephrosis 2/2 extrinsic compression from urinary bladder prolapse and prolapse of the distal ureters and ureterovesical junctions, along with new adjacent uterine/cervical prolapse - check blood cultures - vincent catheter placed for decompression - check UA with cultures - start on empiric zosyn #UTI - UA + LE and pyuria - started on zosyn - f/u urine cultures #. severe bilateral hydroureteronephrosis - Cr elevated at 1.65 - known hx of uterine prolapse, refractory to pessary. Per report, Dr. Kaye had seen patient in past, pessary was not effective and prolapse was non operable. - I d/w Dr. Kaye the CT findings (reviewed above). Recommended vincent catheter insertion. Consultation placed, she will see patient on 03/24. - perform bladder scan #SUZIE - 2/2 obstruction, see above - will hold captopril, furosemide and spironolactone at this time #. Paroxysmal atrial fibrillation with RVR - increase coreg ffrom 3.125 daily to 6.25 mg BID - eliquis held #. Hypertension. -c/w carvedilol - holding captopril, lasix and aldactone #. Grade I Diastolic congestive heart failure (11/2019 echo) - diuretics held due to SUZIE (lasix and spironolactone) - resume if obstruction resolves with vincent cath - 1800ml/24h fluid restriction. #. Lumbar spine spondylosis with spinal stenosis/Hx of unsteady gait - PT/OT - moving legs, no numbness in perium - reports no constipation #. Depression -Continue home Sertraline DVT prophylaxis: SCDs. TEDs. Eliquis being held due to suspected GIB. Vital Signs Vital Signs Date Time Temp Pulse Resp B/P (MAP) Pulse Ox O2 Delivery O2 Flow Rate FiO2 03/23/21 22:51 109 100 03/23/21 22:45 102/64 (77) 03/23/21 19:16 97.3 16 Room Air Laboratory Data Labs 24H Laboratory Tests 2 03/23/21 18:15: Immature Granulocyte % (Auto) 0.9, Neutrophils (%) (Auto) 81.9H, Lymphocytes (%) (Auto) 11.7L, Monocytes (%) (Auto) 5.4, Eosinophils (%) (Auto) 0.0, Basophils (%) (Auto) 0.1, Neutrophils # (Auto) 20.4H, Lymphocytes # (Auto) 2.9, Monocytes # (Auto) 1.3H, Eosinophils # (Auto) 0.0, Basophils # (Auto) 0.0, Nucleated Red Blood Cells % (auto) 0.0, Prothrombin Time 17.1H, Prothromb Time International Ratio 1.35, Anion Gap 9, Glomerular Filtration Rate 31.9L, Lactic Acid Level 1.3, Calcium Level 9.3, Total Bilirubin 0.2, Direct Bilirubin < 0.1, Aspartate Amino Transf (AST/SGOT) 16, Alanine Aminotransferase (ALT/SGPT) 18, Alkaline Phosphatase 81, Total Protein 6.8, Albumin 2.7L, Albumin/Globulin Ratio 0.7L, Lipase 92 03/23/21 18:47: Coronavirus (COVID-19)(PCR) NEGATIVE, Influenza Type A (RT-PCR) NEGATIVE, Influenza Type B (RT-PCR) NEGATIVE, Respiratory Syncytial Virus (PCR) NEGATIVE CBC/BMP Laboratory Tests 03/23/21 18:15 Home Medications Scheduled Acetaminophen (Acetaminophen) 500 Mg Tablet, 1,000 MG PO TID Apixaban (Eliquis) 2.5 Mg Tab, 2.5 MG PO BID Atorvastatin Calcium (Atorvastatin Calcium) 20 Mg Tablet, 20 MG PO QHS Captopril (Captopril) 12.5 Mg Tab, 12.5 MG PO QHS Carboxymethylcellulos/Glycerin (Refresh Optive Eye Drops) 1 Devon Devon, 1 DROP OU BID Carvedilol (Carvedilol) 3.125 Mg Tab, 3.125 MG PO DAILY Ergocalciferol (Vitamin D2) (Drisdol) 1,250 Mcg Capsule, 1,250 MCG PO DAILY Ferrous Gluconate (Ferrous Gluconate) 324 Mg Tablet, 324 MG PO DAILY Furosemide (Furosemide) 20 Mg Tablet, 20 MG PO DAILY Lactase (Lactase) 3,000 Unit Tablet, 3 TAB PO DAILY Nystatin/Triamcin (Nystatin-Triamcinolone Cream) 15 Gm Cream..g., 1 APLCT TOP BID UNDER LEFT BREAST Potassium Chloride (Potassium Chloride) 20 Meq Tab.er.prt, 20 MEQ PO DAILY Sertraline Hcl (Zoloft) 100 Mg Tablet, 100 MG PO DAILY Spironolactone (Spironolactone) 25 Mg Tablet, 12.5 MG PO DAILY Scheduled PRN Bisacodyl (Bisacodyl) 10 Mg Supp.rect, 10 MG MN DAILY PRN for CONSTIPATION Calcium Carbonate (Krishan-Gest) 200 Mg Tab.chew, 500 MG PO BID PRN for DYSPEPSIA Ceramides 1,3,6-11 (Cerave Moisturizing) 453 Gm Cream..g., 453 GM TP DAILY PRN for DRY SKIN Loperamide HCl (Loperamide) 2 Mg Capsule, 2 MG PO DAILY PRN for AFTER EACH LOOSE STOOL Magnesium Hydroxide (Milk of Magnesia) 400 Mg/5 Ml Oral.susp, 2,400 MG PO DAILY PRN for CONSTIPATION Allergies Coded Allergies: lactose (Verified Adverse Reaction, Mild, GI UPSET, 03/23/21) LAMBERT DOSS MD Mar 24, 2021 00:05
[2021-03-24 01:17] VITALS: BP 113/78
[2021-03-24] MEDS: ACETAMINOPHEN TAB 650MG DOSE (2X325MG) PO PRN ×3 (02:30→20:00)
[2021-03-24] MEDS: PIPERACILLIN/TAZOBACTAM SOD 3.375 GM in D5W MINI-BAG PLUS 50 ML IV SCH ×4 (03:49→20:02)
[2021-03-24 06:23] VITALS: BP 107/52
--- NOTE | 2021-03-24 07:55 | ECGEPIP ---
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
--- NOTE | 2021-03-24 08:16 | REP ---
INDICATION: abd pain. COMPARISON: None. TECHNIQUE: AP AND CROSS-TABLE LATERAL VIEWS FINDINGS: There is no gross free air. The intestinal gas pattern is nonspecific. There is no evidence of a gross mass. Multiple lower thoracic and upper lumbar vertebral body compression fractures are identified. The bones are markedly demineralized. IMPRESSION: No plain radiographic evidence of acute disease. Consider CT of the abdomen and pelvis. <Electronically signed by Kumar Nicolas > 03/24/21 [id number]
[2021-03-24] MEDS ORDERED: CARVedilol 3.125 MG TAB PO SCH (09:00)
[2021-03-24] MEDS: SERTRALINE 100 MG TAB PO SCH (09:00)
[2021-03-24] MEDS: FERROUS GLUCONATE 324 MG TAB PO SCH (09:00)
[2021-03-24] MEDS: POTASSIUM CHLORIDE 10MEQ SR TABLET PO SCH (09:00)
[2021-03-24] MEDS: MYCOLOG CREAM 15 GM (NYSTATIN/TRIAMCINOLONE) TOP SCH ×2 (09:00→20:07)
[2021-03-24] MEDS: CARVedilol 6.25 MG TAB PO SCH ×2 (09:00→21:00)
[2021-03-24 09:12] LABS: HEMATOCRIT 26.2 % (36.0-47.0); HEMOGLOBIN 8.3 g/dl (12.0-15.5); MEAN CORPUSCULAR HEMOGLOBIN 31.2 pg (27.0-33.0); MEAN CORPUSCULAR HGB CONC 31.7 g/dl (32.0-36.5); MEAN CORPUSCULAR VOLUME 98.5 fl (80.0-96.0); PLATELET COUNT, AUTOMATED 189 10^3/uL (150-450); RED BLOOD COUNT 2.66 10^6/uL (4.00-5.40)
[2021-03-24 09:39] LABS: ALBUMIN 2.3 GM/DL (3.2-5.2); BILIRUBIN,TOTAL 0.2 MG/DL (0.2-1.0); CALCIUM LEVEL 9.1 MG/DL (8.8-10.2); CREATININE FOR GFR 1.63 MG/DL (0.55-1.30); GLOMERULAR FILTRATION RATE 32.4 (>39); MAGNESIUM LEVEL 1.8 MG/DL (1.8-2.4); TOTAL PROTEIN 6.3 GM/DL (6.4-8.2)
[2021-03-24 10:00] VITALS: BP 96/59
[2021-03-24 14:00] VITALS: BP 94/54
[2021-03-24 15:00] LABS: HEMOGLOBIN 7.7 g/dl (12.0-15.5); MEAN CORPUSCULAR HEMOGLOBIN 30.9 pg (27.0-33.0); MEAN CORPUSCULAR HGB CONC 30.8 g/dl (32.0-36.5); MEAN CORPUSCULAR VOLUME 100.4 fl (80.0-96.0); PLATELET COUNT, AUTOMATED 195 10^3/uL (150-450); RED BLOOD COUNT 2.49 10^6/uL (4.00-5.40); WHITE BLOOD COUNT 20.2 10^3/uL (4.0-10.0)
--- NOTE | 2021-03-24 19:05 | IPNPDOC ---
Text Note Date of Service The patient was seen on 03/24/21. NOTE Subjective: Patient is 81-year-old female presented to the hospital with uterine prolapse who was found to be possibly positive for GI bleed. Patient's hemoglobin was 9.5 on admission which is below her baseline of 11. No gross blood was seen but black stool was identified. Patient is demented and has trouble understanding what is going on. Patient is feeling slightly better and does not complain of any pain. Patient does complain of her uterine prolapse. Review of systems: Unable to fully obtain due to the patient's dementia Physical exam: Vitals: See below General: Alert but not oriented female who was sitting up in bed when I walked into the room. Patient not appear to be in any acute distress. HEENT: Normocephalic, atraumatic, moist mucous membranes. Neck: No lymphadenopathy or thyromegaly Cardiac: Regular rate and rhythm, no murmurs, normal S1, normal S2 Pulm: Clear to auscultation bilaterally. No wheezes, rhonchi, rales Abd: Nondistended, nontender to palpation, normal bowel sounds Ext: No edema bilateral lower extremities Labs: See below Imaging: No new imaging is been performed Assessment/plan: 81-year-old female presented to the hospital with uterine prolapse from [facility] where blood was also noticed in her stool. 1. Acute blood loss anemia most likely secondary to GI bleed. Patient's hemoglobin is 7.7. Patient has been consented for blood via her healthcare proxy who is her daughter Kirsty. I did spend quite a bit of time with patient and patient's healthcare proxy today talking about the blood transfusi ons. Patient will continue to get every 6 hours CBCs and we will continue to monitor. 2. Leukocytosis. Possibly from urinary analysis. This has improved on CBCs with Zosyn. We will continue to monitor and treat with IV Zosyn. 3. Urinary tract infection. Continue Zosyn. 4. Severe bilateral hydroureteronephrosis. Creatinine is mildly elevated. History of known uterine prolapse refractory to pessary. Patient had been seen for pessary in the office but patient did not continue going back to the office so pessary was discontinued. Dr. Kaye of gynecology did see the patient. 5. Acute kidney injury. Secondary to obstruction. Hold captopril furosemide and spironolactone at this time. We will continue to monitor. 6. Paroxysmal atrial fibrillation with RVR. Increase Coreg to 6.25 mg twice daily. Eliquis held at this time due to bleeding. 7. Hypertension. Continue with carvedilol. 8. Grade 1 diastolic congestive heart failure. Diuretics held due to SUZIE. 9. Lumbar spinal stenosis with spondylosis. PT/OT. 10. Depression. Continue home sertraline. 11. Dementia. Patient clearly does not understand the decisions that were being discussed when I am speaking with the patient and the patient's healthcare proxy who is her daughter. Patient will need lack of capacity form filled out as when trying to explain a blood transfusion of the patient the patient kept saying that she had already given blood and asked numerous times how the blood will be given in each time I answered that will be given to the IV and she was state that she had just given blood. Patient's daughter is in complete agreement with the fact that the patient is unable to make decisions for herself. In discussing CODE STATUS, patient did not understand CPR versus DO NOT RESUSCITATE as every time she would speak with her daughter about this, the patient would ask what her daughter would do and her daughter stated that she does not think it is in the patient's best interest for CPR to be done if she were to going to cardiac arrest and the patient would continue to ask if they would work on her heart. This conversation probably happened 5 times throughout my conversation with the patient and her daughter. Bedside nurse was present throughout this conversation. Based on the patient's healthcare proxy's wishes, patient will be made a DNR/DNI. Lack of capacity form and MOSLT form will be filled out tomorrow. If there are any changes overnight please contact the patient's daughter Kirsty. I spent 25 minutes in the room speaking with the patient and the patient's daughter regarding advanced directives DVT Prophylaxis: Mechanical due to GI bleeding Disposition: Pending clinical improvement Sander SHEA, I+O Sander SHEA, I+O Laboratory Tests 03/24/21 08:58 03/24/21 14:29 Vital Signs Date Time Temp Pulse Resp B/P (MAP) Pulse Ox O2 Delivery O2 Flow Rate FiO2 03/24/21 14:00 98.5 99 18 94/54 (67) 100 Room Air I&O- Last 24 Hours up to 6 AM 03/24/21 06:00 Intake Total 60 ml Balance 60 ml JUAN VOSS DO Mar 24, 2021 19:05
[2021-03-24 19:55] VITALS: BP 100/60
[2021-03-24 19:58] LABS: HEMATOCRIT 23.2 % (36.0-47.0); HEMOGLOBIN 7.3 g/dl (12.0-15.5); MEAN CORPUSCULAR HEMOGLOBIN 30.8 pg (27.0-33.0); MEAN CORPUSCULAR HGB CONC 31.5 g/dl (32.0-36.5); MEAN CORPUSCULAR VOLUME 97.9 fl (80.0-96.0); PLATELET COUNT, AUTOMATED 175 10^3/uL (150-450); RED BLOOD COUNT 2.37 10^6/uL (4.00-5.40); WHITE BLOOD COUNT 18.5 10^3/uL (4.0-10.0)
[2021-03-24] MEDS: ATORVASTATIN 20 MG TAB PO SCH (20:00)
[2021-03-25] VITALS (7 sets, daily range): BP systolic 88–99; BP diastolic 51–60
[2021-03-25 02:40] LABS: HEMATOCRIT 23.7 % (36.0-47.0); HEMOGLOBIN 7.2 g/dl (12.0-15.5); MEAN CORPUSCULAR HEMOGLOBIN 30.5 pg (27.0-33.0); MEAN CORPUSCULAR HGB CONC 30.4 g/dl (32.0-36.5); MEAN CORPUSCULAR VOLUME 100.4 fl (80.0-96.0); PLATELET COUNT, AUTOMATED 179 10^3/uL (150-450); RED BLOOD COUNT 2.36 10^6/uL (4.00-5.40); WHITE BLOOD COUNT 14.8 10^3/uL (4.0-10.0)
[2021-03-25] MEDS: PIPERACILLIN/TAZOBACTAM SOD 3.375 GM in D5W MINI-BAG PLUS 50 ML IV SCH ×4 (03:15→21:42)
[2021-03-25] MEDS: ACETAMINOPHEN TAB 650MG DOSE (2X325MG) PO PRN ×3 (04:09→18:41)
[2021-03-25] MEDS: CARVedilol 6.25 MG TAB PO SCH ×2 (08:13→21:00)
[2021-03-25 08:29] LABS: HEMATOCRIT 23.4 % (36.0-47.0); HEMOGLOBIN 7.3 g/dl (12.0-15.5); MEAN CORPUSCULAR HEMOGLOBIN 30.9 pg (27.0-33.0); MEAN CORPUSCULAR HGB CONC 31.2 g/dl (32.0-36.5); MEAN CORPUSCULAR VOLUME 99.2 fl (80.0-96.0); PLATELET COUNT, AUTOMATED 177 10^3/uL (150-450); RED BLOOD COUNT 2.36 10^6/uL (4.00-5.40); WHITE BLOOD COUNT 12.3 10^3/uL (4.0-10.0)
[2021-03-25] MEDS: POTASSIUM CHLORIDE 10MEQ SR TABLET PO SCH (08:38)
[2021-03-25] MEDS: FERROUS GLUCONATE 324 MG TAB PO SCH (08:38)
[2021-03-25] MEDS: SERTRALINE 100 MG TAB PO SCH (08:38)
[2021-03-25] MEDS: MYCOLOG CREAM 15 GM (NYSTATIN/TRIAMCINOLONE) TOP SCH ×2 (08:45→21:00)
--- NOTE | 2021-03-25 14:17 | IPNPDOC ---
Text Note Date of Service The patient was seen on 03/25/21. NOTE Subjective: Patient is a 81-year-old female presented to hospital with uterine prolapse was found to have a possible GI bleed. Patient's hemoglobin was 9.5 on admission. Patient's hemoglobin has been as low as 7.2. Patient does not complain of any complaints at this time. Patient has underlying dementia and has trouble understanding what is going on at this time. Review of systems: Unable to fully obtain due to patient's dementia Physical exam: Vitals: See below General: Alert but not oriented female who was sitting up in bed when I walked in the room. Patient did not appear to be in any acute distress. HEENT: Normocephalic, atraumatic, moist mucous membranes. Neck: No lymphadenopathy or thyromegaly Cardiac: Regular rate and rhythm, no murmurs, normal S1, normal S2 Pulm: Clear to auscultation bilaterally. No wheezes, rhonchi, rales Abd: Nondistended, soft, patient did get upset during palpation of the abdomen but did not appear to be uncomfortable, normal bowel sounds Ext: No edema bilateral lower extremities Labs: See below Imaging: No new imaging is been performed Assessment/plan: 81-year-old female presented to hospital with uterine prolapse and [facility] where blood was also found in her stool 1. Acute blood loss anemia secondary to possible GI bleed. Patient's hemoglobin was low at 7.2. Patient's hemoglobin has stabilized around 7.2-7.3 on the last few blood draws however, because the patient's hemoglobin was 11 last week and has been as high as 9, patient will receive 1 unit of blood. Blood transfusion consent form was signed with the patient's healthcare proxy yesterday. 2. Leukocytosis probably from urinary tract infection. This is improving continue Zosyn at this time. 3. Urinary tract infection. Continue Zosyn. 4. Severe bilateral hydroureteronephrosis. Creatinine was mildly elevated. History of known uterine prolapse refractory to pessary due to the patient not following up. Patient will need to follow-up with Dr. Kaye of gynecology in order to follow-up with pessary. We will keep the patient's Pratt catheter in place upon discharge. 5. Chronic kidney disease stage III. Patient's creatinine appears to be at baseline at this time. 6. Paroxysmal atrial fibrillation. Heart rate is been controlled. Eliquis on hold due to bleeding. 7. Hypertension. Continue with carvedilol. 8. Grade 1 diastolic congestive heart failure. Diuretics held due to SUZIE. These can be restarted the patient appears fluid overloaded. 9. Lumbar spinal stenosis spondylosis. Continue PT/OT. 10. Depression. Continue home sertraline. 11. Dementia. Patient does not have capacity to make decisions for self. After further research into [facility] MOLST law going on the department he alth website, patient does not need a lack of capacity form filled out as patient does have a healthcare proxy which is her daughter. Patient's daughter signed MOLST form for DNR/DNI with no feeding tube, trial of IV fluids, antibiotic usage, send to the hospital as necessary and limited medical in terventions. DVT Prophylaxis: Mechanical due to GI bleeding Disposition: Pending clinical improvement, possible discharge back to [facility] on Saturday VSSander, I+O VSSander, I+O Laboratory Tests 03/24/21 14:29 03/24/21 19:38 03/25/21 02:36 03/25/21 07:53 Vital Signs Date Time Temp Pulse Resp B/P (MAP) Pulse Ox O2 Delivery O2 Flow Rate FiO2 03/25/21 08:13 90 92/60 03/25/21 05:57 97.8 16 96 Room Air I&O- Last 24 Hours up to 6 AM 03/25/21 05:59 Intake Total 1510 ml Output Total 1650 ml Balance -140 ml JUAN VOSS DO Mar 25, 2021 14:17
[2021-03-25] MEDS: ATORVASTATIN 20 MG TAB PO SCH (21:00)
[2021-03-25 21:50] LABS: HEMATOCRIT 26.3 % (36.0-47.0); HEMOGLOBIN 8.4 g/dl (12.0-15.5); MEAN CORPUSCULAR HGB CONC 31.9 g/dl (32.0-36.5); PLATELET COUNT, AUTOMATED 180 10^3/uL (150-450); RED BLOOD COUNT 2.71 10^6/uL (4.00-5.40); WHITE BLOOD COUNT 12.2 10^3/uL (4.0-10.0)
[2021-03-26] MEDS: ACETAMINOPHEN TAB 650MG DOSE (2X325MG) PO PRN ×3 (01:58→20:04)
[2021-03-26] MEDS: PIPERACILLIN/TAZOBACTAM SOD 3.375 GM in D5W MINI-BAG PLUS 50 ML IV SCH ×4 (02:00→20:04)
[2021-03-26 02:02] LABS: HEMATOCRIT 26.4 % (36.0-47.0); HEMOGLOBIN 8.3 g/dl (12.0-15.5); MEAN CORPUSCULAR HEMOGLOBIN 30.5 pg (27.0-33.0); MEAN CORPUSCULAR HGB CONC 31.4 g/dl (32.0-36.5); MEAN CORPUSCULAR VOLUME 97.1 fl (80.0-96.0); PLATELET COUNT, AUTOMATED 165 10^3/uL (150-450); RED BLOOD COUNT 2.72 10^6/uL (4.00-5.40); WHITE BLOOD COUNT 11.4 10^3/uL (4.0-10.0)
[2021-03-26 06:00] VITALS: BP 102/57
[2021-03-26 07:23] LABS: HEMATOCRIT 27.6 % (36.0-47.0); HEMOGLOBIN 8.8 g/dl (12.0-15.5); MEAN CORPUSCULAR HEMOGLOBIN 30.8 pg (27.0-33.0); MEAN CORPUSCULAR HGB CONC 31.9 g/dl (32.0-36.5); MEAN CORPUSCULAR VOLUME 96.5 fl (80.0-96.0); PLATELET COUNT, AUTOMATED 196 10^3/uL (150-450); RED BLOOD COUNT 2.86 10^6/uL (4.00-5.40); WHITE BLOOD COUNT 10.5 10^3/uL (4.0-10.0)
[2021-03-26 07:47] LABS: CALCIUM LEVEL 8.5 MG/DL (8.8-10.2); CREATININE FOR GFR 1.75 MG/DL (0.55-1.30); GLOMERULAR FILTRATION RATE 29.8 (>39); MAGNESIUM LEVEL 2.1 MG/DL (1.8-2.4); POTASSIUM SERUM 3.3 MEQ/L (3.5-5.1)
[2021-03-26] MEDS: CARVedilol 6.25 MG TAB PO SCH ×2 (09:00→21:00)
[2021-03-26] MEDS: FUROSEMIDE 20 MG TAB PO SCH (09:00)
[2021-03-26] MEDS: FERROUS GLUCONATE 324 MG TAB PO SCH (09:11)
[2021-03-26] MEDS: SERTRALINE 100 MG TAB PO SCH (09:11)
[2021-03-26] MEDS: POTASSIUM CHLORIDE 10MEQ SR TABLET PO SCH (09:11)
[2021-03-26] MEDS: MYCOLOG CREAM 15 GM (NYSTATIN/TRIAMCINOLONE) TOP SCH ×2 (09:15→20:05)
--- NOTE | 2021-03-26 10:40 | IPNPDOC ---
Text Note Date of Service The patient was seen on 03/26/21. NOTE Subjective: Patient is a 81-year-old female presented to hospital with uterine prolapse was found to have possible GI bleed. Patient's hemoglobin was 9.5 on admission and has been as low as 7.2. Patient did receive 1 unit of blood. Patient does not complain of any pain today. Review of systems: Unable to fully assess to the patient's dementia Physical exam: Vitals: See below General: Alert but not oriented female who was sitting up in bed when I walked in. Patient did not appear to be in any acute distress. HEENT: Normocephalic, atraumatic, moist mucous membranes. Neck: No lymphadenopathy or thyromegaly Cardiac: Regular rate and rhythm, no murmurs, normal S1, normal S2 Pulm: Clear to auscultation bilaterally. No wheezes, rhonchi, rales Abd: Nondistended, abdomen was soft, patient began yelling at me when I would try to palpate the abdomen., normal bowel sounds Ext: No edema bilateral lower extremities Labs: See below Imaging: No new imaging is been performed. Assessment/plan: 81-year-old female sent to the hospital uterine prolapse from [facility] where blood was also found in her stool who was admitted for acute blood loss anemia secondary to GI bleeding 1. Acute blood loss anemia secondary to GI bleeding. Patient's hemoglobin was low 7.2. Patient's hemoglobin has been stable over the last 24 hours. Patient did receive 1 unit of blood. Blood consent form was signed by the patient's healthcare proxy who is patient's daughter. Patient has not had any bloody stools and we will continue to monitor. 2. Leukocytosis probably secondary to urinary tract infection. This is improving with Zosyn. Patient did grow out ESBL E. coli that is sensitive to Zosyn and ampicillin/sulbactam. Upon discharge. Patient can be switched to Augmentin. 3. Urinary tract infection. As above. 4. Severe bilateral hydroureteronephrosis most likely secondary to patient's uterine prolapse. Keep Pratt catheter in place at discharge. 5. Chronic kidney disease stage III. Patient's creatinine appears to be at baseline. 6. Proximal atrial fibrillation. Heart rate is been controlled. Eliquis on hold due to bleeding. 7. Hypertension. Continue carvedilol. 8. Grade 1 diastolic congestive heart failure. Diuretics were restarted today. Patient does not appear to be in exacerbation of heart failure. Lumbar spinal stenosis 9. With spondylosis. Continue PT OT. 10. Depression. Continue home sertraline. 11. Dementia. Patient does not capacity to make decisions for self. MOLST form signed by daughter for DNR/DNI DVT Prophylaxis: Mechanical due to GI bleeding Disposition: Pending clinical improvement, possible discharge back to [facility] tomorrow. VS,Saeede, I+O VS, Juliobone, I+O Laboratory Tests 03/25/21 21:37 03/26/21 01:57 03/26/21 07:02 Vital Signs Date Time Temp Pulse Resp B/P (MAP) Pulse Ox O2 Delivery O2 Flow Rate FiO2 03/26/21 09:00 93 96/56 03/26/21 06:00 98.5 18 98 Room Air I&O- Last 24 Hours up to 6 AM 03/26/21 06:00 Intake Total 900 ml Output Total 775 ml Balance 125 ml JUAN VOSS DO Mar 26, 2021 10:40
[2021-03-26 14:00] VITALS: BP 101/58
[2021-03-26] MEDS: ATORVASTATIN 20 MG TAB PO SCH (20:04)
[2021-03-26 21:40] LABS: HEMATOCRIT 26.7 % (36.0-47.0); HEMOGLOBIN 8.6 g/dl (12.0-15.5); MEAN CORPUSCULAR HEMOGLOBIN 30.8 pg (27.0-33.0); MEAN CORPUSCULAR HGB CONC 32.2 g/dl (32.0-36.5); MEAN CORPUSCULAR VOLUME 95.7 fl (80.0-96.0); PLATELET COUNT, AUTOMATED 209 10^3/uL (150-450); RED BLOOD COUNT 2.79 10^6/uL (4.00-5.40); WHITE BLOOD COUNT 13.3 10^3/uL (4.0-10.0)
[2021-03-26 21:45] VITALS: BP 108/64
[2021-03-27] MEDS: MAALOX 30 ML SUSP *UDC PO PRN ×2 (02:19→17:22)
[2021-03-27] MEDS: ACETAMINOPHEN TAB 650MG DOSE (2X325MG) PO PRN ×4 (02:20→21:33)
[2021-03-27] MEDS: PIPERACILLIN/TAZOBACTAM SOD 3.375 GM in D5W MINI-BAG PLUS 50 ML IV SCH (04:09)
[2021-03-27 06:00] VITALS: BP 96/65
[2021-03-27 08:14] LABS: BASO % 0.2 % (0.0-1.0); HEMATOCRIT 28.6 % (36.0-47.0); HEMOGLOBIN 9.1 g/dl (12.0-15.5); LYMPH # 3.4 10^3/uL (1.5-5.0); LYMPH % 28.1 % (24.0-44.0); MEAN CORPUSCULAR HEMOGLOBIN 30.6 pg (27.0-33.0); MEAN CORPUSCULAR HGB CONC 31.8 g/dl (32.0-36.5); MEAN CORPUSCULAR VOLUME 96.3 fl (80.0-96.0); MONO # 0.8 10^3/uL (0.0-0.8); MONO % 6.8 % (2.0-8.0); NEUTROPHILS # 7.7 10^3/uL (1.5-8.5); NEUTROPHILS % 64.1 % (36.0-66.0); PLATELET COUNT, AUTOMATED 222 10^3/uL (150-450); RED BLOOD COUNT 2.97 10^6/uL (4.00-5.40); WHITE BLOOD COUNT 12.1 10^3/uL (4.0-10.0)
[2021-03-27 08:37] LABS: CALCIUM LEVEL 8.4 MG/DL (8.8-10.2); CREATININE FOR GFR 1.45 MG/DL (0.55-1.30); GLOMERULAR FILTRATION RATE 37.1 (>39); MAGNESIUM LEVEL 1.9 MG/DL (1.8-2.4); POTASSIUM SERUM 3.6 MEQ/L (3.5-5.1)
[2021-03-27] MEDS ORDERED: AUGMENTIN 875 MG TAB PO SCH (09:00)
[2021-03-27] MEDS: CARVedilol 6.25 MG TAB PO SCH ×2 (09:00→21:00)
[2021-03-27] MEDS: POTASSIUM CHLORIDE 10MEQ SR TABLET PO SCH ×2 (09:00→09:41)
[2021-03-27] MEDS: FERROUS GLUCONATE 324 MG TAB PO SCH ×2 (09:00→09:38)
[2021-03-27] MEDS: FUROSEMIDE 20 MG TAB PO SCH (09:00)
[2021-03-27] MEDS: SERTRALINE 100 MG TAB PO SCH (09:39)
[2021-03-27] MEDS: MYCOLOG CREAM 15 GM (NYSTATIN/TRIAMCINOLONE) TOP SCH ×2 (09:42→21:33)
--- NOTE | 2021-03-27 12:49 | IPNPDOC ---
Text Note Date of Service The patient was seen on 03/27/21. NOTE Subjective: Patient is a 81-year-old female presented to hospital with uterine prolapse was found to have a GI bleed. Patient's hemoglobin was 9.5 on admission and has been the lowest at 7.2. Patient did receive 1 unit of blood. Patient does not complain of any pain today however, she says that she is not ready to go back home. Review of systems: Unable to fully assess due to the patient's dementia Physical exam: Vitals: See below General: Alert but not oriented female who was sitting up in bed when I walked in. Patient not appear to be in acute distress. HEENT: Normocephalic, atraumatic, moist mucous membranes. Neck: No lymphadenopathy or thyromegaly Cardiac: Regular rate and rhythm, no murmurs, normal S1, normal S2 Pulm: Clear to auscultation bilaterally. No wheezes, rhonchi, rales Abd: Nondistended, soft, patient began yelling at me as I try to palpate the abdomen saying "that it would hurt if she pushed on my abdomen so of course it hurts when you push on mine", normal bowel sounds Ext: No edema bilateral lower extremities Labs: See below Imaging: No new imaging is been performed Assessment/plan: 81-year-old female sent to the hospital for uterine prolapse in [place] of [place] where blood was also found in her stools admitted for acute blood loss anemia secondary to GI bleeding. 1. Acute blood loss anemia secondary to GI bleeding. Patient's hemoglobin was lowest at 7.2. Patient's hemoglobin is stable over the last 24 hours and is almost back to where it was when she was admitted. Blood consent form was signed by the patient's healthcare proxy. Patient did receive 1 unit of blood. Patient has had some bloody stools however, hemoglobin has been stable as I believe that the patient's bleeding has stopped and the blood is making his way through the gastrointestinal system. 2. Leukocytosis most likely secondary to urinary tract infection. This is improving with Zosyn. Patient did grow out ESBL E. coli which is sensitive to Zosyn and ampicillin sulbactam. Patient has been switched to Augmentin. Apparently there is a Streptococcus species growing in the urine as well but since the patient has been improving on Zosyn, we will switch to Augmentin and see how she does. 3. Urinary tract infection as above. 4. Severe bilateral hydroureteronephrosis most likely secondary to patient's uterine prolapse. Keep Pratt catheter in at discharge. 5. Chronic kidney disease stage III. Patient's creatinine appears to be at baseline. 6. Paroxysmal atrial fibrillation. Heart rate is controlled. Eliquis on hold due to bleeding. 7. Hypertension. Continue carvedilol. 8. Grade 1 diastolic congestive heart failure. Diuretics were restarted today. Patient does not appear to be in exacerbation of heart failure. 9. Lumbar spinal stenosis with spondylosis. Continue PT/OT. 10. Depression. Continue home sertraline. 11. Dementia. Patient is not have capacity make decisions for self. Healthcare proxy is patient's daughter. 12. Uterine prolapse. Patient was seen by Dr. Kaye initially. Patient is a candidate for pessary which needs to be done outpatient. DVT Prophylaxis: Mechanical due to GI bleeding Disposition: Patient can be discharged to [facility] tomorrow. No transportation available today. VS,Sander, I+O VS, Sander, I+O Laboratory Tests 03/26/21 21:29 03/27/21 07:59 Vital Signs Date Time Temp Pulse Resp B/P (MAP) Pulse Ox O2 Delivery O2 Flow Rate FiO2 03/27/21 09:00 98 101/65 03/27/21 06:00 98.4 18 97 Room Air I&O- Last 24 Hours up to 6 AM 03/27/21 06:00 Intake Total 1030 ml Output Total 875 ml Balance 155 ml JUAN VOSS DO Mar 27, 2021 12:49
[2021-03-27 14:00] VITALS: BP 107/68
[2021-03-27] MEDS: AUGMENTIN 500 MG TAB PO SCH (21:33)
[2021-03-27] MEDS: RAMELTEON 8 MG TAB (ROZEREM) PO SCH (21:33)
[2021-03-27] MEDS: ATORVASTATIN 20 MG TAB PO SCH (21:33)
[2021-03-27 22:00] VITALS: BP 146/82
[2021-03-28 06:00] VITALS: BP 146/83
[2021-03-28] MEDS: AUGMENTIN 500 MG TAB PO SCH ×2 (08:44→20:42)
[2021-03-28] MEDS: FERROUS GLUCONATE 324 MG TAB PO SCH (08:44)
[2021-03-28] MEDS: POTASSIUM CHLORIDE 10MEQ SR TABLET PO SCH (08:45)
[2021-03-28] MEDS: MYCOLOG CREAM 15 GM (NYSTATIN/TRIAMCINOLONE) TOP SCH ×2 (08:45→20:43)
[2021-03-28] MEDS: SERTRALINE 100 MG TAB PO SCH (08:45)
[2021-03-28] MEDS: FUROSEMIDE 20 MG TAB PO SCH (08:46)
[2021-03-28] MEDS: CARVedilol 6.25 MG TAB PO SCH ×2 (08:46→20:42)
[2021-03-28] MEDS ORDERED: AMOX500T2 PO (09:12)
[2021-03-28] MEDS ORDERED: VITAMIN A & D OINTMENT 42.5GM TOP PRN (09:30)
[2021-03-28] MEDS ORDERED: MOM 30ML SUSPENSION UDC PO ONE (10:00)
[2021-03-28] MEDS ORDERED: SENOKOT S TAB PO ONE (10:00)
[2021-03-28] MEDS ORDERED: VITS5OIN TOP (13:23)
[2021-03-28] MEDS: ACETAMINOPHEN TAB 650MG DOSE (2X325MG) PO PRN ×2 (13:24→20:42)
--- NOTE | 2021-03-28 13:33 | DS.PDOC ---
Discharge Summary General Date of Admission Mar 23, 2021 at 23:26 Date of Discharge 03/28/21 Discharge Summary DISCHARGE DIAGNOSIS: Acute blood loss anemia GI bleeding. urinary tract infection Severe bilateral hydroureteronephrosis most likely secondary to patient's uterine prolapse. Keep Vincent catheter in at discharge. Chronic kidney disease stage III. Hypertension Compensated grade 1 diastolic congestive heart failure. Lumbar spinal stenosis with spondylosis. Depression. Dementia. Uterine prolapse. Discharge medications: See below Discharge instructions: Primary care physician appointment within 1 week, urologist within 1 week Uterine prolapse -patient was seen by Dr. Kaye initially. Patient is a candidate for pessary which needs to be done outpatient. HOSPITAL COURSE: 81 yo F with a pmhx of paroxysmal afib on eliquis, HTN, diastolic CHF, uterine prolapse, presented to ER from [facility], when blood was noticed in her stool. On arrival to ER, patient was found to be guaic + on ESTRELLA per ER provider. Her Hgb 9.5, below baseline of 11. No gross blood was seen, but black stool was identified. She denies CP, palpitations, SOB, n/v/d. She states that she has a hx of significant uterine prolapse and that it often bleeds, which she thinks was confused for GI bleeding. Patient is in poor spirits and declines comprehensive physical exam. She was tachycardic to 122, afib with RVR on EKG, and her BP was 107/72. She was saturating well on RA. Her WBC elevated at 25.0. [place] 13. CT abdomen pelvis was performed, showing severe bilateral hydro nephrosis, likely 2/2 extrinsic compression from urinary bladder prolapse and prolapse of the distal ureters and ureterovesical junctions, along with new adjacent uterine/cervical prolapse. Per chart review, patient had stated being seen by Dr. Kaye, and that she had though uterine prolapse to be inoperable. Per report she had failed pessary in the past. A vincent catheter was ordered. UA showing positive LE and pyuria. Given leukocytosis and UA+, started on empiric zosyn. Patient's creatinine was elevated to 1.6. I discussed the findings with Dr. Kaye and placed a consult. She agreed with vincent placement. Patient will be admitted to hospitalist service for observation of Hgb as well as management of severe hydronephrosis. Acute blood loss anemia secondary to GI bleeding. Patient's hemoglobin was lowest at 7.2, given 1 unit RBC transfusion, hemodynamically stable and hemoglob in remaining the same after blood transfusion. Outpatient referral to GI or general surgery for colonoscopy urinary tract infection. Status post Zosyn. Urine culture: ESBL E. coli which is sensitive to Zosyn and ampicillin sulbactam. To complete Augmentin as outpatient Severe bilateral hydroureteronephrosis most likely secondary to patient's uterine prolapse. Keep Vincent catheter in at discharge. Outpatient referral to [facility] Dr. Kaye for pessary Chronic kidney disease stage III. Patient's creatinine appears to be at baseline. Paroxysmal atrial fibrillation. Heart rate is controlled. Eliquis on hold due to bleeding. Hypertension. Continue carvedilol. Compensated grade 1 diastolic congestive heart failure. Restarted on diuretics Lumbar spinal stenosis with spondylosis. Continue PT/OT. Depression. Continue home sertraline. Dementia. Patient is not have capacity make decisions for self. Healthcare proxy is patient's daughter. Uterine prolapse. Patient was seen by Dr. Kaye initially. Patient is a candidate for pessary which needs to be done outpatient. DVT Prophylaxis: Mechanical due to GI bleeding Discharge physical exam: Vitals: See below General: Extremely hard of hearing no distress HEENT: Dry mucous membranes no JVD no carotid bruit Neck: No lymphadenopathy or thyromegaly Cardiac: Regular rate and rhythm, no murmurs, normal S1, normal S2 Pulm: Clear to auscultation bilaterally. No wheezes, rhonchi, rales Abd: Vincent positive bowel sounds soft no rebound or guarding Ext: No edema bilateral lower extremities Labs: See below Imaging: No new imaging is been performed Time spent on discharge 30 minutes Vital Signs/I&Os Vital Signs Date Time Temp Pulse Resp B/P (MAP) Pulse Ox O2 Delivery O2 Flow Rate FiO2 03/28/21 08:46 113 125/77 03/28/21 06:00 98.0 18 97 Room Air I&O- Last 24 Hours up to 6 AM 03/28/21 06:00 Intake Total 700 ml Output Total 775 ml Balance -75 ml Microbiology Microbiology 03/24/21 Blood Culture - Preliminary, Resulted No Growth after 72 hours. All specime... 03/24/21 Blood Culture - Preliminary, Resulted No Growth after 72 hours. All specime... 03/24/21 Urine Culture - Final, Complete E.coli Esbl Aerococcus Urinae Lactobacillus Species 03/24/21 Blood Culture - Preliminary, Resulted No Growth after 72 hours. All specime... Discharge Medications Scheduled Acetaminophen (Acetaminophen) 500 Mg Tablet, 1,000 MG PO TID, (Reported) Amoxicillin/Potassium Clav (Amox-Clav 500-125 mg Tablet) 1 Each Tablet, 500 MG PO Q12H Atorvastatin Calcium (Atorvastatin Calcium) 20 Mg Tablet, 20 MG PO QHS, (Reported) Captopril (Captopril) 12.5 Mg Tab, 12.5 MG PO QHS, (Reported) Carboxymethylcellulos/Glycerin (Refresh Optive Eye Drops) 1 Devon Devon, 1 DROP OU BID, (Reported) Carvedilol (Carvedilol) 3.125 Mg Tab, 3.125 MG PO DAILY, (Reported) Ergocalciferol (Vitamin D2) (Drisdol) 1,250 Mcg Capsule, 1,250 MCG PO DAILY, (Reported) Ferrous Gluconate (Ferrous Gluconate) 324 Mg Tablet, 324 MG PO DAILY, (Reported) Furosemide (Furosemide) 20 Mg Tablet, 20 MG PO DAILY, (Reported) Lactase (Lactase) 3,000 Unit Tablet, 3 TAB PO DAILY, (Reported) Nystatin/Triamcin (Nystatin-Triamcinolone Cream) 15 Gm Cream..g., 1 APLCT TOP BID, (Reported) UNDER LEFT BREAST Potassium Chloride (Potassium Chloride) 20 Meq Tab.er.prt, 20 MEQ PO DAILY, (Reported) Sertraline Hcl (Zoloft) 100 Mg Tablet, 100 MG PO DAILY, (Reported) Spironolactone (Spironolactone) 25 Mg Tablet, 12.5 MG PO DAILY, (Reported) Scheduled PRN Bisacodyl (Bisacodyl) 10 Mg Supp.rect, 10 MG MS DAILY PRN for CONSTIPATION, (Reported) Calcium Carbonate (Krishan-Gest) 200 Mg Tab.chew, 500 MG PO BID PRN for DYSPEPSIA, (Reported) Ceramides 1,3,6-11 (Cerave Moisturizing) 453 Gm Cream..g., 453 GM TP DAILY PRN for DRY SKIN, (Reported) Loperamide HCl (Loperamide) 2 Mg Capsule, 2 MG PO DAILY PRN for AFTER EACH LOOSE STOOL, (Reported) Magnesium Hydroxide (Milk of Magnesia) 400 Mg/5 Ml Oral.susp, 2,400 MG PO DAILY PRN for CONSTIPATION, (Reported) Vitamin A & D (Vitamin A and D Ointment Pckt) 5 Gm Oint.pack, 0 TOP Q4HP PRN for after bm Allergies Coded Allergies: lactose (Verified Adverse Reaction, Mild, GI UPSET, 03/23/21) ERICA SLAUGHTER MD Mar 28, 2021 13:29
[2021-03-28 20:42] VITALS: BP 122/79
[2021-03-28] MEDS: ATORVASTATIN 20 MG TAB PO SCH (20:42)
[2021-03-28] MEDS: RAMELTEON 8 MG TAB (ROZEREM) PO SCH (20:42)
[2021-03-28 22:00] VITALS: BP 122/79
[2021-03-29] MEDS: ACETAMINOPHEN TAB 650MG DOSE (2X325MG) PO PRN ×2 (01:39→07:42)
[2021-03-29] MEDS: MAALOX 30 ML SUSP *UDC PO PRN (01:39)
[2021-03-29 06:00] VITALS: BP 104/65
[2021-03-29] MEDS: AUGMENTIN 500 MG TAB PO SCH (07:41)
[2021-03-29] MEDS: SERTRALINE 100 MG TAB PO SCH (07:41)
[2021-03-29] MEDS: MYCOLOG CREAM 15 GM (NYSTATIN/TRIAMCINOLONE) TOP SCH (07:42)
[2021-03-29] MEDS: POTASSIUM CHLORIDE 10MEQ SR TABLET PO SCH (07:42)
[2021-03-29] MEDS: FERROUS GLUCONATE 324 MG TAB PO SCH (07:42)
[2021-03-29] MEDS: CARVedilol 6.25 MG TAB PO SCH (07:43)
[2021-03-29] MEDS: FUROSEMIDE 20 MG TAB PO SCH (07:44)
== END 2021-03-29 08:05 | DRG 378 ==
LOC: M ED 17:36 → EDBD 17:36 → M ED INP 23:26 → ENRESERV 23:54 → M MS5PR 03-24 01:15
PROVIDERS: ADMIT Family Medicine; ATTEND General Practice
DX: K92.2 Gastrointestinal hemorrhage, unspecified (principal); I50.32 Chronic diastolic (congestive) heart failure; E87.1 Hypo-osmolality and hyponatremia; N13.6 Pyonephrosis; N17.9 Acute kidney failure, unspecified; D62 Acute posthemorrhagic anemia; I13.0 Hypertensive heart and chronic kidney disease with heart failure and stage 1 through stage 4 chronic kidney disease, or unspecified chronic kidney disease; N39.0 Urinary tract infection, site not specified; I48.0 Paroxysmal atrial fibrillation; N81.4 Uterovaginal prolapse, unspecified; R26.89 Other abnormalities of gait and mobility; D72.829 Elevated white blood cell count, unspecified; M47.896 Other spondylosis, lumbar region; F32.A Depression, unspecified; Z20.822 Contact with and (suspected) exposure to COVID-19; Z79.899 Other long term (current) drug therapy; Z79.01 Long term (current) use of anticoagulants; Z91.011 Allergy to milk products; F03.90 Unspecified dementia, unspecified severity, without behavioral disturbance, psychotic disturbance, mood disturbance, and anxiety; Z66 Do not resuscitate; N18.30 Chronic kidney disease, stage 3 unspecified

== ENCOUNTER → 2021-03-27 | Outpatient (REF) | payer MEDICARE, MEDICAID ==
[~2021-03-27] MED LIST changes: +AMOX500T2 PO; +BISA10SU27 PR; +CAL-1CHW PO; +CERA453C2 TP; +LACT1TAB PO; +LOPE1CAP5 PO; +NYST1CRE15 TOP; +POTA20TA6 PO; +REFR0.5D8 OU; +VITS5OIN TOP; +ZOLO100T PO
== END ==
PROVIDERS: ATTEND Internal Medicine
DX: I50.9 Heart failure, unspecified (principal); Z53.9 Procedure and treatment not carried out, unspecified reason

== ENCOUNTER 2021-04-01 14:03 | Emergency (ER) | payer MEDICARE, MEDICAID ==
[~2021-04-01] VITALS: Ht 149.9 cm; Wt 51.3 kg
[2021-04-01] MEDS ORDERED: PANTOPRAZOLE 40MG VIAL (C9113 PER 1) IV ONE (14:25)
[2021-04-01 14:47] LABS: BASO % 0.1 % (0.0-1.0); HEMATOCRIT 24.3 % (36.0-47.0); HEMOGLOBIN 7.4 g/dl (12.0-15.5); LYMPH # 1.8 10^3/uL (1.5-5.0); LYMPH % 12.6 % (24.0-44.0); MEAN CORPUSCULAR HEMOGLOBIN 30.7 pg (27.0-33.0); MEAN CORPUSCULAR HGB CONC 30.5 g/dl (32.0-36.5); MEAN CORPUSCULAR VOLUME 100.8 fl (80.0-96.0); MONO # 0.7 10^3/uL (0.0-0.8); NEUTROPHILS # 11.4 10^3/uL (1.5-8.5); NEUTROPHILS % 81.3 % (36.0-66.0); PLATELET COUNT, AUTOMATED 232 10^3/uL (150-450); RED BLOOD COUNT 2.41 10^6/uL (4.00-5.40)
[2021-04-01] MEDS ORDERED: PANTOPRAZOLE SODIUM 40 MG in D5W 50 ML IV SCH (15:00)
--- OUTSIDE RECORDS SUMMARY | 2021-04-01 15:08 | CCD ---
Author Author [facility] [place] [facility] Address Unknown Phone Unavailable Care Team Providers Care Chief Clinical Officer Name Role Phone Adama Le MD Unavailable Unavailable Adama Le MD Unavailable Unavailable Adama Le MD Unavailable Unavailable Adama Le MD Unavailable Unavailable Adama Le MD Unavailable Unavailable Adama Le MD Unavailable Unavailable Re-disclosure Warning The records that you are [...] is protected by Article 27-F of the [facility] Public Health law. If you continue you may have access to information: Regarding HIV / AIDS; Provided by facilities licensed or operated by the [facility] Office of Mental Health; or Provided by the [facility] Office for People With Developmental Disabilities. If such information is present, then the following [facility] mandated warning applies: This information has [...] law may result in a fine or group home sentence or both. A general authorization for the release of medical or other information is NOT sufficient authorization for further disc losure. Allergies and Adverse Reactions Type Description Substance Reaction Status Data Source(s ) Propensity to adverse reactions NO KNOWN ALLERGIES NO KNOWN ALLERGIES [facility] Family History Family Member Name Family Member Gender Family Member Status Date o f Status Description Data Source(s) Unknown Unknown Problem MEDENT (Rocco bal DOCTOR OF [employer]IC[employer]) Encounters Encounter Providers Location Date Indications Data Source(s ) Outpatient Admitter: Adama Le MDReferrer: Adama Le MD 03/22/2021 12:00:00 AM EST Elevated white blood cell count, unspecified [facility] Elevated white blood cell count, unspeci fied Immunizations Vaccine Date Status Description Data Source(s) COVID-19 VACCINE Pfizer 03/07/2021 12:00:00 AM EDT completed [facility] Vaccine Series Complete: YESThis Data wa s Submitted to [facility]. COVID-19 VACCINE Pfizer 06/06/2020 12:00:00 AM EST completed [facility] Vaccine Series Complete: YESThis Data wa s Submitted to [facility] [employer]. COVID-19 VACCINE Pfizer 05/16/2020 12:00:00 AM EST completed [facility] Vaccine Series Complete: NOThis Data was Submitted to [facility]. Medications Medication Brand Name Start Date Product Form Dose Route Admi nistrative Instructions Pharmacy Instructions Status Indications Reaction Description Data Source(s) Ascorbic Acid 500 MG Oral Tablet Vitamin C 500 MG Oral Tablet Vitamin C 500 MG Oral Tablet 10/01/2019 12:00:00 AM EDT active ascorbic acid 500 MG Oral Tablet [place] ([facility]) Insurance Providers Payer name Policy type / Coverage type Policy ID Covered republican ID Covered republican's relationship to jean Policy Jean Plan Information MEDICARE A [id number] Self [id number] M Medicare Part B of [facility] Medicare Primary 0 [id number] Self 0 MEDICARE A [id number] Self [id number] [id number] Medicare Part B of [facility] Medicare Primary 0 [id number] Self 0 Medicare Part B of [facility] Medicare Primary 0 [id number] Self 0 Medicare Part B of [facility] Medicare Primary 0 [id number] Self 0 Medicare Part B of [facility] Medicare Primary 0 [id number] Self 0 Medicare Part B of [facility] Medicare Primary 0 [id number] Self 0 MEDICARE [id number] SP [id number] M Medicare Part B of [facility] Medicare Primary 0 [id number] Self 0 MEDICARE [id number] SP [id number] [id number] Medicare Part B of [facility] Medicare Primary 0 [id number] Self 0 Medicare C [id number] SELF [id number] M [facility] MEDICAID [id number] SP [id number] V MEDICAID [id number] SP [id number] [place] [id number] SP [id number] Medicaid [facility] S D [id number] SELF [id number] VNA MEDICAID MANAGED I [id number] Self [id number] VNA MEDICAID MANAGED I [id number] Self [id number] MEDICAID M [id number] Self [id number] Medicaid [facility] Supplemental Policy 0 [id number] Self 0 Medicare Part B of [facility] Medicare Primary 0 [id number] Self 0 [place] of [place] Supplemental Policy 0 [id number] Self 0 Medicare Part [address] [facility] Medicare Primary 0 [id number] Self 0 MEDICAID - O/P EMERGENCY ROOM [id number] 18 [id number] MEDICARE PART A-O/P [id number] 18 [id number] [place] of [place] Supplemental Policy 0 [id number] Self 0 Medicare Part B [address] [facility] Medicare Primary 0 [id number] Self 0 MEDICAID-O/P [id number] [place] Supplemental Policy 0 [id number] Self 0 Medicare Part B [address] [facility] Medicare Primary 0 [id number] Self 0 [place] Supplemental Policy 0 [id number] Self 0 Medicare Part [address] [facility] Medicare Primary 0 [id number] Self 0 [place] Supplemental Policy 0 [id number] Self 0 Medicare Part B of [facility] Medicare Primary 0 [id number] Self 0 [place] Supplemental Policy 0 [id number] Self 0 [place] Supplemental Policy 0 [id number] Self 0 [facility] [employer] [id number] 18 [id number] MEDICARE -SWING BED [id number] 18 [id number] [facility] [employer] UNAVAILABLE 18 UNAVAILABLE MEDICAID -SWING BED [id number] MEDICARE C [id number] S [id number] M Medicaid [facility] Healthcare S D [id number] SELF [id number] Medicare C [id number] SELF [id number] m [place] Supplemental Policy 0 [id number] Self 0 [place] Supplemental Policy 0 [id number] Self 0 [place] Supplemental Policy 0 [id number] Self 0 [place] Supplemental Policy 0 [id number] Self 0 [place] Supplemental Policy 0 [id number] Self 0 [place] Supplemental Policy 0 [id number] Self 0 MEDICAID-O/P [id number] MEDICARE -O/P [id number] 18 [id number] MEDICAID - CLINIC [id number] 18 BE [id number] MEDICARE PART A-CLINIC [id number] 18 [id number] SELF PAY ONLY [id number] SP [id number] MEDICARE C [id number] S [id number] Y70 MEDICAID M [id number] S [id number] [place] Supplemental Policy 0 [id number] Self 0 Medicare [address] [facility] Medicare Primary 0 [id number] Self 0 [place] Supplemental Policy 0 [id number] Self 0 Medicare Part B of [facility] Medicare Primary 0 [id number] Self 0 [place] Supplemental Policy 0 [id number] Self 0 Medicare Part B [address] [facility] Medicare Primary 0 [id number] Self 0 [place] Supplemental Policy 0 [id number] Self 0 Medicare Part B of [facility] Medicare Primary 0 [id number] Self 0 [place] Supplemental Policy 0 [id number] Self 0 Medicare Part B of [facility] Medicare Primary 0 [id number] Self 0 Medicaid of [facility] 0 [id number] Self 0 Medicare Part B of [place] [facility] [place] Medicare Primary 0 [id number] Self 0 Medicaid [facility] Part B [id number] Self [id number] [place] [id number] Self [id number] Medicaid [facility] Part B [id number] Self [id number] [place] Primary [id number] Self [id number] Problems, Conditions, and Diagnoses Code Display Name Description Problem Type Effective Dates Data Source(s) D72.829 Elevated white blood cell count, unspeci fied Elevated white blood cell count, unspecified Diagnosis 03/22/2021 11:08:00 AM Health system Surgeries/Procedures No Information Results ID Date Data Source [id number] 03/23/2021 06:47:00 [facility] Name Value Range Interpretation Code Description Data Nelly rce(s) Supporting Document(s) SARS coronavirus 2 RNA [Presence] in Res piratory specimen by WILLIAMS with probe detection NEGATIVE [facility] This lab was ordered by [facility] a nd reported by [facility]. ID Date Data Source [id number] 03/24/2021 03:39:00 PM Health system Hematopathology ReportName: SANDEEP DIAZMRN: [id number] Number: [id number] Date: 03/22/2021 06:00Received Date: 03/23/2021 16:13Physician(s): ADAMA LE MD HAGHIR, SHAHANDEH F, MDSpecimen(s) ReceivedA: Blood, Flow Cytometry; RECEIVED 2 GREEN TOP PB (2 EXTRA EDTA PB SENT TOMOLECULAR)Clinical HistoryChronic leukocytosis.TEST REQUESTED/PERFORMED: Flow cytometry analysis. DiagnosisFlow cytometry of blood: Normal lymphocyte subsets with noimmunophenotypic evidence of acute leukemia or non-Hodgkin lymphoma. Neutrophilia (8.5 K/uL) and eosinophilia (0.66 K/uL).Electronically S igned By Tanya Corral MD AttendingPathologist 03/24/2021 15:39:30 ProceduresFlow Cytometry Date Ordered:03/23/2021 Status: Signed Out03/24/2021 InterpretationPERIPHERAL BLOOD: CBC performed at [facility], [address] [place] [address] on 03/15/21.WBC *13.1 K/uLRBC *3.65 M/uLHgb *11.3 g/dLHct 36.1 %MCV *98.9 fLMCH 31.1 pgMCHC *31.3 g/dLRDW 13.8 %Platelets 156 K/uLDifferential Count (manual): 2 % N. Band Forms65 % Neutrophils 5 % Eojwhvuejzx58 % Lymphocytes 3 % Monocytes-------100 % A peripheral blood film is reviewed.Lymphoid Panel: [facility]21 2983 [id number] following markers were assayed: CD45 (gate), CD2, CD3, CD4, CD5, CD7,CD8, CD10, CD19, CD20,CD38, CD56, CD57, [place], and Lambda.# events: [id number]: 98%Flow Cytometry Differential (CD45/SSC)Lymphocyte [place]: 22%CD45 dim [place]: 0%Monocyte [place]: 4%Granulocyte [place]: 68%Nucleated/Erythroid [place]: 1%The lymphocyte gate showsB- cells (CD19): 7%T-cells (CD3): 81%NK-cells (CD3-/CD56+): 10%[place]/Lambda Ratio: 1.7CD4/CD8 Ratio: 1.7Results: (expressed as % of lymphocyte gate)T-cell Markers: CD2 = 88, CD3 = 81, CD3/CD4 = 50, CD3/CD8 = 31, CD5 = 79,CD7 = 87, CD3/57 = 16B-cell markers: [place] = 3, Lambda = 2, CD19 = 7, CD20 = 10, CD19/10 = 1,CD19/CD5 = 0,CD38/CD20 = 6Light chain as % of B-Cells: CD19/[place] = 40, CD19/Lambda = 22CD19/CD5/[place] = 0, CD19/CD5/Lambda = 0CD19/CD10/[place] = 4, CD19/CD10/Lambda = 3NK cell Markers: CD56 = 17, CD57 = 22Other Markers: CD10 = 1, CD38 = 56Results-CommentsLymphocytes consist predominantly of T cells with normal expression of panT-cell markers and a normal CD4/CD8 ratio, normal proportions of NK andcytotoxic T cells, and polyclonal B cells. Procedure Electronically Signed By:Tanya Corral MD03/24/2021 This report may include one or more immunohistochemical stain/fluorochromeconjugated monoclonal antibody results that use analyte specific reagents.All positive and negative controls have been reviewed by the attendingpathologist and are satisfactory. The tests were developed and theirperformance characteristics determined by [facility] Pathology department.They have not been cleared or approved by the US Food and DrugAdministration. The FDA has determined that such clearance or approval isnot necessary. Name Value Range Interpretation Code Description Data Nelly rce(s) Supporting Document(s) ID Date Data Source [id number] 09/22/2020 12:00:00 AM EDT [facility] Name Value Range Interpretation Code Description Data Nelly rce(s) Supporting Document(s) SARS-CoV2 Rapid Antigen Negative [facility] This lab was ordered by [facility] and reported by [facility]. ID Date Data Source [id number] 09/06/2020 09:00:00 AM EDT [facility] Name Value Range Interpretation Code Description Data Nelly rce(s) Supporting Document(s) SARS-CoV-2 (COVID-19) RNA [Presence] in Respiratory specimen by WILLIAMS with probe detection Not Detected [facility] This lab was ordered by [facility] and reported by [employer]. ID Date Data Source [id number] 08/30/2020 10:10:00 AM EDT [facility] Name Value Range Interpretation Code Description Data Nelly rce(s) Supporting Document(s) SARS-CoV-2 (COVID-19) RNA [Presence] in Respiratory specimen by WILLIAMS with probe detection Not Detected [facility] This lab was ordered by [facility] and reported by [employer] ID Date Data Source [id number] 08/23/2020 11:00:00 AM EDT [facility] Name Value Range Interpretation Code Description Data Nelly rce(s) Supporting Document(s) SARS-CoV-2 (COVID-19) RNA [Presence] in Respiratory specimen by WILLIAMS with probe detection Not Detected [facility] This lab was ordered by [facility] and reported by [employer] ID Date Data Source [id number]/19/2020 12:00:00 AM EDT [facility] Name Value Range Interpretation Code Description Data Nelly rce(s) Supporting Document(s) SARS coronavirus 2 Ag Negative [facility] This lab was ordered by [facility] and reported by [facility]. ID Date Data Source [id number] 08/12/2020 12:00:00 AM EDT [facility] Name Value Range Interpretation Code Description Data Nelly rce(s) Supporting Document(s) SARS-CoV2 Rapid Antigen Negative [facility] This lab was ordered by [facility] and reported by [facility]. ID Date Data Source [id number] 07/20/2020 12:00:00 PM EST [facility] Name Value Range Interpretation Code Description Data Nelly rce(s) Supporting Document(s) SARS coronavirus 2 RNA Not Detected [facility] This lab was ordered by [facility] and reported by [facility]. ID Date Data Source [id number] 07/13/2020 11:00:00 AM EST [facility] Name Value Range Interpretation Code Description Data Nelly rce(s) Supporting Document(s) SARS coronavirus 2 RNA Not Detected [facility] This lab was ordered by [facility] and reported by [facility]. ID Date Data Source [id number] 07/06/2020 09:55:00 AM EST [facility] Name Value Range Interpretation Code Description Data Nelly rce(s) Supporting Document(s) SARS coronavirus 2 RNA Not Detected [facility] This lab was ordered by [facility] and reported by [facility]. ID Date Data Source [id number] 06/29/2020 01:00:00 PM EST [facility] Name Value Range Interpretation Code Description Data Nelly rce(s) Supporting Document(s) SARS coronavirus 2 RNA Not Detected [facility] This lab was ordered by [facility] and reported by [facility]. ID Date Data Source [id number] 06/22/2020 10:30:00 AM EST [facility] Name Value Range Interpretation Code Description Data Nelly rce(s) Supporting Document(s) SARS coronavirus 2 RNA Not Detected [facility] This lab was ordered by [facility] and reported by [facility]. ID Date Data Source [id number] 06/15/2020 10:37:00 AM EST [facility] Name Value Range Interpretation Code Description Data Nelly rce(s) Supporting Document(s) SARS coronavirus 2 RNA Not Detected [facility] This lab was ordered by [facility] and reported by [facility]. ID Date Data Source [id number] 06/08/2020 01:45:00 PM EST [facility] Name Value Range Interpretation Code Description Data Nelly rce(s) Supporting Document(s) SARS coronavirus 2 RNA Not Detected [facility] This lab was ordered by [facility] and reported by [facility]. ID Date Data Source [id number] 06/01/2020 12:30:00 PM EST [facility] Name Value Range Interpretation Code Description Data Nelly rce(s) Supporting Document(s) SARS coronavirus 2 RNA Not Detected [facility] This lab was ordered by [facility] and reported by [facility]. ID Date Data Source [id number] 05/25/2020 11:30:00 AM EST [facility] Name Value Range Interpretation Code Description Data Nelly rce(s) Supporting Document(s) SARS coronavirus 2 RNA Not Detected [facility] This lab was ordered by [facility] and reported by [facility]. ID Date Data Source [id number] 05/20/2020 11:00:00 AM EST [facility] Name Value Range Interpretation Code Description Data Nelly rce(s) Supporting Document(s) SARS coronavirus 2 RNA Not Detected [facility] This lab was ordered by [facility] and reported by [facility]. ID Date Data Source [id number] 05/16/2020 09:25:00 AM EST [facility] Name Value Range Interpretation Code Description Data Nelly rce(s) Supporting Document(s) SARS coronavirus 2 RNA [facility] This lab was ordered by [facility] and reported by [facility]. ID Date Data Source [id number] 05/10/2020 10:15:00 AM EST [facility] Name Value Range Interpretation Code Description Data Nelly rce(s) Supporting Document(s) SARS coronavirus 2 RNA [facility] This lab was ordered by [facility] and reported by [facility]. ID Date Data Source [id number] 05/04/2020 11:00:00 AM EST [facility] Name Value Range Interpretation Code Description Data Nelly rce(s) Supporting Document(s) SARS coronavirus 2 RNA [facility] This lab was ordered by [facility] and reported by [facility]. ID Date Data Source [id number] 05/02/2020 10:00:00 AM EST [facility] Name Value Range Interpretation Code Description Data Nelly rce(s) Supporting Document(s) SARS coronavirus 2 RNA [Presence] in Res piratory specimen by WILLIAMS with probe detection [facility] This lab was ordered by [facility] a nd reported by [facility]. ID Date Data Source [id number] 05/02/2020 12:00:00 AM EST [facility] Name Value Range Interpretation Code Description Data Nelly rce(s) Supporting Document(s) SARS-CoV2 Rapid Antigen Negative [facility] This lab was ordered by [facility] and reported by [facility]. ID Date Data Source [id number] 04/30/2020 12:00:00 AM EST [facility] Name Value Range Interpretation Code Description Data Nelly rce(s) Supporting Document(s) SARS-CoV2 Rapid Antigen [facility] This lab was ordered by [facility] and reported by [facility]. ID Date Data Source [id number] 04/28/2020 09:00:00 AM EST [facility] Name Value Range Interpretation Code Description Data Nelly rce(s) Supporting Document(s) SARS coronavirus 2 RNA [facility] This lab was ordered by [facility] and reported by [facility]. ID Date Data Source [id number] 04/24/2020 02:04:00 PM EST [facility] Name Value Range Interpretation Code Description Data Nelly rce(s) Supporting Document(s) [facility] was [facility] by [facility] and reported by [facility]. ID Date Data Source [id number] 04/06/2020 12:00:00 PM EST [facility] Name Value Range Interpretation Code Description Data Nelly rce(s) Supporting Document(s) SARS coronavirus 2 RNA [facility] This lab was ordered by [facility] and reported by [facility]. ID Date Data Source [id number] 03/31/2020 09:00:00 AM EST [facility] Name Value Range Interpretation Code Description Data Nelly rce(s) Supporting Document(s) SARS coronavirus 2 RNA [facility] This lab was ordered by [facility] and reported by [facility]. ID Date Data Source [id number] 03/24/2020 12:25:00 PM EST [facility] Name Value Range Interpretation Code Description Data Nelly rce(s) Supporting Document(s) SARS coronavirus 2 RNA [facility] This lab was ordered by [facility] and reported by [facility]. Procedure Social History No Information Patient Treatment Plan of Care Planned Activity Planned Date Details Description Data Source (s) Ascorbic Acid 500 MG Oral Tablet 10/01/2019 12:00:00 AM [facility] ([facility])
[2021-04-01 15:12] LABS: INR 1.13; PARTIAL THROMBOPLASTIN TIME 25.6 SECONDS (25.9-37.0); PROTHROMBIN TIME 14.9 SECONDS (12.7-14.5)
[2021-04-01 15:24] LABS: ALBUMIN 2.1 GM/DL (3.2-5.2); BILIRUBIN,DIRECT 0.1 MG/DL (0.0-0.2); BILIRUBIN,TOTAL 0.2 MG/DL (0.2-1.0); TOTAL PROTEIN 5.6 GM/DL (6.4-8.2)
[2021-04-01 15:41] LABS: RSV AMPLIFICATION NEGATIVE (NEGATIVE)
[2021-04-01 15:58] VITALS: BP 92/61
[2021-04-01 16:04] LABS: CK-MB VALUE MASS < 1.0 NG/ML (<3.6); CPK CREATINE PHOSPHOKINASE 35 U/L (26-192); MB/CK RELATIVE INDEX 2.86 (< OR =4); TROPONIN I 0.02 NG/ML (< 0.10)
[2021-04-01 16:13] VITALS: BP 88/51
[2021-04-01] MEDS ORDERED: MIDAZOLAM INJ 2MG/2ML VIAL (J2250 PER 1MG) IV STA (16:41)
[2021-04-01 17:01] VITALS: BP 102/64
[2021-04-01] MEDS ORDERED: MIDAZOLAM INJ 2MG/2ML VIAL (J2250 PER 1MG) IV ONE (17:05)
--- NOTE | 2021-04-01 20:41 | ECGEPIP ---
[facility] - ED Test Date: 2021-04-01 Pat Name: RICHA DIAZ Department: Room: - Gender: Female Entry Level Lab Technician: NADIA : 1940 Requested By: Tatiana Louis Order Number: [id number] Reading MD: Tatiana Louis Measurements Intervals [place] Rate: 97 P: IN: QRS: 8 QRSD: 72 T: 0 QT: 366 QTc: 464 Interpretive Statements Atrial fibrillation with premature ventricular or aberrantly conducted complexes Nonspecific T wave abnormality decreased rate 03/23/21 Electronically Signed on 04-01-2021 20:40:53 EST by Tatiana Louis
== END 2021-04-01 17:01 | disposition short-term general hospital (02) ==
LOC: EDBD 14:03 → M ED 14:03
DX: I95.9 Hypotension, unspecified (principal); K92.2 Gastrointestinal hemorrhage, unspecified; I50.9 Heart failure, unspecified; N18.9 Chronic kidney disease, unspecified; F03.90 Unspecified dementia, unspecified severity, without behavioral disturbance, psychotic disturbance, mood disturbance, and anxiety; I48.91 Unspecified atrial fibrillation; M48.00 Spinal stenosis, site unspecified; Z79.899 Other long term (current) drug therapy; Z91.018 Allergy to other foods
CPT/HCPCS: 36430; 80047; 80076; 82550; 82553; 83690; 84484; 85025; 85610; 85730; 86850; 86900; 86901; 86920; 87631; 93005; 93041; 96374; 96375; 99285; C9113; J2250; P9016

== ENCOUNTER → 2021-04-03 | Outpatient (REF) | payer MEDICARE, MEDICAID | PROVIDERS: ATTEND Physician Assistant | DX: K62.5 Hemorrhage of anus and rectum (principal); Z53.9 Procedure and treatment not carried out, unspecified reason ==

== ENCOUNTER → 2021-04-17 | Outpatient (REF) | payer MEDICARE, MEDICAID ==
[~2021-04-17] MED LIST changes: +POTA-151 PO; -POTA20TA6 PO
[2021-04-17 11:11] LABS: HEMATOCRIT 28.6 % (36.0-47.0); MEAN CORPUSCULAR HEMOGLOBIN 30.6 pg (27.0-33.0); MEAN CORPUSCULAR HGB CONC 31.5 g/dl (32.0-36.5); MEAN CORPUSCULAR VOLUME 97.3 fl (80.0-96.0); PLATELET COUNT, AUTOMATED 324 10^3/uL (150-450); RED BLOOD COUNT 2.94 10^6/uL (4.00-5.40); WHITE BLOOD COUNT 8.3 10^3/uL (4.0-10.0)
[2021-04-17 12:01] LABS: CALCIUM LEVEL 8.5 MG/DL (8.8-10.2); CREATININE FOR GFR 1.22 MG/DL (0.55-1.30); GLOMERULAR FILTRATION RATE 45.3 (>39); POTASSIUM SERUM 5.1 MEQ/L (3.5-5.1)
== END ==
PROVIDERS: ATTEND Physician Assistant
DX: K92.2 Gastrointestinal hemorrhage, unspecified (principal)

== ENCOUNTER → 2021-04-18 | Outpatient (REF) ==
[~2021-04-18] MED LIST changes: -POTA-151 PO; +POTA20TA6 PO
== END ==
PROVIDERS: ATTEND Physician Assistant
DX: R05.9 Cough, unspecified (principal)

== ENCOUNTER → 2021-04-18 | Outpatient (CLI) | payer MEDICARE, MEDICAID ==
--- NOTE | 2021-04-18 16:21 | REP ---
INDICATION: COUGH. COMPARISON: 03/23/2021. TECHNIQUE: Single portable AP view of the chest was performed. FINDINGS: There is poor ventilation. There is no definite acute infiltrate. There is mild chronic accentuation of interstitial markings. The heart and mediastinum are prominent and are likely somewhat magnified. The patient's chin overlies the medial lung apices. IMPRESSION: No acute pulmonary disease. <Electronically signed by Prabhu Denis > 04/18/21 [id number]
== END ==
PROVIDERS: ATTEND Internal Medicine
DX: R05.9 Cough, unspecified (principal)

== ENCOUNTER → 2021-04-20 | Outpatient (REF) | payer MEDICARE, MEDICAID ==
[~2021-04-20] MED LIST changes: +POTA-151 PO; -POTA20TA6 PO
[2021-04-20 10:50] LABS: HEMATOCRIT 30.5 % (36.0-47.0); HEMOGLOBIN 9.6 g/dl (12.0-15.5); MEAN CORPUSCULAR HEMOGLOBIN 30.5 pg (27.0-33.0); MEAN CORPUSCULAR HGB CONC 31.5 g/dl (32.0-36.5); MEAN CORPUSCULAR VOLUME 96.8 fl (80.0-96.0); PLATELET COUNT, AUTOMATED 285 10^3/uL (150-450); RED BLOOD COUNT 3.15 10^6/uL (4.00-5.40)
[2021-04-20 11:29] LABS: CALCIUM LEVEL 8.9 MG/DL (8.8-10.2); CREATININE FOR GFR 1.26 MG/DL (0.55-1.30); GLOMERULAR FILTRATION RATE 43.6 (>39); POTASSIUM SERUM 5.9 MEQ/L (3.5-5.1)
== END ==
PROVIDERS: ATTEND Physician Assistant
DX: K92.2 Gastrointestinal hemorrhage, unspecified (principal)

== ENCOUNTER → 2021-04-24 | Outpatient (REF) | payer MEDICARE, MEDICAID ==
[2021-04-24 10:48] LABS: HEMATOCRIT 30.4 % (36.0-47.0); HEMOGLOBIN 9.5 g/dl (12.0-15.5); MEAN CORPUSCULAR HEMOGLOBIN 30.6 pg (27.0-33.0); MEAN CORPUSCULAR HGB CONC 31.3 g/dl (32.0-36.5); MEAN CORPUSCULAR VOLUME 98.1 fl (80.0-96.0); PLATELET COUNT, AUTOMATED 220 10^3/uL (150-450); WHITE BLOOD COUNT 7.7 10^3/uL (4.0-10.0)
[2021-04-24 11:14] LABS: CALCIUM LEVEL 8.7 MG/DL (8.8-10.2); CREATININE FOR GFR 1.1 MG/DL (0.55-1.30); POTASSIUM SERUM 4.2 MEQ/L (3.5-5.1)
== END ==
PROVIDERS: ATTEND Physician Assistant
DX: K92.2 Gastrointestinal hemorrhage, unspecified (principal)

== ENCOUNTER → 2021-04-27 | Outpatient (REF) | payer MEDICAID, MEDICARE ==
[2021-04-27 11:20] LABS: CREATININE FOR GFR 1.04 MG/DL (0.55-1.30); GLOMERULAR FILTRATION RATE 54.4 (>39); POTASSIUM SERUM 4.4 MEQ/L (3.5-5.1)
[2021-04-27 14:01] LABS: HEMATOCRIT 35.3 % (36.0-47.0); HEMOGLOBIN 10.9 g/dl (12.0-15.5); MEAN CORPUSCULAR HEMOGLOBIN 30.1 pg (27.0-33.0); MEAN CORPUSCULAR HGB CONC 30.9 g/dl (32.0-36.5); MEAN CORPUSCULAR VOLUME 97.5 fl (80.0-96.0); PLATELET COUNT, AUTOMATED 268 10^3/uL (150-450); RED BLOOD COUNT 3.62 10^6/uL (4.00-5.40); WHITE BLOOD COUNT 9.6 10^3/uL (4.0-10.0)
== END ==
PROVIDERS: ATTEND Physician Assistant
DX: K92.2 Gastrointestinal hemorrhage, unspecified (principal)

== ENCOUNTER → 2021-05-01 | Outpatient (REF) | payer MEDICARE, MEDICAID ==
[2021-05-01 11:23] LABS: HEMATOCRIT 36.9 % (36.0-47.0); HEMOGLOBIN 11.5 g/dl (12.0-15.5); MEAN CORPUSCULAR HEMOGLOBIN 30.6 pg (27.0-33.0); MEAN CORPUSCULAR HGB CONC 31.2 g/dl (32.0-36.5); MEAN CORPUSCULAR VOLUME 98.1 fl (80.0-96.0); PLATELET COUNT, AUTOMATED 333 10^3/uL (150-450); RED BLOOD COUNT 3.76 10^6/uL (4.00-5.40); WHITE BLOOD COUNT 9.6 10^3/uL (4.0-10.0)
[2021-05-01 11:56] LABS: CALCIUM LEVEL 9.6 MG/DL (8.8-10.2); CREATININE FOR GFR 1.17 MG/DL (0.55-1.30); GLOMERULAR FILTRATION RATE 47.5 (>39); POTASSIUM SERUM 3.9 MEQ/L (3.5-5.1)
== END ==
PROVIDERS: ATTEND Physician Assistant
DX: K92.2 Gastrointestinal hemorrhage, unspecified (principal)

== ENCOUNTER → 2021-05-04 | Outpatient (REF) | payer MEDICARE, MEDICAID ==
[2021-05-04 11:39] LABS: HEMATOCRIT 31.5 % (36.0-47.0); HEMOGLOBIN 9.8 g/dl (12.0-15.5); MEAN CORPUSCULAR HEMOGLOBIN 30.5 pg (27.0-33.0); MEAN CORPUSCULAR HGB CONC 31.1 g/dl (32.0-36.5); MEAN CORPUSCULAR VOLUME 98.1 fl (80.0-96.0); PLATELET COUNT, AUTOMATED 245 10^3/uL (150-450); RED BLOOD COUNT 3.21 10^6/uL (4.00-5.40)
[2021-05-04 12:06] LABS: CALCIUM LEVEL 8.7 MG/DL (8.8-10.2); CREATININE FOR GFR 1.17 MG/DL (0.55-1.30); GLOMERULAR FILTRATION RATE 47.5 (>39); POTASSIUM SERUM 4.5 MEQ/L (3.5-5.1)
== END ==
PROVIDERS: ATTEND Physician Assistant
DX: K92.2 Gastrointestinal hemorrhage, unspecified (principal)

== ENCOUNTER → 2021-05-17 | Outpatient (REF) | payer MEDICARE, MEDICAID ==
[2021-05-17 11:41] LABS: HEMATOCRIT 33.7 % (36.0-47.0); HEMOGLOBIN 10.4 g/dl (12.0-15.5); MEAN CORPUSCULAR HEMOGLOBIN 30.1 pg (27.0-33.0); MEAN CORPUSCULAR HGB CONC 30.9 g/dl (32.0-36.5); MEAN CORPUSCULAR VOLUME 97.4 fl (80.0-96.0); PLATELET COUNT, AUTOMATED 243 10^3/uL (150-450); RED BLOOD COUNT 3.46 10^6/uL (4.00-5.40)
[2021-05-17 12:15] LABS: CALCIUM LEVEL 8.7 MG/DL (8.8-10.2); CREATININE FOR GFR 1.22 MG/DL (0.55-1.30); GLOMERULAR FILTRATION RATE 45.3 (>39); POTASSIUM SERUM 5.1 MEQ/L (3.5-5.1)
== END ==
PROVIDERS: ATTEND Internal Medicine
DX: K92.2 Gastrointestinal hemorrhage, unspecified (principal)

== ENCOUNTER → 2021-06-26 | Outpatient (CLI) | payer MEDICARE, MEDICAID | PROVIDERS: ATTEND Internal Medicine | DX: M25.572 Pain in left ankle and joints of left foot (principal) ==

== ENCOUNTER → 2021-06-30 | Outpatient (CLI) | payer MEDICARE, MEDICAID | LOC: M RAD 11:01 | PROVIDERS: ATTEND Internal Medicine | DX: M25.572 Pain in left ankle and joints of left foot (principal) ==

== ENCOUNTER → 2021-11-15 | Outpatient (REF) | payer MEDICARE, MEDICAID ==
[~2021-11-15] MED LIST changes: +BENZ1LOZ9 PO; -CEPALOZ8 PO
[2021-11-15 13:16] LABS: HEMATOCRIT 42.2 % (36.0-47.0); HEMOGLOBIN 13.9 g/dl (12.0-15.5); MEAN CORPUSCULAR HEMOGLOBIN 31.2 pg (27.0-33.0); MEAN CORPUSCULAR HGB CONC 32.9 g/dl (32.0-36.5); MEAN CORPUSCULAR VOLUME 94.6 fl (80.0-96.0); PLATELET COUNT, AUTOMATED 231 10^3/uL (150-450); RED BLOOD COUNT 4.46 10^6/uL (4.00-5.40); WHITE BLOOD COUNT 8.8 10^3/uL (4.0-10.0)
[2021-11-15 14:18] LABS: CALCIUM LEVEL 9.1 MG/DL (8.8-10.2); CREATININE FOR GFR 1.01 MG/DL (0.55-1.30); GLOMERULAR FILTRATION RATE 56.3 (>39); POTASSIUM SERUM 3.9 MEQ/L (3.5-5.1)
== END ==
PROVIDERS: ATTEND Internal Medicine
DX: K92.2 Gastrointestinal hemorrhage, unspecified (principal)

== ENCOUNTER → 2022-02-14 | Outpatient (REF) | payer MEDICARE, MEDICAID ==
[2022-02-14 12:01] LABS: HEMATOCRIT 40.7 % (36.0-47.0); HEMOGLOBIN 12.9 g/dl (12.0-15.5); MEAN CORPUSCULAR HEMOGLOBIN 32.3 pg (27.0-33.0); MEAN CORPUSCULAR HGB CONC 31.7 g/dl (32.0-36.5); MEAN CORPUSCULAR VOLUME 101.8 fl (80.0-96.0); PLATELET COUNT, AUTOMATED 211 10^3/uL (150-450); WHITE BLOOD COUNT 9.2 10^3/uL (4.0-10.0)
[2022-02-14 12:58] LABS: CALCIUM LEVEL 9.1 MG/DL (8.8-10.2); CREATININE FOR GFR 1.02 MG/DL (0.55-1.30); GLOMERULAR FILTRATION RATE 55.7 (>39); POTASSIUM SERUM 3.8 MEQ/L (3.5-5.1)
== END ==
PROVIDERS: ATTEND Internal Medicine
DX: K92.2 Gastrointestinal hemorrhage, unspecified (principal)

== ENCOUNTER → 2022-03-15 | Outpatient (REF) | payer MEDICARE, MEDICAID ==
[2022-03-15 15:52] LABS: HEMATOCRIT 44.2 % (36.0-47.0); HEMOGLOBIN 13.9 g/dl (12.0-15.5); MEAN CORPUSCULAR HEMOGLOBIN 31.6 pg (27.0-33.0); MEAN CORPUSCULAR HGB CONC 31.4 g/dl (32.0-36.5); MEAN CORPUSCULAR VOLUME 100.5 fl (80.0-96.0); PLATELET COUNT, AUTOMATED 215 10^3/uL (150-450); WHITE BLOOD COUNT 9.5 10^3/uL (4.0-10.0)
[2022-03-15 16:28] LABS: CALCIUM LEVEL 8.9 MG/DL (8.8-10.2); CREATININE FOR GFR 0.98 MG/DL (0.55-1.30); GLOMERULAR FILTRATION RATE 58.1 (>32); POTASSIUM SERUM 3.8 MEQ/L (3.5-5.1)
[2022-03-15 17:58] LABS: APPEARANCE, URINE MANUAL CLOUDY (CLEAR); COLOR, URINE MANUAL YELLOW (YELLOW)
[2022-03-15 17:59] LABS: BILIRUBIN, URINE MANUAL NEGATIVE (NEGATIVE); BLOOD URINE MANUAL POSITIVE (NEGATIVE); GLUCOSE, URINE (UA) MANUAL NEGATIVE (NEGATIVE); KETONE, URINE MANUAL NEGATIVE (NEGATIVE); LEUKOCYTE ESTERASE, URINE MAN POSITIVE (NEGATIVE); NITRITE, URINE MANUAL POSITIVE (NEGATIVE); PROTEIN, URINE MANUAL 1+ mg/dL (NEGATIVE); UROBILINOGEN, URINE MANUAL NORMAL (NORMAL)
[2022-03-15 18:45] LABS: WBC, URINE TNTC /hpf (0-3)
[2022-03-15 18:46] LABS: BACTERIA, URINE LARGE AMOUNT; CALCIUM OXALATE CRYSTALS,URINE SMALL AMOUNT /hpf; RBC, URINE 30-40 /hpf (0-3); SQUAMOUS EPITHELIAL CELL URINE NONE SEEN /hpf (SMALL AMT)
== END ==
PROVIDERS: ATTEND Physician Assistant
DX: R10.9 Unspecified abdominal pain (principal)

== ENCOUNTER → 2022-05-16 | Outpatient (REF) | payer MEDICARE, MEDICAID ==
[2022-05-16 11:22] LABS: HEMATOCRIT 45.5 % (36.0-47.0); HEMOGLOBIN 14.6 g/dl (12.0-15.5); MEAN CORPUSCULAR HEMOGLOBIN 31.8 pg (27.0-33.0); MEAN CORPUSCULAR HGB CONC 32.1 g/dl (32.0-36.5); MEAN CORPUSCULAR VOLUME 99.1 fl (80.0-96.0); PLATELET COUNT, AUTOMATED 219 10^3/uL (150-450); RED BLOOD COUNT 4.59 10^6/uL (4.00-5.40); WHITE BLOOD COUNT 7.1 10^3/uL (4.0-10.0)
[2022-05-16 11:55] LABS: BLOOD UREA NITROGEN 18 MG/DL (9-23); CALCIUM LEVEL 8.9 MG/DL (8.3-10.6); CARBON DIOXIDE LEVEL 29 MMOL/L (20-31); CHLORIDE LEVEL 101 MMOL/L (98-107); CREATININE FOR GFR 0.85 MG/DL (0.55-1.30); GLOMERULAR FILTRATION RATE > 60.0 (>32); GLUCOSE, FASTING 78 MG/DL (74-106); POTASSIUM SERUM 4.1 MMOL/L (3.5-5.1); SODIUM LEVEL 138 MMOL/L (136-145)
== END ==
PROVIDERS: ATTEND Internal Medicine
DX: K92.2 Gastrointestinal hemorrhage, unspecified (principal)

== ENCOUNTER → 2022-07-11 | Outpatient (REF) | payer MEDICARE, MEDICAID ==
[2022-07-12 12:01] LABS: HEMATOCRIT 43.8 % (36.0-47.0); HEMOGLOBIN 13.6 g/dl (12.0-15.5); MEAN CORPUSCULAR HEMOGLOBIN 31.9 pg (27.0-33.0); MEAN CORPUSCULAR HGB CONC 31.1 g/dl (32.0-36.5); MEAN CORPUSCULAR VOLUME 102.6 fl (80.0-96.0); PLATELET COUNT, AUTOMATED 191 10^3/uL (150-450); RED BLOOD COUNT 4.27 10^6/uL (4.00-5.40); WHITE BLOOD COUNT 8.8 10^3/uL (4.0-10.0)
== END ==
PROVIDERS: ATTEND Physician Assistant
DX: U07.1 COVID-19 (principal); Z79.899 Other long term (current) drug therapy

== ENCOUNTER → 2022-07-12 | Outpatient (REF) | payer MEDICARE, MEDICAID ==
[2022-07-12 13:55] LABS: HEMATOCRIT 42.8 % (36.0-47.0); MEAN CORPUSCULAR HEMOGLOBIN 32.3 pg (27.0-33.0); MEAN CORPUSCULAR HGB CONC 32.7 g/dl (32.0-36.5); MEAN CORPUSCULAR VOLUME 98.6 fl (80.0-96.0); PLATELET COUNT, AUTOMATED 183 10^3/uL (150-450); RED BLOOD COUNT 4.34 10^6/uL (4.00-5.40); WHITE BLOOD COUNT 6.5 10^3/uL (4.0-10.0)
[2022-07-12 14:35] LABS: BLOOD UREA NITROGEN 21 MG/DL (9-23); CALCIUM LEVEL 8.3 MG/DL (8.3-10.6); CARBON DIOXIDE LEVEL 29 MMOL/L (20-31); CHLORIDE LEVEL 105 MMOL/L (98-107); CREATININE FOR GFR 0.86 MG/DL (0.55-1.30); GLOMERULAR FILTRATION RATE > 60.0 (>32); GLUCOSE, FASTING 75 MG/DL (74-106); POTASSIUM SERUM 4.4 MMOL/L (3.5-5.1); SODIUM LEVEL 140 MMOL/L (136-145)
== END ==
PROVIDERS: ATTEND Physician Assistant
DX: U07.1 COVID-19 (principal); Z79.899 Other long term (current) drug therapy

== ENCOUNTER → 2022-08-15 | Outpatient (REF) | payer MEDICARE, MEDICAID ==
[2022-08-15 11:00] LABS: HEMATOCRIT 43.3 % (36.0-47.0); HEMOGLOBIN 13.8 g/dl (12.0-15.5); MEAN CORPUSCULAR HEMOGLOBIN 31.1 pg (27.0-33.0); MEAN CORPUSCULAR HGB CONC 31.9 g/dl (32.0-36.5); MEAN CORPUSCULAR VOLUME 97.5 fl (80.0-96.0); PLATELET COUNT, AUTOMATED 243 10^3/uL (150-450); RED BLOOD COUNT 4.44 10^6/uL (4.00-5.40); WHITE BLOOD COUNT 9.7 10^3/uL (4.0-10.0)
[2022-08-15 11:28] LABS: BLOOD UREA NITROGEN 18 MG/DL (9-23); CALCIUM LEVEL 8.6 MG/DL (8.3-10.6); CARBON DIOXIDE LEVEL 29 MMOL/L (20-31); CHLORIDE LEVEL 105 MMOL/L (98-107); CREATININE FOR GFR 0.79 MG/DL (0.55-1.30); GLOMERULAR FILTRATION RATE > 60.0 (>32); GLUCOSE, FASTING 75 MG/DL (74-106); POTASSIUM SERUM 4.4 MMOL/L (3.5-5.1); SODIUM LEVEL 140 MMOL/L (136-145)
== END ==
PROVIDERS: ATTEND Internal Medicine
DX: K92.2 Gastrointestinal hemorrhage, unspecified (principal)

== ENCOUNTER → 2022-11-12 | Outpatient (REF) | payer MEDICARE, MEDICAID ==
[2022-11-12 09:17] LABS: HEMATOCRIT 45.4 % (36.0-47.0); HEMOGLOBIN 14.5 g/dl (12.0-15.5); MEAN CORPUSCULAR HEMOGLOBIN 31.9 pg (27.0-33.0); MEAN CORPUSCULAR HGB CONC 31.9 g/dl (32.0-36.5); MEAN CORPUSCULAR VOLUME 99.8 fl (80.0-96.0); PLATELET COUNT, AUTOMATED 200 10^3/uL (150-450); RED BLOOD COUNT 4.55 10^6/uL (4.00-5.40); WHITE BLOOD COUNT 8.1 10^3/uL (4.0-10.0)
[2022-11-12 09:30] LABS: BLOOD UREA NITROGEN 16 MG/DL (9-23); CALCIUM LEVEL 9.1 MG/DL (8.3-10.6); CARBON DIOXIDE LEVEL 30 MMOL/L (20-31); CHLORIDE LEVEL 107 MMOL/L (98-107); CREATININE FOR GFR 0.75 MG/DL (0.55-1.30); GLOMERULAR FILTRATION RATE > 60.0 (>32); GLUCOSE, FASTING 88 MG/DL (74-106); POTASSIUM SERUM 4.6 MMOL/L (3.5-5.1); SODIUM LEVEL 141 MMOL/L (136-145)
== END ==
PROVIDERS: ATTEND Internal Medicine
DX: K92.2 Gastrointestinal hemorrhage, unspecified (principal)

== ENCOUNTER → 2022-11-20 | Outpatient (REF) | payer MEDICARE, MEDICAID | PROVIDERS: ATTEND Physician Assistant | DX: N39.0 Urinary tract infection, site not specified (principal) ==

== ENCOUNTER → 2023-01-10 | Outpatient (REF) | payer MEDICARE, MEDICAID | PROVIDERS: ATTEND Internal Medicine | DX: I50.9 Heart failure, unspecified (principal) ==

== ENCOUNTER → 2023-05-20 | Outpatient (REF) | payer MEDICARE, MEDICAID ==
[~2023-05-20] MED LIST changes: +OPTI0.5D2 OU; -OPTI0.5D5 OU
[2023-05-20 10:15] LABS: HEMATOCRIT 46.6 % (36.0-47.0); HEMOGLOBIN 14.7 g/dl (12.0-15.5); MEAN CORPUSCULAR HEMOGLOBIN 31.3 pg (27.0-33.0); MEAN CORPUSCULAR HGB CONC 31.5 g/dl (32.0-36.5); MEAN CORPUSCULAR VOLUME 99.1 fl (80.0-96.0); PLATELET COUNT, AUTOMATED 241 10^3/uL (150-450); WHITE BLOOD COUNT 9.4 10^3/uL (4.0-10.0)
[2023-05-20 10:30] LABS: BLOOD UREA NITROGEN 17 MG/DL (9-23); CALCIUM LEVEL 8.9 MG/DL (8.3-10.6); CARBON DIOXIDE LEVEL 30 MMOL/L (20-31); CHLORIDE LEVEL 108 MMOL/L (98-107); CREATININE FOR GFR 0.84 MG/DL (0.55-1.30); GLOMERULAR FILTRATION RATE > 60.0 (>32); GLUCOSE, FASTING 110 MG/DL (74-106); POTASSIUM SERUM 3.4 MMOL/L (3.5-5.1); SODIUM LEVEL 144 MMOL/L (136-145)
== END ==
PROVIDERS: ATTEND Internal Medicine
DX: K92.2 Gastrointestinal hemorrhage, unspecified (principal)

== ENCOUNTER → 2023-07-31 | Outpatient (REF) | payer MEDICARE, MEDICAID ==
[~2023-07-31] MED LIST changes: +BENPAD TOP; +DULC10SU2 PR; +OXYC1TAB23 PO; +PANT20TA6 PO; +PANT40TA29 PO; +POLY1.4S OU
[2023-07-31 11:56] LABS: HEMATOCRIT 44.4 % (36.0-47.0); HEMOGLOBIN 14.1 g/dl (12.0-15.5); MEAN CORPUSCULAR HEMOGLOBIN 31.8 pg (27.0-33.0); MEAN CORPUSCULAR HGB CONC 31.8 g/dl (32.0-36.5); PLATELET COUNT, AUTOMATED 292 10^3/uL (150-450); RED BLOOD COUNT 4.44 10^6/uL (4.00-5.40); WHITE BLOOD COUNT 12.1 10^3/uL (4.0-10.0)
[2023-07-31 12:55] LABS: ALBUMIN 2.8 G/DL (3.2-5.2); ALKALINE PHOSPHATASE 100 U/L (46-116); ALT/SGPT < 9 U/L (7.0-40); AST/SGOT 13 U/L (<34); BILIRUBIN,DIRECT 0.2 MG/DL (<0.4); BILIRUBIN,TOTAL 0.4 MG/DL (0.3-1.2); TOTAL PROTEIN 6.1 G/DL (5.7-8.2)
== END ==
PROVIDERS: ATTEND Physician Assistant
DX: E78.5 Hyperlipidemia, unspecified (principal)

== ENCOUNTER 2023-08-01 13:03 | Emergency (ER) | payer MEDICARE, MEDICAID ==
[~2023-08-01 13:03] MED LIST changes: -BENPAD TOP; -DULC10SU2 PR; -OXYC1TAB23 PO; -PANT20TA6 PO; -PANT40TA29 PO; -POLY1.4S OU
[2023-08-01 13:10] VITALS: BP 121/80; TEMP 97.4; O2SAT 96
[2023-08-01 14:23] LABS: BASO % 0.2 % (0.0-1.0); HEMATOCRIT 45.1 % (36.0-47.0); HEMOGLOBIN 14.7 g/dl (12.0-15.5); LYMPH # 2.7 10^3/uL (1.5-5.0); LYMPH % 20.8 % (24.0-44.0); MEAN CORPUSCULAR HEMOGLOBIN 32.4 pg (27.0-33.0); MEAN CORPUSCULAR HGB CONC 32.6 g/dl (32.0-36.5); MEAN CORPUSCULAR VOLUME 99.3 fl (80.0-96.0); MONO # 0.9 10^3/uL (0.0-0.8); MONO % 6.7 % (2.0-8.0); NEUTROPHILS # 9.2 10^3/uL (1.5-8.5); NEUTROPHILS % 71.9 % (36.0-66.0); PLATELET COUNT, AUTOMATED 319 10^3/uL (150-450); RED BLOOD COUNT 4.54 10^6/uL (4.00-5.40); WHITE BLOOD COUNT 12.8 10^3/uL (4.0-10.0)
[2023-08-01 14:36] LABS: INR 1.1; PARTIAL THROMBOPLASTIN TIME 27.4 SECONDS (24.8-34.2); PROTHROMBIN TIME 13.9 SECONDS (12.5-14.5)
[2023-08-01] MEDS: NS 500 ML IV ONE (14:41)
[2023-08-01 14:49] LABS: ALBUMIN 2.9 G/DL (3.2-5.2); ALKALINE PHOSPHATASE 107 U/L (46-116); ALT/SGPT 18 U/L (7.0-40); AST/SGOT 17 U/L (<34); BILIRUBIN,DIRECT 0.2 MG/DL (<0.4); BILIRUBIN,TOTAL 0.4 MG/DL (0.3-1.2); BLOOD UREA NITROGEN 24 MG/DL (9-23); CALCIUM LEVEL 8.9 MG/DL (8.3-10.6); CARBON DIOXIDE LEVEL 26 MMOL/L (20-31); CHLORIDE LEVEL 108 MMOL/L (98-107); CK-MB VALUE MASS 1.7 NG/ML (<3.6); CPK CREATINE PHOSPHOKINASE 38 U/L (34-145); CREATININE FOR GFR 0.81 MG/DL (0.55-1.30); GLOMERULAR FILTRATION RATE > 60.0 (>32); GLUCOSE, FASTING 119 MG/DL (74-106); MB/CK RELATIVE INDEX 4.47 (< OR =4); POTASSIUM SERUM 4.2 MMOL/L (3.5-5.1); SODIUM LEVEL 140 MMOL/L (136-145); TOTAL PROTEIN 6.5 G/DL (5.7-8.2)
[2023-08-01 15:02] LABS: RSV AMPLIFICATION NEGATIVE (NEGATIVE)
[2023-08-01] MEDS ORDERED: PANT40TA29 PO (15:08)
[2023-08-01] MEDS ORDERED: BENPAD TOP (15:08)
[2023-08-01] MEDS ORDERED: MYLASSUD PO (15:19)
[2023-08-01] MEDS ORDERED: POLY1.4S OU (15:19)
[2023-08-01] MEDS ORDERED: PANT20TA6 PO (15:19)
[2023-08-01] MEDS ORDERED: DULC10SU2 PR (15:24)
[2023-08-01] MEDS ORDERED: HOME MED LIST COMPLETE! XX SCH (15:25)
[2023-08-01] MEDS: MORPHINE 2 MG/ML 1ML VIAL IV ONE (15:47)
[2023-08-01] MEDS: ACETAMINOPHEN TAB 650MG DOSE (2X325MG) PO ONE (16:09)
[2023-08-01] MEDS ORDERED: OXYC1TAB23 PO (18:04)
[2023-08-01 19:47] LABS: HIV SCREEN CENTAUR SOURCE NEGATIVE (NEGATIVE)
== END 2023-08-01 19:20 | disposition home or self-care (01) ==
LOC: EDBD 13:03 → M ED 13:03
DX: S72.052A Unspecified fracture of head of left femur, initial encounter for closed fracture (principal); Y92.9 Unspecified place or not applicable; Y93.9 Activity, unspecified; Y99.9 Unspecified external cause status; I10 Essential (primary) hypertension; Z91.011 Allergy to milk products; Z79.1 Long term (current) use of non-steroidal anti-inflammatories (NSAID); Z79.899 Other long term (current) drug therapy

== ENCOUNTER → 2023-08-01 | Outpatient (CLI) | payer MEDICARE, MEDICAID | LOC: M RAD 07:26 | PROVIDERS: ATTEND Internal Medicine | DX: M25.552 Pain in left hip (principal) ==

== ENCOUNTER → 2023-08-16 | Outpatient (CLI) | payer MEDICARE, MEDICAID ==
[~2023-08-16] MED LIST changes: +BENPAD TOP; +DULC10SU2 PR; +OXYC1TAB23 PO; +PANT20TA6 PO; +PANT40TA29 PO; +POLY1.4S OU
== END ==
LOC: M SOG 08:17
PROVIDERS: ATTEND Orthopaedic Surgery
DX: M25.552 Pain in left hip (principal)

== ENCOUNTER → 2023-09-04 | Outpatient (REF) | payer MEDICARE, MEDICAID ==
[2023-09-04 08:26] LABS: HEMATOCRIT 41.9 % (36.0-47.0); HEMOGLOBIN 13.5 g/dl (12.0-15.5); MEAN CORPUSCULAR HEMOGLOBIN 32.6 pg (27.0-33.0); MEAN CORPUSCULAR HGB CONC 32.2 g/dl (32.0-36.5); MEAN CORPUSCULAR VOLUME 101.2 fl (80.0-96.0); PLATELET COUNT, AUTOMATED 298 10^3/uL (150-450); RED BLOOD COUNT 4.14 10^6/uL (4.00-5.40); WHITE BLOOD COUNT 12.2 10^3/uL (4.0-10.0)
[2023-09-04 08:48] LABS: ALBUMIN 2.5 G/DL (3.2-5.2); ALKALINE PHOSPHATASE 132 U/L (46-116); ALT/SGPT < 9 U/L (7.0-40); AST/SGOT 19 U/L (<34); BILIRUBIN,DIRECT 0.2 MG/DL (<0.4); BILIRUBIN,TOTAL 0.5 MG/DL (0.3-1.2); BLOOD UREA NITROGEN 22 MG/DL (9-23); CALCIUM LEVEL 8.9 MG/DL (8.3-10.6); CARBON DIOXIDE LEVEL 28 MMOL/L (20-31); CHLORIDE LEVEL 104 MMOL/L (98-107); CREATININE FOR GFR 0.78 MG/DL (0.55-1.30); GLOMERULAR FILTRATION RATE > 60.0 (>32); GLUCOSE, FASTING 79 MG/DL (74-106); POTASSIUM SERUM 4.2 MMOL/L (3.5-5.1); SODIUM LEVEL 138 MMOL/L (136-145); TOTAL PROTEIN 5.8 G/DL (5.7-8.2)
== END ==
PROVIDERS: ATTEND Internal Medicine
DX: E78.5 Hyperlipidemia, unspecified (principal)

== ENCOUNTER → 2023-09-05 | Outpatient (REF) | payer MEDICARE, MEDICAID | PROVIDERS: ATTEND Physician Assistant | DX: R41.0 Disorientation, unspecified (principal); Z53.8 Procedure and treatment not carried out for other reasons ==

== ENCOUNTER → 2023-09-06 | Outpatient (REF) | payer MEDICARE, MEDICAID ==
[2023-09-06 07:47] LABS: BASO % 0.3 % (0.0-1.0); HEMATOCRIT 37.6 % (36.0-47.0); HEMOGLOBIN 12.1 g/dl (12.0-15.5); LYMPH # 2.9 10^3/uL (1.5-5.0); LYMPH % 26.5 % (24.0-44.0); MEAN CORPUSCULAR HEMOGLOBIN 32.8 pg (27.0-33.0); MEAN CORPUSCULAR HGB CONC 32.2 g/dl (32.0-36.5); MEAN CORPUSCULAR VOLUME 101.9 fl (80.0-96.0); MONO # 0.9 10^3/uL (0.0-0.8); MONO % 8.2 % (2.0-8.0); NEUTROPHILS % 64.6 % (36.0-66.0); PLATELET COUNT, AUTOMATED 260 10^3/uL (150-450); RED BLOOD COUNT 3.69 10^6/uL (4.00-5.40); WHITE BLOOD COUNT 10.8 10^3/uL (4.0-10.0)
[2023-09-06 08:06] LABS: BLOOD UREA NITROGEN 21 MG/DL (9-23); CALCIUM LEVEL 8.2 MG/DL (8.3-10.6); CARBON DIOXIDE LEVEL 28 MMOL/L (20-31); CHLORIDE LEVEL 106 MMOL/L (98-107); CREATININE FOR GFR 0.82 MG/DL (0.55-1.30); GLOMERULAR FILTRATION RATE > 60.0 (>32); GLUCOSE, FASTING 77 MG/DL (74-106); POTASSIUM SERUM 3.9 MMOL/L (3.5-5.1); SODIUM LEVEL 139 MMOL/L (136-145)
== END ==
PROVIDERS: ATTEND Physician Assistant
DX: R41.0 Disorientation, unspecified (principal)

== ENCOUNTER → 2023-09-23 | Outpatient (REF) | payer MEDICARE, MEDICAID | PROVIDERS: ATTEND Physician Assistant | DX: R60.9 Edema, unspecified (principal); Z53.8 Procedure and treatment not carried out for other reasons ==

== ENCOUNTER → 2023-09-24 | Outpatient (REF) | payer MEDICARE, MEDICAID | PROVIDERS: ATTEND Internal Medicine | DX: R60.9 Edema, unspecified (principal) ==

== ENCOUNTER → 2023-09-25 | Outpatient (REF) | payer MEDICARE, MEDICAID ==
[2023-09-25 11:23] LABS: HEMATOCRIT 43.2 % (36.0-47.0); HEMOGLOBIN 13.6 g/dl (12.0-15.5); MEAN CORPUSCULAR HEMOGLOBIN 32.5 pg (27.0-33.0); MEAN CORPUSCULAR HGB CONC 31.5 g/dl (32.0-36.5); MEAN CORPUSCULAR VOLUME 103.1 fl (80.0-96.0); PLATELET COUNT, AUTOMATED 258 10^3/uL (150-450); RED BLOOD COUNT 4.19 10^6/uL (4.00-5.40); WHITE BLOOD COUNT 11.3 10^3/uL (4.0-10.0)
[2023-09-25 11:47] LABS: THYROID STIMULATING HORMONE 0.766 uIU/ML (0.55-4.78)
[2023-09-25 11:48] LABS: BLOOD UREA NITROGEN 16 MG/DL (9-23); CARBON DIOXIDE LEVEL 30 MMOL/L (20-31); CHLORIDE LEVEL 106 MMOL/L (98-107); CREATININE FOR GFR 0.72 MG/DL (0.55-1.30); GLOMERULAR FILTRATION RATE > 60.0 (>32); GLUCOSE, FASTING 90 MG/DL (74-106); POTASSIUM SERUM 3.9 MMOL/L (3.5-5.1); SODIUM LEVEL 144 MMOL/L (136-145)
== END ==
PROVIDERS: ATTEND Physician Assistant
DX: R60.9 Edema, unspecified (principal); I50.30 Unspecified diastolic (congestive) heart failure

== ENCOUNTER → 2023-10-02 | Outpatient (REF) | payer MEDICARE, MEDICAID ==
[2023-10-02 12:41] LABS: HEMATOCRIT 38.4 % (36.0-47.0); HEMOGLOBIN 12.5 g/dl (12.0-15.5); MEAN CORPUSCULAR HEMOGLOBIN 33.3 pg (27.0-33.0); MEAN CORPUSCULAR HGB CONC 32.6 g/dl (32.0-36.5); MEAN CORPUSCULAR VOLUME 102.4 fl (80.0-96.0); PLATELET COUNT, AUTOMATED 237 10^3/uL (150-450); RED BLOOD COUNT 3.75 10^6/uL (4.00-5.40); WHITE BLOOD COUNT 11.2 10^3/uL (4.0-10.0)
== END ==
PROVIDERS: ATTEND Internal Medicine
DX: D64.9 Anemia, unspecified (principal)

== ENCOUNTER → 2023-10-10 | Outpatient (REF) | payer MEDICARE, MEDICAID | PROVIDERS: ATTEND Physician Assistant | DX: D64.9 Anemia, unspecified (principal); Z53.8 Procedure and treatment not carried out for other reasons ==